=== PATIENT | female | born 1945 | race Caucasian/White ===

== ENCOUNTER → 2016-08-23 | Outpatient (CLI) | payer BC ==
[~2016-08-23] MED LIST: AMLO-110 PO; ASPI1TAB83 PO; ATOR-26 PO; CALCTAB5 PO; CARV25TA PO; CHOL1CAP57 PO; CYAN100020 PO; FERR325T18 PO; FERR325T74 PO; GABA-112 PO; GFNSR600 PO; IPRA1AER2 INH; LISI40TA PO; LVQ500 PO; METF-384 PO; MRLP17 PO; NTRGSL/4 UT; OXGN; PHEN-601 PO; POLY150C4 PO; PPTBS PO; PRFINS INH; TRAM-10 PO
[2016-08-23 12:59] LABS: BLOOD UREA NITROGEN 28 mg/dl (7-18); CALCIUM 9.3 mg/dl (8.5-10.1); CARBON DIOXIDE 31 mmol/L (21-32); CHLORIDE 104 mmol/L (98-107); GLUCOSE 225 mg/dl (70-99); POTASSIUM 4.9 mmol/L (3.5-5.1); SODIUM 141 mmol/L (136-145)
[2016-08-23 13:15] LABS: ESTIMATED AVERAGE GLUCOSE 160 mg/dl; HA1C FLAG Normal (Normal)
== END | disposition home or self-care (01) ==
LOC: C.LABBFT 10:09
PROVIDERS: ATTEND Internal Medicine
DX: E11.59 Type 2 diabetes mellitus with other circulatory complications (principal)

== ENCOUNTER → 2017-01-03 | Outpatient (CLI) | payer BC ==
[2017-01-03 12:33] LABS: URINE APPEARANCE CLEAR (CLEAR); URINE BILIRUBIN NEG (NEG); URINE COLOR YELLOW; URINE EPITHELIAL CELL AUTO >30 /lpf (0-5); URINE NITRITE NEG (NEG); URINE SPECIFIC GRAVITY 1.017 (1.000-1.030); UROBILINOGEN NEG (NEG); ZZUR CULT IF INDIC CLEAN CATCH NO
[2017-01-03 12:36] LABS: MANUAL MICROSCOPIC REQUIRED? NO; REVIEW REQ? NO; SULFASALICYLIC ACID POS (NEG)
[2017-01-03 12:45] LABS: ALT/SGPT 18 U/L (12-78); AST/SGOT 11 U/L (15-37); BLOOD UREA NITROGEN 24 mg/dl (7-18); BUN/CREATININE RATIO 21.6 (10-20); CARBON DIOXIDE 30 mmol/L (21-32); CHLORIDE 104 mmol/L (98-107); CHOLESTEROL 118 mg/dl (0-200); GLUCOSE 161 mg/dl (70-99); POTASSIUM 5.3 mmol/L (3.5-5.1); SODIUM 142 mmol/L (136-145); TRIGLYCERIDES 173 mg/dl (0-150); VERY LOW DENSITY LIPOPROT CALC 35 mg/dl
[2017-01-03 12:46] LABS: ALB/GLOB RATIO 0.8 (0.9-2); ALKALINE PHOSPHATASE 66 U/L (45-117); CALCIUM 9.9 mg/dl (8.5-10.1); CHOLESTEROL/HDL RATIO 3.1; HDL CHOLESTEROL 38 mg/dl; LDL CHOLESTEROL CALCULATED 45 mg/dl
[2017-01-03 13:17] LABS: ESTIMATED AVERAGE GLUCOSE 166 mg/dl; HA1C FLAG Normal (Normal)
[2017-01-03 13:29] LABS: RATIO 1624.6 mcg/mg (0-30.0)
== END | disposition home or self-care (01) ==
LOC: C.LABBFT 07:51
PROVIDERS: ATTEND Physician Assistant Medical
DX: E11.59 Type 2 diabetes mellitus with other circulatory complications (principal); I25.10 Atherosclerotic heart disease of native coronary artery without angina pectoris

== ENCOUNTER → 2017-03-07 | Outpatient (CLI) | payer BC ==
[2017-03-07 12:47] LABS: BLOOD UREA NITROGEN 27 mg/dl (7-18); BUN/CREATININE RATIO 24.5 (10-20); CALCIUM 9.7 mg/dl (8.5-10.1); CARBON DIOXIDE 31 mmol/L (21-32); CHLORIDE 105 mmol/L (98-107); GLUCOSE 126 mg/dl (70-99); POTASSIUM 4.7 mmol/L (3.5-5.1); SODIUM 141 mmol/L (136-145)
== END | disposition home or self-care (01) ==
LOC: C.LAB1850 10:56
PROVIDERS: ATTEND Internal Medicine Cardiovascular Disease
DX: I10 Essential (primary) hypertension (principal); I25.10 Atherosclerotic heart disease of native coronary artery without angina pectoris; E87.5 Hyperkalemia

== ENCOUNTER 2017-03-19 14:16 | Emergency (ER) | payer BC ==
[~2017-03-19] VITALS: Ht 142.2 cm; Wt 69.4 kg
[~2017-03-19 14:16] MED LIST changes: -FERR325T18 PO; -TRAM-10 PO
[2017-03-19 14:21] VITALS: TEMP 36.8; Ht 142.2 cm; Wt 69.4 kg
[2017-03-19] MEDS ORDERED: FENTANYL CITRATE INJ 50 MCG/1 ML 2 ML VIAL IV STA (14:40)
[2017-03-19] MEDS ORDERED: CALCTAB5 PO (14:53)
[2017-03-19] MEDS ORDERED: FERR325T18 PO (14:53)
--- NOTE | 2017-03-19 15:11 | EMERGENCY ROOM VISIT NOTE ---
History Report prepared by Roderick: Francisco Ridley Under the Supervision of: Dr. Caitlin Toro D.O. First contact with patient: 14:27 Chief Complaint: FLANK PAIN Stated Complaint: PAIN ON LEFT SIDE History of Present Illness The patient is a 72 year old female who presents to the Emergency Room with complaints of sharp left sided flank pain that began 3 days ago. She rates her pain an 8/10 in severity. 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 She noticed the pain gradually begin at this time. While she was at work, she noticed that when she bent down, her pain was exacerbated moderately. She denies any fevers, chills, cough, nausea, vomiting, chest pain, shortness of breath, melena, hematochezia, or abnormal urinary symptoms. She notes that she has been eating and drinking normally. This has never happened to her before. No other recent trauma. No recent illness. Source of History: patient Onset: 3 days ago Position: back (left lower) Symptom Intensity: 8/10 Quality: sharp Timing: constant Modifying Factors (Worsening): movement Associated Symptoms: No fevers, No chills, No cough, No chest pain, No SOB, No nausea, No vomiting, No melena, No diarrhea, No urinary symptoms Review of Systems See HPI for pertinent positives & negatives. A total of 10 systems reviewed and were otherwise negative. Past Medical & Surgical Medical Problems: (1) Anemia (2) Diab Emeli Wo Compl, Type Ii Or Unspec Type, Not Uncntrld (3) Diverticulosis Colon (W/O Ment Of Hemorrhage) (4) DJD (degenerative joint disease) (5) Esophageal Reflux (6) Hyperlipidemia Nec/Nos (7) Hypertension Nos (8) Hypoxia Family History Omitted secondary to the patient's age. Social History Smoking Status: Current Every Day Smoker Smokeless Tobacco Use: No Alcohol Use: none Drug Use: none Marital Status: Housing Status: lives alone Occupation Status: employed Current/Historical Medications Scheduled Amlodipine (Norvasc), 5 MG PO DAILY Aspirin (Aspirin), 81 MG PO DAILY Atorvastatin (Lipitor), 80 MG PO DAILY Calcium Carbonate (Caltrate 600), 600 MG PO BID Carvedilol (Coreg), 1 TAB PO BID Cholecalciferol (Vitamin D3), 1,000 UNIT PO BID Cyanocobalamin (Vitamin B12), 1 TAB PO DAILY Ferrous Gluconate (Ferrous Gluconate), 324 MG PO BID Home O2 Therapy (Oxygen), 2 LITERS NA CONTINOUS Lisinopril (Zestril), 40 MG PO QAM Metformin Hcl (Glucophage), 1,000 MG PO BID Polysaccharide Iron Complex (Ferrex 150), 150 MG PO HS Scheduled PRN Nitroglycerin (Nitrostat), 0.4 MG UT UD PRN for Chest Pain Tramadol (Ultram), 1 TABS PO Q8 PRN for Pain Allergies Coded Allergies: No Known Drug Allergy (Verified Allergy, Unknown, `, 05/07/16) Physical Exam Vital Signs Date Time Temp Pulse Resp B/P (MAP) Pulse Ox O2 Delivery O2 Flow Rate FiO2 03/19/17 17:54 70 20 183/77 93 03/19/17 16:16 74 20 154/82 93 03/19/17 15:43 192/79 03/19/17 14:21 36.8 93 17 200/75 98 Room Air Physical Exam GENERAL: alert, well appearing, well nourished, no distress, non-toxic EYE EXAM: normal conjunctiva, PERRL and EOM's grossly intact OROPHARYNX: no exudate, no erythema, lips, buccal mucosa, and tongue normal and mucous membranes are moist NECK: supple, no nuchal rigidity, no adenopathy, non-tender LUNGS: Clear to auscultation. Normal chest wall mechanics, no w/r/r HEART: no murmurs, S1 normal and S2 normal ABDOMEN: abdomen soft, non-tender, normo-active bowel sounds, no masses, no rebound or guarding. BACK: Back is symmetrical on inspection and there is no deformity, no midline tenderness, no CVA tenderness. Left lateral lower back pain, no midline stepoff , no evidence of trauma. SKIN: no rashes and no bruising UPPER EXTREMITIES: upper extremities are grossly normal. LOWER EXTREMITIES: No pitting edema. NEURO EXAM: Normal sensorium, cranial nerves II-XII grossly intact, normal speech, no gross weakness of arms, no gross weakness of legs. Medical Decision & Procedures ER Provider Diagnostic Interpretation: Radiology results have been interpreted by the radiologist and reviewed by me. CT OF THE ABDOMEN AND PELVIS WITHOUT CONTRAST CLINICAL HISTORY: Left lower back pain. COMPARISON STUDY: Renal ultrasound November 17, 2015. TECHNIQUE: Axial images of the abdomen and pelvis were obtained without IV contrast. Images were reviewed in the axial, sagittal, and coronal planes. A dose lowering technique was utilized adhering to the principles of ALARA. FINDINGS: The heart is mildly enlarged. Extensive coronary artery calcification is noted. Multiple bilateral renal calculi are noted. These measure up to 5 mm. There is marked left renal atrophy with multifocal scarring of the left kidney. Slight prominence of the right renal collecting system is likely within normal limits. There is no left hydronephrosis. There are no ureteral calculi. Evaluation of the remainder of the abdomen and pelvis is suboptimal on this unenhanced exam. The liver, spleen, adrenal glands and pancreas are unremarkable. There is a moderate amount of stool within the colon. There is left colon diverticulosis without evidence for acute diverticulitis. The appendix is unremarkable. There is no lymphadenopathy. There are no suspicious skeletal lesions. There is extensive atherosclerotic plaque of the abdominal aorta and branch vessels. There is no aneurysmal dilatation. There is no free fluid. No pneumatosis, free air or portal venous gas is present. Mild multilevel degenerative disc disease is noted as well as moderate multilevel facet arthrosis within the lumbar spine. There is no acute lumbar spine fracture. IMPRESSION: 1. Bilateral nephrolithiasis. No ureteral calculi or hydronephrosis. Slight prominence of the right renal collecting system, likely within normal limits. 2. Marked left renal atrophy with multifocal scarring of the left kidney. 3. Colonic diverticulosis without evidence of acute diverticulitis. 4. Mild cardiomegaly and extensive coronary artery calcification. Electronically signed by: Owen Doherty M.D. 03/19/2017 3:37 PM Dictated Date/Time: 03/19/2017 3:26 PM Laboratory Results 03/19/17 15:05 Red Blood Count 4.09, Mean Corpuscular Volume 88.0, Mean Corpuscular Hemoglobin 27.4, Mean Corpuscular Hemoglobin Concent 31.1, Mean Platelet Volume 10.6, Neutrophils (%) (Auto) 63.4, Lymphocytes (%) (Auto) 24.6, Monocytes (%) (Auto) 4.9, Eosinophils (%) (Auto) 6.4, Basophils (%) (Auto) 0.5, Neutrophils # (Auto) 8.01, Lymphocytes # (Auto) 3.10, Monocytes # (Auto) 0.62, Eosinophils # (Auto) 0.81, Basophils # (Auto) 0.06 03/19/17 15:05 Test 03/19/17 15:05 03/19/17 15:41 White Blood Count 12.62 K/uL (4.8-10.8) Red Blood Count 4.09 M/uL (4.2-5.4) Hemoglobin 11.2 g/dL (12.0-16.0) Hematocrit 36.0 % (37-47) Mean Corpuscular Volume 88.0 fL (80-100) Mean Corpuscular Hemoglobin 27.4 pg (25-34) Mean Corpuscular Hemoglobin Concent 31.1 g/dl (32-36) Platelet Count 274 K/uL (130-400) Mean Platelet Volume 10.6 fL (7.4-10.4) Neutrophils (%) (Auto) 63.4 % Lymphocytes (%) (Auto) 24.6 % Monocytes (%) (Auto) 4.9 % Eosinophils (%) (Auto) 6.4 % Basophils (%) (Auto) 0.5 % Neutrophils # (Auto) 8.01 K/uL (1.4-6.5) Lymphocytes # (Auto) 3.10 K/uL (1.2-3.4) Monocytes # (Auto) 0.62 K/uL (0.11-0.59) Eosinophils # (Auto) 0.81 K/uL (0-0.5) Basophils # (Auto) 0.06 K/uL (0-0.2) RDW Standard Deviation 43.0 fL (36.4-46.3) RDW Coefficient of Variation 13.5 % (11.5-14.5) Immature Granulocyte % (Auto) 0.2 % Immature Granulocyte # (Auto) 0.02 K/uL (0.00-0.02) Anion Gap 6.0 mmol/L (3-11) Est Creatinine Clear Calc Drug Dose 33.6 ml/min Estimated GFR () 52.7 Estimated GFR (Non- 45.4 BUN/Creatinine Ratio 24.3 (10-20) Calcium Level 9.1 mg/dl (8.5-10.1) Urine Color YELLOW Urine Appearance CLEAR (CLEAR) Urine pH 6.0 (4.5-7.5) Urine Specific [place]rey 1.011 (1.000-1.030) Urine Protein 2+ (NEG) Urine Glucose (UA) NEG (NEG) Urine Ketones NEG (NEG) Urine Occult Blood NEG (NEG) Urine Nitrite NEG (NEG) Urine Bilirubin NEG (NEG) Urine Urobilinogen NEG (NEG) Urine Leukocyte Esterase SMALL (NEG) Urine WBC (Auto) 1-5 /hpf (0-5) Urine RBC (Auto) 0-4 /hpf (0-4) Urine Hyaline Casts (Auto) 1-5 /lpf (0-5) Urine Epithelial Cells (Auto) 10-20 /lpf (0-5) Urine Bacteria (Auto) NEG (NEG) Laboratory results per my review. Medications Administered Medications (Trade) Dose Ordered Sig/David Route Start Time Stop Time Status Last Admin Dose Admin Fentanyl Citrate (Fentanyl Inj) 50 mcg NOW STAT IV 03/19/17 14:40 03/19/17 14:42 DC 03/19/17 15:09 50 MCG Sodium Chloride 1,000 ml @ 999 mls/hr Q1H1M STAT IV 03/19/17 15:45 03/19/17 16:45 DC 03/19/17 16:16 999 MLS/HR Ketorolac Tromethamine (Toradol Inj) 15 mg NOW STAT IV 03/19/17 16:13 03/19/17 16:15 DC 03/19/17 16:22 15 MG Lidocaine (Lidoderm Patch 5%) 1 patch NOW STAT TD 03/19/17 16:13 03/19/17 16:15 DC 03/19/17 16:23 1 PATCH Tramadol HCl (Ultram Tab) 50 mg NOW STAT PO 03/19/17 17:16 03/19/17 17:18 DC 03/19/17 17:28 50 MG ED Course 1427: The patient was evaluated in room C2B. A complete history and physical exam was performed. 1440: Ordered Fentanyl Inj 50 mcg IV 1545: Ordered Sodium Chloride 1000 ml @ 999 mls/hr IV 1610: After reassessment, the patient is feeling a little better. I updated her on her results. 1613: Ordered Lidocaine 1 patch TD, Toradol inj 15 mg IV 1716: Ordered Ultram Tab 50 mg PO 1720: Upon reevaluation, the patient is feeling better. I discussed the findings and the treatment plan with the patient. She verbalizes agreement and understanding. She was discharged home. Medical Decision Differential diagnosis: Etiologies such as renal colic, appendicitis, diverticulitis, mesenteric ischemia, aortic pathology, infections, inflammatory bowel disease, PUD, biliary pathology, UTI, musculoskeletal as well as others were entertained. No evidence of renal stone, no evidence of GI pathology, no evidence of acute trauma. Likely musculoskeletal given pain worsening with movement and pt's work. Discussed all results with pt. Discussed sx to watch/return for, f/u with PCP, she verbalized understanding and was agreeable with plan. No sx or evidence on exam to suggest more concerning spinal etiology. Medication Reconcilliation Current Medication List: was personally reviewed by me Blood Pressure Screening Patient's blood pressure: Elevated blood pressure Blood pressure disposition: Elevated BP felt to be situational Impression Primary Impression: Low back pain Scribe Attestation The scribe's documentation has been prepared under my direction and personally reviewed by me in its entirety. I confirm that the note above accurately reflects all work, treatment, procedures, and medical decision making performed by me. Departure Information Dispostion Home / Self-Care Prescriptions Tramadol (Ultram) 50 Mg Tab 1 TABS PO Q8 Y for Pain, #10 TAB Prov: Caitlin Toro, DO 03/19/17 Referrals No Doctor, Assigned (PCP) Forms HOME CARE DOCUMENTATION FORM, IMPORTANT VISIT INFORMATION Patient Instructions My [facility] Additional Instructions Please follow up with your family doctor. Your may continue using Tylenol and ibuprofen as needed for pain during the day, you may apply the Lidoderm patch daily also, however remove it at night before bedtime. If you need to use a stronger pain medication, you may not drive, please monitor for any dizziness or grogginess. Please make sure you're drinking plenty of water, and continue to monitor for any other new or changing symptoms. If you develop any fevers, worsening pain, difficulty urinating, notice a change in your bowel movements, felt numbness or tingling, or you have any other new concerns, please return the emergency room. Problem Qualifiers Primary Impression: Low back pain Chronicity: acute Back pain laterality: left Sciatica presence: without sciatica Qualified Codes: M54.5 - Low back pain
[2017-03-19 15:29] LABS: BASO % 0.5 %; BASO ABS # 0.06 K/uL (0-0.2); COMPLETE YES; EOS % 6.4 %; IG% 0.2 %; LYMPH % 24.6 %; MEAN CORPUSCULAR HEMOGLOBIN 27.4 pg (25-34); MEAN CORPUSCULAR HGB CONC 31.1 g/dl (32-36); MEAN PLATELET VOLUME 10.6 fL (7.4-10.4); MONO % 4.9 %; NEUT % 63.4 %; PLATELET COUNT 274 K/uL (130-400); RED BLOOD COUNT 4.09 M/uL (4.2-5.4); WHITE BLOOD COUNT 12.62 K/uL (4.8-10.8)
--- NOTE | 2017-03-19 15:39 | DIAGNOSTIC IMAGING REPORT ---
CT OF THE ABDOMEN AND PELVIS WITHOUT CONTRAST CLINICAL HISTORY: Left lower back pain. COMPARISON STUDY: Renal ultrasound November 17, 2015. TECHNIQUE: Axial images of the abdomen and pelvis were obtained without IV contrast. Images were reviewed in the axial, sagittal, and coronal planes. A dose lowering technique was utilized adhering to the principles of ALARA. FINDINGS: The heart is mildly enlarged. Extensive coronary artery calcification is noted. Multiple bilateral renal calculi are noted. These measure up to 5 mm. There is marked left renal atrophy with multifocal scarring of the left kidney. Slight prominence of the right renal collecting system is likely within normal limits. There is no left hydronephrosis. There are no ureteral calculi. Evaluation of the remainder of the abdomen and pelvis is suboptimal on this unenhanced exam. The liver, spleen, adrenal glands and pancreas are unremarkable. There is a moderate amount of stool within the colon. There is left colon diverticulosis without evidence for acute diverticulitis. The appendix is unremarkable. There is no lymphadenopathy. There are no suspicious skeletal lesions. There is extensive atherosclerotic plaque of the abdominal aorta and branch vessels. There is no aneurysmal dilatation. There is no free fluid. No pneumatosis, free air or portal venous gas is present. Mild multilevel degenerative disc disease is noted as well as moderate multilevel facet arthrosis within the lumbar spine. There is no acute lumbar spine fracture. IMPRESSION: 1. Bilateral nephrolithiasis. No ureteral calculi or hydronephrosis. Slight prominence of the right renal collecting system, likely within normal limits. 2. Marked left renal atrophy with multifocal scarring of the left kidney. 3. Colonic diverticulosis without evidence of acute diverticulitis. 4. Mild cardiomegaly and extensive coronary artery calcification. Electronically signed by: Owen Doherty M.D. 03/19/2017 3:37 PM Dictated Date/Time: 03/19/2017 3:26 PM
[2017-03-19 15:43] LABS: BUN/CREATININE RATIO 24.3 (10-20); CALCIUM 9.1 mg/dl (8.5-10.1); CREATININE 1.2 mg/dl (0.60-1.20); POTASSIUM 4.3 mmol/L (3.5-5.1)
[2017-03-19] MEDS ORDERED: SODIUM CHLORIDE 0.9% 1000ML 1,000 ML IV STA (15:45)
[2017-03-19 16:02] LABS: URINE APPEARANCE CLEAR (CLEAR); URINE BILIRUBIN NEG (NEG); URINE COLOR YELLOW; URINE NITRITE NEG (NEG); URINE SPECIFIC GRAVITY 1.011 (1.000-1.030); UROBILINOGEN NEG (NEG); ZZUR CULT IF INDIC CLEAN CATCH NO
[2017-03-19 16:06] LABS: MANUAL MICROSCOPIC REQUIRED? NO; REVIEW REQ? NO
[2017-03-19] MEDS ORDERED: LIDODERM (LIDOCAINE) PATCH 5% TD STA (16:13)
[2017-03-19] MEDS ORDERED: KETOROLAC TROMETHAMINE 30 MG/ML VIAL IV STA (16:13)
[2017-03-19] MEDS ORDERED: TRAMADOL HCL 50 MG TAB PO STA (17:16)
[2017-03-19] MEDS ORDERED: TRAM-10 PO (17:21)
[2017-03-19 17:54] VITALS: BP 183/77; PULSE 70; O2SAT 93
== END 2017-03-19 17:56 | disposition home or self-care (01) ==
LOC: C.EDB 14:18 → C.EDC 17:56
DX: M54.5 Low back pain (principal); D64.9 Anemia, unspecified; E11.9 Type 2 diabetes mellitus without complications; K21.9 Gastro-esophageal reflux disease without esophagitis; E78.5 Hyperlipidemia, unspecified; I10 Essential (primary) hypertension; R09.02 Hypoxemia; K57.90 Diverticulosis of intestine, part unspecified, without perforation or abscess without bleeding; F17.200 Nicotine dependence, unspecified, uncomplicated; Z79.82 Long term (current) use of aspirin

== ENCOUNTER → 2017-06-27 | Outpatient (CLI) | payer BC ==
[~2017-06-27] MED LIST changes: +FERR325T18 PO; -FERR325T74 PO; -GABA-112 PO; -GFNSR600 PO; -IPRA1AER2 INH; -LVQ500 PO; -MRLP17 PO; -PHEN-601 PO; -PPTBS PO; -PRFINS INH; +TRAM-10 PO
[2017-06-27 16:54] LABS: HEMATOCRIT 38.5 % (37-47); MEAN CELL VOLUME 88.5 fL (80-100); MEAN CORPUSCULAR HEMOGLOBIN 27.4 pg (25-34); MEAN CORPUSCULAR HGB CONC 30.9 g/dl (32-36); MEAN PLATELET VOLUME 12.4 fL (7.4-10.4); PLATELET COUNT 223 K/uL (130-400); RED BLOOD COUNT 4.35 M/uL (4.2-5.4); WHITE BLOOD COUNT 11.51 K/uL (4.8-10.8)
[2017-06-28 07:58] LABS: ESTIMATED AVERAGE GLUCOSE 160 mg/dl; HA1C FLAG Normal (Normal)
== END | disposition home or self-care (01) ==
LOC: C.LABBFT 14:15
PROVIDERS: ATTEND Physician Assistant Medical
DX: E11.59 Type 2 diabetes mellitus with other circulatory complications (principal); D64.9 Anemia, unspecified

== ENCOUNTER → 2017-10-17 | Outpatient (CLI) | payer BC ==
[~2017-10-17] MED LIST changes: -TRAM-10 PO
--- NOTE | 2017-10-18 15:35 | MAMMOGRAPHY REPORT ---
BILATERAL DIGITAL SCREENING MAMMOGRAM TOMOSYNTHESIS WITH CAD: 10/17/2017 CLINICAL HISTORY: Routine screening. Patient has no complaints. TECHNIQUE: Breast tomosynthesis in addition to standard 2D mammography was performed. Current study was also evaluated with a Computer Aided Detection (CAD) system. COMPARISON: Comparison is made to exams dated: 06/16/2015 mammogram, 04/28/2014 mammogram, 04/23/2013 mammogram, 01/07/2011 mammogram - [facility], 09/25/2008, and 09/24/2007. BREAST COMPOSITION: There are scattered areas of fibroglandular density in both breasts. FINDINGS: There are benign punctate and coarse calcifications in the breasts. No suspicious mass, ar chitectural distortion or cluster of suspicious microcalcifications is seen. IMPRESSION: ACR BI-RADS CATEGORY 1: NEGATIVE There is no mammographic evidence of malignancy. A 1 year screening mammogram is recommended. The pa tient will receive written notification of the results. Approximately 10% of breast cancers are not detected with mammography. A negative mammographic report should not delay biopsy if a clinically suggestive mass is present. Ashley Betancourt M.D. ay/:10/17/2017 16:04:56 [employer] Teacher: Fatemeh OQUENDO(Abner)(Hesham)([place]), [facility] letter sent: Normal 1/2 BI-RADS Code: ACR BI-RADS Category 1: Negative
== END | disposition home or self-care (01) ==
LOC: C.MAMM 12:47
PROVIDERS: ATTEND Internal Medicine
DX: Z12.31 Encounter for screening mammogram for malignant neoplasm of breast (principal)

== ENCOUNTER → 2017-12-12 | Outpatient (CLI) | payer BC ==
[2017-12-12 12:30] LABS: HEMOGLOBIN 11.9 g/dL (12.0-16.0); MEAN CELL VOLUME 88.6 fL (80-100); MEAN CORPUSCULAR HEMOGLOBIN 27.7 pg (25-34); MEAN CORPUSCULAR HGB CONC 31.3 g/dl (32-36); MEAN PLATELET VOLUME 11.7 fL (7.4-10.4); PLATELET COUNT 220 K/uL (130-400); RED CELL DISTRIBUTION WIDTH CV 13.5 % (11.5-14.5); RED CELL DISTRIBUTION WIDTH SD 43.4 fL (36.4-46.3)
[2017-12-12 12:54] LABS: HEMOGLOBIN A1C 7.3 % (4.5-5.6)
[2017-12-12 13:02] LABS: ALBUMIN 3.3 gm/dl (3.4-5.0); ALT/SGPT 19 U/L (12-78); AST/SGOT 13 U/L (15-37); BLOOD UREA NITROGEN 28 mg/dl (7-18); CALCIUM 9.4 mg/dl (8.5-10.1); CARBON DIOXIDE 30 mmol/L (21-32); CHOLESTEROL 101 mg/dl (0-200); CREATININE 1.13 mg/dl (0.60-1.20); GLUCOSE 112 mg/dl (70-99); SODIUM 140 mmol/L (136-145)
[2017-12-12 13:04] LABS: ALKALINE PHOSPHATASE 62 U/L (45-117); LDL CHOLESTEROL CALCULATED 31 mg/dl; TOTAL PROTEIN 7.2 gm/dl (6.4-8.2)
== END | disposition home or self-care (01) ==
LOC: C.LABBFT 10:31
PROVIDERS: ATTEND Physician Assistant Medical
DX: D64.9 Anemia, unspecified (principal); E11.59 Type 2 diabetes mellitus with other circulatory complications; I42.9 Cardiomyopathy, unspecified

== ENCOUNTER 2019-03-18 07:43 | Inpatient (IN) ==
--- NOTE | 2019-02-12 15:39 | PAT Medication Instructions ---
Medication Instructions Date of Service February 12, 2019 Home Medications amlodipine [Norvasc] 10 mg PO QAM aspirin [Aspir-Low] 81 mg PO QAM atorvastatin [Lipitor] 80 mg PO HS carvedilol [Coreg] 25 mg PO BID cholecalciferol (vitamin D3) [Vitamin D3] 1,000 unit PO BID cyanocobalamin (vitamin B-12) [Vitamin B-12] 1,000 mcg PO QAM ferrous gluconate 324 mg PO BID nitroglycerin [Nitrostat] 1 tab SUBLINGUAL UD PRN Prilosec OTC 20 mg PO Q3D glimepiride 2 mg PO BID lisinopril 10 mg PO QAM gabapentin 200 mg PO BID polysaccharide iron complex [Ferric x-150] 150 mg PO HS Continue as directed nitroglycerin [Nitrostat] 1 tab SUBLINGUAL UD PRN (if needed) Prilosec OTC 20 mg PO Q3D DO NOT take the morning of surgery cholecalciferol (vitamin D3) [Vitamin D3] 1,000 unit PO BID cyanocobalamin (vitamin B-12) [Vitamin B-12] 1,000 mcg PO QAM ferrous gluconate 324 mg PO BID glimepiride 2 mg PO BID lisinopril 10 mg PO QAM Take morning of surgery With a small sip of water, OTHERWISE NOTHING TO EAT OR DRINK AFTER MIDNIGHT: amlodipine [Norvasc] 10 mg PO QAM aspirin [Aspir-Low] 81 mg PO QAM carvedilol [Coreg] 25 mg PO BID gabapentin 200 mg PO BID Take evening before surgery atorvastatin [Lipitor] 80 mg PO HS carvedilol [Coreg] 25 mg PO BID cholecalciferol (vitamin D3) [Vitamin D3] 1,000 unit PO BID ferrous gluconate 324 mg PO BID glimepiride 2 mg PO BID gabapentin 200 mg PO BID polysaccharide iron complex [Ferric x-150] 150 mg PO HS Other Notes If you have any questions please call us at [phone] or [phone] or [phone] or [phone]
--- NOTE | 2019-02-13 09:25 | Anesthesiology Consultation ---
Date of Service February 13, 2019 Assessment & Plan (1) Encounter for pre-operative examination: Cardiology 10/03/18 = "No anginal or anginal equivalent type symptoms...from a cardiac standpoint, continue current medications and doses." Note sent to nephrology re: hyperkalemia. Dr. Espinosa recommends patient "hold Lisinopril from the day prior to surgery, OK to resume 1 day after surgery. Priti exalate 30gm P.O x 1 dose, 1 day prior to surgery... if K < 5.5, OK for surgery." *Spoke to patient 02/25; she was prescribed the Kayexalate in January but could not afford it and has thus never picked it up. Dr. Espinosa made aware. Case discussed with Dr. Desouza. OK to proceed without Kayexalate. CHECK K+ AM DOS Chart Review Chart Review: Acceptable Risk for Surgery and Patient seen in Pre Admission Testing Teaching & Discussion Instructed NPO after midnight before surgery, except medications with 15 cc of water. Medication instructions provided according to the PAT guidelines. History Surgery Operation Date: 03/18/19 07:30 Proposed Procedures p L4-L5 Laminectomy and Fusion - Av Torre DO Height/Weight Height: 4 ft 11 in Weight: 78.3 kg Allergies Allergy/AdvReac Type Severity Reaction Status Date / Time No Known Allergies Allergy Verified 02/11/19 08:30 Medications Home Medications Medication Instructions Recorded Confirmed Last Taken amlodipine [Norvasc] 10 mg PO QAM 05/19/18 02/11/19 12/27/18 06:30 aspirin [Aspir-Low] 81 mg PO QAM 05/19/18 02/11/19 12/26/18 atorvastatin [Lipitor] 80 mg PO HS 05/19/18 02/11/19 12/26/18 carvedilol [Coreg] 25 mg PO BID 05/19/18 02/11/19 12/27/18 06:30 cholecalciferol (vitamin D3) 1,000 unit PO BID 05/19/18 02/11/19 12/26/18 [Vitamin D3] cyanocobalamin (vitamin B-12) 1,000 mcg PO QAM 05/19/18 02/11/19 12/26/18 [Vitamin B-12] ferrous gluconate 324 mg PO BID 05/19/18 02/11/19 12/26/18 nitroglycerin [Nitrostat] 1 tab SUBLINGUAL UD PRN 05/19/18 02/11/19 Unknown Prilosec OTC 20 mg PO Q3D 12/25/18 02/11/19 12/26/18 glimepiride 2 mg PO BID 12/25/18 02/11/19 12/26/18 lisinopril 10 mg PO QAM 12/25/18 02/11/19 12/26/18 gabapentin 200 mg PO BID 02/11/19 02/11/19 Unknown polysaccharide iron complex 150 mg PO HS 02/11/19 02/11/19 Unknown [Ferric x-150] Past Medical History Medical History Lumbar spinal stenosis Hyperkalemia (Acute) Persistent since 12/2018 Diabetic peripheral neuropathy Anemia (Chronic ~12/03/13) DJD (degenerative joint disease) (Chronic) CAD (coronary artery disease) NSTEMI 2010, ARABELLA x 1, POBA x 1 [place] [facility] 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 Acute infarct. Treated, complete resolution of symptoms. No residual deficits. Hyperlipidemia Hypertension Myocardial Infarction NSTEMI 2010. ARABELLA to mid LCx and POBA to LAD/Dx. Exercise / Class Metabolic Activity II 4-5 Yardwork/Stairs/Walk up hill (Denies CP or SOB with 1 FOS, limited by back pain) Past Family History Family History Brother Family history of diabetes mellitus Sister Family history of diabetes mellitus Sister Family history of diabetes mellitus Mother Family history of diabetes mellitus Myocardial infarction Stroke Father Myocardial infarction Past Surgical History Surgical History History of cardiac cath 1 STENT 2010[place] [place]NO CHEST PAIN SINCE History of carpal tunnel release RT History of cataract surgery RT/LEFT History of colonoscopy History of tooth extraction History of tubal ligation Past Anesthesia History No Hx of Anesthesia Complications and No Family Hx of Anesthesia Complications History of PONV No Hx of PONV and No Hx of Motion Sickness Social History Smoking Status: Current every day smoker tobacco type: cigarettes Smoking cigarettes per day: < 7 CIG DAILY Do You Dip or Chew Tobacco: No Hx Alcohol Use: No Hx Substance Use: No substance use type: does not use Review of Systems Pt denies any recent chest pain, shortness of breath, palpitations, cough, fever or URI. Physical Exam Vital Signs BP: 134/72 P: 66bpm SPO2: 92% RA T: 98.2 F R: 18 ENMT Mouth: + edentulous Thyromental Distance: > or= 3.5 Finger Breadths (3.5) Mallampati Class: II Neck + short neck; neck extension not limited Respiratory normal respiratory effort Auscultation: lungs clear to auscultation bilaterally Cardiovascular Rate/Rhythm: regular rate and regular rhythm Heart Sounds: no murmur Vessels: + carotid bruit (Very soft bruit L side) Extremities: no edema Testing Laboratory Results 02/13/19 09:50 02/13/19 09:50 PT 10.2 Seconds (9.0-12.0) 02/13/19 09:50 INR 1.0 (0.9-1.1) 02/13/19 09:50 APTT 24.6 Seconds (21.0-31.0) 02/13/19 09:50 Blood Type A Positive 02/13/19 09:50 Antibody Screen NEGATIVE 02/13/19 09:50 GFR of 38 consistent with CKD stage III. Patient has had persistent hyperkalemia -- following with nephrology, was started on Kayexalete 30g once weekly x 6 weeks on 01/15/19. Electrocardiogram Date: 02/13/19 Findings: + NSR @ (66bpm) Left axis deviation. Nonspecific T wave abnormality. Compared to EKG of 05/09/16, no significant change was found. Chest X-Ray Date: 02/13/19 FINDINGS: Lung volumes are normal. Lungs are clear. There is no pneumothorax or pleural effusion. Cardiac size is normal. Mediastinal contours are normal. There is no evidence for pulmonary edema. Mild elevation of the right hemidiaphragm is unchanged. IMPRESSION: No acute cardiopulmonary findings. Other Testing Carotid US = 11/01/12 IMPRESSION: Left greater than right scattered atherosclerotic change. Less than 50% proximal left ICA stenosis. No hemodynamically significant stenos is suspected bilaterally.
[2019-02-13 10:04] LABS: Basophils # (auto) 0.06 K/uL (0-0.2); Basophils % (auto) 0.5 %; Eosinophils # (auto) 0.37 K/uL (0-0.5); Eosinophils % (auto) 3.1 %; Hematocrit (blood only) 40.1 % (37-47); Hemoglobin 12.6 g/dL (12.0-16.0); Immature Granulocytes # (auto) 0.03 K/uL (0.00-0.02); Immature Granulocytes % (auto) 0.2 %; Lymphocytes # (auto) 1.74 K/uL (1.2-3.4); Lymphocytes % (auto) 14.4 %; Mean Corpuscular Hgb Conc 31.4 g/dL (32-36); Mean Corpuscular Volume 88.1 fL (80-100); Mean Platelet Volume 11.6 fL (7.4-10.4); Monocytes # (auto) 0.71 K/uL (0.11-0.59); Monocytes % (auto) 5.9 %; Neutrophils # (auto) 9.21 K/uL (1.4-6.5); Neutrophils % (auto) 75.9 %; Platelet Count 237 K/uL (130-400); RDW Standard Deviation 45.3 fL (36.4-46.3); Red Blood Count 4.55 M/uL (4.2-5.4); White Blood Count 12.12 K/uL (4.8-10.8)
--- NOTE | 2019-02-13 10:17 | XRay Report ---
XR chest Pre-admission PA/Lat CLINICAL HISTORY: Preoperative evaluation. COMPARISON STUDY: Chest radiograph May 07, 2016. FINDINGS: Lung volumes are normal. Lungs are clear. There is no pneumothorax or pleural effusion. Car diac size is normal. Mediastinal contours are normal. There is no evidence for pulmonary edema. Mild elevation of the right hemidiaphragm is unchanged. IMPRESSION: No acute cardiopulmonary findings. Electronically signed by: Owen Doherty M.D. 02/13/2019 10:16 AM
[2019-02-13 10:31] LABS: Partial Thromboplastin Ratio 0.9; Partial Thromboplastin Time 24.6 Seconds (21.0-31.0); Prothrombin Time 10.2 Seconds (9.0-12.0)
[2019-02-13 12:19] LABS: BUN Creatinine Ratio 23.9 (10-20); Creatinine Clr Calc Pharmacy 33.3 ml/min; Est GFR (African American) 44.2; Est GFR (Non-African American) 38.1; Potassium 5.3 mmol/L (3.5-5.1)
--- NOTE | 2019-03-15 17:58 | History and Physical Report ---
DATE OF ADMISSION: 03/18/2019 CHIEF COMPLAINT: Back and lower extremity difficulty, paresthesias, numbness and tingling, neurogenic claudication. She has classic spinal stenosis and she is for a laminectomy and fusion L4-L5 lumbar spine. PAST MEDICAL HISTORY: Diabetes, hypertension, high cholesterol. PAST SURGICAL HISTORY: Negative. ALLERGIES: Negative. FAMILY HISTORY: Heart disease, diabetes. SOCIAL HISTORY: She is single. No alcohol, tobacco. Moderately active lifestyle. REVIEW OF SYSTEMS: Denies any fevers, sweats, chills, weight loss, gain. Ear, nose and throat negative. Denies chest pain, palpitations. Denies asthma, wheezing, shortness of breath. No nausea, vomiting. No urgency, frequency. Denies any psychiatric or skin issues. She has musculoskeletal back pain, joint pain primarily. MEDICATIONS: Listed in the patient intake form and scanned in the computer. PHYSICAL EXAMINATION: GENERAL: She is 4' 11", 171, in distress. VITAL SIGNS: Blood pressure 130/80, pulse 80, respiration 16. HEENT: Pupils react to light and accommodation. Ear, nose and throat clear. CARDIAC: Normal S1, S2. LUNGS: Clear to auscultation. No rales, rhonchi, wheezing. ABDOMEN: Soft, nontender. NEUROLOGIC: She has some weakness with dorsiflexion and plantarflexion. She has gait abnormality. She has no upper or lower motor neuron issues. She has some slight loss of sensation. Reflex examination is normal. ASSESSMENT: Spondylolisthesis. IMPRESSION: Spondylolisthesis and stenosis. PLAN: Laminectomy and fusion L4-L5 lumbar spine.
[~2019-03-18 07:43] MED LIST changes: +ACETAMINOPHEN 1000 MG/100 ML IV IV SCH; -AMLO-110 PO; -ASPI1TAB83 PO; -ATOR-26 PO; -CALCTAB5 PO; -CARV25TA PO; +CEFAZOLIN 2000MG 2,000 MG/15 ML SYR IV SCH; -CHOL1CAP57 PO; -CYAN100020 PO; -FERR325T18 PO; -LISI40TA PO; +LR 15ML/HR IV SCH; -METF-384 PO; -NTRGSL/4 UT; -OXGN; -POLY150C4 PO; +SODIUM CHLORIDE 0.9% 1,000 ML IV SCH
[2019-03-18] MEDS ORDERED: PROPOFOL IV EMULSION 10 MG/ML 20 ML VIAL IV ONE (08:10)
[2019-03-18] MEDS ORDERED: ONDANSETRON INJ 2 MG/ML 2 ML VIAL ONE ×2 (08:10→15:07)
[2019-03-18] MEDS ORDERED: LIDOCAINE HCL 2% 2 ML VIAL/AMP(20MG/ML) INFIL ONE (08:10)
[2019-03-18] MEDS ORDERED: fentaNYL citrate 100 MCG/2 ML VIAL ONE ×2 (08:11→12:38)
[2019-03-18] MEDS ORDERED: MIDAZOLAM HCL 1 MG/ML 2ML VIAL ONE (08:11)
[2019-03-18] MEDS ORDERED: fentaNYL citrate 100 MCG/2 ML VIAL IV PRN (09:35)
[2019-03-18] MEDS ORDERED: ONDANSETRON INJ 2 MG/ML 2 ML VIAL IV PRN (09:35)
[2019-03-18] MEDS ORDERED: ePHEDrine sulfate 50 MG/ML AMP IV PRN (09:35)
[2019-03-18] MEDS ORDERED: ATROPINE SULFATE 0.1 MG/ML 10ML SYR IV PRN (09:35)
[2019-03-18] MEDS ORDERED: HYDROmorphone INJ 2 MG/ML SYR/VIAL IV PRN (09:35)
[2019-03-18] MEDS ORDERED: GELATIN SPONGE SZ 100 ONE (10:17)
[2019-03-18] MEDS ORDERED: VANCOMYCIN HCL 1000MG/20ML VIAL ONE (10:17)
[2019-03-18] MEDS ORDERED: BUPIVACAINE/EPINEPHRINE 0.5% MPF 1:200,000 30 ML VIAL ONE (10:17)
[2019-03-18] MEDS ORDERED: THROMBIN FOR SOLN 20000 UNIT KIT ONE (10:17)
--- NOTE | 2019-03-18 10:44 | History & Physical Bridge Note ---
Date of Service March 18, 2019 History & Physical Bridge Note I have examined the patient, reviewed the History & Physical and in the interval since the performance of the History & Physical I have noted the following changes of clinical significance: no changes noted
[2019-03-18] MEDS ORDERED: KETAMINE HCL INJ 50 MG/ML 10 ML VIAL ONE (11:25)
[2019-03-18] MEDS ORDERED: GLYCOPYRROLATE 0.2 MG/ML VIAL ONE (11:27)
[2019-03-18] MEDS ORDERED: NEOSTIGMINE METHYLSULFATE 5 MG/5 ML SYR ONE (11:27)
--- NOTE | 2019-03-18 13:11 | Fluoroscopy Report ---
INTRAOPERATIVE RADIOGRAPH CLINICAL HISTORY: L3-L5 spinal fusion. Fluoroscopy time: 4 seconds. FINDINGS: A single spot fluoroscopic view of the lumbar spine is presented. There has been laminectom y and posterior fusion from L3-L5. Interpedicular screws are present at all levels. The orthopedic zavala rdware appears intact. IMPRESSION: Intraoperative image from L3-L5 spinal fusion as above. Electronically signed by: Kalpesh Menendez M.D. 03/18/2019 1:10 PM
--- NOTE | 2019-03-18 13:16 | Post Operative Brief Note ---
PG Immediate Post Op with CF Date of Surgery March 18, 2019 Pre & Post Diagnosis Operation Date: 03/18/19 09:50 Pre-Op Diagnosis: Lumbar Spinal Stenosis Post-Op Diagnosis: Lumbar Spinal Stenosis Procedure Operation Date: 03/18/19 09:50 Actual Procedures p L4-L5 Laminectomy and Fusion(Not Applicable) - Av Torre DO Procedure: Laminectomy and fusion L3-L5 Surgeon Av Torre DO Diazo Technician fatoumata Estimated Blood Loss 250 Findings Consistent with Post-Op Diagnosis Specimens Specimen Description: none Drains Rosales Catheter and Hemovac Drain Anesthesia Type General Overlapping Procedure I was immediately available: during the entire case.
--- NOTE | 2019-03-18 13:25 | Post Operative Brief Note ---
PG Immediate Post Op with CF Date of Surgery March 18, 2019 Pre & Post Diagnosis Operation Date: 03/18/19 09:50 Pre-Op Diagnosis: Lumbar Spinal Stenosis Post-Op Diagnosis: Lumbar Spinal Stenosis Procedure Operation Date: 03/18/19 09:50 Actual Procedures p L4-L5 Laminectomy and Fusion(Not Applicable) - Av Torre DO Procedure: L3-5 laminectomy and fusion Surgeon Av Torre DO Flyer Maker fatoumata Estimated Blood Loss 250 Findings Consistent with Post-Op Diagnosis Specimens Specimen Description: none Drains Rosales Catheter and Hemovac Drain Anesthesia Type General
--- NOTE | 2019-03-18 15:06 | Anesthesiology Progress Note ---
Date of Service March 18, 2019 Anesthesia Post Procedure Vital Signs Vital Signs: Temp Pulse Pulse Pulse Resp BP BP 03/18/19 15:00 57 L 13 03/18/19 14:55 58 L 12 126/50 L 03/18/19 14:50 55 L 12 126/65 03/18/19 14:46 56 L 12 135/61 03/18/19 14:45 54 L 14 03/18/19 14:44 36.3 C L 03/18/19 14:40 54 L 13 132/46 L 03/18/19 14:35 55 L 14 132/47 L 03/18/19 14:31 53 L 14 130/43 L 03/18/19 14:30 54 L 14 03/18/19 14:29 36.9 C 03/18/19 14:27 55 L 12 03/18/19 14:26 54 L 14 128/46 L 03/18/19 14:25 54 L 14 03/18/19 14:20 52 L 14 134/45 L 03/18/19 14:16 55 L 14 137/47 L 03/18/19 14:15 53 L 14 03/18/19 14:11 54 L 14 135/47 L 03/18/19 14:10 56 L 12 03/18/19 14:05 56 L 14 137/49 L 03/18/19 14:01 57 L 13 139/51 L 03/18/19 14:00 60 13 03/18/19 13:55 71 14 161/71 H 03/18/19 13:50 66 18 150/57 H 03/18/19 13:45 63 14 149/60 H 03/18/19 13:40 67 12 151/58 H 03/18/19 13:35 36.6 C 66 66 14 140/52 L 140/52 L 03/18/19 08:19 36.6 C 66 18 180/81 H Pulse Ox 03/18/19 15:00 93 03/18/19 14:55 92 03/18/19 14:50 95 03/18/19 14:46 94 03/18/19 14:45 94 03/18/19 14:44 95 03/18/19 14:40 94 03/18/19 14:35 94 03/18/19 14:31 93 03/18/19 14:30 94 03/18/19 14:29 94 03/18/19 14:27 95 03/18/19 14:26 94 03/18/19 14:25 94 03/18/19 14:20 93 03/18/19 14:16 92 03/18/19 14:15 93 03/18/19 14:11 92 03/18/19 14:10 92 03/18/19 14:05 95 03/18/19 14:01 95 03/18/19 14:00 95 03/18/19 13:55 96 03/18/19 13:50 92 03/18/19 13:45 93 03/18/19 13:40 93 03/18/19 13:35 94 03/18/19 08:19 93 Pain Intensity Back: Pain Intensity: 3 Transfer of Care Handoff Completed per policy Notes Mental Status: alert / awake / arousable and participated in evaluation Patient Amnestic to Procedure: Yes Nausea / Vomiting: adequately controlled Pain: adequately controlled Airway Patency, RR, SpO2: stable & adequate BP & HR: stable & adequate Hydration State: stable & adequate Anesthetic Complications: no major complications apparent and Pt Satisfied with anesthetic care
[2019-03-18] MEDS ORDERED: ONDANSETRON 4 MG TAB PO PRN (16:02)
[2019-03-18] MEDS ORDERED: SOD PHOSPHATE/SOD BIPHOSPHATE ENEMA 132 ML BTL PR PRN (16:02)
[2019-03-18] MEDS ORDERED: MAGNESIUM HYDROXIDE SUSP 30 ML UDC PO PRN (16:02)
[2019-03-18] MEDS ORDERED: NALOXONE HCL 0.4 MG/1 ML VIAL/CARP IV PRN (16:02)
[2019-03-18] MEDS ORDERED: ACETAMINOPHEN 1,000 MG/100 ML VIAL IV PRN (16:02)
[2019-03-18] MEDS ORDERED: PROMETHAZINE HCL 12.5 MG in SODIUM CHLORIDE 0.9% 50 ML IV PRN (16:02)
[2019-03-18] MEDS ORDERED: ALUMINUM/MAGNESIUM SUSP 30 ML UDC PO PRN (16:02)
[2019-03-18] MEDS ORDERED: HYDROmorphone INJ 0.5 MG/0.5 ML SYR IV PRN (16:02)
[2019-03-18] MEDS ORDERED: LORazepam 0.5 MG TAB PO PRN (16:02)
[2019-03-18] MEDS ORDERED: SODIUM CHLORIDE 0.9% 1000ML 1,000 ML IV SCH (16:02)
[2019-03-18] MEDS ORDERED: BISACODYL 10 MG SUPP PR PRN (16:02)
[2019-03-18] MEDS ORDERED: DO NOT ADMINISTER FLU VACCINE PRN (16:02)
[2019-03-18] MEDS ORDERED: DO NOT ADMINISTER PNEUMOCOCCAL VACCINE PRN (16:02)
[2019-03-18] MEDS ORDERED: NITROGLYCERIN SL 0.4 MG/TAB TAB SL PRN (16:02)
[2019-03-18] MEDS ORDERED: PHARMACY GLYCEMIC MGMT CONSULT PRN (16:12)
[2019-03-18] MEDS ORDERED: GLUCAGON FOR INJ 1 MG VIAL IM PRN (16:15)
[2019-03-18] MEDS ORDERED: GLUCOSE 10 TABS/TUBE PO PRN (16:15)
[2019-03-18] MEDS ORDERED: DEXTROSE 50% 50 ML SYRINGE IV PRN (16:15)
[2019-03-18] MEDS ORDERED: GLUCOSE 40% GEL 15 GM TUBE PO PRN (16:15)
[2019-03-18] MEDS ORDERED: CARBOHYDRATES FOR HYPOGLYCEMIA PO PRN (16:15)
--- NOTE | 2019-03-18 16:33 | History & Physical Report ---
Date of Service March 18, 2019 Assessment & Plan (1) Lumbar spinal stenosis: -S/p lumbar decompression fusion, by Dr. Torre on 03/18/2019 -PT/OT per primary team -No anticoagulation with spinal surgery -Pain management on board -Bowel regimen ordered (2) Cardiomyopathy: (3) Atherosclerotic heart disease of [place] coronary artery with other forms of angina pectoris: (4) HTN (hypertension): (5) Essential familial hypercholesterolemia: -Continue amlodipine 10 mg QAM, aspirin 81 mg QAM, atorvastatin 80 mg HS, carvedilol 25 mg BID, furosemide 20 mg QAM, lisinopril 10 mg QAM (6) CKD (chronic kidney disease) stage 3, GFR 30-59 ml/min: - Follow am CMP to assess BUN/ Cr. - Encourage PO intake with fluids (7) Smokes less than 1/2 pack per day: - Cessation encouraged (8) DM (diabetes mellitus), type 2, uncontrolled w/neurologic complication: - Hold glimepiride -possibly be able to resume tomorrow or more likely u [place]eron discharge - ISS with accuchecks ACHS - GLycemic pharmacy consulted (9) Sciatica: - Monitor s/p surgical procedure (10) Anemia: - Cont iron supplementation (11) Anxiety: -Stable (12) GERD (gastroesophageal reflux disease): -Uses Prilosec 20 mg every 3 days (13) DVT prophylaxis: - teds, ambulate per primary team. Dispo: From home History of Present Illness Primary Care Provider: Nadia Suarez PA-C This is a 74 yo F with PMHx of CAD, cardiomyopathy HTN, HLD, DM type II, CKD stage III, current tobacco user, using half pack cigarettes per day, anemia, DJD, peripheral neuropathy, sciatica, history of TIA, and GERD who underwent elective lumbar spinal surgery by Dr. Torre on 03/18/2019. Allergies Allergy/AdvReac Type Severity Reaction Status Date / Time No Known Allergies Allergy Verified 03/18/19 08:13 Home Medications Home Medications Medication Instructions Recorded Confirmed Type amlodipine [Norvasc] 10 mg PO QAM 05/19/18 03/18/19 History aspirin [Aspir-Low] 81 mg PO QAM 05/19/18 03/18/19 History atorvastatin [Lipitor] 80 mg PO HS 05/19/18 03/18/19 History cholecalciferol (vitamin D3) 1,000 unit PO BID 05/19/18 03/18/19 History [Vitamin D3] cyanocobalamin (vitamin B-12) 1,000 mcg PO QAM 05/19/18 03/18/19 History [Vitamin B-12] ferrous gluconate 324 mg PO BID 05/19/18 03/18/19 History nitroglycerin [Nitrostat] 1 tab SUBLINGUAL UD PRN 05/19/18 03/18/19 History Prilosec OTC 20 mg PO Q3D 12/25/18 03/18/19 History glimepiride 2 mg PO BID 12/25/18 03/18/19 History lisinopril 10 mg PO QAM 12/25/18 03/18/19 History polysaccharide iron complex 150 mg PO HS 02/11/19 03/18/19 History [Ferric x-150] gabapentin 100 mg capsule 200 mg PO BID #360 cap 02/28/19 03/18/19 Rx carvedilol 25 mg tablet 25 mg PO BID #180 tab 03/05/19 03/18/19 Rx albuterol sulfate 2 puffs INH Q6H #6.7 gm 03/12/19 03/18/19 Rx furosemide [Lasix] 20 mg PO QAM #10 tab 03/12/19 03/18/19 Rx Past Med/Surg History Medical History Lumbar spinal stenosis Hyperkalemia (Acute) Persistent since 12/2018 Diabetic peripheral neuropathy Anemia (Chronic ~12/03/13) DJD (degenerative joint disease) (Chronic) CAD (coronary artery disease) NSTEMI 2010, [place] 1, [place] [facility] 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 Acute infarct. Treated, complete resolution of symptoms. No residual deficits. Hyperlipidemia Hypertension Myocardial Infarction NSTEMI 2010. ARABELLA to mid LCx and POBA to LAD/Dx. Surgical History History of cardiac cath 1 [place] [place] History of carpal tunnel release RT History of cataract surgery RT/LEFT History of colonoscopy History of tooth extraction History of tubal ligation Family History Brother Family history of diabetes mellitus Sister Family history of diabetes mellitus Sister Family history of diabetes mellitus Mother Family history of diabetes mellitus Myocardial infarction Stroke Father Myocardial infarction Social History Preferred Language: Mauritian Communication Ability: Effective Public Opinion Survey Taker Required: No Beliefs That Will Affect Care: None Current Living Situation: Alone Other Information That Helps Us Care for You: No Feels Safe at Home: Yes Safety Concerns: Feels Safe At This Time Smoking Status: Former smoker Tobacco Type: cigarettes ; Age Started Using Tobacco: 24 ; Cigarettes Per Day: 7 A DAY ; Do You Dip or Chew Tobacco: No ; Second Hand Exposure: Yes (NIECE) ; Tobacco Cessation Education Requested by Patient: No Hx Alcohol Use: No Hx Substance Use: No Results & Data Vital Signs (Past 12 Hours) Vital Signs Temp Pulse Pulse Pulse Resp BP BP 03/18/19 15:55 36.3 C L 61 16 142/56 H 03/18/19 15:25 36.5 C 57 L 16 124/61 03/18/19 15:11 62 14 145/51 H 03/18/19 15:10 65 14 03/18/19 15:06 61 20 144/68 H 03/18/19 15:05 49 L 12 03/18/19 15:00 57 L 13 03/18/19 14:55 58 L 12 126/50 L 03/18/19 14:50 55 L 12 126/65 03/18/19 14:46 56 L 12 135/61 03/18/19 14:45 54 L 14 03/18/19 14:44 36.3 C L 03/18/19 14:40 54 L 13 132/46 L 03/18/19 14:35 55 L 14 132/47 L 03/18/19 14:31 53 L 14 130/43 L 03/18/19 14:30 54 L 14 03/18/19 14:29 36.9 C 03/18/19 14:27 55 L 12 03/18/19 14:26 54 L 14 128/46 L 03/18/19 14:25 54 L 14 03/18/19 14:20 52 L 14 134/45 L 03/18/19 14:16 55 L 14 137/47 L 03/18/19 14:15 53 L 14 03/18/19 14:11 54 L 14 135/47 L 03/18/19 14:10 56 L 12 03/18/19 14:05 56 L 14 137/49 L 03/18/19 14:01 57 L 13 139/51 L 03/18/19 14:00 60 13 03/18/19 13:55 71 14 161/71 H 03/18/19 13:50 66 18 150/57 H 03/18/19 13:45 63 14 149/60 H 03/18/19 13:40 67 12 151/58 H 03/18/19 13:35 36.6 C 66 66 14 140/52 L 140/52 L 03/18/19 08:19 36.6 C 66 18 180/81 H Pulse Ox 03/18/19 15:55 93 03/18/19 15:25 93 03/18/19 15:11 95 03/18/19 15:10 94 03/18/19 15:06 91 03/18/19 15:05 93 03/18/19 15:00 93 03/18/19 14:55 92 03/18/19 14:50 95 03/18/19 14:46 94 03/18/19 14:45 94 03/18/19 14:44 95 03/18/19 14:40 94 03/18/19 14:35 94 03/18/19 14:31 93 03/18/19 14:30 94 03/18/19 14:29 94 03/18/19 14:27 95 03/18/19 14:26 94 03/18/19 14:25 94 03/18/19 14:20 93 03/18/19 14:16 92 03/18/19 14:15 93 03/18/19 14:11 92 03/18/19 14:10 92 03/18/19 14:05 95 03/18/19 14:01 95 03/18/19 14:00 95 03/18/19 13:55 96 03/18/19 13:50 92 03/18/19 13:45 93 03/18/19 13:40 93 03/18/19 13:35 94 03/18/19 08:19 93 Code Status & VTE Plan VTE Prophylaxis Plan VTE Prophylaxis will be ordered: Yes PG Care Time/CCT Total # of Minutes Spent Total Time Spent with Patient: Total time spent is greater than 50% in coordination of care (as documented) at patient's floor/unit and/or counseling patient:
--- NOTE | 2019-03-18 17:08 | Hospitalist Consultation ---
Date of Consultation March 18, 2019 Assessment & Plan (1) Lumbar spinal stenosis: -S/p lumbar decompression fusion, by Dr. Torre on 03/18/2019 -PT/OT per primary team -No anticoagulation with spinal surgery -Pain management on board -Bowel regimen ordered -Stop IVF now -- as pt has issues with fluid retention and follows with cardiology. Pt was seen in the ER for SOB and fluid retention last week. I do not see any history of CHF as per her record, but there is not a 2D echo since 2012 (which at that time was normal). She is on daily furosemide 20 mg which was scheduled for tomorrow. Her BP is slightly elevated currently, which may be secondary to pain and nausea. - Continue antiemetics with zofran and reglan, can add compazine if uncontrolled. Pt notes she does not handle narcotics well as they do cause nausea. (2) Cardiomyopathy: (3) Atherosclerotic heart disease of [place] coronary artery with other forms of angina pectoris: (4) HTN (hypertension): (5) Essential familial hypercholesterolemia: -Continue amlodipine 10 mg QAM, aspirin 81 mg QAM, atorvastatin 80 mg HS, carvedilol 25 mg BID, furosemide 20 mg QAM, lisinopril 10 mg QAM - Monitor strict I/Os - encourage daily weights upon discharge - HH diet once nausea improved. (6) CKD (chronic kidney disease) stage 3, GFR 30-59 ml/min: - Follow am CMP to assess BUN/ Cr. - Encourage PO intake with fluids - stop IVF (7) Smokes less than 1/2 pack per day: - Cessation encouraged (8) DM (diabetes mellitus), type 2, uncontrolled w/neurologic complication: - Hold glimepiride -possibly be able to resume tomorrow or more likely upon discharge - ISS with accuchecks ACHS - GLycemic pharmacy consulted (9) Sciatica: - Monitor s/p surgical procedure (10) Anemia: - Cont iron supplementation (11) Anxiety: -Stable (12) GERD (gastroesophageal reflux disease): -Uses Prilosec 20 mg every 3 days (13) DVT prophylaxis: - teds, ambulate per primary team. Dispo: From home, lives alone. Thank you for involving us in the care of Ms. Mcdaniels. Please do not hesitate to call with questions or concerns. Medicine will follow along. History of Present Illness Reason for Consultation: Medical management Requesting Physician: Dr. Torre Attending Physician: Av Torre DO History of Present Illness This is a 74 yo F with PMHx of CAD, cardiomyopathy HTN, HLD, DM type II, CKD stage III, current tobacco user, using half pack cigarettes per day, anemia, DJD, peripheral neuropathy, sciatica, history of TIA, and GERD who underwent elective lumbar spinal surgery by Dr. Torre on 03/18/2019. She reports doing well other than feeling slightly nauseous. She has been drinking water but did vomit one time. She denies any other complaints. She has good sensation to light touch in her feet bilaterally. She reports living at home alone, but will have family staying with her to help. Pt denies any other acute complaints. Allergies Allergy/AdvReac Type Severity Reaction Status Date / Time No Known Allergies Allergy Verified 03/18/19 08:13 Home Medications Home Medications Medication Instructions Recorded Confirmed Type amlodipine [Norvasc] 10 mg PO QAM 05/19/18 03/18/19 History aspirin [Aspir-Low] 81 mg PO QAM 05/19/18 03/18/19 History atorvastatin [Lipitor] 80 mg PO HS 05/19/18 03/18/19 History cholecalciferol (vitamin D3) 1,000 unit PO BID 05/19/18 03/18/19 History [Vitamin D3] cyanocobalamin (vitamin B-12) 1,000 mcg PO QAM 05/19/18 03/18/19 History [Vitamin B-12] ferrous gluconate 324 mg PO BID 05/19/18 03/18/19 History nitroglycerin [Nitrostat] 1 tab SUBLINGUAL UD PRN 05/19/18 03/18/19 History Prilosec OTC 20 mg PO Q3D 12/25/18 03/18/19 History glimepiride 2 mg PO BID 12/25/18 03/18/19 History lisinopril 10 mg PO QAM 12/25/18 03/18/19 History polysaccharide iron complex 150 mg PO HS 02/11/19 03/18/19 History [Ferric x-150] gabapentin 100 mg capsule 200 mg PO BID #360 cap 02/28/19 03/18/19 Rx carvedilol 25 mg tablet 25 mg PO BID #180 tab 03/05/19 03/18/19 Rx albuterol sulfate 2 puffs INH Q6H #6.7 gm 03/12/19 03/18/19 Rx furosemide [Lasix] 20 mg PO QAM #10 tab 03/12/19 03/18/19 Rx Patient History Medical History Lumbar spinal stenosis Hyperkalemia (Acute) Persistent since 12/2018 Diabetic peripheral neuropathy Anemia (Chronic ~12/03/13) DJD (degenerative joint disease) (Chronic) CAD (coronary artery disease) NSTEMI 2010, ARABELLA x 1, POBA x 1 @ [facility] 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 Acute infarct. Treated, complete resolution of symptoms. No residual deficits. Hyperlipidemia Hypertension Myocardial Infarction NSTEMI 2010. ARABELLA to mid LCx and POBA to LAD/Dx. Surgical History History of cardiac cath 1 STENT 2010-[facility] [place]NO CHEST PAIN SINCE History of carpal tunnel release RT History of cataract surgery RT/LEFT History of colonoscopy History of tooth extraction History of tubal ligation Family History Brother Family history of diabetes mellitus Sister Family history of diabetes mellitus Sister Family history of diabetes mellitus Mother Family history of diabetes mellitus Myocardial infarction Stroke Father Myocardial infarction Social History Preferred Language: [place] Islander Communication Ability: Effective Pre K Lead Teacher Required: No Beliefs That Will Affect Care: None Current Living Situation: Alone Other Information That Helps Us Care for You: No Feels Safe at Home: Yes Safety Concerns: Feels Safe At This Time Smoking Status: Former smoker Tobacco Type: cigarettes ; Age Started Using Tobacco: 24 ; Cigarettes Per Day: 7 A DAY ; Do You Dip or Chew Tobacco: No ; Second Hand Exposure: Yes (NIECE) ; Tobacco Cessation Education Requested by Patient: No Hx Alcohol Use: No Hx Substance Use: No Review of Systems Review of Systems: Constitutional: No fever, sweats or chills Eyes: No diplopia, no worsening or blurred vision ENT: normal hearing, no trouble swallowing Respiratory: No cough, sputum, dyspnea at rest or on exertion Cardiovascular: No chest pain, tightness or palpitations Abdomen: No pain, + nausea, + vomiting x 1, diarrhea or constipation Musculoskeletal: No joint pain, calf pain, swelling Back: Drain working well, mild pain Neurologic: No weakness, numbness/tingling, or balance problems Psychiatric: No anxiety or depression Skin: No rash or itch Physical Exam Physical Exam: General: awake, alert, no apparent distress, + obese Head: Normocephalic, atraumatic ENT: PERRL, EOMI, no pharyngeal exudate, mucous membranes moist Chest: Clear to auscultation, on 2 L via NC, no adventitious breath sounds Cardiac: Regular rate and rhythm, no murmur, no JVD, normal peripheral pulses, good capillary refill Abdominal: NABS x 4 quadrants, soft, nontender to palpation, no rebound, guarding or tenderness Back: hemovac drain in place, bandage c/d/i Extremities: Normal inspection, no peripheral edema or erythema, calfs nontender to palpation Psych: Normal mood and affect Neuro: AAO x 3, no gross motor deficits, speech is clear, no peripheral sensory deficits Results & Data Vital Signs (Past 12 Hours) Vital Signs Temp Pulse Pulse Pulse Resp BP BP 03/18/19 16:25 36.4 C L 60 16 148/54 H 03/18/19 15:55 36.3 C L 61 16 142/56 H 03/18/19 15:25 36.5 C 57 L 16 124/61 03/18/19 15:11 62 14 145/51 H 03/18/19 15:10 65 14 03/18/19 15:06 61 20 144/68 H 03/18/19 15:05 49 L 12 03/18/19 15:00 57 L 13 03/18/19 14:55 58 L 12 126/50 L 03/18/19 14:50 55 L 12 126/65 03/18/19 14:46 56 L 12 135/61 03/18/19 14:45 54 L 14 03/18/19 14:44 36.3 C L 03/18/19 14:40 54 L 13 132/46 L 03/18/19 14:35 55 L 14 132/47 L 03/18/19 14:31 53 L 14 130/43 L 08/12/19 14:30 54 L 14 03/18/19 14:29 36.9 C 03/18/19 14:27 55 L 12 03/18/19 14:26 54 L 14 128/46 L 03/18/19 14:25 54 L 14 03/18/19 14:20 52 L 14 134/45 L 03/18/19 14:16 55 L 14 137/47 L 03/18/19 14:15 53 L 14 03/18/19 14:11 54 L 14 135/47 L 03/18/19 14:10 56 L 12 03/18/19 14:05 56 L 14 137/49 L 03/18/19 14:01 57 L 13 139/51 L 03/18/19 14:00 60 13 03/18/19 13:55 71 14 161/71 H 03/18/19 13:50 66 18 150/57 H 03/18/19 13:45 63 14 149/60 H 03/18/19 13:40 67 12 151/58 H 03/18/19 13:35 36.6 C 66 66 14 140/52 L 140/52 L 03/18/19 08:19 36.6 C 66 18 180/81 H Pulse Ox 03/18/19 16:25 96 03/18/19 15:55 93 03/18/19 15:25 93 03/18/19 15:11 95 03/18/19 15:10 94 03/18/19 15:06 91 03/18/19 15:05 93 03/18/19 15:00 93 03/18/19 14:55 92 03/18/19 14:50 95 03/18/19 14:46 94 03/18/19 14:45 94 03/18/19 14:44 95 03/18/19 14:40 94 03/18/19 14:35 94 03/18/19 14:31 93 03/18/19 14:30 94 03/18/19 14:29 94 03/18/19 14:27 95 03/18/19 14:26 94 03/18/19 14:25 94 03/18/19 14:20 93 03/18/19 14:16 92 03/18/19 14:15 93 03/18/19 14:11 92 03/18/19 14:10 92 08/12/19 14:05 95 03/18/19 14:01 95 03/18/19 14:00 95 03/18/19 13:55 96 03/18/19 13:50 92 03/18/19 13:45 93 03/18/19 13:40 93 03/18/19 13:35 94 03/18/19 08:19 93 PG Care Time/CCT Total # of Minutes Spent Total Time Spent with Patient: Total time spent is greater than 50% in coordination of care (as documented) at patient's floor/unit and/or counseling patient:
[2019-03-18] MEDS: ALBUTEROL HFA 8 GM INHALER INH SCH (18:40)
[2019-03-18] MEDS: FERROUS GLUCONATE 324 MG TAB PO SCH (18:41)
[2019-03-18] MEDS: CEFAZOLIN 2000MG 2,000 MG/15 ML SYR IV SCH (18:41)
[2019-03-18] MEDS: INSULIN ASPART 100 UNITS/ML 3 ML PEN SC SCH ×2 (18:51→21:49)
[2019-03-18] MEDS ORDERED: ACETAMINOPHEN 1,000 MG/100 ML VIAL IV SCH ×2 (19:00→22:00)
[2019-03-18] MEDS ORDERED: NON-FORMULARY MEDICATION (Ferrous Gluconate 324 MG) PO SCH (21:00)
[2019-03-18] MEDS ORDERED: LANTUS PER UNIT CHARGE SQ ONE (21:00)
[2019-03-18] MEDS ORDERED: GLIMEPIRIDE 2 MG TAB PO SCH (21:00)
[2019-03-18] MEDS: CARVEDILOL 25 MG TAB PO SCH (21:49)
[2019-03-18] MEDS: DOCUSATE SODIUM/SENNA 50/8.6MG TAB PO SCH (21:55)
[2019-03-18] MEDS: CHOLECALCIFEROL 1,000 UNITS TAB PO SCH (21:55)
[2019-03-18] MEDS: IRON POLYSACCHARIDE COMPLEX 150 MG CAPSULE PO SCH (21:55)
[2019-03-18] MEDS: ATORVASTATIN 40 MG TAB PO SCH (21:55)
[2019-03-18] MEDS: GABAPENTIN 100 MG CAP PO SCH (21:55)
[2019-03-19] MEDS: INSULIN ASPART 100 UNITS/ML 3 ML PEN SC SCH ×6 (00:23→21:51)
[2019-03-19] MEDS: ALBUTEROL HFA 8 GM INHALER INH SCH ×5 (00:25→23:53)
[2019-03-19] MEDS: ACETAMINOPHEN 1,000 MG/100 ML VIAL IV SCH ×2 (02:57→09:28)
[2019-03-19] MEDS: CEFAZOLIN 2000MG 2,000 MG/15 ML SYR IV SCH (03:14)
[2019-03-19] MEDS: POLYETHYLENE (MIRALAX) 17 GM PACK PO SCH ×4 (05:52→23:53)
[2019-03-19 08:18] LABS: Hematocrit (blood only) 32.7 % (37-47); Hemoglobin 10.4 g/dL (12.0-16.0); Mean Corpuscular Hgb Conc 31.8 g/dL (32-36); Mean Corpuscular Volume 86.3 fL (80-100); Mean Platelet Volume 10.4 fL (7.4-10.4); Platelet Count 221 K/uL (130-400); RDW Coefficient of Variation 13.9 % (11.5-14.5); RDW Standard Deviation 43.9 fL (36.4-46.3); Red Blood Count 3.79 M/uL (4.2-5.4)
[2019-03-19] MEDS: PANTOprazole 40 MG TAB PO SCH (08:42)
[2019-03-19] MEDS: AMLODIPINE BESYLATE 5 MG TAB PO SCH (08:43)
[2019-03-19] MEDS: GABAPENTIN 100 MG CAP PO SCH ×2 (08:44→21:57)
[2019-03-19] MEDS: CYANOCOBALAMIN 500 MCG TABLET (VITAMIN B-12) PO SCH (08:44)
[2019-03-19] MEDS: FERROUS GLUCONATE 324 MG TAB PO SCH ×2 (08:45→18:17)
[2019-03-19] MEDS: ASPIRIN 81 MG ECTAB PO SCH (08:45)
[2019-03-19] MEDS: CHOLECALCIFEROL 1,000 UNITS TAB PO SCH ×2 (08:45→21:58)
[2019-03-19] MEDS: CARVEDILOL 25 MG TAB PO SCH ×2 (08:48→21:56)
[2019-03-19 08:52] LABS: BUN Creatinine Ratio 22.7 (10-20); Calcium 8.3 mg/dl (8.5-10.1); Creatinine Clr Calc Pharmacy 28.3 ml/min; Est GFR (African American) 36.9; Est GFR (Non-African American) 31.9; Magnesium 2.3 mg/dl (1.8-2.4); Potassium 4.6 mmol/L (3.5-5.1)
[2019-03-19] MEDS ORDERED: FUROSEMIDE 20 MG TAB PO SCH (09:00)
[2019-03-19] MEDS ORDERED: LISINOPRIL 10 MG TAB PO SCH (09:00)
--- NOTE | 2019-03-19 09:59 | Pharmacy Report ---
Glycemic Control Consultation - Date of Service March 19, 2019 - Scope Scope: Glycemic Pharmacist consulted by Carol Russell PA-c on 03/18/19 for glycemic control and to write orders per [facility] inpatient glycemic control protocol - Objective Weight: 77.43 kg Accuchecks BSG (last 24hrs): 03/18/19 03/18/19 03/18/19 14:09 17:11 21:42 Glucose POC Glucose 190 H 240 H 223 H 03/19/19 03/19/19 03/19/19 00:15 03:55 08:06 Glucose 89 POC Glucose 161 H 100 H 03/19/19 08:28 Glucose POC Glucose 104 H Laboratory Data (last 24hrs): 03/19/19 08:06 Potassium 4.6 Carbon Dioxide 29 Anion Gap 6.0 Creatinine 1.59 H Est Cr Clr Drug Dosing 28.3 HbA1c: 7.7% on 10/25/18 {outdated} - Recent Pertinent Medications Outpatient Anti-diabetic Regimen: * Amaryl The patient is currently receiving: * Basal insulin: Lantus 10 units SQ x 1 dose post op * Correctional Insulin: Novolog Correction per scale ACHS Goal Range: Low 110 mg/dL - High 140 mg/dL Correction Factor: 30 mg/dL/unit * Prandial insulin: Per carb ratio of 1 unit per 10 grams CHO consumed * Oral Agents: On hold for admission Risk Factors for Insulin Resistance: * Recent Surgery * Diet - Assessment & Plan Assessment & Plan: ASSESSMENT: * 74yo T2DM female with presumed adequate outpatient control per recent A1c. However, this value is outdate (>90 days old). Will re-order per protocol. * Pt POD#1 s/p L4-L5 Laminectomy and Fusion. Goal is to maintain BSGs <200 mg/dl (ideally <150 mg/dl) to prevent post-op infectious complications * Pt is maintained on oral antidiabetic agents as an outpatient * Oral agents are not recommended for inpatient use d/t drug interactions, changing PO intake, and difficulty titrating for acute hyper/hypoglycemia. ADA recommends re-initiating outpatient oral agents 1-2 days prior to discharge if/when appropriate if they were held on admission. * Will hold oral agents for admission and utilize SQ basal bolus insulin regimen which is the recommended regimen for inpatient glycemic control. * Will initiate weight based insulin dosing for insulin terrance patient and titrate based on BSG trends. PLAN FOR INPATIENT GLYCEMIC CONTROL: * Holding outpatient oral diabetes medications * May resume at discharge * Basal insulin * Lantus 10 units SQ HS * Bolus insulin * NovoLog per scale ACHS or Q6hrs while NPO * Goal Range: Low 110 mg/dL - High 140 mg/dL * Correction Factor: 30 mg/dL/unit * Nutritional / Prandial insulin per carb ratio of 1 unit per 10 grams CHO consumed * A1c with AM labs 03/19/19 * Please note that the plan above was derived based on current level of insulin resistance and hospital stress. These recommendations are appropriate for inpatient admission only. Plan of care upon discharge will need to be reassessed to avoid potential outpatient hypo/hyperglycemia. Thank you.
[2019-03-19 10:27] LABS: Estimated Average Glucose 177 mg/dl; Hemoglobin A1C 7.8 % (4.5-5.6)
[2019-03-19] MEDS: ACETAMINOPHEN 500 MG TAB PO PRN (12:53)
--- NOTE | 2019-03-19 12:58 | Hospitalist Progress Note ---
Date of Service March 19, 2019 Assessment & Plan (1) Lumbar spinal stenosis: - S/p lumbar decompression fusion, by Dr. Torre on 03/18/2019; POD#1. - DVT ppx & pain management per primary team. - PT/OT evaluation for discharge planning. - Bowel regimen ordered. (2) Cardiomyopathy: - H/o, likely ischemic in setting of NSTEMI (see below). - Continue home meds. (3) Atherosclerotic heart disease of [place] coronary artery with other forms of angina pectoris: - H/o NSTEMI in 2010 with placement of drug eluting stent in mid left circumflex coronary artery and plain balloon angioplasty to LAD diagonal (c ompleted at [facility] [place] - Cleared by cardiology pre-operatively. - Continue beta aidee, statin, aspirin, amlodipine as prescribed. (4) HTN (hypertension): - Continue Coreg 25 mg BID, Lisinopril 10 mg daily, Amlodipine 10 mg daily, Lasix 20 mg daily as prescribed. - Has been mildly hypertensive during this admission. (5) Essential familial hypercholesterolemia: - Continue statin and aspirin as prescribed. (6) CKD (chronic kidney disease) stage 3, GFR 30-59 ml/min: - Renally dose all meds. - Creat currently at baseline. (7) Smokes less than 1/2 pack per day: - Tobacco cessation encouraged. (8) DM (diabetes mellitus), type 2, uncontrolled w/neurologic complication: - Hemoglobin A1C was 7.8. - Holding home Glimepiride, can resume at discharge. - Pharmacy consulted for glycemic management. (9) Sciatica: - H/o, monitor post op. (10) Anemia: - Hgb trending down post op as expected, will monitor qAM. - Continue iron supplementation. (11) Anxiety: - Stable, continue Ativan prn. (12) GERD (gastroesophageal reflux disease): - PPI q3days. (13) DVT prophylaxis: - TEDs, Aspirin, SCDs. Dispo: Med/surg; will sign off, please call with any questions. Supervising Physician Co-Signing Physician Notes Attending Attestation - Chart reviewed in detail, care plan d/w HIREN Roy. I agree w/ the stacy components of her consult documentation. POD #1 from lumbar decompression/fusion procedure. Chronic medical issues are stable as outlined in Ms Roy's note. Adrian Hernandez MD Subjective Pt. has back pain post op but is otherwise doing well. Has ramey in place. Is not passing gas, has not had a BM. Denies nausea/vomiting, is tolerating PO intake and pills. Review of Systems Review of Systems: All systems reviewed & are unremarkable except as noted in HPI & below Constitutional: no fever, no chills, no fatigue and no weakness Respiratory: no cough, no dyspnea, no dyspnea on exertion and no wheezing Cardiovascular: no chest pain, no palpitations and no edema Gastrointestinal: + constipation; no abdominal pain and no nausea Genitourinary: no difficulty urinating Musculoskeletal: + back pain; no joint pain Integumentary: no non-healing lesions Physical Exam Physical Exam: General: Resting comfortably HEENT: NC/AT; PERRLA with EOMI; [place] conjunctiva, MMM. No erythema of posterior pharynx Neck: Supple and nontender Cardiac: RRR Lungs: CTA bilaterally Abdomen: Bowel normoactive X 4; Nontender to palpation Extremities: Warm. No edema present Neuro: No focal weakness Skin: No rash Results & Data Vital Signs (Past 12 Hours) Vital Signs Temp Pulse Resp BP Pulse Ox 03/19/19 08:49 37.0 C 63 18 141/73 H 92 03/19/19 03:04 36.5 C 66 16 156/77 H 94 Laboratory Results 03/19/19 03/19/19 03/19/19 Range/Units 12:22 08:28 08:06 WBC (4.8-10.8) K/uL RBC (4.2-5.4) M/uL Hgb (12.0-16.0) g/dL Hct (37-47) % MCV (80-100) fL MCH (25-34) pg MCHC (32-36) g/dL RDW Std Deviation (36.4-46.3) fL RDW Coeff of Sushant (11.5-14.5) % Plt Count (130-400) K/uL MPV (7.4-10.4) fL Sodium (136-145) mmol/L Potassium (3.5-5.1) mmol/L Chloride (98-107) mmol/L Carbon Dioxide (21-32) mmol/L Anion Gap (3-11) BUN (7-18) mg/dl Creatinine (0.6-1.2) mg/dl Est Cr Clr Drug Dosing ml/min Est GFR ( Amer) Est GFR (Non-Af Amer) BUN/Creatinine Ratio (10-20) Glucose (70-99) mg/dl POC Glucose 168 H 104 H (70-99) Estimat Average Glucose 177 mg/dl Hemoglobin A1c 7.8 H (4.5-5.6) % Calcium (8.5-10.1) mg/dl Magnesium (1.8-2.4) mg/dl Hepatitis C Ab Screen (Neg) 03/19/19 03/19/19 03/19/19 Range/Units 08:06 08:06 03:55 WBC 13.30 H (4.8-10.8) K/uL RBC 3.79 L (4.2-5.4) M/uL Hgb 10.4 L (12.0-16.0) g/dL Hct 32.7 L (37-47) % MCV 86.3 (80-100) fL MCH 27.4 (25-34) pg MCHC 31.8 L (32-36) g/dL RDW Std Deviation 43.9 (36.4-46.3) fL RDW Coeff of Sushant 13.9 (11.5-14.5) % Plt Count 221 (130-400) K/uL MPV 10.4 (7.4-10.4) fL Sodium 141 (136-145) mmol/L Potassium 4.6 (3.5-5.1) mmol/L Chloride 106 (98-107) mmol/L Carbon Dioxide 29 (21-32) mmol/L Anion Gap 6.0 (3-11) BUN 36 H (7-18) mg/dl Creatinine 1.59 H (0.6-1.2) mg/dl Est Cr Clr Drug Dosing 28.3 ml/min Est GFR ( Amer) 36.9 Est GFR (Non-Af Amer) 31.9 BUN/Creatinine Ratio 22.7 H (10-20) Glucose 89 (70-99) mg/dl POC Glucose 100 H (70-99) Estimat Average Glucose mg/dl Hemoglobin A1c (4.5-5.6) % Calcium 8.3 L (8.5-10.1) mg/dl Magnesium 2.3 (1.8-2.4) mg/dl Hepatitis C Ab Screen (Neg) 03/19/19 03/18/19 03/18/19 Range/Units 00:15 21:42 17:11 WBC (4.8-10.8) K/uL RBC (4.2-5.4) M/uL Hgb (12.0-16.0) g/dL Hct (37-47) % MCV (80-100) fL MCH (25-34) pg MCHC (32-36) g/dL RDW Std Deviation (36.4-46.3) fL RDW Coeff of Sushant (11.5-14.5) % Plt Count (130-400) K/uL MPV (7.4-10.4) fL Sodium (136-145) mmol/L Potassium (3.5-5.1) mmol/L Chloride (98-107) mmol/L Carbon Dioxide (21-32) mmol/L Anion Gap (3-11) BUN (7-18) mg/dl Creatinine (0.6-1.2) mg/dl Est Cr Clr Drug Dosing ml/min Est GFR ( Amer) Est GFR (Non-Af Amer) BUN/Creatinine Ratio (10-20) Glucose (70-99) mg/dl POC Glucose 161 H 223 H 240 H (70-99) Estimat Average Glucose mg/dl Hemoglobin A1c (4.5-5.6) % Calcium (8.5-10.1) mg/dl Magnesium (1.8-2.4) mg/dl Hepatitis C Ab Screen (Neg) 03/18/19 03/18/19 Range/Units 14:09 08:51 WBC (4.8-10.8) K/uL RBC (4.2-5.4) M/uL Hgb (12.0-16.0) g/dL Hct (37-47) % MCV (80-100) fL MCH (25-34) pg MCHC (32-36) g/dL RDW Std Deviation (36.4-46.3) fL RDW Coeff of Sushant (11.5-14.5) % Plt Count (130-400) K/uL MPV (7.4-10.4) fL Sodium (136-145) mmol/L Potassium (3.5-5.1) mmol/L Chloride (98-107) mmol/L Carbon Dioxide (21-32) mmol/L Anion Gap (3-11) BUN (7-18) mg/dl Creatinine (0.6-1.2) mg/dl Est Cr Clr Drug Dosing ml/min Est GFR ( Amer) Est GFR (Non-Af Amer) BUN/Creatinine Ratio (10-20) Glucose (70-99) mg/dl POC Glucose 190 H (70-99) Estimat Average Glucose mg/dl Hemoglobin A1c (4.5-5.6) % Calcium (8.5-10.1) mg/dl Magnesium (1.8-2.4) mg/dl Hepatitis C Ab Screen Neg (Neg) PG Care Time/CCT Total # of Minutes Spent Total Time Spent with Patient: Total time spent is greater than 50% in coordination of care (as documented) at patient's floor/unit and/or counseling patient:
[2019-03-19] MEDS: ATORVASTATIN 40 MG TAB PO SCH (21:57)
[2019-03-19] MEDS: DOCUSATE SODIUM/SENNA 50/8.6MG TAB PO SCH (21:58)
[2019-03-19] MEDS: IRON POLYSACCHARIDE COMPLEX 150 MG CAPSULE PO SCH (21:58)
[2019-03-19] MEDS: LANTUS PER UNIT CHARGE SQ SCH (22:11)
[2019-03-20] MEDS: ALBUTEROL HFA 8 GM INHALER INH SCH ×4 (06:17→23:32)
[2019-03-20] MEDS: POLYETHYLENE (MIRALAX) 17 GM PACK PO SCH ×4 (06:18→23:32)
[2019-03-20 06:20] LABS: Hemoglobin 9.8 g/dL (12.0-16.0); Mean Corpuscular Hgb Conc 31.6 g/dL (32-36); Mean Corpuscular Volume 86.8 fL (80-100); Platelet Count 200 K/uL (130-400); RDW Coefficient of Variation 13.9 % (11.5-14.5); RDW Standard Deviation 44.3 fL (36.4-46.3); Red Blood Count 3.57 M/uL (4.2-5.4); White Blood Count 13.36 K/uL (4.8-10.8)
[2019-03-20 06:47] LABS: BUN Creatinine Ratio 21.3 (10-20); Calcium 7.8 mg/dl (8.5-10.1); Est GFR (African American) 25.8; Est GFR (Non-African American) 22.3; Potassium 5.2 mmol/L (3.5-5.1)
[2019-03-20] MEDS: OXYCODONE HCL IR 5 MG TAB (IMMEDIATE RELEASE) PO PRN ×2 (08:04→22:25)
[2019-03-20] MEDS: FERROUS GLUCONATE 324 MG TAB PO SCH ×2 (08:05→17:47)
--- NOTE | 2019-03-20 08:09 | Discharge Summary ---
SUBJECTIVE: She is now day 2 from a rigorous lumbar spinal fusion, decompression, instrumentation and fusion L3-L5. She is doing well, moderate complaints of pain, no shortness of breath. OBJECTIVE: Vital signs stable. Neurologically intact. Blood pressure is stable. Wound clean. ASSESSMENT: Status post reconstructive spine surgery. PLAN: We will try to get her to postop rehab situation, I think she lives in the [facility]. I think she would like to be close to home. I think she needs inpatient rehab for approximately 1 week, just have her up and ambulatory 2 or 3 times a day and pain control. I would recommend her being discharged home today to rehabilitation. Ice to her back. Continue with all her current medications. Walker as needed for support and we will see her back in the office in approximately 10 days.
--- NOTE | 2019-03-20 08:47 | XRay Report ---
XR chest 2V routine CLINICAL HISTORY: Hypoxia, rule out pulm edema vs. PNA COMPARISON STUDY: 03/12/2019 FINDINGS: There are low lung volumes. There is mild hilar prominence likely vascular. There are subse gmental atelectatic changes within the left midlung zone. There is no failure. There are no significa nt pleural effusions.[ IMPRESSION: 1. Low lung volumes 2. Subsegmental atelectatic changes within the left midlung zone Electronically signed by: Damon Valiente M.D. 03/20/2019 8:46 AM
[2019-03-20] MEDS: CYANOCOBALAMIN 500 MCG TABLET (VITAMIN B-12) PO SCH (08:52)
[2019-03-20] MEDS: CHOLECALCIFEROL 1,000 UNITS TAB PO SCH ×2 (08:52→20:09)
[2019-03-20] MEDS: AMLODIPINE BESYLATE 5 MG TAB PO SCH (08:54)
[2019-03-20] MEDS: ASPIRIN 81 MG ECTAB PO SCH (08:54)
[2019-03-20] MEDS: GABAPENTIN 100 MG CAP PO SCH ×2 (08:55→20:07)
[2019-03-20] MEDS: CARVEDILOL 25 MG TAB PO SCH (08:55)
[2019-03-20] MEDS: INSULIN ASPART 100 UNITS/ML 3 ML PEN SC SCH ×4 (08:58→21:29)
[2019-03-20] MEDS: ONDANSETRON INJ 2 MG/ML 2 ML VIAL IV PRN (09:54)
[2019-03-20] MEDS: SODIUM CHLORIDE 0.9% 1000ML 1,000 ML IV SCH ×2 (09:54→19:00)
--- NOTE | 2019-03-20 11:43 | Hospitalist Progress Note ---
Date of Service March 20, 2019 Assessment & Plan (1) Lumbar spinal stenosis: - S/p lumbar decompression fusion, by Dr. Torre on 03/18/2019; POD#2. - DVT ppx & pain management per primary team. - PT/OT evaluation - pt. is considering rehab placement at discharge. - Bowel regimen ordered - has not had a BM post op. (2) Hypotension: - SBP 90's this morning -- may be related to dehydration vs. medication induced vs. underlying infection. - Holding home anti-hypertensives. - Start NS at 100 cc/hr. - Monitor vital signs q4hr; consider upgrade to telemetry if necessary. - Monitor intake/output and daily weights -- weight has decreased since adm ission. (3) Acute respiratory failure with hypoxia: - Has been requiring 3L via NC -- worsening hypoxia overnight. - Unclear etiology; CXR low lung volumes and atelectasis -- encourage IS use q1- 2hr. - Monitor for volume overload in setting of continuous IV fluids. - Will attempt to wean off oxygen as tolerated; consider overnight oximetry study -- if pt. is discharged to rehab, will not need study but do recommend outpatient sleep study to evaluate for obstructive sleep apnea. (4) Acute renal failure: - Creatinine increased to 2.1, baseline ~1.3-1.6. - Likely pre-renal related to dehydration in setting of poor PO intake and Lasix administration; is also hypotensive, suspect hypovolemia. - Will start NS at 100 cc/hr; bolus prn. - Monitor renal function this evening at 17:00. - Also consider ?ATN in setting of intra op blood loss, worsening anemia and hypotensive episodes. (5) CKD (chronic kidney disease) stage 3, GFR 30-59 ml/min: - Renally dose all meds. - See above. (6) Hyperkalemia: - K level 5.2 -- likely related to ARF. - Repeat BMP at 17:00. (7) Anemia: - Hgb trending down post op, will repeat CBC at 17:00. - No transfusion necessary at this point. (8) Cardiomyopathy: - H/o, likely ischemic in setting of NSTEMI (see below). - Holding home anti-hypertensives due to hypotension; continue statin, aspirin as prescribed. (9) Atherosclerotic heart disease of [place] coronary artery with other forms of angina pectoris: - H/o NSTEMI in 2011 with placement of drug eluting stent in mid left circumflex coronary artery and plain balloon angioplasty to LAD diagonal (completed at [facility] [place]) - Cleared by cardiology pre-operatively. - Continue statin, aspirin as prescribed; holding CCB and beta aidee in setting of hypotension. (10) HTN (hypertension): - Has been hypotensive -- see above; holding home anti-hypertensives. (11) Essential familial hypercholesterolemia: - Continue statin and aspirin as prescribed. (12) Smokes less than 1/2 pack per day: - Tobacco cessation encouraged. (13) DM (diabetes mellitus), type 2, uncontrolled w/neurologic complication: - Hemoglobin A1C was 7.8. - Holding home Glimepiride, can resume at discharge. - Pharmacy consulted for glycemic management. (14) Sciatica: - H/o, monitor post op. (15) Anxiety: - Stable, continue Ativan prn. (16) GERD (gastroesophageal reflux disease): - PPI q3days. (17) DVT prophylaxis: - TEDs, Aspirin, SCDs. Dispo: Med/surg; pt. is not medically stable for discharge at this time, will continue to follow. DNR/DNI -- discussed with patient at bedside this morning. Worsening renal function and hyperkalemia on PM labs. Will do STAT EKG in setting of hyperkalemia and give Kayexalate 15 gm and D50/Insulin 10 units. Give NS bolus 250 cc followed by increasing IV fluids to 150 cc/hr. U/a, urine sodium/creatinine/osmo and serum osmo are pending collection. Repeat labs in the morning to monitor for improvement. Will also consult nephrology for evaluation (follows with Dr. Espinosa). Supervising Physician Co-Signing Physician Notes Attending Attestation - Chart reviewed in detail, care plan d/w HIREN Roy. I agree w/ the stacy components of her consult documentation. POD #2 from lumbar decompression/fusion procedure. Now with acute blood loss anemia, LUCERO, and hypotension. Patient with O2 requirement as well. Agree w/ Ms Manuela's plans/recommendations as outlined. Adrian Hernandez MD Subjective Pt. was hypoxic overnight -- required 2-3L via NC. She feels fatigued/tired in general. Has SOB with exertion, denies SOB at rest. Has nausea, denies vomiting. Is passing gas, no BM yet. Plan to monitor another 24 hours in setting of hypoxia and acute renal failure. Pt. is also considering rehab at discharge. Review of Systems Review of Systems: All systems reviewed & are unremarkable except as noted in HPI & below Constitutional: + fatigue and + weakness; no fever, no chills and no anorexia Respiratory: + dyspnea and + dyspnea on exertion; no cough and no wheezing Cardiovascular: no chest pain, no palpitations, no lightheadedness and no edema Gastrointestinal: + nausea and + constipation; no abdominal pain and no vomiting Genitourinary: no difficulty urinating Musculoskeletal: + back pain; no joint pain Integumentary: no non-healing lesions Physical Exam Physical Exam: General: Tired appearing female, in no acute distress. HEENT: NC/AT; PERRLA with EOMI; [place] conjunctiva, MMM. No erythema of posterior pharynx Neck: Supple and nontender Cardiac: RRR Lungs: on 2L via NC; CTA bilaterally Abdomen: Bowel normoactive X 4; Nontender to palpation Extremities: Warm. No edema present Neuro: No focal weakness Skin: No rash Results & Data Vital Signs (Past 12 Hours) Vital Signs Temp Pulse Pulse Resp BP BP Pulse Ox 03/20/19 09:33 91/46 L 96 03/20/19 08:00 37.4 C 67 16 90/45 L 92 03/20/19 06:10 91 03/20/19 06:02 85 L 03/20/19 05:50 56 L 03/19/19 23:51 92 03/19/19 23:30 37.5 C 74 16 132/71 69 L Laboratory Results 03/20/19 03/20/19 03/20/19 Range/Units 08:16 05:58 05:58 WBC 13.36 H (4.8-10.8) K/uL RBC 3.57 L (4.2-5.4) M/uL Hgb 9.8 L (12.0-16.0) g/dL Hct 31.0 L (37-47) % MCV 86.8 (80-100) fL MCH 27.5 (25-34) pg MCHC 31.6 L (32-36) g/dL RDW Std Deviation 44.3 (36.4-46.3) fL RDW Coeff of Sushant 13.9 (11.5-14.5) % Plt Count 200 (130-400) K/uL MPV 11.0 H (7.4-10.4) fL Sodium 137 (136-145) mmol/L Potassium 5.2 H (3.5-5.1) mmol/L Chloride 103 (98-107) mmol/L Carbon Dioxide 28 (21-32) mmol/L Anion Gap 6.0 (3-11) BUN 46 H (7-18) mg/dl Creatinine 2.14 H D (0.6-1.2) mg/dl Est Cr Clr Drug Dosing 21.0 ml/min Est GFR ( Amer) 25.8 Est GFR (Non-Af Amer) 22.3 BUN/Creatinine Ratio 21.3 H (10-20) Glucose 124 H (70-99) mg/dl POC Glucose 183 H (70-99) Calcium 7.8 L (8.5-10.1) mg/dl 03/19/19 03/19/19 03/19/19 Range/Units 20:48 17:02 12:22 WBC (4.8-10.8) K/uL RBC (4.2-5.4) M/uL Hgb (12.0-16.0) g/dL Hct (37-47) % MCV (80-100) fL MCH (25-34) pg MCHC (32-36) g/dL RDW Std Deviation (36.4-46.3) fL RDW Coeff of Sushant (11.5-14.5) % Plt Count (130-400) K/uL MPV (7.4-10.4) fL Sodium (136-145) mmol/L Potassium (3.5-5.1) mmol/L Chloride (98-107) mmol/L Carbon Dioxide (21-32) mmol/L Anion Gap (3-11) BUN (7-18) mg/dl Creatinine (0.6-1.2) mg/dl Est Cr Clr Drug Dosing ml/min Est GFR ( Amer) Est GFR (Non-Af Amer) BUN/Creatinine Ratio (10-20) Glucose (70-99) mg/dl POC Glucose 153 H 152 H 168 H (70-99) Calcium (8.5-10.1) mg/dl PG Care Time/CCT Total # of Minutes Spent Total Time Spent with Patient: Total time spent is greater than 50% in coordination of care (as documented) at patient's floor/unit and/or counseling patient:
--- NOTE | 2019-03-20 12:38 | Pharmacy Report ---
Pharmacy Glycemic Short Note 2 - Date of Service March 20, 2019 - Glycemic Short BSG Results (Last 24 hours): 03/19/19 03/19/19 03/20/19 17:02 20:48 05:58 Glucose 124 H POC Glucose 152 H 153 H 03/20/19 03/20/19 08:16 12:00 Glucose POC Glucose 183 H 191 H ASSESSMENT: * 74yo T2DM female with presumed adequate outpatient control per recent A1c. However, this value is outdate (>90 days old). Will re-order per protocol. * Pt POD#1 s/p L4-L5 Laminectomy and Fusion. Goal is to maintain BSGs <200 mg/dl (ideally <150 mg/dl) to prevent post-op infectious complications * Pt is maintained on oral antidiabetic agents as an outpatient * Oral agents are not recommended for inpatient use d/t drug interactions, changing PO intake, and difficulty titrating for acute hyper/hypoglycemia. ADA recommends re-initiating outpatient oral agents 1-2 days prior to discharge if/when appropriate if they were held on admission. * Will hold oral agents for admission and utilize SQ basal bolus insulin regimen which is the recommended regimen for inpatient glycemic control. * Will initiate weight based insulin dosing for insulin terrance patient and titrate based on BSG trends. 03/20: * Patient required total of 22 units of insulin yesterday, of which 5 were basal insulin * Fasting BSG w/in range at 124 mg/dL - trending up at lunch as patient now eating more, will tighten CF/CR * Will adjust Lantus scale based upon BSG for tonight PLAN FOR INPATIENT GLYCEMIC CONTROL: * Holding outpatient oral diabetes medications * May resume at discharge * Basal insulin * Lantus HS per scale: * give 7 units <180 mg/dL, 10 units if 180 or greater * Bolus insulin - tighten * NovoLog per scale ACHS or Q6hrs while NPO * Goal Range: Low 110 mg/dL - High 140 mg/dL * Correction Factor: 25 mg/dL/unit * Nutritional / Prandial insulin per carb ratio of 1 unit per 9 grams CHO consumed * Please note that the plan above was derived based on current level of insulin resistance and hospital stress. These recommendations are appropriate for inpatient admission only. Plan of care upon discharge will need to be reassessed to avoid potential outpatient hypo/hyperglycemia. Thank you. *
[2019-03-20 17:52] LABS: Hematocrit (blood only) 31.3 % (37-47); Mean Corpuscular Hgb Conc 31.9 g/dL (32-36); Mean Corpuscular Volume 86.7 fL (80-100); Mean Platelet Volume 11.2 fL (7.4-10.4); Platelet Count 233 K/uL (130-400); RDW Coefficient of Variation 13.9 % (11.5-14.5); RDW Standard Deviation 44.6 fL (36.4-46.3); Red Blood Count 3.61 M/uL (4.2-5.4); White Blood Count 15.11 K/uL (4.8-10.8)
[2019-03-20] MEDS: ACETAMINOPHEN 500 MG TAB PO PRN ×2 (17:54→23:36)
[2019-03-20 18:11] LABS: Calcium 7.9 mg/dl (8.5-10.1); Creatinine Clr Calc Pharmacy 18.4 ml/min; Est GFR (African American) 21.2; Est GFR (Non-African American) 18.3; Potassium 5.7 mmol/L (3.5-5.1)
[2019-03-20] MEDS ORDERED: SODIUM POLYSTYRENE SULFONATE 15G/60ML SUSP PO STA (18:29)
[2019-03-20] MEDS ORDERED: DEXTROSE 50% 50 ML SYRINGE IV STA (18:29)
[2019-03-20] MEDS ORDERED: NovoLIN-R INSULIN PER UNIT CHARGE IV STA (18:29)
[2019-03-20] MEDS ORDERED: SODIUM CHLORIDE 0.9% 1000ML 250 ML IV ONE (18:30)
[2019-03-20] MEDS ORDERED: INSULIN HUMAN REGULAR PER UNIT 10 UNITS in SYRINGE 9.9 ML IV SCH (18:45)
[2019-03-20] MEDS: IRON POLYSACCHARIDE COMPLEX 150 MG CAPSULE PO SCH (20:08)
[2019-03-20] MEDS: ATORVASTATIN 40 MG TAB PO SCH (20:08)
[2019-03-20] MEDS: DOCUSATE SODIUM/SENNA 50/8.6MG TAB PO SCH (20:09)
[2019-03-20] MEDS: LANTUS PER UNIT CHARGE SQ SCH (22:06)
[2019-03-20 22:39] LABS: Appearance Urine Clear (Clear); Bacteria Urine Automated Negative (Negative); Bilirubin Urine Negative (Negative); Blood Urine Trace (Negative); Color Urine Yellow; Epithelial Cell Urine Auto >30 /lpf (0-5); Glucose Urine UA Negative (Negative); Ketones Urine Negative (Negative); Leukocyte Esterase Urine Trace (Negative); Nitrite Urine Negative (Negative); Protein Urine 1+ (Negative); RBC Urine Automated 0-4 /hpf (0-4); Specific Gravity Urine 1.018 (1.000-1.030); Urobilinogen Urine Negative (Negative)
[2019-03-20 23:49] LABS: BUN Creatinine Ratio 20.5 (10-20); Calcium 7.5 mg/dl (8.5-10.1); Creatinine Clr Calc Pharmacy 19.1 ml/min; Est GFR (African American) 22.1; Est GFR (Non-African American) 19.1; Potassium 4.8 mmol/L (3.5-5.1)
[2019-03-21] MEDS: SODIUM CHLORIDE 0.9% 1000ML 1,000 ML IV SCH (03:09)
[2019-03-21] MEDS: POLYETHYLENE (MIRALAX) 17 GM PACK PO SCH ×4 (05:51→23:26)
[2019-03-21] MEDS: ALBUTEROL HFA 8 GM INHALER INH SCH ×4 (05:51→23:26)
[2019-03-21] MEDS: ACETAMINOPHEN 500 MG TAB PO PRN ×2 (05:55→20:15)
[2019-03-21] MEDS: OXYCODONE HCL IR 5 MG TAB (IMMEDIATE RELEASE) PO PRN ×2 (05:57→10:18)
[2019-03-21] MEDS: FERROUS GLUCONATE 324 MG TAB PO SCH ×2 (07:45→17:53)
[2019-03-21] MEDS: GABAPENTIN 100 MG CAP PO SCH ×2 (07:46→20:33)
[2019-03-21] MEDS: ASPIRIN 81 MG ECTAB PO SCH (07:46)
[2019-03-21] MEDS: CHOLECALCIFEROL 1,000 UNITS TAB PO SCH ×2 (07:46→20:32)
[2019-03-21] MEDS: CYANOCOBALAMIN 500 MCG TABLET (VITAMIN B-12) PO SCH (07:46)
[2019-03-21 07:58] LABS: Hematocrit (blood only) 28.6 % (37-47); Hemoglobin 9.1 g/dL (12.0-16.0); Mean Corpuscular Hgb Conc 31.8 g/dL (32-36); Mean Corpuscular Volume 87.2 fL (80-100); Mean Platelet Volume 10.9 fL (7.4-10.4); Platelet Count 201 K/uL (130-400); RDW Standard Deviation 44.9 fL (36.4-46.3); Red Blood Count 3.28 M/uL (4.2-5.4); White Blood Count 12.32 K/uL (4.8-10.8)
[2019-03-21] MEDS: INSULIN ASPART 100 UNITS/ML 3 ML PEN SC SCH ×4 (08:20→21:27)
[2019-03-21 08:37] LABS: Alanine Aminotransferase < 6 U/L (12-78); Albumin Level 2.4 gm/dl (3.4-5.0); Aspartate Aminotransferase 10 U/L (15-37); BUN Creatinine Ratio 22.3 (10-20); Blood Urea Nitrogen 49 mg/dl (7-18); Calcium 7.1 mg/dl (8.5-10.1); Carbon Dioxide 25 mmol/L (21-32); Chloride 102 mmol/L (98-107); Creatinine Clr Calc Pharmacy 21.7 ml/min; Est GFR (African American) 25.2; Est GFR (Non-African American) 21.8; Glucose 160 mg/dl (70-99); Magnesium 2.2 mg/dl (1.8-2.4); Potassium 5.3 mmol/L (3.5-5.1); Sodium 134 mmol/L (136-145)
[2019-03-21 08:40] LABS: Albumin Globulin Ratio 0.8 (0.9-2); Alkaline Phosphatase 63 U/L (45-117); Bilirubin,Total 0.4 mg/dl (0.2-1); Globulin 3.2 gm/dl (2.5-4.0); Total Protein 5.6 gm/dl (6.4-8.2)
[2019-03-21] MEDS ORDERED: CALCIUM GLUCONATE 10% 1,000 MG in SODIUM CHLORIDE 0.9% 50 ML IV STA (09:29)
[2019-03-21] MEDS ORDERED: SODIUM POLYSTYRENE SULFONATE 30 GM/120 ML UDP PO ONE ×2 (10:10→18:55)
[2019-03-21] MEDS ORDERED: SODIUM POLYSTYRENE SULFONATE 15G/60ML SUSP PO ONE ×2 (10:15→20:00)
[2019-03-21] MEDS: ONDANSETRON INJ 2 MG/ML 2 ML VIAL IV PRN (10:36)
--- NOTE | 2019-03-21 11:15 | Operative Report ---
DATE OF OPERATION: 03/21/2019 PREOPERATIVE DIAGNOSIS: Severe spinal stenosis and instability, L3-L4, L4-L5, lumbar spine. POSTOPERATIVE DIAGNOSIS: Severe spinal stenosis lumbar spine and instability lumbar spine, L3-L4, L4-L5, lumbar spine. SURGEON: Av Torre DO [employer]: Chago Russell PA-C. COMPLICATIONS: Zero. BLOOD LOSS: 200 mL. DESCRIPTION OF PROCEDURE: The patient was seen and evaluated in the preoperative holding area and marked with a marker. A formal bridge note was also provided. The patient was brought back to the surgical arena, general intubated anesthetic provided to the patient. Rosales catheter provided as well. Placed prone, scrubbed, prepped, draped sterile. Formal timeout was taken. We made a skin incision, fascial incision. We cut down on the musculature, the layer down to the lamina, facet joints out to the transverse processes. It was very meticulous dissection, we got all bleeders with no problems. We then did a formal laminectomy of the patient. I was able to ascertain preop and postop of the instability pattern, particularly at L4-L5 with a spondylolisthesis and also at the L3-L4 level. I decompressed the neural elements. I did a laminectomy, foraminotomy, partial facetectomy, decompressed all the neural elements which will be from L3-L4 and L4-L5 of lumbar spine, foraminotomies were also provided. The facet joints were completely incompetent. I then instrumented the spine safely getting pedicle screws at 3, 4, and 5 on the right hand side and 3, 4, and 5 on the left hand side. I did not feel an interbody device was required. I locked down the construct. The longitudinal aquilino was approximately 60 mm in length. We then irrigated thoroughly with approximately 500 mL of fluid. I bone grafted out over the transverse processes 3, 4, and 5 bilaterally. We then began our closure in step-like fashion. I placed Gelfoam over the dural structures, vancomycin powder as well. We closed with #1 Vicryl suture on the fascial layer, #2 on subcuticular layer, 3-0 nylon on the skin surface. Sterile dressings applied. The patient returned supine. The patient was then extubated, returned to PACU in improved, stable condition. I was there for the entirety of the surgical procedure. IMPLANTS USED: By the [employer]. Bone graft used was a combination of morselized autograft and demineralized bone matrix. Sponge and needle count were correct at the close of procedure and there were no intraoperative spinal or anesthetic complications. I attest to the content of the Intraoperative Record and any orders documented therein. Any exception s are noted below.
--- NOTE | 2019-03-21 12:33 | Nephrology Consultation ---
Date of Consultation March 21, 2019 Assessment & Plan (1) Acute renal failure: Nonoliguric acute kidney injury superimposed on chronic kidney disease. There has been slight improvement in creatinine in the past 24 hours. Patient's metabolic profile is otherwise acceptable with noted mild hyperkalemia. There is no significant acid-base abnormality at this time. The patient is making a good amount of urine. She did respond appropriately to Kayexalate given yesterday evening. She has been placed on a low-potassium diet. I would suggest we hold her ELLA-inhibitor continue it at this time. I would avoid any additional IV fluid. IV saline has been discontinued. I suggest we maintain an even to slightly negative fluid balance. Diuretics are currently being held with monitoring. Input and output should be accurately documented. I would monitor metabolic profile q.12 hours for now. I suspect Lucero I can be attributed to ATN which would be presumably hemodynamically mediated. Medications are currently acceptable for kidney function. (2) CKD (chronic kidney disease) stage 3, GFR 30-59 ml/min: Followed by Dr. Espinosa as an outpatient. CKD class 3, A3. (3) Atherosclerotic heart disease of [place] coronary artery with other forms of angina pectoris: (4) Lumbar spinal stenosis: - S/p lumbar decompression fusion, by Dr. Torre on 03/18/2019 (5) Hypotension: Antihypertensive medications have been held. (6) Hyperkalemia: Twice daily metabolic profile be monitored. Low-potassium diet. Hold days. Kaleuresis with a loop diuretic may be considered if persistent. (7) Anemia: (8) Cardiomyopathy: Low threshold to restart diuretics. Document I/O's. Maintain even to slightly negative fluid balance. (9) HTN (hypertension): (10) DM (diabetes mellitus), type 2, uncontrolled w/neurologic complication: History of Present Illness Reason for Consultation: LUCERO/CKD Requesting Physician: Av Torre DO Attending Physician: Av Torre DO History of Present Illness Shirley Mcdaniels is a 76-year-old female with chronic kidney disease class 3. Patient's baseline creatinine is 1.3-1.5. She follows in the outpatient nephrology clinic with Dr. Espinosa. She does have a notable history of a KI in the past. Imaging has revealed a chronically atrophic left kidney. Complications for chronic kidney disease have included recurrent hyperkalemia. Lisinopril was held in the past. The medication was restarted in January at a low dose of 10 mg daily. Patient also been prescribed Kayexalate to take weekly for management of her chronic hyperkalemia. CKD is attributed diabetic nephropathy. She does have a 3 proteinuria with protein creatinine ratio 2.2 at baseline. Medical history is also notable for coronary artery disease and chronic congestive heart failure with preserved ejection fraction. Cardiac catheterization in 2012 revealed global hypokinesis of left ventricle with an LVEF of 45%. Patient suffered a non ST elevation myocardial infarction in 2010, drug-eluting stent to the mid circ was placed at that time as well as angioplasty of the LAD. Volume status controlled as an outpatient with furosemide 20 mg daily. Shirley was admitted amount [facility] for lumbar decompression and fusion. Surgery was performed on March 18 without complications. Unfortunately kidney function has declined since the time of her operation. She remains nonoliguric. She did develop hyperkalemia which was treated with a dose of Kayexalate yesterday evening. IV saline was started to assist with management of her renal insufficiency. Lisinopril has been held. It is noted that the patient has had relative hypotension since her surgery. For this reason all of her antihypertensive medications have been held. General was sitting comfortably in a chair at the time of my assessment. She reports that she is feeling discouraged. She is having more operative postoperative pain and discomfort than she anticipated. Her appetite has been poor. Allergies Allergy/AdvReac Type Severity Reaction Status Date / Time No Known Allergies Allergy Verified 03/18/19 08:13 Home Medications Home Medications Medication Instructions Recorded Confirmed Type aspirin [Aspir-Low] 81 mg PO QAM 05/19/18 03/18/19 History atorvastatin [Lipitor] 80 mg PO HS 05/19/18 03/18/19 History cholecalciferol (vitamin D3) 1,000 unit PO BID 05/19/18 03/18/19 History [Vitamin D3] cyanocobalamin (vitamin B-12) 1,000 mcg PO QAM 05/19/18 03/18/19 History [Vitamin B-12] ferrous gluconate 324 mg PO BID 05/19/18 03/18/19 History nitroglycerin [Nitrostat] 1 tab SUBLINGUAL UD PRN 05/19/18 03/18/19 History Prilosec OTC 20 mg PO Q3D 12/25/18 03/18/19 History glimepiride 2 mg PO BID 12/25/18 03/18/19 History lisinopril 10 mg PO QAM 12/25/18 03/18/19 History polysaccharide iron complex 150 mg PO HS 02/11/19 03/18/19 History [Ferric x-150] gabapentin 100 mg capsule 200 mg PO BID #360 cap 02/28/19 03/18/19 Rx carvedilol 25 mg tablet 25 mg PO BID #180 tab 03/05/19 03/18/19 Rx albuterol sulfate 2 puffs INH Q6H #6.7 gm 03/12/19 03/18/19 Rx furosemide [Lasix] 20 mg PO QAM #10 tab 03/12/19 03/18/19 Rx hydrocodone-acetaminophen [[place]] 1 tab PO Q6H PRN #40 tab 03/19/19 Rx amlodipine 10 mg tablet 10 mg PO DAILY #90 tab 03/20/19 Rx Patient History Medical History Lumbar spinal stenosis Hyperkalemia (Acute) Persistent since 12/2018 Diabetic peripheral neuropathy Anemia (Chronic ~12/03/13) DJD (degenerative joint disease) (Chronic) CAD (coronary artery disease) NSTEMI 2010, ARABELLA x 1, POBA x 1 @ [facility] [place] 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 Acute infarct. Treated, complete resolution of symptoms. No residual deficits. Hyperlipidemia Hypertension Myocardial Infarction NSTEMI 2010. ARABELLA to mid LCx and POBA to LAD/Dx. 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 Beliefs That Will Affect Care: None Current Living Situation: Alone Other Information That Helps Us Care for You: No Feels Safe at Home: Yes Safety Concerns: Feels Safe At This Time Smoking Status: Former smoker Tobacco Type: cigarettes ; Age Started Using Tobacco: 24 ; Cigarettes Per Day: 7 A DAY ; Do You Dip or Chew Tobacco: No ; Second Hand Exposure: Yes (NIECE) ; Tobacco Cessation Education Requested by Patient: No Hx Alcohol Use: No Hx Substance Use: No Review of Systems Review of Systems: All systems reviewed & are unremarkable except as noted in HPI & below Physical Exam Constitutional: well developed and + obese; no acute distress Eyes: no conjunctival abnormality and no scleral abnormality ENMT: Mouth: no oral mucosal abnormality and oral mucous membranes not dry Neck: normal visual inspection and trachea midline Respiratory: normal respiratory effort; no respiratory distress Auscultation: + rales Cardiovascular: Heart Sounds: normal S1 and normal S2 Vessels: no JVD Extremities: + edema Gastrointestinal (Abdomen): Percussion/Palpation: abdomen soft; abdomen nontender Musculoskeletal: Extremities: no cyanosis and no clubbing Skin: normal turgor; no rashes Neurologic: Motor/Sensory: no tremor and no asterixis Psychiatric: Orientation: oriented x 3 Affect: + depressed affect Results & Data Vital Signs (Past 12 Hours) Vital Signs Temp Pulse Resp BP Pulse Ox 03/21/19 06:40 36.9 C 68 18 99/62 L 96 03/21/19 03:10 37.0 C 68 18 111/63 95 03/21/19 01:57 94 Laboratory Results Laboratory Results - last 24 hr 03/20/19 03/20/19 03/20/19 17:07 17:27 17:27 WBC 15.11 H RBC 3.61 L Hgb 10.0 L Hct 31.3 L MCV 86.7 MCH 27.7 MCHC 31.9 L RDW Std Deviation 44.6 RDW Coeff of Sushant 13.9 Plt Count 233 MPV 11.2 H Sodium 130 L D Potassium 5.7 H Chloride 98 Carbon Dioxide 26 Anion Gap 6.0 BUN 48 H Creatinine 2.52 H D Est Cr Clr Drug Dosing 18.4 Est GFR ( Amer) 21.2 Est GFR (Non-Af Amer) 18.3 BUN/Creatinine Ratio 19.0 Glucose 135 H POC Glucose 154 H Osmolality Calcium 7.9 L Magnesium Total Bilirubin AST ALT Alkaline Phosphatase Total Protein Albumin Globulin Albumin/Globulin Ratio Urine Color Urine Appearance Urine pH Ur Specific [place] Urine Protein Urine Glucose (UA) Urine Ketones Urine Blood Urine Nitrite Urine Bilirubin Urine Urobilinogen Ur Leukocyte Esterase Urine WBC (Auto) Urine RBC (Auto) U Hyaline Cast (Auto) U Epithel Cells (Auto) Urine Bacteria (Auto) Urine Osmolality Ur Random Creatinine Ur Random Sodium 03/20/19 03/20/19 03/20/19 18:26 21:02 22:20 WBC RBC Hgb Hct MCV MCH MCHC RDW Std Deviation RDW Coeff of Sushant Plt Count MPV Sodium Potassium Chloride Carbon Dioxide Anion Gap BUN Creatinine Est Cr Clr Drug Dosing Est GFR ( Amer) Est GFR (Non-Af Amer) BUN/Creatinine Ratio Glucose POC Glucose 124 H Osmolality 289 Calcium Magnesium Total Bilirubin AST ALT Alkaline Phosphatase Total Protein Albumin Globulin Albumin/Globulin Ratio Urine Color Urine Appearance Urine pH Ur Specific [place] Urine Protein Urine Glucose (UA) Urine Ketones Urine Blood Urine Nitrite Urine Bilirubin Urine Urobilinogen Ur Leukocyte Esterase Urine WBC (Auto) Urine RBC (Auto) U Hyaline Cast (Auto) U Epithel Cells (Auto) Urine Bacteria (Auto) Urine Osmolality Ur Random Creatinine 89.0 Ur Random Sodium 13 03/20/19 03/20/19 03/20/19 22:20 22:20 22:20 WBC RBC Hgb Hct MCV MCH MCHC RDW Std Deviation RDW Coeff of Sushant Plt Count MPV Sodium Potassium Chloride Carbon Dioxide Anion Gap BUN Creatinine Est Cr Clr Drug Dosing Est GFR ( Amer) Est GFR (Non-Af Amer) BUN/Creatinine Ratio Glucose POC Glucose Osmolality Calcium Magnesium Total Bilirubin AST ALT Alkaline Phosphatase Total Protein Albumin Globulin Albumin/Globulin Ratio Urine Color Yellow Urine Appearance Clear Urine pH 5.0 Ur Specific [place] 1.018 Urine Protein 1+ H Urine Glucose (UA) Negative Urine Ketones Negative Urine Blood Trace H Urine Nitrite Negative Urine Bilirubin Negative Urine Urobilinogen Negative Ur Leukocyte Esterase Trace H Urine WBC (Auto) 5-10 H Urine RBC (Auto) 0-4 U Hyaline Cast (Auto) 5-10 H U Epithel Cells (Auto) >30 H Urine Bacteria (Auto) Negative Urine Osmolality 269 L Ur Random Creatinine Ur Random Sodium Cancelled 03/20/19 03/21/19 03/21/19 23:07 06:37 07:30 WBC 12.32 H RBC 3.28 L Hgb 9.1 L Hct 28.6 L MCV 87.2 MCH 27.7 MCHC 31.8 L RDW Std Deviation 44.9 RDW Coeff of Sushant 14.0 Plt Count 201 MPV 10.9 H Sodium 133 L Potassium 4.8 D Chloride 101 Carbon Dioxide 27 Anion Gap 6.0 BUN 50 H Creatinine 2.43 H Est Cr Clr Drug Dosing 19.1 Est GFR ( Amer) 22.1 Est GFR (Non-Af Amer) 19.1 BUN/Creatinine Ratio 20.5 H Glucose 93 POC Glucose 166 H Osmolality Calcium 7.5 L Magnesium Total Bilirubin AST ALT Alkaline Phosphatase Total Protein Albumin Globulin Albumin/Globulin Ratio Urine Color Urine Appearance Urine pH Ur Specific [place] Urine Protein Urine Glucose (UA) Urine Ketones Urine Blood Urine Nitrite Urine Bilirubin Urine Urobilinogen Ur Leukocyte Esterase Urine WBC (Auto) Urine RBC (Auto) U Hyaline Cast (Auto) U Epithel Cells (Auto) Urine Bacteria (Auto) Urine Osmolality Ur Random Creatinine Ur Random Sodium 03/21/19 03/21/19 07:30 12:04 WBC RBC Hgb Hct MCV MCH MCHC RDW Std Deviation RDW Coeff of Sushant Plt Count MPV Sodium 134 L Potassium 5.3 H Chloride 102 Carbon Dioxide 25 Anion Gap 7.0 BUN 49 H Creatinine 2.18 H Est Cr Clr Drug Dosing 21.7 Est GFR ( Amer) 25.2 Est GFR (Non-Af Amer) 21.8 BUN/Creatinine Ratio 22.3 H Glucose 160 H POC Glucose 160 H Osmolality Calcium 7.1 L Magnesium 2.2 Total Bilirubin 0.4 AST 10 L ALT < 6 L Alkaline Phosphatase 63 Total Protein 5.6 L Albumin 2.4 L Globulin 3.2 Albumin/Globulin Ratio 0.8 L Urine Color Urine Appearance Urine pH Ur Specific [place] Urine Protein Urine Glucose (UA) Urine Ketones Urine Blood Urine Nitrite Urine Bilirubin Urine Urobilinogen Ur Leukocyte Esterase Urine WBC (Auto) Urine RBC (Auto) U Hyaline Cast (Auto) U Epithel Cells (Auto) Urine Bacteria (Auto) Urine Osmolality Ur Random Creatinine Ur Random Sodium PG Care Time/CCT Total # of Minutes Spent Total Time Spent with Patient: Total time spent is greater than 50% in coordination of care (as documented) at patient's floor/unit and/or counseling patient:
--- NOTE | 2019-03-21 13:43 | Hospitalist Progress Note ---
Date of Service March 21, 2019 Assessment & Plan (1) Lumbar spinal stenosis: - S/p lumbar decompression fusion, by Dr. Torre on 03/18/2019; POD#3. - DVT ppx & pain management per primary team. - PT/OT evaluation - plan for placement at [facility] once medically stable. - Bowel regimen ordered; KUB was negative for ileus vs. obstruction. (2) Hypotension: - SBP 90's on 03/20/19 -- related to dehydration vs. medication induced vs. underlying infection. - Holding home anti-hypertensives. - Improved with IV fluid hydration -- will d/c fluids to avoid fluid overload. - Monitor intake/output and daily weights. (3) Acute respiratory failure with hypoxia: - Has been requiring 3L via NC -- has increased noctural hypoxia, ?obstructive sleep apnea. - Unclear etiology; CXR low lung volumes and atelectasis -- encourage IS use q1- 2hr. - Monitor for volume overload in setting of IV fluids/holding diuretics. - Doppler of bilat LE ordered to rule out DVT; CT contraindicated due to ARF. - Will need outpatient sleep study to evaluate for ESTELA; pt. will likely need nocturnal oxygen at [facility] as well. (4) Acute renal failure: - Creatinine peaked at 2.52 on 03/21, baseline ~1.3-1.6. - Likely pre-renal related to dehydration in setting of poor PO intake and Lasix administration. - Urine sodium was 13; U/a positive for cast cells -- also consider ATN in setting of hypotensive episodes and acute blood loss. - Received IV fluids with improvement; will d/c today and evaluate for stable renal function over next 24 hours. - Monitor BMP q12hr. - Nephro consulted, appreciate input. (5) CKD (chronic kidney disease) stage 3, GFR 30-59 ml/min: - Renally dose all meds. - See above. (6) Hyperkalemia: - K level 5.3 -- likely related to ARF. - Ordered Kayexalate this morning but developed N/V following administration. - Monitor BMP q12hr. (7) Anemia: - Hgb trending down post op, will monitor qAM. - No transfusion necessary at this point. (8) Cardiomyopathy: - H/o, likely ischemic in setting of NSTEMI (see below). - Holding home anti-hypertensives due to hypotension; continue statin, aspirin as prescribed. (9) Atherosclerotic heart disease of [place] coronary artery with other forms of angina pectoris: - H/o NSTEMI in 2011 with placement of drug eluting stent in mid left circumflex coronary artery and plain balloon angioplasty to LAD diagonal (completed at [facility] – [place], [place]) - Cleared by cardiology pre-operatively. - Continue statin, aspirin as prescribed; holding CCB and beta aidee in setting of hypotension. (10) HTN (hypertension): - Has been hypotensive -- see above; holding home anti-hypertensives. (11) Essential familial hypercholesterolemia: - Continue statin and aspirin as prescribed. (12) Smokes less than 1/2 pack per day: - Tobacco cessation encouraged. (13) DM (diabetes mellitus), type 2, uncontrolled w/neurologic complication: - Hemoglobin A1C was 7.8. - Holding home Glimepiride, can resume at discharge. - Pharmacy consulted for glycemic management. (14) Sciatica: - H/o, monitor post op. (15) Anxiety: - Stable, continue Ativan prn. (16) GERD (gastroesophageal reflux disease): - PPI q3days. (17) DVT prophylaxis: - TEDs, Aspirin, SCDs. Dispo: Med/surg; pt. is not medically stable for discharge at this time, will continue to follow. Will need acute rehab at discharge. DNR/DNI -- discussed with patient at bedside. (18) Hyponatremia: 2nd to acute renal failure - follow. (19) Acute blood loss anemia: could have contributed to hypotension, LUCERO, etc. iron supplementation advised. Supervising Physician Co-Signing Physician Notes Attending Attestation - Chart reviewed in detail, care plan d/w HIREN Roy. I agree w/ the stacy components of her consult documentation. POD #3 from lumbar decompression/fusion procedure. Hypotension improved. LUCERO improving. Appreciate nephrology consultation/recs. H/H stable. Agree w/ w/u for hypoxia. Adrian Hernandez MD Subjective Pt. had good urine output overnight following initiation of IV fluids. Nephro consulted, renal function improving. She was hypoxic last evening, required O2 via NC. Pt. is nauseous, had episode of vomiting this morning. Has not had a BM yet but is passing gas. Denies SOB, chest pain. Review of Systems Review of Systems: All systems reviewed & are unremarkable except as noted in HPI & below Constitutional: + fatigue and + weakness; no fever, no chills and no anorexia Respiratory: no cough, no dyspnea, no dyspnea on exertion and no wheezing Cardiovascular: no chest pain, no palpitations and no edema Gastrointestinal: + nausea, + vomiting and + constipation; no abdominal pain and no diarrhea/loose stools Genitourinary: no difficulty urinating Musculoskeletal: no back pain and no joint pain Integumentary: no non-healing lesions Physical Exam Physical Exam: General: No acute distress HEENT: NC/AT; PERRLA with EOMI; [place] conjunctiva, MMM. No erythema of posterior pharynx Neck: Supple and nontender Cardiac: RRR Lungs: on 3L via NC; CTA bilaterally Abdomen: Bowel normoactive X 4; Nontender to palpation Extremities: Warm. No edema present Neuro: No focal weakness Skin: No rash Results & Data Vital Signs (Past 12 Hours) Vital Signs Temp Pulse Resp BP Pulse Ox 03/21/19 06:40 36.9 C 68 18 99/62 L 96 03/21/19 03:10 37.0 C 68 18 111/63 95 03/21/19 01:57 94 Laboratory Results 03/21/19 03/21/19 03/21/19 Range/Units 12:04 07:30 07:30 WBC 12.32 H (4.8-10.8) K/uL RBC 3.28 L (4.2-5.4) M/uL Hgb 9.1 L (12.0-16.0) g/dL Hct 28.6 L (37-47) % MCV 87.2 (80-100) fL MCH 27.7 (25-34) pg MCHC 31.8 L (32-36) g/dL RDW Std Deviation 44.9 (36.4-46.3) fL RDW Coeff of Sushant 14.0 (11.5-14.5) % Plt Count 201 (130-400) K/uL MPV 10.9 H (7.4-10.4) fL Sodium 134 L (136-145) mmol/L Potassium 5.3 H (3.5-5.1) mmol/L Chloride 102 (98-107) mmol/L Carbon Dioxide 25 (21-32) mmol/L Anion Gap 7.0 (3-11) BUN 49 H (7-18) mg/dl Creatinine 2.18 H (0.6-1.2) mg/dl Est Cr Clr Drug Dosing 21.7 ml/min Est GFR ( Amer) 25.2 Est GFR (Non-Af Amer) 21.8 BUN/Creatinine Ratio 22.3 H (10-20) Glucose 160 H (70-99) mg/dl POC Glucose 160 H (70-99) Osmolality (280-300) mOsm/kg Calcium 7.1 L (8.5-10.1) mg/dl Magnesium 2.2 (1.8-2.4) mg/dl Total Bilirubin 0.4 (0.2-1) mg/dl AST 10 L (15-37) U/L ALT < 6 L (12-78) U/L Alkaline Phosphatase 63 (45-117) U/L Total Protein 5.6 L (6.4-8.2) gm/dl Albumin 2.4 L (3.4-5.0) gm/dl Globulin 3.2 (2.5-4.0) gm/dl Albumin/Globulin Ratio 0.8 L (0.9-2) Urine Color Urine Appearance (Clear) Urine pH (4.5-7.5) Ur Specific Grass Range (1.000-1.030) Urine Protein (Negative) Urine Glucose (UA) (Negative) Urine Ketones (Negative) Urine Blood (Negative) Urine Nitrite (Negative) Urine Bilirubin (Negative) Urine Urobilinogen (Negative) Ur Leukocyte Esterase (Negative) Urine WBC (Auto) (0-5) /hpf Urine RBC (Auto) (0-4) /hpf U Hyaline Cast (Auto) (0-5) /lpf U Epithel Cells (Auto) (0-5) /lpf Urine Bacteria (Auto) (Negative) Urine Osmolality (500-800) mOsm/kg Ur Random Creatinine mg/dl Ur Random Sodium mmol/L 03/21/19 03/20/19 03/20/19 Range/Units 06:37 23:07 22:20 WBC (4.8-10.8) K/uL RBC (4.2-5.4) M/uL Hgb (12.0-16.0) g/dL Hct (37-47) % MCV (80-100) fL MCH (25-34) pg MCHC (32-36) g/dL RDW Std Deviation (36.4-46.3) fL RDW Coeff of Sushant (11.5-14.5) % Plt Count (130-400) K/uL MPV (7.4-10.4) fL Sodium 133 L (136-145) mmol/L Potassium 4.8 D (3.5-5.1) mmol/L Chloride 101 (98-107) mmol/L Carbon Dioxide 27 (21-32) mmol/L Anion Gap 6.0 (3-11) BUN 50 H (7-18) mg/dl Creatinine 2.43 H (0.6-1.2) mg/dl Est Cr Clr Drug Dosing 19.1 ml/min Est GFR ( Amer) 22.1 Est GFR (Non-Af Amer) 19.1 BUN/Creatinine Ratio 20.5 H (10-20) Glucose 93 (70-99) mg/dl POC Glucose 166 H (70-99) Osmolality (280-300) mOsm/kg Calcium 7.5 L (8.5-10.1) mg/dl Magnesium (1.8-2.4) mg/dl Total Bilirubin (0.2-1) mg/dl AST (15-37) U/L ALT (12-78) U/L Alkaline Phosphatase (45-117) U/L Total Protein (6.4-8.2) gm/dl Albumin (3.4-5.0) gm/dl Globulin (2.5-4.0) gm/dl Albumin/Globulin Ratio (0.9-2) Urine Color Yellow Urine Appearance Clear (Clear) Urine pH 5.0 (4.5-7.5) Ur Specific Grass Range 1.018 (1.000-1.030) Urine Protein 1+ H (Negative) Urine Glucose (UA) Negative (Negative) Urine Ketones Negative (Negative) Urine Blood Trace H (Negative) Urine Nitrite Negative (Negative) Urine Bilirubin Negative (Negative) Urine Urobilinogen Negative (Negative) Ur Leukocyte Esterase Trace H (Negative) Urine WBC (Auto) 5-10 H (0-5) /hpf Urine RBC (Auto) 0-4 (0-4) /hpf U Hyaline Cast (Auto) 5-10 H (0-5) /lpf U Epithel Cells (Auto) >30 H (0-5) /lpf Urine Bacteria (Auto) Negative (Negative) Urine Osmolality (500-800) mOsm/kg Ur Random Creatinine mg/dl Ur Random Sodium mmol/L 03/20/19 03/20/19 03/20/19 Range/Units 22:20 22:20 22:20 WBC (4.8-10.8) K/uL RBC (4.2-5.4) M/uL Hgb (12.0-16.0) g/dL Hct (37-47) % MCV (80-100) fL MCH (25-34) pg MCHC (32-36) g/dL RDW Std Deviation (36.4-46.3) fL RDW Coeff of Sushant (11.5-14.5) % Plt Count (130-400) K/uL MPV (7.4-10.4) fL Sodium (136-145) mmol/L Potassium (3.5-5.1) mmol/L Chloride (98-107) mmol/L Carbon Dioxide (21-32) mmol/L Anion Gap (3-11) BUN (7-18) mg/dl Creatinine (0.6-1.2) mg/dl Est Cr Clr Drug Dosing ml/min Est GFR ( Amer) Est GFR (Non-Af Amer) BUN/Creatinine Ratio (10-20) Glucose (70-99) mg/dl POC Glucose (70-99) Osmolality (280-300) mOsm/kg Calcium (8.5-10.1) mg/dl Magnesium (1.8-2.4) mg/dl Total Bilirubin (0.2-1) mg/dl AST (15-37) U/L ALT (12-78) U/L Alkaline Phosphatase (45-117) U/L Total Protein (6.4-8.2) gm/dl Albumin (3.4-5.0) gm/dl Globulin (2.5-4.0) gm/dl Albumin/Globulin Ratio (0.9-2) Urine Color Urine Appearance (Clear) Urine pH (4.5-7.5) Ur Specific [place] Range (1.000-1.030) Urine Protein (Negative) Urine Glucose (UA) (Negative) Urine Ketones (Negative) Urine Blood (Negative) Urine Nitrite (Negative) Urine Bilirubin (Negative) Urine Urobilinogen (Negative) Ur Leukocyte Esterase (Negative) Urine WBC (Auto) (0-5) /hpf Urine RBC (Auto) (0-4) /hpf U Hyaline Cast (Auto) (0-5) /lpf U Epithel Cells (Auto) (0-5) /lpf Urine Bacteria (Auto) (Negative) Urine Osmolality 269 L (500-800) mOsm/kg Ur Random Creatinine 89.0 mg/dl Ur Random Sodium Cancelled 13 mmol/L 03/20/19 03/20/19 03/20/19 Range/Units 21:02 18:26 17:27 WBC (4.8-10.8) K/uL RBC (4.2-5.4) M/uL Hgb (12.0-16.0) g/dL Hct (37-47) % MCV (80-100) fL MCH (25-34) pg MCHC (32-36) g/dL RDW Std Deviation (36.4-46.3) fL RDW Coeff of Sushant (11.5-14.5) % Plt Count (130-400) K/uL MPV (7.4-10.4) fL Sodium 130 L D (136-145) mmol/L Potassium 5.7 H (3.5-5.1) mmol/L Chloride 98 (98-107) mmol/L Carbon Dioxide 26 (21-32) mmol/L Anion Gap 6.0 (3-11) BUN 48 H (7-18) mg/dl Creatinine 2.52 H D (0.6-1.2) mg/dl Est Cr Clr Drug Dosing 18.4 ml/min Est GFR ( Amer) 21.2 Est GFR (Non-Af Amer) 18.3 BUN/Creatinine Ratio 19.0 (10-20) Glucose 135 H (70-99) mg/dl POC Glucose 124 H (70-99) Osmolality 289 (280-300) mOsm/kg Calcium 7.9 L (8.5-10.1) mg/dl Magnesium (1.8-2.4) mg/dl Total Bilirubin (0.2-1) mg/dl AST (15-37) U/L ALT (12-78) U/L Alkaline Phosphatase (45-117) U/L Total Protein (6.4-8.2) gm/dl Albumin (3.4-5.0) gm/dl Globulin (2.5-4.0) gm/dl Albumin/Globulin Ratio (0.9-2) Urine Color Urine Appearance (Clear) Urine pH (4.5-7.5) Ur Specific [place] Range (1.000-1.030) Urine Protein (Negative) Urine Glucose (UA) (Negative) Urine Ketones (Negative) Urine Blood (Negative) Urine Nitrite (Negative) Urine Bilirubin (Negative) Urine Urobilinogen (Negative) Ur Leukocyte Esterase (Negative) Urine WBC (Auto) (0-5) /hpf Urine RBC (Auto) (0-4) /hpf U Hyaline Cast (Auto) (0-5) /lpf U Epithel Cells (Auto) (0-5) /lpf Urine Bacteria (Auto) (Negative) Urine Osmolality (500-800) mOsm/kg Ur Random Creatinine mg/dl Ur Random Sodium mmol/L 03/20/19 03/20/19 Range/Units 17:27 17:07 WBC 15.11 H (4.8-10.8) K/uL RBC 3.61 L (4.2-5.4) M/uL Hgb 10.0 L (12.0-16.0) g/dL Hct 31.3 L (37-47) % MCV 86.7 (80-100) fL MCH 27.7 (25-34) pg MCHC 31.9 L (32-36) g/dL RDW Std Deviation 44.6 (36.4-46.3) fL RDW Coeff of Susahnt 13.9 (11.5-14.5) % Plt Count 233 (130-400) K/uL MPV 11.2 H (7.4-10.4) fL Sodium (136-145) mmol/L Potassium (3.5-5.1) mmol/L Chloride (98-107) mmol/L Carbon Dioxide (21-32) mmol/L Anion Gap (3-11) BUN (7-18) mg/dl Creatinine (0.6-1.2) mg/dl Est Cr Clr Drug Dosing ml/min Est GFR ( Amer) Est GFR (Non-Af Amer) BUN/Creatinine Ratio (10-20) Glucose (70-99) mg/dl POC Glucose 154 H (70-99) Osmolality (280-300) mOsm/kg Calcium (8.5-10.1) mg/dl Magnesium (1.8-2.4) mg/dl Total Bilirubin (0.2-1) mg/dl AST (15-37) U/L ALT (12-78) U/L Alkaline Phosphatase (45-117) U/L Total Protein (6.4-8.2) gm/dl Albumin (3.4-5.0) gm/dl Globulin (2.5-4.0) gm/dl Albumin/Globulin Ratio (0.9-2) Urine Color Urine Appearance (Clear) Urine pH (4.5-7.5) Ur Specific [place] Range (1.000-1.030) Urine Protein (Negative) Urine Glucose (UA) (Negative) Urine Ketones (Negative) Urine Blood (Negative) Urine Nitrite (Negative) Urine Bilirubin (Negative) Urine Urobilinogen (Negative) Ur Leukocyte Esterase (Negative) Urine WBC (Auto) (0-5) /hpf Urine RBC (Auto) (0-4) /hpf U Hyaline Cast (Auto) (0-5) /lpf U Epithel Cells (Auto) (0-5) /lpf Urine Bacteria (Auto) (Negative) Urine Osmolality (500-800) mOsm/kg Ur Random Creatinine mg/dl Ur Random Sodium mmol/L PG Care Time/CCT Total # of Minutes Spent Total Time Spent with Patient: Total time spent is greater than 50% in coordination of care (as documented) at patient's floor/unit and/or counseling patient:
--- NOTE | 2019-03-21 14:05 | XRay Report ---
KUB HISTORY: Postop. Rule out ileus vs. obstruction COMPARISON: None. FINDINGS: The bowel gas pattern is unremarkable. There are no dilated loops of small bowel to suggest an obstruction. No renal calculi. No ureteral calculi. No pneumoperitoneum or pneumatosis. Moderate well-formed stool within the proximal colon. Posterior decompression fusion from L4 through S1 with pedicle screws and rods. The hardware appears intact. There are lumbar skin jyotsna identified. IMPRESSION: 1. Moderate well-formed stool within the proximal colon. 2. No dilated loops of bowel to suggest obstruction or postoperative ileus. Electronically signed by: Rashid Becerra M.D. 03/21/2019 2:04 PM
[2019-03-21 17:05] LABS: BUN Creatinine Ratio 22.9 (10-20); Calcium 7.8 mg/dl (8.5-10.1); Creatinine Clr Calc Pharmacy 21.1 ml/min; Est GFR (African American) 24.4; Est GFR (Non-African American) 21.1; Potassium 5.9 mmol/L (3.5-5.1)
--- NOTE | 2019-03-21 17:20 | Ultrasound Report ---
US venous doppler LE BI CLINICAL HISTORY: Bilateral lower extremity swelling COMPARISON STUDY: No previous studies for comparison. FINDINGS: Real-time and color flow Doppler imaging were performed. Flow was seen within the femoral, popliteal and calf veins with no intraluminal thrombus demonstrated. The saphenous vein is patent. Th ere is bilateral lower extremity edema. IMPRESSION: No evidence of lower extremity DVT. Electronically signed by: Damon Valiente M.D. 03/21/2019 5:19 PM
[2019-03-21] MEDS ORDERED: DEXTROSE 50% 50 ML SYRINGE IV STA (18:51)
[2019-03-21] MEDS ORDERED: NovoLIN-R INSULIN PER UNIT CHARGE IV STA ×2 (18:51→19:51)
[2019-03-21] MEDS: IRON POLYSACCHARIDE COMPLEX 150 MG CAPSULE PO SCH (20:32)
[2019-03-21] MEDS: ATORVASTATIN 40 MG TAB PO SCH (20:33)
[2019-03-21] MEDS: DOCUSATE SODIUM/SENNA 50/8.6MG TAB PO SCH (20:33)
[2019-03-21] MEDS: LANTUS PER UNIT CHARGE SQ SCH (21:28)
[2019-03-21 23:24] LABS: BUN Creatinine Ratio 22.4 (10-20); Calcium 7.8 mg/dl (8.5-10.1); Creatinine Clr Calc Pharmacy 21.6 ml/min; Est GFR (African American) 25.1; Est GFR (Non-African American) 21.6; Potassium 4.5 mmol/L (3.5-5.1)
[2019-03-22] MEDS: ALBUTEROL HFA 8 GM INHALER INH SCH ×2 (05:53→12:46)
[2019-03-22] MEDS: POLYETHYLENE (MIRALAX) 17 GM PACK PO SCH ×2 (05:53→12:45)
[2019-03-22 07:58] LABS: Hematocrit (blood only) 30.1 % (37-47); Hemoglobin 9.3 g/dL (12.0-16.0); Mean Corpuscular Hgb Conc 30.9 g/dL (32-36); Mean Corpuscular Volume 87.2 fL (80-100); Mean Platelet Volume 10.4 fL (7.4-10.4); Platelet Count 238 K/uL (130-400); RDW Coefficient of Variation 13.9 % (11.5-14.5); RDW Standard Deviation 44.7 fL (36.4-46.3); Red Blood Count 3.45 M/uL (4.2-5.4); White Blood Count 11.47 K/uL (4.8-10.8)
[2019-03-22 08:28] LABS: Alanine Aminotransferase < 6 U/L (12-78); Albumin Level 2.3 gm/dl (3.4-5.0); Aspartate Aminotransferase 10 U/L (15-37); BUN Creatinine Ratio 23.6 (10-20); Blood Urea Nitrogen 44 mg/dl (7-18); Calcium 7.7 mg/dl (8.5-10.1); Carbon Dioxide 30 mmol/L (21-32); Chloride 101 mmol/L (98-107); Creatinine Clr Calc Pharmacy 25.4 ml/min; Est GFR (African American) 30.2; Glucose 146 mg/dl (70-99); Potassium 4.5 mmol/L (3.5-5.1); Sodium 134 mmol/L (136-145)
[2019-03-22 08:31] LABS: Albumin Globulin Ratio 0.6 (0.9-2); Alkaline Phosphatase 63 U/L (45-117); Bilirubin,Total 0.3 mg/dl (0.2-1); Globulin 3.6 gm/dl (2.5-4.0); Total Protein 5.9 gm/dl (6.4-8.2)
[2019-03-22] MEDS: INSULIN ASPART 100 UNITS/ML 3 ML PEN SC SCH ×2 (09:32→12:44)
[2019-03-22] MEDS: ASPIRIN 81 MG ECTAB PO SCH (09:35)
[2019-03-22] MEDS: FERROUS GLUCONATE 324 MG TAB PO SCH (09:35)
[2019-03-22] MEDS: CYANOCOBALAMIN 500 MCG TABLET (VITAMIN B-12) PO SCH (09:35)
[2019-03-22] MEDS: CHOLECALCIFEROL 1,000 UNITS TAB PO SCH (09:35)
[2019-03-22] MEDS: PANTOprazole 40 MG TAB PO SCH (09:35)
--- NOTE | 2019-03-22 09:39 | Pharmacy Report ---
Pharmacy Glycemic Short Note 2 - Date of Service March 22, 2019 - Glycemic Short BSG Results (Last 24 hours): 03/21/19 03/21/19 03/21/19 12:04 16:00 17:37 Glucose 170 H POC Glucose 160 H 159 H 03/21/19 03/21/19 03/21/19 20:13 21:23 22:50 Glucose 129 H POC Glucose 198 H 219 H 03/22/19 03/22/19 07:37 07:44 Glucose 146 H POC Glucose 154 H Laboratory Tests 02/13/19 03/19/19 03/20/19 09:50 08:06 05:58 Creatinine 1.38 H 1.59 H 2.14 H D 03/20/19 03/20/19 03/21/19 17:27 23:07 07:30 Creatinine 2.52 H D 2.43 H 2.18 H 03/21/19 03/21/19 03/22/19 16:00 22:50 07:37 Creatinine 2.24 H 2.19 H 1.88 H D ASSESSMENT: * 74yo T2DM female with presumed adequate outpatient control per recent A1c. However, this value is outdate (>90 days old). Will re-order per protocol. * Pt POD#1 s/p L4-L5 Laminectomy and Fusion. Goal is to maintain BSGs <200 mg/dl (ideally <150 mg/dl) to prevent post-op infectious complications * Pt is maintained on oral antidiabetic agents as an outpatient * Oral agents are not recommended for inpatient use d/t drug interactions, changing PO intake, and difficulty titrating for acute hyper/hypoglycemia. ADA recommends re-initiating outpatient oral agents 1-2 days prior to discharge if/when appropriate if they were held on admission. * Will hold oral agents for admission and utilize SQ basal bolus insulin regimen which is the recommended regimen for inpatient glycemic control. * Will initiate weight based insulin dosing for insulin terrance patient and titrate based on BSG trends. 03/20: * Patient required total of 22 units of insulin yesterday, of which 5 were basal insulin * Fasting BSG w/in range at 124 mg/dL - trending up at lunch as patient now eating more, will tighten CF/CR * Will adjust Lantus scale based upon BSG for tonight 03/22: * Patient received 28 units of insulin yesterday, blood sugars rising some with meals, will tighten CR slightly. * POD 4 lumbar decompression fusion - plan for placement at [facility] once medically stable. * Bowel regimen ordered; KUB was negative for ileus vs. obstruction. * SCr improving down to 1.88mg/dl today. PLAN FOR INPATIENT GLYCEMIC CONTROL: * Holding outpatient oral diabetes medications * May resume at discharge * Basal insulin * Lantus HS per scale: * give 7 units <180 mg/dL, 10 units if 180 or greater * Bolus insulin * NovoLog per scale ACHS or Q6hrs while NPO * Goal Range: Low 110 mg/dL - High 140 mg/dL * Correction Factor: 25 mg/dL/unit * TIGHTEN: Nutritional / Prandial insulin per carb ratio of 1 unit per 8 grams CHO consumed Dishcarge recommendations: * A1c 7.8%, at goal for patient's age and comorbidites, so could continue outpatient regimen of PO glimepride 2mg PO BID. * Due to fluctuating renal function, I would recommend changing glimepiride to once daily Lantus, 20 units daily, titrating to goal fasting blood sugar if patient is open and willing to do once daily injections at home. * Please note that the plan above was derived based on current level of insulin resistance and hospital stress. These recommendations are appropriate for inpatient admission only. Plan of care upon discharge will need to be reassessed to avoid potential outpatient hypo/hyperglycemia. Thank you. *
--- NOTE | 2019-03-22 09:51 | Nephrology Progress Note ---
Date of Service March 22, 2019 Assessment & Plan (1) Acute renal failure: Nonoliguric acute kidney injury superimposed on chronic kidney disease. There has been continued improvement in creatinine. Patient's metabolic profile is otherwise acceptable with normal electrolytes and improved hyperkalemia. There is no significant acid-base abnormality at this time. The patient is making a good amount of urine. She has been placed on a low-potassium diet. I would suggest we continue to hold her ELLA-inhibitor at this time. I would avoid any additional IV fluid. The goal should be to maintain an even to slightly negative fluid balance. Diuretics are currently being held with monitoring. Input and output should be accurately documented. Repeat metabolic profile tomorrow AM. LUCERO can be attributed to ATN which would be presumably hemodynamically mediated. Medications are currently acceptable for kidney function. (2) CKD (chronic kidney disease) stage 3, GFR 30-59 ml/min: Followed by Dr. Espinosa as an outpatient. CKD class III A3. (3) Atherosclerotic heart disease of [place] coronary artery with other forms of angina pectoris: (4) Lumbar spinal stenosis: s/p lumbar decompression fusion, by Dr. Torre on 03/18/2019 (5) Hypotension: Antihypertensive medications have been held (6) Hyperkalemia: Low-potassium diet. Hold ACEi. (7) Anemia: (8) Cardiomyopathy: Low threshold to restart diuretics. Document I/O's. Maintain even to slightly negative fluid balance. (9) HTN (hypertension): (10) DM (diabetes mellitus), type 2, uncontrolled w/neurologic complication: Subjective No acute events overnight. Shirley is breathing comfortably. She denies fevers or chills. She remains despondent. She is discouraged due to continued back pain. She is frustrated by her current activity tolerance. She denies any urinary complaints. Appetite is fair. She denies any GI symptoms otherwise. Review of Systems Review of Systems: All systems reviewed & are unremarkable except as noted in HPI & below Physical Exam Constitutional: well developed and + obese; no acute distress Eyes: no conjunctival abnormality and no scleral abnormality ENMT: Mouth: no oral mucosal abnormality and oral mucous membranes not dry Neck: normal visual inspection and trachea midline Respiratory: normal respiratory effort; no respiratory distress Auscultation: + rales Cardiovascular: Heart Sounds: normal S1 and normal S2 Vessels: no JVD Extremities: + edema Gastrointestinal (Abdomen): Percussion/Palpation: abdomen soft; abdomen nontender Musculoskeletal: Extremities: no cyanosis and no clubbing Skin: normal turgor; no rashes Neurologic: Motor/Sensory: no tremor and no asterixis Psychiatric: Orientation: oriented x 3 Affect: + depressed affect Results & Data Vital Signs (Past 12 Hours) Vital Signs Temp Pulse Pulse Resp BP BP Pulse Ox 03/22/19 07:19 37.3 C 77 81 16 134/58 L 92 03/22/19 04:00 37.5 C 74 18 138/63 94 03/22/19 00:27 75 03/21/19 23:00 37.5 C 71 18 126/63 95 03/21/19 21:50 37.7 C H Laboratory Results Laboratory Results - last 24 hr 03/21/19 03/21/19 03/21/19 12:04 16:00 17:37 WBC RBC Hgb Hct MCV MCH MCHC RDW Std Deviation RDW Coeff of Sushant Plt Count MPV Sodium 132 L Potassium 5.9 H Chloride 99 Carbon Dioxide 27 Anion Gap 6.0 BUN 51 H Creatinine 2.24 H Est Cr Clr Drug Dosing 21.1 Est GFR ( Amer) 24.4 Est GFR (Non-Af Amer) 21.1 BUN/Creatinine Ratio 22.9 H Glucose 170 H POC Glucose 160 H 159 H Calcium 7.8 L Total Bilirubin AST ALT Alkaline Phosphatase Total Protein Albumin Globulin Albumin/Globulin Ratio 03/21/19 03/21/19 03/21/19 20:13 21:23 22:50 WBC RBC Hgb Hct MCV MCH MCHC RDW Std Deviation RDW Coeff of Sushant Plt Count MPV Sodium 133 L Potassium 4.5 D Chloride 101 Carbon Dioxide 29 Anion Gap 4.0 BUN 49 H Creatinine 2.19 H Est Cr Clr Drug Dosing 21.6 Est GFR ( Amer) 25.1 Est GFR (Non-Af Amer) 21.6 BUN/Creatinine Ratio 22.4 H Glucose 129 H POC Glucose 198 H 219 H Calcium 7.8 L Total Bilirubin AST ALT Alkaline Phosphatase Total Protein Albumin Globulin Albumin/Globulin Ratio 03/22/19 03/22/19 03/22/19 07:37 07:37 07:44 WBC 11.47 H RBC 3.45 L Hgb 9.3 L Hct 30.1 L MCV 87.2 MCH 27.0 MCHC 30.9 L RDW Std Deviation 44.7 RDW Coeff of Sushant 13.9 Plt Count 238 MPV 10.4 Sodium 134 L Potassium 4.5 Chloride 101 Carbon Dioxide 30 Anion Gap 3.0 BUN 44 H Creatinine 1.88 H D Est Cr Clr Drug Dosing 25.4 Est GFR ( Amer) 30.2 Est GFR (Non-Af Amer) 26.0 BUN/Creatinine Ratio 23.6 H Glucose 146 H POC Glucose 154 H Calcium 7.7 L Total Bilirubin 0.3 AST 10 L ALT < 6 L Alkaline Phosphatase 63 Total Protein 5.9 L Albumin 2.3 L Globulin 3.6 Albumin/Globulin Ratio 0.6 L PG Care Time/CCT Total # of Minutes Spent Total Time Spent with Patient: Total time spent is greater than 50% in coordination of care (as documented) at patient's floor/unit and/or counseling patient:
[2019-03-22] MEDS: GABAPENTIN 100 MG CAP PO SCH (10:04)
[2019-03-22] MEDS ORDERED: AMLODIPINE BESYLATE 5 MG TAB PO SCH (13:30)
--- NOTE | 2019-03-22 14:22 | Hospitalist Progress Note ---
Date of Service March 22, 2019 Assessment & Plan (1) Lumbar spinal stenosis: - S/p lumbar decompression fusion, by Dr. Torre on 03/18/2019; POD#4. - DVT ppx & pain management per primary team. - PT/OT evaluation - plan for placement at [facility] pending insurance auth. - Bowel regimen; KUB was negative for ileus vs. obstruction. (2) Hypotension: - SBP 90's on 03/20/19 -- related to dehydration vs. medication induced vs. underlying infection. - BP now improved -- will resume home Amlodipine 10 mg daily today and Coreg 25 mg BID on 03/23. - IV fluids now d/c'ed. - Monitor intake/output and daily weights - weight has been trending up, monitor for volume overload. (3) Acute respiratory failure with hypoxia: - Has been requiring 2-3L via NC -- has increased noctural hypoxia, ?obstructive sleep apnea. - Unclear etiology; CXR low lung volumes and atelectasis. - Monitor for volume overload - diuretics have been held. - Doppler of bilat LE was negative for DVT. - Will need outpatient sleep study to evaluate for ESTELA; pt. will need nocturnal oxygen at [facility]. (4) Acute renal failure: - Creatinine peaked at 2.52 on 03/21, baseline ~1.3-1.6. - Likely pre-renal related to dehydration in setting of poor PO intake and Lasix administration. Cr now improving back to baseline. - Urine sodium was 13; U/a positive for cast cells -- consider ATN in setting of hypotensive episodes and acute blood loss. - D/c'ed IV fluids. - Nephro consulted, appreciate input. Monitor BMP daily. (5) CKD (chronic kidney disease) stage 3, GFR 30-59 ml/min: - Renally dose all meds. - See above. (6) Hyperkalemia: - K level was elevated in setting of ARF, now improved. - Follows with nephro, does require Kayexalate as outpt due to chronic hyperkalemia. - Will continue to follow levels daily. (7) Anemia: - Hgb is below baseline post op. - No transfusion necessary at this point. (8) Cardiomyopathy: - H/o, likely ischemic in setting of NSTEMI (see below). - Continue statin, aspirin as prescribed. Will resume Amlodipine today, Coreg on 03/23. (9) Atherosclerotic heart disease of [place] coronary artery with other forms of angina pectoris: - H/o NSTEMI in 2010 with placement of drug eluting stent in mid left circumflex coronary artery and plain balloon [place] [facility] [place] - Cleared by cardiology pre-operatively. - Continue statin, aspirin as prescribed; resuming anti-hypertensives as noted above. (10) HTN (hypertension): - Previously hypotensive -- see above; resuming Coreg on 03/23 and Amlodipine this afternoon. - Continue to hold Lisinopril in setting of LUCERO and Lasix. (11) Essential familial hypercholesterolemia: - Continue statin and aspirin as prescribed. (12) Smokes less than 1/2 pack per day: - Tobacco cessation encouraged. (13) DM (diabetes mellitus), type 2, uncontrolled w/neurologic complication: - Hemoglobin A1C was 7.8. - Holding home Glimepiride, can resume at discharge. - Pharmacy consulted for glycemic management. (14) Sciatica: - H/o, monitor post op. (15) Anxiety: - Stable, continue Ativan prn. (16) GERD (gastroesophageal reflux disease): - PPI q3days. (17) DVT prophylaxis: - TEDs, Aspirin, SCDs. Dispo: Med/surg; discharge to [facility] pending insurance auth. DNR/DNI -- discussed with patient at bedside. Supervising Physician Co-Signing Physician Notes Attending Attestation - Chart reviewed in detail, care plan d/w HIREN Roy. I agree w/ the stacy components of her consult documentation. POD #4 from lumbar decompression/fusion procedure. LUCERO continues to improve with adequate UOP and compensated volume status. H/H stable. Remains with O2 requirement; dopplers legs negative; no acute findings on recent cxr except atelectasis. Will need O2 at discharge. Agree w/ outpatient sleep study. Component of COPD contributing to o2 requirement? atelectasis as well? PFTs as outpatient also advised. Adrian Hernandez MD Subjective Pt. is doing well overall. Has good urine output, renal function improving. Remains on 2L O2 but has not desatted overnight over last 24 hours. Plan for rehab placement pending insurance auth/placement. Review of Systems Review of Systems: All systems reviewed & are unremarkable except as noted in HPI & below Constitutional: no fever, no chills, no fatigue, no weakness and no anorexia Respiratory: no cough, no dyspnea, no dyspnea on exertion and no wheezing Cardiovascular: no chest pain, no palpitations and no edema Gastrointestinal: + constipation; no abdominal pain and no nausea Genitourinary: no difficulty urinating Musculoskeletal: no back pain and no joint pain Integumentary: no non-healing lesions Physical Exam Physical Exam: General: No acute distress HEENT: NC/AT; PERRLA with EOMI; [place] conjunctiva, MMM. No erythema of posterior pharynx Neck: Supple and nontender Cardiac: RRR Lungs: on 2L via NC; CTA bilaterally Abdomen: Bowel normoactive X 4; Nontender to palpation Extremities: Warm. No edema present Neuro: No focal weakness Skin: No rash Results & Data Vital Signs (Past 12 Hours) Vital Signs Temp Pulse Pulse Pulse Resp BP BP 03/22/19 12:22 37.3 C 85 20 154/55 H 03/22/19 07:19 37.3 C 77 81 16 134/58 L 03/22/19 04:00 37.5 C 74 18 138/63 Pulse Ox 03/22/19 12:22 95 03/22/19 07:19 92 03/22/19 04:00 94 Laboratory Results 03/22/19 03/22/19 03/22/19 Range/Units 11:46 07:44 07:37 WBC (4.8-10.8) K/uL RBC (4.2-5.4) M/uL Hgb (12.0-16.0) g/dL Hct (37-47) % MCV (80-100) fL MCH (25-34) pg MCHC (32-36) g/dL RDW Std Deviation (36.4-46.3) fL RDW Coeff of Sushant (11.5-14.5) % Plt Count (130-400) K/uL MPV (7.4-10.4) fL Sodium 134 L (136-145) mmol/L Potassium 4.5 (3.5-5.1) mmol/L Chloride 101 (98-107) mmol/L Carbon Dioxide 30 (21-32) mmol/L Anion Gap 3.0 (3-11) BUN 44 H (7-18) mg/dl Creatinine 1.88 H D (0.6-1.2) mg/dl Est Cr Clr Drug Dosing 25.4 ml/min Est GFR ( Amer) 30.2 Est GFR (Non-Af Amer) 26.0 BUN/Creatinine Ratio 23.6 H (10-20) Glucose 146 H (70-99) mg/dl POC Glucose 236 H 154 H (70-99) Calcium 7.7 L (8.5-10.1) mg/dl Total Bilirubin 0.3 (0.2-1) mg/dl AST 10 L (15-37) U/L ALT < 6 L (12-78) U/L Alkaline Phosphatase 63 (45-117) U/L Total Protein 5.9 L (6.4-8.2) gm/dl Albumin 2.3 L (3.4-5.0) gm/dl Globulin 3.6 (2.5-4.0) gm/dl Albumin/Globulin Ratio 0.6 L (0.9-2) 03/22/19 03/21/19 03/21/19 Range/Units 07:37 22:50 21:23 WBC 11.47 H (4.8-10.8) K/uL RBC 3.45 L (4.2-5.4) M/uL Hgb 9.3 L (12.0-16.0) g/dL Hct 30.1 L (37-47) % MCV 87.2 (80-100) fL MCH 27.0 (25-34) pg MCHC 30.9 L (32-36) g/dL RDW Std Deviation 44.7 (36.4-46.3) fL RDW Coeff of Sushant 13.9 (11.5-14.5) % Plt Count 238 (130-400) K/uL MPV 10.4 (7.4-10.4) fL Sodium 133 L (136-145) mmol/L Potassium 4.5 D (3.5-5.1) mmol/L Chloride 101 (98-107) mmol/L Carbon Dioxide 29 (21-32) mmol/L Anion Gap 4.0 (3-11) BUN 49 H (7-18) mg/dl Creatinine 2.19 H (0.6-1.2) mg/dl Est Cr Clr Drug Dosing 21.6 ml/min Est GFR ( Amer) 25.1 Est GFR (Non-Af Amer) 21.6 BUN/Creatinine Ratio 22.4 H (10-20) Glucose 129 H (70-99) mg/dl POC Glucose 219 H (70-99) Calcium 7.8 L (8.5-10.1) mg/dl Total Bilirubin (0.2-1) mg/dl AST (15-37) U/L ALT (12-78) U/L Alkaline Phosphatase (45-117) U/L Total Protein (6.4-8.2) gm/dl Albumin (3.4-5.0) gm/dl Globulin (2.5-4.0) gm/dl Albumin/Globulin Ratio (0.9-2) 03/21/19 03/21/19 03/21/19 Range/Units 20:13 17:37 16:00 WBC (4.8-10.8) K/uL RBC (4.2-5.4) M/uL Hgb (12.0-16.0) g/dL Hct (37-47) % MCV (80-100) fL MCH (25-34) pg MCHC (32-36) g/dL RDW Std Deviation (36.4-46.3) fL RDW Coeff of Sushant (11.5-14.5) % Plt Count (130-400) K/uL MPV (7.4-10.4) fL Sodium 132 L (136-145) mmol/L Potassium 5.9 H (3.5-5.1) mmol/L Chloride 99 (98-107) mmol/L Carbon Dioxide 27 (21-32) mmol/L Anion Gap 6.0 (3-11) BUN 51 H (7-18) mg/dl Creatinine 2.24 H (0.6-1.2) mg/dl Est Cr Clr Drug Dosing 21.1 ml/min Est GFR ( Amer) 24.4 Est GFR (Non-Af Amer) 21.1 BUN/Creatinine Ratio 22.9 H (10-20) Glucose 170 H (70-99) mg/dl POC Glucose 198 H 159 H (70-99) Calcium 7.8 L (8.5-10.1) mg/dl Total Bilirubin (0.2-1) mg/dl AST (15-37) U/L ALT (12-78) U/L Alkaline Phosphatase (45-117) U/L Total Protein (6.4-8.2) gm/dl Albumin (3.4-5.0) gm/dl Globulin (2.5-4.0) gm/dl Albumin/Globulin Ratio (0.9-2) PG Care Time/CCT Total # of Minutes Spent Total Time Spent with Patient: Total time spent is greater than 50% in coordination of care (as documented) at patient's floor/unit and/or counseling patient:
[2019-03-22] MEDS: OXYCODONE HCL IR 5 MG TAB (IMMEDIATE RELEASE) PO PRN (15:47)
[2019-03-23] MEDS ORDERED: CARVEDILOL 25 MG TAB PO SCH (09:00)
== END 2019-03-22 16:35 | DRG 459 ==
LOC: ASU 07:43 → 3E 13:38 → 2N 03-21 19:53

== ENCOUNTER 2020-06-25 12:04 | Inpatient (IN) ==
[2020-06-25] MEDS ORDERED: SODIUM CHLORIDE 0.9% 500 ML IV ONE (12:29)
--- NOTE | 2020-06-25 12:51 | XRay Report ---
SINGLE VIEW CHEST CLINICAL HISTORY: Change in mental status. FINDINGS: An AP, portable, upright chest radiograph is compared to study dated 03/20/2019. The examina tion is mildly degraded by portable technique and patient rotation. The heart is top normal for pro jection noting atherosclerotic calcification of the thoracic aorta. There is elevation of right hemid iaphragm and bibasilar atelectasis. No airspace consolidation or pleural effusion is identified. No p neumothorax is seen. The skeletal structures are osteopenic. The bony thorax is grossly intact. Calci fic tendinopathy is seen in the left shoulder. IMPRESSION: No active disease in the chest. ACT 112: Negative or not required by law. Electronically signed by: Kalpesh Menendez M.D. 06/25/2020 12:49 PM
[2020-06-25 12:54] LABS: Basophils # (auto) 0.05 K/uL (0-0.2); Basophils % (auto) 0.4 %; Eosinophils # (auto) 0.26 K/uL (0-0.5); Hematocrit (blood only) 38.9 % (37-47); Hemoglobin 11.9 g/dL (12.0-16.0); Immature Granulocytes # (auto) 0.03 K/uL (0.00-0.02); Immature Granulocytes % (auto) 0.2 %; Lymphocytes # (auto) 1.91 K/uL (1.2-3.4); Lymphocytes % (auto) 14.6 %; Mean Corpuscular Hemoglobin 26.6 pg (25-34); Mean Corpuscular Hgb Conc 30.6 g/dL (32-36); Mean Platelet Volume 11.1 fL (7.4-10.4); Monocytes # (auto) 0.59 K/uL (0.11-0.59); Monocytes % (auto) 4.5 %; Neutrophils # (auto) 10.21 K/uL (1.4-6.5); Neutrophils % (auto) 78.3 %; Platelet Count 269 K/uL (130-400); RDW Coefficient of Variation 14.3 % (11.5-14.5); Red Blood Count 4.47 M/uL (4.2-5.4); White Blood Count 13.05 K/uL (4.8-10.8)
[2020-06-25 12:55] LABS: iSTAT Creatinine 1.3 mg/dl (0.6-1.3); iSTAT Hemoglobin 13.3 g/dl (12.0-16.0); iSTAT Ionized Calcium 1.2 mmol/l (1.12-1.32); iSTAT Potassium 4.7 mmol/L (3.3-5.0)
[2020-06-25 12:59] LABS: Partial Thromboplastin Ratio 0.9; Partial Thromboplastin Time 25.6 Seconds (21.0-31.0); Prothrombin Time 10.7 Seconds (9.0-12.0)
[2020-06-25 13:05] LABS: Alanine Aminotransferase 12 U/L (12-78); Albumin Level 3.1 gm/dl (3.4-5.0); Aspartate Aminotransferase 11 U/L (15-37); BUN Creatinine Ratio 18.8 (10-20); Blood Urea Nitrogen 28 mg/dl (7-18); Calcium 8.9 mg/dl (8.5-10.1); Carbon Dioxide 28 mmol/L (21-32); Chloride 106 mmol/L (98-107); Creatinine Clr Calc Pharmacy 33.4 ml/min; Est GFR (African American) 39.7; Est GFR (Non-African American) 34.2; Glucose 230 mg/dl (70-99); Magnesium 2.3 mg/dl (1.8-2.4); Potassium 4.7 mmol/L (3.5-5.1); Sodium 138 mmol/L (136-145)
[2020-06-25] MEDS ORDERED: SODIUM CHLORIDE 0.9% 1000ML 500 ML IV ONE (13:07)
[2020-06-25 13:10] LABS: Albumin Globulin Ratio 0.7 (0.9-2); Alkaline Phosphatase 99 U/L (45-117); Bilirubin,Total 0.2 mg/dl (0.2-1); Creatine Kinase MB < 1.0 ng/ml (0.5-3.6); Globulin 4.4 gm/dl (2.5-4.0); Total Protein 7.5 gm/dl (6.4-8.2); Troponin I 0.034 ng/ml (0-0.045)
[2020-06-25] MEDS ORDERED: OPTIRAY 320 125ml IV ONE (13:18)
--- NOTE | 2020-06-25 13:41 | CT Scan Report ---
UNENHANCED CT OF THE BRAIN; CT ANGIOGRAM OF THE BRAIN; CT ANGIOGRAM OF THE NECK CLINICAL HISTORY: Strokelike symptoms. COMPARISON STUDY: CT of the brain dated 11/01/2012. Carotid artery ultrasound dated 02/10/2020. TECHNIQUE: Unenhanced axial CT scan of the brain is performed. Subsequently, following the IV adminis tration of 120 of Opt[address] 320, CT angiogram of the head and neck was performed from the aortic arch t o the vertex. Images are reviewed in the axial, sagittal, and coronal planes. 3-D MIPS images are cre ated and assessed. IV contrast was administered without complication. All measurements were calculate d based on NASCET criteria. A dose lowering technique was utilized adhering to the principles of ALA RA. CT DOSE: 1197.59 mGy.cm FINDINGS: Brain parenchyma: There is age-related involutional change noting mild subcortical and periventricula r microangiopathic disease. A chronic lacunar infarct is seen in the right basal ganglia. Right tempo roparietal encephalomalacia is unchanged and consistent with a remote infarct. There is focal loss of burks-white matter differentiation is seen in the left frontal lobe which likely represents subacute ischemia. There is no hemorrhage or mass effect. There is no evidence of enhancing mass lesion on the angiogram phase images. The ventricles, sulci, and cisterns are prominent secondary to involutional change. No extra-axial fluid collection is seen. Thoracic aorta: There is atherosclerotic calcification of the thoracic aorta. Visualized portions of the thoracic aorta are normal in caliber. The aortic arch demonstrates standard 3-vessel anatomy. Right carotid arterial system: The right common carotid artery is widely patent, as are the right int ernal and external carotid arteries. Atherosclerotic plaque is seen in the carotid bulb. Left carotid arterial system: The left common carotid artery is patent, as are the left internal and external carotid arteries. Atherosclerotic plaque is seen in the carotid bulb and causes approximatel y 50% luminal narrowing at the origin of the left internal carotid artery. Vertebral arteries: The vertebral arteries are widely patent bilaterally and codominant. Subclavian arteries: Widely patent bilaterally. Intracranial vasculature: There is atherosclerotic calcification of the cavernous carotid and vertebr al arteries. There is a large right posterior communicating artery. The internal carotid arteries are patent at the skull base, as are the anterior and middle cerebral arteries bilaterally. The vertebro basilar system and posterior cerebral arteries are widely patent. The vertebral arteries are codomina nt. There is no aneurysm, high-grade stenosis, or focal vessel cut off seen throughout the intracrani al circulation. Jugular veins: Patent bilaterally. Dural sinuses: Patent. Lung apices: Partially visualized upper lobe lung parenchyma appears clear. Soft tissues: The visualized pharyngeal soft tissues are normal in appearance noting angiographic pha se technique. The oropharyngeal airway appears widely patent. The salivary and thyroid glands are nor mal in appearance. No cervical lymphadenopathy is seen. Skeletal structures: The skeletal structures are osteopenic. No lytic or blastic lesion is seen. The calvarium appears intact. The cervical spine is maintained noting mild multilevel spondylosis. Orbits: The bony orbits are intact. Orbital contents are normal in appearance noting bilateral ocular lens implants. Sinuses and mastoids: The paranasal sinuses are clear. The mastoid air cells are well pneumatized. IMPRESSION: 1. There is focal loss of burks-white matter differentiation within the left frontal lobe, likely rese nting a subacute infarct. 2. There is no hemorrhage or mass effect. 3. Unremarkable CT angiogram of the brain. 4. There is atherosclerotic plaque in the carotid bulbs which causes approximately 50% stenosis at th e origin of the left internal carotid artery. 5. There is no significant stenosis seen in the right carotid arterial system. ACT 112: Negative or not required by law. Electronically signed by: Kalpesh Menendez M.D. 06/25/2020 1:40 PM
[2020-06-25 15:04] LABS: Appearance Urine Clear (Clear); Bacteria Urine Automated 4+ (Negative); Bilirubin Urine Negative (Negative); Blood Urine Negative (Negative); Color Urine Yellow; Glucose Urine UA Negative (Negative); Ketones Urine Negative (Negative); Leukocyte Esterase Urine 1+ (Negative); Nitrite Urine Negative (Negative); Protein Urine 2+ (Negative); RBC Urine Automated 0-4 /hpf (0-4); Specific Gravity Urine 1.027 (1.000-1.030); Urobilinogen Urine Negative (Negative); WBC Urine Automated >30 /hpf (0-5); pH Urine 5.5 (4.5-7.5)
[2020-06-25] MEDS ORDERED: GLUCOSE 10 TABS/TUBE PO PRN (17:04)
[2020-06-25] MEDS ORDERED: ONDANSETRON INJ 2 MG/ML 2 ML VIAL IV PRN (17:04)
[2020-06-25] MEDS ORDERED: PHARMACIST DISCHARGE MED REC CONSULT PRN (17:04)
[2020-06-25] MEDS ORDERED: GLUCOSE 40% GEL 15 GM TUBE PO PRN (17:04)
[2020-06-25] MEDS ORDERED: NITROGLYCERIN SL 0.4 MG/TAB TAB SL PRN (17:04)
[2020-06-25] MEDS ORDERED: DEXTROSE 50% 50 ML SYRINGE IV PRN (17:04)
[2020-06-25] MEDS ORDERED: GLUCAGON FOR INJ 1 MG VIAL SQ PRN (17:04)
[2020-06-25] MEDS ORDERED: ACETAMINOPHEN 325 MG TAB PO PRN (17:04)
[2020-06-25] MEDS ORDERED: CARBOHYDRATES FOR HYPOGLYCEMIA PO PRN (17:04)
--- NOTE | 2020-06-25 17:58 | Magnetic Resonance Report ---
Brain MRI WITHOUT CONTRAST HISTORY: Memory loss. Stroke symptoms. TECHNIQUE: Multiplanar multisequence MRI of the brain was performed without the use of contrast. COMPARISON STUDY: Head CT 06/25/2020. FINDINGS: Focal area of restricted diffusion within the left frontotemporal region measuring 3 cm in size consistent with an acute MCA territory infarct. The midline structures are intact. Old small rig ht MCA territory infarct. Small lacunar infarcts in the left cerebellar hemisphere paranasal sinuses and mastoid air cells are clear. The major vascular flow voids at the skull base are well-maintained. The ventricles and sulci demonstrate mild age-related involutional changes. There is no mass, hemato ma, midline shift. Periarticular white matter T2 hyperintensity is nonspecific but favors mild microv ascular ischemic change. IMPRESSION: 1. A 3 cm acute left MCA territory infarct. 2. Old right MCA territory infarct. 3. Mild atrophy and microvascular ischemic changes. ACT 112: Negative or not required by law. Electronically signed by: Rashid Becerra M.D. 06/25/2020 5:57 PM
[2020-06-25] MEDS: SODIUM CHLORIDE 0.9% 1000ML 1,000 ML IV SCH (18:14)
[2020-06-25] MEDS: INSULIN ASPART 100 UNITS/ML 3 ML PEN SC SCH ×2 (18:18→19:27)
[2020-06-25] MEDS: ATORVASTATIN 40 MG TAB PO SCH (19:22)
[2020-06-25] MEDS: GABAPENTIN 100 MG CAP PO SCH (19:23)
[2020-06-25] MEDS: carvediloL 25 MG TAB PO SCH (19:23)
[2020-06-25] MEDS: CHOLECALCIFEROL 1,000 UNITS 25 MCG TAB PO SCH (19:23)
[2020-06-25] MEDS: IRON POLYSACCHARIDE COMPLEX 150 MG CAPSULE PO SCH (19:23)
[2020-06-25] MEDS: FERROUS GLUCONATE 324 MG TAB PO SCH (19:24)
--- NOTE | 2020-06-25 20:10 | History & Physical Report ---
Date of Service June 25, 2020 Assessment & Plan (1) Left acute arterial ischemic stroke, MCA (middle cerebral artery): CT brain without contrast, suggested a left frontal lobe subacute infarct CT of neck showed an approximate 50% stenosis at the origin of the left ICA, with normal right ICA. MRI of brain without contrast showed a 3 cm acute left MCA territory infarct and old right MCA infarct. Admit to monitored bed with the patient will be admitted to telemetry for serial cardiac enzymes, cardiac rhythm monitoring and a 2-D echocardiogram with Dopplers. Follow CVA without TPA protocol. Consult social media manager, PT, OT, speech therapy, neurology. Check hemoglobin A1c and fasting lipid profile. Continue aspirin 81 mg by mouth daily, high-dose statin. . Present on Admission?: Yes (2) Carotid stenosis: See above Present on Admission?: Yes (3) Dyslipidemia: Continue high-dose statin atorvastatin 80 mg daily. Present on Admission?: Yes (4) Chronic kidney disease: Creatinine is 1.49, which is toward the lower end of her range, 1.41-2.52 Present on Admission?: Yes (5) HTN (hypertension): Continue amlodipine, carvedilol and lisinopril with hold parameters. Present on Admission?: Yes (6) Tobacco use disorder, continuous: Patient tells me she smokes 5 packs of cigarettes daily, although has been noted 1/2 pack per daily in the past Tobacco cessation is absolutely essential to prevention of further strokes. Present on Admission?: Yes Admission and Anticipated Discharge Date Admission Date: June 25, 2020 History of Present Illness Chief Complaint: The patient presents to the emergency department due to family concerns regarding the difficulty with speech, confusion, memory loss and left facial droop that began earlier in the day today Primary Care Provider: Lew Cedeno MD The patient is a 75-year-old female medical history including CAD, carotid stenosis, low back pain, leg weakness, dyslipidemia, chronic kidney disease, GERD, hypertension, anxiety, diabetes mellitus, chronic tobacco use, lumbar spinal stenosis, diabetic peripheral neuropathy, cardiomyopathy, anemia, DJD and sciatica. Work-up in the emergency department included CT of head without contrast which showed a loss of burks-white matter differentiation within the left frontal lobe likely representing a subacute infarct. CT angiography of the brain was negative. CT angiography of the of the neck showed approximately 50% stenosis at the origin of the left ICA. Allergies Allergy/AdvReac Type Severity Reaction Status Date / Time No Known Allergies Allergy Verified 06/25/20 14:00 Home Medications Medication Instructions Recorded Confirmed Type cholecalciferol (vitamin D3) 1,000 unit PO BID 05/19/18 06/25/20 History [Vitamin D3] cyanocobalamin (vitamin B-12) 1,000 mcg PO QAM 05/19/18 06/25/20 History [Vitamin B-12] omeprazole magnesium [Prilosec OTC] 20 mg PO Q3D 12/25/18 06/25/20 History polysaccharide iron complex 150 mg 150 mg PO HS 04/02/19 06/25/20 History iron capsule blood sugar diagnostic #100 ea 07/16/19 06/19/20 Rx acetaminophen 325 mg capsule 325 mg PO QID PRN 09/10/19 06/25/20 History gabapentin 100 mg capsule 200 mg PO BID #360 cap 01/27/20 06/25/20 Rx nitroglycerin 0.4 mg sublingual 0.4 mg SUBLINGUAL UD PRN #30 tab 04/07/20 06/25/20 Rx tablet glimepiride 2 mg tablet 2 mg PO BID #180 tab 04/15/20 06/25/20 Rx lisinopril 10 mg tablet 10 mg PO QAM #90 tab 06/09/20 06/25/20 Rx ferrous gluconate 324 mg (37.5 mg 324 mg PO BID #60 tab 06/12/20 06/25/20 Rx iron) tablet carvedilol 25 mg tablet 25 mg PO BID #180 tab 06/18/20 06/25/20 Rx amlodipine [Norvasc] 10 mg PO QAM 06/25/20 06/25/20 History aspirin 81 mg PO QAM 06/25/20 06/25/20 History atorvastatin 80 mg PO HS 06/25/20 06/25/20 History Past Med/Surg History Medical History Acute respiratory failure with hypoxia Anemia (~12/03/13) CAD (coronary artery disease) CAD (coronary atherosclerotic disease) 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 diabetes mellitus Diabetes mellitus, type 2 Diabetic peripheral neuropathy DJD (degenerative joint disease) GERD (gastroesophageal reflux disease) H/O: CVA (cerebrovascular accident) Hyperkalemia Hyperlipidemia Hypertension Hypoxia Lumbar spinal stenosis Myocardial Infarction Surgical History (Updated 06/19/20 @ 12:08 by Josephine Jha) History of cardiac cath 1 STENT 2010-[facility] [place]-NO CHEST PAIN SINCE History of carpal tunnel release RT History of cataract surgery RT/LEFT History of colonoscopy History of tooth extraction History of tubal ligation Family History Brother Family history of diabetes mellitus Sister Family history of diabetes mellitus Sister Family history of diabetes mellitus Mother Family history of diabetes mellitus Myocardial infarction Stroke Father Myocardial infarction Denies family history of Ovarian cancer Prostate cancer Breast cancer Colorectal cancer Social History (Updated 06/19/20 @ 12:16 by Josephine Jha) Smoking Status: Current every day smoker Tobacco Type: Cigarettes Cigarettes Per Day: 5; Second Hand Exposure: Yes (NIECE); Hx Alcohol Use: No Hx Substance Use: No Preferred Language: Tamazight Communication Ability: Effective Sheep Boner Required: No Beliefs That Will Affect Care: None marital status: / Current Living Situation: Alone Current Living Situation Comment: 2 story home - ok with stairs current occupational status: retired Other Information That Helps Us Care for You: No Feels Safe at Home: Yes Safety Concerns: Feels Safe At This Time Seatbelt Use: sometimes Sunscreen Use: No Assistive Devices: Denture - Upper, Denture - Lower, Glasses and Oxygen - Continuous Review of Systems Review of Systems: The patient denies chest pain, palpitations, shortness of breath, dyspnea on exertion, cough, lower extremity swelling, sore throat, fevers, chills, sweats, weight change, fatigue, nausea, vomiting, diarrhea , constipation, abdominal pain, pelvic pain, blood in urine or stool, dysuria, urinary frequency or urgency, lightheadedness, dizziness, headache, loss of consciousness, rash, abnormal bruising or ble eding, imbalance, focal or generalized weakness, numbness or tingling in arms or legs, generalized arthralgias or myalgias, back or neck pain, or night sweats. Physical Exam Physical Exam: The patient is awake, alert and oriented 3, well developed and well nourished, normocephalic and atraumatic, lying in bed and in no acute distress. HEENT--PERRL, EOMI, mucous membranes and oropharynx normal. Neck--supple. No JVD. No bruits. Thyroid normal, trachea midline, no adenopathy. Heart--normal S1 and S2. No murmurs, rubs or gallops. Lungs--clear bilaterally, no respiratory distress, no accessory muscle use. Abdomen--normal bowel sounds and soft. Nontender. Nondistended. Extremities--no cyanosis or clubbing. No edema. There are good distal pulses b/l. Dermatologic--normal skin turgor, normal color, no abnormal lymph nodes, no rash. Neurologic--cranial nerves II through XII grossly intact. Rheumatologic--normal range of motion. Psychiatric--normal affect. Results & Data Results & Data ([facility]) Vital Signs (Past 12 Hours) Vital Signs Temp Pulse Pulse Resp BP BP Pulse Ox 06/25/20 17:04 75 06/25/20 16:44 98.2 F 66 18 164/66 H 90 06/25/20 16:32 59 L 24 136/57 L 95 06/25/20 16:00 59 L 24 136/57 L 95 06/25/20 15:31 60 19 163/68 H 06/25/20 15:00 66 26 H 160/80 H 93 06/25/20 14:30 63 22 150/89 H 93 06/25/20 13:50 67 65 25 H 154/40 H 154/40 H 94 06/25/20 12:11 98.2 F 66 20 177/77 H 94 Laboratory Results Laboratory Results WBC 13.05 K/uL (4.8-10.8) H 06/25/20 12:38 RBC 4.47 M/uL (4.2-5.4) 06/25/20 12:38 Hgb 11.9 g/dL (12.0-16.0) L 06/25/20 12:38 POC Hgb 13.3 g/dl (12.0-16.0) 06/25/20 12:42 Hct 38.9 % (37-47) 06/25/20 12:38 POC Hct 39 % (37-47) 06/25/20 12:42 MCV 87.0 fL (80-100) 06/25/20 12:38 MCH 26.6 pg (25-34) 06/25/20 12:38 MCHC 30.6 g/dL (32-36) L 06/25/20 12:38 RDW Std Deviation 46.0 fL (36.4-46.3) 06/25/20 12:38 RDW Coeff of Sushant 14.3 % (11.5-14.5) 06/25/20 12:38 Plt Count 269 K/uL (130-400) 06/25/20 12:38 MPV 11.1 fL (7.4-10.4) H 06/25/20 12:38 Immature Gran % (Auto) 0.2 % 06/25/20 12:38 Neut % (Auto) 78.3 % 06/25/20 12:38 Lymph % (Auto) 14.6 % 06/25/20 12:38 [place] % (Auto) 4.5 % 06/25/20 12:38 Eos % (Auto) 2.0 % 06/25/20 12:38 Baso % (Auto) 0.4 % 06/25/20 12:38 Neut # (Auto) 10.21 K/uL (1.4-6.5) H 06/25/20 12:38 Lymph # (Auto) 1.91 K/uL (1.2-3.4) 06/25/20 12:38 [place] # (Auto) 0.59 K/uL (0.11-0.59) 06/25/20 12:38 Eos # (Auto) 0.26 K/uL (0-0.5) 06/25/20 12:38 Baso # (Auto) 0.05 K/uL (0-0.2) 06/25/20 12:38 Immature Gran # (Auto) 0.03 K/uL (0.00-0.02) H 06/25/20 12:38 PT 10.7 Seconds (9.0-12.0) 06/25/20 12:38 INR 1.0 (0.9-1.1) 06/25/20 12:38 APTT 25.6 Seconds (21.0-31.0) 06/25/20 12:38 PTT Ratio 0.9 06/25/20 12:38 POC Sodium 140 mmol/L (135-144) 06/25/20 12:42 Sodium 138 mmol/L (136-145) 06/25/20 12:38 POC Potassium 4.7 mmol/L (3.3-5.0) 06/25/20 12:42 Potassium 4.7 mmol/L (3.5-5.1) 06/25/20 12:38 POC Chloride 103 mmol/L (101-112) 06/25/20 12:42 Chloride 106 mmol/L (98-107) 06/25/20 12:38 Carbon Dioxide 28 mmol/L (21-32) 06/25/20 12:38 POC Total CO2 27 mmol/L (24-31) 06/25/20 12:42 Anion Gap 4.0 (3-11) 06/25/20 12:38 POC Anion Gap 15.0 mmol/L (16-25) L 06/25/20 12:42 POC BUN 28 mg/dl (7-18) H 06/25/20 12:42 BUN 28 mg/dl (7-18) H 06/25/20 12:38 Creatinine 1.49 mg/dl (0.6-1.2) H 06/25/20 12:38 POC Creatinine 1.3 mg/dl (0.6-1.3) 06/25/20 12:42 Est Cr Clr Drug Dosing 33.4 ml/min 06/25/20 12:38 Est GFR ( Amer) 39.7 06/25/20 12:38 Est GFR (Non-Af Amer) 34.2 06/25/20 12:38 BUN/Creatinine Ratio 18.8 (10-20) 06/25/20 12:38 Glucose 230 mg/dl (70-99) H 06/25/20 12:38 POC Glucose 152 mg/dl (70-99) H 06/25/20 19:27 POC Glucose (other) 235 mg/dl (70-99) H 06/25/20 12:42 Calcium 8.9 mg/dl (8.5-10.1) 06/25/20 12:38 POC Ioniz Calcium Saiv 1.20 mmol/l (1.12-1.32) 06/25/20 12:42 Magnesium 2.3 mg/dl (1.8-2.4) 06/25/20 12:38 Total Bilirubin 0.2 mg/dl (0.2-1) 06/25/20 12:38 AST 11 U/L (15-37) L 06/25/20 12:38 ALT 12 U/L (12-78) 06/25/20 12:38 Alkaline Phosphatase 99 U/L (45-117) 06/25/20 12:38 CK-MB (CK-2) < 1.0 ng/ml (0.5-3.6) 06/25/20 12:38 Troponin I 0.034 ng/ml (0-0.045) 06/25/20 12:38 Total Protein 7.5 gm/dl (6.4-8.2) 06/25/20 12:38 Albumin 3.1 gm/dl (3.4-5.0) L 06/25/20 12:38 Globulin 4.4 gm/dl (2.5-4.0) H 06/25/20 12:38 Albumin/Globulin Ratio 0.7 (0.9-2) L 06/25/20 12:38 Urine Color Yellow 06/25/20 14:11 Urine Appearance Clear (Clear) 06/25/20 14:11 Urine pH 5.5 (4.5-7.5) 06/25/20 14:11 Ur Specific Stanley 1.027 (1.000-1.030) 06/25/20 14:11 Urine Protein 2+ (Negative) H 06/25/20 14:11 Urine Glucose (UA) Negative (Negative) 06/25/20 14:11 Urine Ketones Negative (Negative) 06/25/20 14:11 Urine Blood Negative (Negative) 06/25/20 14:11 Urine Nitrite Negative (Negative) 06/25/20 14:11 Urine Bilirubin Negative (Negative) 06/25/20 14:11 Urine Urobilinogen Negative (Negative) 06/25/20 14:11 Ur Leukocyte Esterase 1+ (Negative) H 06/25/20 14:11 Urine WBC (Auto) >30 /hpf (0-5) H 06/25/20 14:11 Urine RBC (Auto) 0-4 /hpf (0-4) 06/25/20 14:11 U Hyaline Cast (Auto) 1-5 /lpf (0-5) 06/25/20 14:11 U Epithel Cells (Auto) 10-20 /lpf (0-5) H 06/25/20 14:11 Urine Bacteria (Auto) 4+ (Negative) H 06/25/20 14:11 SARS-CoV-2 Ag (Rapid) Negative (Negative) 06/25/20 13:49 Diagnostic Findings [facility], [id number] XRay Report Patient: LEON SAENZ Date: 06/25/20MR#: [id number]: [address] RDAcct ID:[id number]: Date: [address] [place] [address] Zip: [place], [place] [address]Ejh: 75Location: EDSex: FRoom/Bed:Att Phy:Diagnosis: MEMORY LOSS - ALTERED MENTAL STATUSPri Phy: Lew Cedeno III, MDService Date: 06/25/20Fam Phy:Interpreting Phy: Kalpesh Menendez MDAdmit Phy: Ordering Phy: Roger Higgins MD cc: ~ SINGLE VIEW CHEST CLINICAL HISTORY: Change in mental status. FINDINGS: An AP, portable, upright chest radiograph is compared to study dated 03/20/2019. The examination is mildly degraded by portable technique and patient rotation. The heart is top normal for projection noting atherosclerotic calcification of the thoracic aorta. There is elevation of right hemidiaphragm and bibasilar atelectasis. No airspace consolidation or pleural effusion is identified. No pneumothorax is seen. The skeletal structures are osteopenic. The bony thorax is grossly intact. Calcific tendinopathy is seen in the left shoulder. IMPRESSION: No active disease in the chest. ACT 112: Negative or not required by law. Electronically signed by: Kalpesh Menendez M.D. 06/25/2020 12:49 PM Dictated: 06/25/20 1248Transcribed: 06/25/20 1248 [facility], [id number] CT Scan Report Patient: LEON SAENZ Date: 06/25/20MR#: [id number]: [id number] RDAcct ID:[id number]: Date: [address] [place] [address] Zip: [place] [id number]: 75Location: EDSex: FRoom/Bed:Att Phy:Diagnosis: MEMORY LOSS - ALTERED MENTAL STATUSPri Phy: Lew CedenoKatlin, III, MDService Date: 06/25/20Fam Phy:Interpreting Phy: Kalpesh Menendez MDAit Phy: Ordering Phy: Roger Higgins MD cc: ~ UNENHANCED CT OF THE BRAIN; CT ANGIOGRAM OF THE BRAIN; CT ANGIOGRAM OF THE NECK CLINICAL HISTORY: Strokelike symptoms. COMPARISON STUDY: CT of the brain dated 11/01/2012. Carotid artery ultrasound dated 02/10/2020. TECHNIQUE: Unenhanced axial CT scan of the brain is performed. Subsequently, following the IV administration of 120 of Opt[address] 320, CT angiogram of the head and neck was performed from the aortic arch to the vertex. Images are reviewed in the axial, sagittal, and coronal planes. 3-D MIPS images are created and assessed. IV contrast was administered without complication. All measurements were calculated based on NASCET criteria. A dose lowering technique was utilized adhering to the principles of ALARA. CT DOSE: 1197.59 mGy.cm FINDINGS: Brain parenchyma: There is age-related involutional change noting mild subcortical and periventricular microangiopathic disease. A chronic lacunar infarct is seen in the right basal ganglia. Right temporoparietal encephalomalacia is unchanged and consistent with a remote infarct. There is focal loss of burks-white matter differentiation is seen in the left frontal lobe which likely represents subacute ischemia. There is no hemorrhage or mass effect. There is no evidence of enhancing mass lesion on the angiogram phase images. The ventricles, sulci, and cisterns are prominent secondary to involutional change. No extra-axial fluid collection is seen. Thoracic aorta: There is atherosclerotic calcification of the thoracic aorta. Visualized portions of the thoracic aorta are normal in caliber. The aortic arch demonstrates standard 3-vessel anatomy. Right carotid arterial system: The right common carotid artery is widely patent, as are the right internal and external carotid arteries. Atherosclerotic plaque is seen in the carotid bulb. Left carotid arterial system: The left common carotid artery is patent, as are the left internal and external carotid arteries. Atherosclerotic plaque is seen in the carotid bulb and causes approximately 50% luminal narrowing at the origin of the left internal carotid artery. Vertebral arteries: The vertebral arteries are widely patent bilaterally and codominant. Subclavian arteries: Widely patent bilaterally. Intracranial vasculature: There is atherosclerotic calcification of the cavernous carotid and vertebral arteries. There is a large right posterior communicating artery. The internal carotid arteries are patent at the skull base, as are the anterior and middle cerebral arteries bilaterally. The vertebrobasilar system and posterior cerebral arteries are widely patent. The vertebral arteries are codominant. There is no aneurysm, high-grade stenosis, or focal vessel cut off seen throughout the intracranial circulation. Jugular veins: Patent bilaterally. Dural sinuses: Patent. Lung apices: Partially visualized upper lobe lung parenchyma appears clear. Soft tissues: The visualized pharyngeal soft tissues are normal in appearance noting angiographic phase technique. The oropharyngeal airway appears widely patent. The salivary and thyroid glands are normal in appearance. No cervical lymphadenopathy is seen. Skeletal structures: The skeletal structures are osteopenic. No lytic or blastic lesion is seen. The calvarium appears intact. The cervical spine is maintained noting mild multilevel spondylosis. Orbits: The bony orbits are intact. Orbital contents are normal in appearance noting bilateral ocular lens implants. Sinuses and mastoids: The paranasal sinuses are clear. The mastoid air cells are well pneumatized. IMPRESSION: 1. There is focal loss of burks-white matter differentiation within the left frontal lobe, likely resenting a subacute infarct. 2. There is no hemorrhage or mass effect. 3. Unremarkable CT angiogram of the brain. 4. There is atherosclerotic plaque in the carotid bulbs which causes approximately 50% stenosis at the origin of the left internal carotid artery. 5. There is no significant stenosis seen in the right carotid arterial system. ACT 112: Negative or not required by law. Electronically signed by: Kalpesh Menendez M.D. 06/25/2020 1:40 PM Dictated: 06/25/20 1327 [facility], [id number] Magnetic Resonance Report Patient: LEON SAENZ Date: 06/25/20#: [id number]: [id number] RDAcct ID:[id number]: Date: 1945[facility] Zip: [place] [address]Jkn: 75Location: 2SSex: FRoom/Bed: [id number] Phy: Ethan Perry M.D.Diagnosis: CVAPri Phy: Lew Cedeno A., III, MDService Date: 06/25/20Fam Phy:Interpreting Phy: Rashid Becerra MDAdmit Phy: Ethan Perry M.D. Ordering Phy: Ethan Perry M.D. cc: ~ Brain MRI WITHOUT CONTRAST HISTORY: Memory loss. Stroke symptoms. TECHNIQUE: Multiplanar multisequence MRI of the brain was performed without the use of contrast. COMPARISON STUDY: Head CT 06/25/2020. FINDINGS: Focal area of restricted diffusion within the left frontotemporal region measuring 3 cm in size consistent with an acute MCA territory infarct. The midline structures are intact. Old small right MCA territory infarct. Small lacunar infarcts in the left cerebellar hemisphere paranasal sinuses and mastoid air cells are clear. The major vascular flow voids at the skull base are well- maintained. The ventricles and sulci demonstrate mild age-related involutional changes. There is no mass, hematoma, midline shift. Periarticular white matter T2 hyperintensity is nonspecific but favors mild microvascular ischemic change. IMPRESSION: 1. A 3 cm acute left MCA territory infarct. 2. Old right MCA territory infarct. 3. Mild atrophy and microvascular ischemic changes. ACT 112: Negative or not required by law. Electronically signed by: Rashid Becerra M.D. 06/25/2020 5:57 PM Dictated: 06/25/201752Transcribed: 06/25/201752 Code Status & VTE Plan Code Status Full code VTE Prophylaxis Plan VTE Prophylaxis will be ordered: Yes PG Care Time/CCT Total # of Minutes Spent Total Time Spent with Patient: Total time spent is greater than 50% in coordination of care (as documented) at patient's floor/unit and/or counseling patient: Coding Level of Care Code 46427 Initial Inpt Care Lvl 3 Diagnoses Left acute arterial ischemic stroke, MCA (middle cerebral artery) I63.512 Carotid stenosis I65.29 Dyslipidemia E78.5 Chronic kidney disease N18.9 HTN (hypertension) I10 Tobacco use disorder, continuous F17.209
--- NOTE | 2020-06-26 05:51 | Electrocardiogram Report ---
Test Reason : Blood Pressure : / mmHG Vent. Rate : 066 BPM Atrial Rate : 066 BPM P-R Int : 178 ms QRS Dur : 096 ms QT Int : 424 ms P-R-T Axes : 026 -44 096 degrees QTc Int : 444 ms Normal sinus rhythm Left axis deviation Nonspecific T wave abnormality Abnormal ECG When compared with ECG of 20-MAR-2019 18:35, No significant change was found Confirmed by Chas Duarte ([id number]) on 06/26/2020 5:50:53 AM Referred By: REFERRED SELF Confirmed By:Chas Duarte
[2020-06-26 07:33] LABS: Basophils # (auto) 0.06 K/uL (0-0.2); Basophils % (auto) 0.5 %; Eosinophils # (auto) 0.31 K/uL (0-0.5); Eosinophils % (auto) 2.7 %; Hematocrit (blood only) 37.7 % (37-47); Hemoglobin 11.3 g/dL (12.0-16.0); Immature Granulocytes # (auto) 0.02 K/uL (0.00-0.02); Immature Granulocytes % (auto) 0.2 %; Lymphocytes # (auto) 2.64 K/uL (1.2-3.4); Lymphocytes % (auto) 23.2 %; Mean Corpuscular Hemoglobin 26.6 pg (25-34); Mean Corpuscular Volume 88.7 fL (80-100); Mean Platelet Volume 11.3 fL (7.4-10.4); Monocytes # (auto) 0.67 K/uL (0.11-0.59); Monocytes % (auto) 5.9 %; Neutrophils # (auto) 7.67 K/uL (1.4-6.5); Neutrophils % (auto) 67.5 %; Platelet Count 263 K/uL (130-400); RDW Coefficient of Variation 14.5 % (11.5-14.5); RDW Standard Deviation 46.9 fL (36.4-46.3); Red Blood Count 4.25 M/uL (4.2-5.4); White Blood Count 11.37 K/uL (4.8-10.8)
[2020-06-26 08:07] LABS: BUN Creatinine Ratio 16.5 (10-20); Calcium 8.4 mg/dl (8.5-10.1); Creatinine Clr Calc Pharmacy 31.7 ml/min; Est GFR (African American) 42.8; Est GFR (Non-African American) 36.9; Potassium 4.7 mmol/L (3.5-5.1)
[2020-06-26 08:18] LABS: Estimated Average Glucose 166 mg/dl; Hemoglobin A1C 7.4 % (4.5-5.6)
[2020-06-26] MEDS: CHOLECALCIFEROL 1,000 UNITS 25 MCG TAB PO SCH ×2 (08:34→21:48)
[2020-06-26] MEDS: FERROUS GLUCONATE 324 MG TAB PO SCH ×2 (08:34→21:49)
[2020-06-26] MEDS: GABAPENTIN 100 MG CAP PO SCH ×2 (08:34→21:49)
[2020-06-26] MEDS: ASPIRIN 81 MG ECTAB PO SCH (08:34)
[2020-06-26] MEDS: carvediloL 25 MG TAB PO SCH ×2 (08:34→21:48)
[2020-06-26] MEDS: amLODIPine BESYLATE 5 MG TAB PO SCH (08:34)
[2020-06-26] MEDS: CYANOCOBALAMIN 500 MCG TABLET (VITAMIN B-12) PO SCH (08:34)
[2020-06-26] MEDS: ENOXAPARIN INJ 30 MG/0.3 ML SYR SQ SCH (08:35)
[2020-06-26] MEDS: INSULIN ASPART 100 UNITS/ML 3 ML PEN SC SCH ×4 (08:37→21:50)
[2020-06-26] MEDS: SODIUM CHLORIDE 0.9% 1000ML 1,000 ML IV SCH (09:38)
--- NOTE | 2020-06-26 13:03 | Neurology Consultation ---
Date of Consultation June 26, 2020 Assessment & Plan (1) Left acute arterial ischemic stroke, MCA (middle cerebral artery): Shirley Mcdaniels is a 75 yo woman w/ PMH of CAD, HTN, HLD, CKD III, DM c/b neuropathy, GERD, h/o OK, tobacco abuse, h/o stroke and anemia who p/t [facility] with acute onset of confusion, memory loss, left facial droop and word finding difficulty. Symptom localization: left inferior M2 division Stroke mechanism: cardioembolic vs vessel to vessel embolus Stroke WorkUp: - CT head: hypodensities in the right parietal lobe and left frontal lobe. CTA head and neck . MRI brain - CTA head/neck: shows mild stenosis of the left ICA, diffuse intracranial atherosclerosis and no other LVO, high-grade stenosis or aneurysm noted - MRI brain: shows subacute infarct in the left inferior division of the MCA, chronic infarct in the right parietal lobe, mild generalized atrophy and mild SVID - TTE: EF 55-60%, mild LVH, no valvular pathology - Telemetry: pending - A1c: 7.4 - FLP: 72 - Troponin: negative Stroke Management: - Acute treatment: ASA, tPA - Continuous cardiac monitoring, 30 day event monitor as outpatient if telemetry here unrevealing - Vitals, Neurochecks, NIHSS per unit routine - BP parameters: SBP CAP 180, restart home anti-hypertensives for goal normotension over next few days - Complete ischemic stroke workup with TTE without bubble - Consult speech, PT, OT for supportive management - Will 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 concerning stroke education, smoking cessation, healthy diet, physical activity, weight loss - Follow up with PCP for assistance with outpatient goals (BP <130/80, LDL <70, A1c <7) - Follow up in neurology clinic in 6-8 weeks (with HIREN Kapadia) - Recommend vascular consult to r/o any need for CEA or stent for mild to moderate L ICA stenosis (Dr Morales; given multiple strokes in different distributions, would be more c/f cardioembolic cause) Secondary Stroke Prevention: - Antiplatelet: change to plavix 75mg po daily - Anticoagulation: Not indicated at this time - Statin: Atorvastatin 80mg daily HTN: - BP parameters, as above - Restart home medications with goal of lowering BP to normotension over next 3- 4 days - EKG and troponin pending FEN/GI: - Diet: NPO until cleared by Speech evaluation - Monitor lytes and replete PRN Glucose Control: - Sliding scale insulin and accuchecks per primary team to avoid hyperglycemia Thank you for this interesting consult. Plan of care was discussed with primary team. Please call with any questions. (2) Carotid stenosis: (3) DM (diabetes mellitus), type 2, uncontrolled w/neurologic complication: (4) HTN (hypertension): History of Present Illness Attending Physician: Abdulkadir Koenig History of Present Illness Shirley Mcdaniels is a 75 yo woman w/ PMH of CAD, HTN, HLD, CKD III, DM c/b neuropathy, GERD, h/o OK, tobacco abuse, h/o stroke and anemia who p/t [facility] with acute onset of confusion, memory loss, left facial droop and word finding difficulty. 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 In the ED, BP 177/77, HR 66. Labs notable for WBC 13.05, Hb 11.9, Plts 269, INR 1.0, creatinine 1.49, BMP unremarkable, glucose 230, calcium/magnesium within normal, LFTs within normal, troponin negative, albumin low at 3.1, UA positive for infection, Covid negative. Imaging independently reviewed. CT head shows hypodensities in the right parietal lobe and left frontal lobe. CTA head and neck shows mild stenosis of the left ICA, diffuse intracranial atherosclerosis and no other LVO, high-grade stenosis or aneurysm noted. MRI brain shows subacute infarct in the left inferior division of the MCA, chronic infarct in the right parietal lobe, mild generalized atrophy and mild SVID. On examination, she reports that she started to have problems with her memory in the last few days. Endorses taking a baby aspirin at home without any recent missed doses. Continues to smoke about 7 cigs daily. Patient Features: Admission NIHSS: 0 Admission Modified Emily Scale: 0-1 Time patient last seen well: unknown Wake up stroke: No Intubation status: Not intubated Stroke Risk Factors: Hypertension: Y Hyperlipidemia: Y Atrial Fib: N Tobacco: Y Diabetes: Y Taking NOAC or warfarin: N Allergies Allergy/AdvReac Type Severity Reaction Status Date / Time No Known Allergies Allergy Verified 06/25/20 14:00 Home Medications Medication Instructions Recorded Confirmed Type cholecalciferol (vitamin D3) 1,000 unit PO BID 05/19/18 06/25/20 History [Vitamin D3] cyanocobalamin (vitamin B-12) 1,000 mcg PO QAM 05/19/18 06/25/20 History [Vitamin B-12] omeprazole magnesium [Prilosec OTC] 20 mg PO Q3D 12/25/18 06/25/20 History polysaccharide iron complex 150 mg 150 mg PO HS 04/02/19 06/25/20 History iron capsule blood sugar diagnostic #100 ea 07/16/19 06/19/20 Rx acetaminophen 325 mg capsule 325 mg PO QID PRN 09/10/19 06/25/20 History gabapentin 100 mg capsule 200 mg PO BID #360 cap 01/27/20 06/25/20 Rx nitroglycerin 0.4 mg sublingual 0.4 mg SUBLINGUAL UD PRN #30 tab 04/07/20 06/25/20 Rx tablet glimepiride 2 mg tablet 2 mg PO BID #180 tab 04/15/20 06/25/20 Rx lisinopril 10 mg tablet 10 mg PO QAM #90 tab 06/09/20 06/25/20 Rx ferrous gluconate 324 mg (37.5 mg 324 mg PO BID #60 tab 06/12/20 06/25/20 Rx iron) tablet carvedilol 25 mg tablet 25 mg PO BID #180 tab 06/18/20 06/25/20 Rx amlodipine [Norvasc] 10 mg PO QAM 06/25/20 06/25/20 History aspirin 81 mg PO QAM 06/25/20 06/25/20 History atorvastatin 80 mg PO HS 06/25/20 06/25/20 History Patient History Medical History Acute respiratory failure with hypoxia Anemia (~12/03/13) CAD (coronary artery disease) NSTEMI 2010, ARABELLA x 1, POBA x 1 @ [facility] CAD (coronary atherosclerotic disease) 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 diabetes mellitus Diabetes mellitus, type 2 Diabetic peripheral neuropathy DJD (degenerative joint disease) GERD (gastroesophageal reflux disease) H/O: CVA (cerebrovascular accident) Developed facial droop after cardiac cath 2010. Acute infarct. Treated, complete resolution of symptoms. No residual deficits. Hyperkalemia Persistent since 12/2018 Hyperlipidemia Hypertension Hypoxia Lumbar spinal stenosis Myocardial Infarction NSTEMI 2010. ARABELLA to mid LCx and POBA to LAD/Dx. Tobacco use disorder, continuous Surgical History History of cardiac cath 1 STENT 2010-[facility]-NO CHEST PAIN SINCE History of carpal tunnel release RT History of cataract surgery RT/LEFT History of colonoscopy History of tooth extraction History of tubal ligation Family History Brother Family history of diabetes mellitus Sister Family history of diabetes mellitus Sister Family history of diabetes mellitus Mother Family history of diabetes mellitus Myocardial infarction Stroke Father Myocardial infarction Denies family history of Ovarian cancer Prostate cancer Breast cancer Colorectal cancer Social History Smoking Status: Current every day smoker Tobacco Type: Cigarettes Cigarettes Per Day: 5; Second Hand Exposure: Yes (NIECE); Hx Alcohol Use: No Hx Substance Use: No Preferred Language: Malian Communication Ability: Effective 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 Exam (Neuro) Physical Exam: General Exam: GEN: NAD, sitting/lying down in chair. HEENT: No conjunctival injection, no rhinorrhea. CV: RRR on monitor, no significant edema. PULM: Nonlabored respirations on 2L NC. Neuro Exam: MS: Awake and Alert. Oriented to person, place, not date. Speech fluent and appropriate without dysarthria or paraphasic errors. Language intact including comprehension, repetition; difficulty with naming medium frequency words. Cognition and memory grossly intact. Attention intact. No neglect. CN: Visual kelley full, + blink to threat bilaterally. No extinction to double simultaneous stimuli. Normal fundoscopic exam. PERRLA OU. EOMI without nystagmus. Facial sensation intact to LT. Facial muscles full and symmetric. Hearing intact to finger rub bilaterally. Uvula midline with symmetric palatal elevation. Shoulder shrug normal. Tongue midline. MOTOR: Normal bulk and tone. No pronator drift. BUE strength 5/5 at deltoids, biceps, triceps, wrist flexors and extensors, and finger flexors bilaterally. BLE strength 5/5 at iliopsoas, hamstrings, quadriceps, tibialis anterior, and gastrocnemius bilaterally. REFLEXES: 1+ at biceps, triceps, brachioradialis, trace patella, and absent Achilles bilaterally. Flexor plantar responses bilaterally. SENSORY: Intact to LT throughout, no extinction to double simultaneous stimuli. Vibration diminished in BLEs up to the knees. COORDINATION: No dysmetria or ataxia on [id number] bilaterally. Normal Kimo bilaterally. GAIT: Normal gait and arm swing. NIH STROKE SCALE 1A. Level of Consciousness (0-3) = 0 1B. LOC Questions (0-2) = 0 1C. LOC Commands (0-2) = 0 2. Best Horizontal Gaze (0-2) = 0 3. Visual Kelley (0-3) = 0 4. Facial Palsy (0-3) = 0 5. Motor Arm Right (0-4) = 0 Left (0-4) = 0 6. Motor Leg Right (0-4) = 0 Left (0-4) = 0 7. Limb Ataxia (0-2) = 0 8. Sensory (0-2) = 0 9. Best Language (0-3) = 0 10. Dysarthria (0-2) = 0 11. Extinction and Inattention (0-2) = 0 NIHSS TOTAL = 0 Results & Data ([facility]) Vital Signs (Past 12 Hours) Vital Signs Temp Pulse Resp BP Pulse Ox 06/26/20 12:06 36.8 C 80 18 140/55 L 96 06/26/20 08:28 36.9 C 89 20 146/71 H 98 06/26/20 03:28 36.7 C 61 18 143/70 H 95 PG Care Time/CCT Total # of Minutes Spent Total Time Spent with Patient: Total time spent is greater than 50% in coordination of care (as documented) at patient's floor/unit and/or counseling patient: Coding Level of Care Code 91730 Initial Inpt Care Lvl 3 Diagnoses Left acute arterial ischemic stroke, MCA (middle cerebral artery) I63.512 Carotid stenosis I65.29 DM (diabetes mellitus), type 2, uncontrolled w/neurologic complication E11.49; E11.65 HTN (hypertension) I10
--- NOTE | 2020-06-26 13:47 | XCELERA ---
[id number]
[2020-06-26] MEDS: IRON POLYSACCHARIDE COMPLEX 150 MG CAPSULE PO SCH (21:49)
[2020-06-26] MEDS: ATORVASTATIN 40 MG TAB PO SCH (21:49)
[2020-06-27 07:28] LABS: Basophils # (auto) 0.04 K/uL (0-0.2); Basophils % (auto) 0.4 %; Eosinophils # (auto) 0.29 K/uL (0-0.5); Eosinophils % (auto) 2.8 %; Hematocrit (blood only) 37.6 % (37-47); Hemoglobin 11.5 g/dL (12.0-16.0); Immature Granulocytes # (auto) 0.02 K/uL (0.00-0.02); Immature Granulocytes % (auto) 0.2 %; Lymphocytes # (auto) 2.47 K/uL (1.2-3.4); Mean Corpuscular Hemoglobin 26.7 pg (25-34); Mean Corpuscular Hgb Conc 30.6 g/dL (32-36); Mean Corpuscular Volume 87.4 fL (80-100); Mean Platelet Volume 11.2 fL (7.4-10.4); Monocytes # (auto) 0.64 K/uL (0.11-0.59); Monocytes % (auto) 6.2 %; Neutrophils # (auto) 6.85 K/uL (1.4-6.5); Neutrophils % (auto) 66.4 %; Platelet Count 240 K/uL (130-400); RDW Coefficient of Variation 14.4 % (11.5-14.5); RDW Standard Deviation 46.2 fL (36.4-46.3); White Blood Count 10.31 K/uL (4.8-10.8)
[2020-06-27] MEDS: INSULIN ASPART 100 UNITS/ML 3 ML PEN SC SCH (07:33)
[2020-06-27 07:47] LABS: BUN Creatinine Ratio 19.5 (10-20); Calcium 8.6 mg/dl (8.5-10.1); Creatinine Clr Calc Pharmacy 29.8 ml/min; Est GFR (Non-African American) 34.5
[2020-06-27] MEDS: ASPIRIN 81 MG ECTAB PO SCH (08:11)
[2020-06-27] MEDS: CHOLECALCIFEROL 1,000 UNITS 25 MCG TAB PO SCH (08:12)
[2020-06-27] MEDS: carvediloL 25 MG TAB PO SCH (08:12)
[2020-06-27] MEDS: GABAPENTIN 100 MG CAP PO SCH (08:12)
[2020-06-27] MEDS: FERROUS GLUCONATE 324 MG TAB PO SCH (08:13)
[2020-06-27] MEDS: CYANOCOBALAMIN 500 MCG TABLET (VITAMIN B-12) PO SCH (08:13)
[2020-06-27] MEDS: amLODIPine BESYLATE 5 MG TAB PO SCH (08:13)
--- NOTE | 2020-06-27 09:46 | Hospitalist Progress Note ---
Date of Service June 26, 2020 Assessment & Plan (1) Left acute arterial ischemic stroke, MCA (middle cerebral artery): CT brain without contrast, suggested a left frontal lobe subacute infarct CT of neck showed an approximate 50% stenosis at the origin of the left ICA, with normal right ICA. MRI of brain without contrast showed a 3 cm acute left MCA territory infarct and old right MCA infarct. Admit to monitored bed with the patient will be admitted to telemetry for serial cardiac enzymes, cardiac rhythm monitoring and a 2-D echocardiogram with Dopplers. Follow CVA without TPA protocol. Consult social service worker, PT, OT, speech therapy, neurology. Check hemoglobin A1c and fasting lipid profile. Continue aspirin 81 mg by mouth daily, high-dose statin. Patient appears to have shown some improvement. Will continue to monitor on tele monitor. Patient has multiple risk factors for stroke: this will need to be re-addressed as an outpatient. . (2) Carotid stenosis: See above (3) Dyslipidemia: Continue high-dose statin atorvastatin 80 mg daily. (4) Chronic kidney disease: Creatinine is 1.49, which is toward the lower end of her range, 1.41-2.52 (5) HTN (hypertension): Continue amlodipine, carvedilol and lisinopril with hold parameters. (6) Tobacco use disorder, continuous: Patient tells me she smokes 5 packs of cigarettes daily, although has been noted 1/2 pack per daily in the past Tobacco cessation is absolutely essential to prevention of further strokes. Admission and Anticipated Discharge Date Admission Date: June 25, 2020 Subjective 75 yo female reports feeling better. She is able to communicate more. She has no new complaints at this time. Review of Systems Review of Systems: All systems reviewed & are unremarkable except as noted in HPI & below Physical Exam Physical Exam: The patient is awake, alert and oriented 3, well developed and well nourished, normocephalic and atraumatic, lying in bed and in no acute distress. HEENT--PERRL, EOMI, mucous membranes and oropharynx normal. Neck--supple. No JVD. No bruits. Thyroid normal, trachea midline, no adenopathy. Heart--normal S1 and S2. No murmurs, rubs or gallops. Lungs--clear bilaterally, no respiratory distress, no accessory muscle use. Abdomen--normal bowel sounds and soft. Nontender. Nondistended. Extremities--no cyanosis or clubbing. No edema. There are good distal pulses b/l. Dermatologic--normal skin turgor, normal color, no abnormal lymph nodes, no rash. Neurologic--cranial nerves II through XII grossly intact. Rheumatologic--normal range of motion. Psychiatric--normal affect. Results & Data Results & Data ([facility]) Vital Signs (Past 12 Hours) Vital Signs Temp Pulse Pulse Resp BP BP Pulse Ox 06/27/20 08:12 37.0 C 58 L 18 166/75 H 90 06/27/20 03:20 36.9 C 58 L 19 148/76 H 94 06/26/20 23:33 37.0 C 62 18 146/72 H 92 PG Care Time/CCT Total # of Minutes Spent Total Time Spent with Patient: Total time spent is greater than 50% in coor dination of care (as documented) at patient's floor/unit and/or counseling patient: Coding Level of Care Code 14164 Subseq Hosp Care Lvl 3 Diagnoses Left acute arterial ischemic stroke, MCA (middle cerebral artery) I63.512 Carotid stenosis I65.29 Dyslipidemia E78.5 Chronic kidney disease N18.9 HTN (hypertension) I10 Tobacco use disorder, continuous F17.209 Time Spent (min) 35
[2020-06-27] MEDS: ENOXAPARIN INJ 30 MG/0.3 ML SYR SQ SCH (10:38)
--- NOTE | 2020-06-27 10:43 | Pharmacy Report ---
Pharmacist Stroke Counseling - Date of Service June 27, 2020 - Scope: Pharmacy has been consulted to provide medication discharge counseling for this patient admitted with [ischemic stroke] [hemorrhagic stroke] [transient ischemic attack] as per the Pharmacist Discharge Counseling for Stroke Patients Pro tocol. - Medications on Discharge: Home Medications Medication Instructions Recorded Confirmed cholecalciferol (vitamin D3) 1,000 unit PO BID 05/19/18 06/25/20 [Vitamin D3] cyanocobalamin (vitamin B-12) 1,000 mcg PO QAM 05/19/18 06/25/20 [Vitamin B-12] omeprazole magnesium [Prilosec OTC] 20 mg PO Q3D 12/25/18 06/25/20 polysaccharide iron complex 150 mg 150 mg PO HS 04/02/19 06/25/20 iron capsule acetaminophen 325 mg capsule 325 mg PO QID PRN 09/10/19 06/25/20 amlodipine [Norvasc] 10 mg PO QAM 06/25/20 06/25/20 aspirin 81 mg PO QAM 06/25/20 06/25/20 atorvastatin 80 mg PO HS 06/25/20 06/25/20 New Rx's Medication Instructions Recorded blood sugar diagnostic #100 ea 07/16/19 gabapentin 100 mg capsule 200 mg PO BID #360 cap 01/27/20 nitroglycerin 0.4 mg sublingual 0.4 mg SUBLINGUAL UD PRN #30 tab 04/07/20 tablet glimepiride 2 mg tablet 2 mg PO BID #180 tab 04/15/20 lisinopril 10 mg tablet 10 mg PO QAM #90 tab 06/09/20 ferrous gluconate 324 mg (37.5 mg 324 mg PO BID #60 tab 06/12/20 iron) tablet carvedilol 25 mg tablet 25 mg PO BID #180 tab 06/18/20 - Action: The above medications, specifically ones for stroke treatment/prophylaxis, have been reviewed in detail with the patient prior to discharge. This includes salomón cation, common adverse reactions, drug interactions, and medication administration. Medication counseling has been employed using the teach-back method to ensure understanding. - Outcome: The patient has demonstrated understanding of the medications. Additional comments: -patient reported that she was not taking Lipitor as an outpatient but agreed to restart it. (notified provider) -counseled on baby aspirin and Lipitor Thank you for allowing pharmacy to be involved in the care of this patient. Please call [phone] with any additional questions
[2020-06-27] MEDS ORDERED: STROKE PATIENT DISCHARGE ONE (11:21)
[2020-06-28] MEDS ORDERED: PANTOprazole 40 MG TAB PO SCH (09:00)
--- NOTE | 2020-07-01 07:38 | Emergency Department Note ---
History of Present Illness General Chief complaint: Altered Mental Status Stated complaint: MEMORY LOSS - ALTERED MENTAL STATUS Time Seen by Provider: 06/25/20 12:20 Source: patient, family (niece), RN notes reviewed and old records reviewed Mode of arrival: ambulatory Limitations: altered mental status History of Present Illness Provider complaint: Altered mental status Onset (ago): day(s) 1 Location: head Associated symptoms: + confusion; no chest pain, no cough, no fever/chills, no headaches, no loss of appetite, no nausea/vomiting, no seizure, no shortness of breath and no weakness Treatments prior to arrival: none This 75-year-old female who lives at home by herself was brought in by her niece over concerns that the niece found the patient last night confused. Patient lives by herself and has been unable to answer correct questions about the month or the day. She does have a history coronary artery disease. The patient has not taken anything for her altered mental status. She denies any other symptoms. Home Medications Medication Instructions Recorded Confirmed Type cholecalciferol (vitamin D3) 1,000 unit PO BID 05/19/18 06/30/20 History [Vitamin D3] cyanocobalamin (vitamin B-12) 1,000 mcg PO QAM 05/19/18 06/30/20 History [Vitamin B-12] polysaccharide iron complex 150 mg 150 mg PO HS 04/02/19 06/30/20 History iron capsule blood sugar diagnostic #100 ea 07/16/19 06/30/20 Rx acetaminophen 325 mg capsule 325 mg PO QID PRN 09/10/19 06/30/20 History gabapentin 100 mg capsule 200 mg PO BID #360 cap 01/27/20 06/30/20 Rx nitroglycerin 0.4 mg sublingual 0.4 mg SUBLINGUAL UD PRN #30 tab 04/07/20 06/30/20 Rx tablet glimepiride 2 mg tablet 2 mg PO BID #180 tab 04/15/20 06/30/20 Rx lisinopril 10 mg tablet 10 mg PO QAM #90 tab 06/09/20 06/30/20 Rx ferrous gluconate 324 mg (37.5 mg 324 mg PO BID #60 tab 06/12/20 06/30/20 Rx iron) tablet carvedilol 25 mg tablet 25 mg PO BID #180 tab 06/18/20 06/30/20 Rx amlodipine [Norvasc] 10 mg PO QAM 06/25/20 06/30/20 History atorvastatin 80 mg PO HS #30 tab 06/27/20 06/30/20 Rx clopidogrel 75 mg tablet 75 mg PO DAILY #90 tab 06/30/20 06/30/20 Rx pantoprazole 40 mg tablet,delayed 40 mg PO DAILY #90 tab 06/30/20 06/30/20 Rx release Allergies Allergy/AdvReac Type Severity Reaction Status Date / Time No Known Allergies Allergy Verified 06/30/20 10:38 Past Med/Surg History Medical History Acute respiratory failure with hypoxia Anemia (~12/03/13) CAD (coronary artery disease) NSTEMI 2010, ARABELLA x 1, [place] 1 [place] [facility] [place] CAD (coronary atherosclerotic disease) 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 diabetes mellitus Diabetes mellitus, type 2 Diabetic peripheral neuropathy DJD (degenerative joint disease) GERD (gastroesophageal reflux disease) H/O: CVA (cerebrovascular accident) Developed facial droop after cardiac cath 2010. Acute infarct. Treated, complete resolution of symptoms. No residual deficits. Hyperkalemia Persistent since 12/2018 Hyperlipidemia Hypertension Hypoxia Lumbar spinal stenosis Myocardial Infarction NSTEMI 2010. ARABELLA to mid LCx and POBA to LAD/Dx. Tobacco use disorder, continuous Surgical History History of cardiac cath 1 [place] [place] SIN[place] History of carpal tunnel release RT History of cataract surgery RT/LEFT History of colonoscopy History of tooth extraction History of tubal ligation Family History Brother Family history of diabetes mellitus Sister Family history of diabetes mellitus Sister Family history of diabetes mellitus Mother Family history of diabetes mellitus Myocardial infarction Stroke Father Myocardial infarction Denies family history of Ovarian cancer Prostate cancer Breast cancer Colorectal cancer Social History Smoking Status: Former smoker Tobacco Type: Cigarettes Cigarettes Per Day: 5; Second Hand Exposure: Yes (NIECE); Hx Alcohol Use: No Hx Substance Use: No Preferred Language: Bermudian Communication Ability: Effective Visual Impairment: No Limitations 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 GENERAL - 75-year-old female appearing stated age who is in no acute distress. SKIN - Without rashes. HEAD - NC/AT. EYES - PERRL with EOMI bilaterally. Sclera anicteric. Palpebral conjunctiva pink and moist with no injection noted. EARS - No deformities of external structures noted on gross examination bilaterally. No pain elicited with palpation of the tragus bilaterally. External auditory canals without discharge or otorrhea. Tympanic membranes pearly burks without retraction or bulging. No fluid or purulent material visualized behind the TM. Handle of malleus, umbo, cone of light, pars tensa/flaccid all easily visualized. NOSE - Midline and without cyanosis. No epistaxis or purulent drainage noted. Septum midline without deviation or septal hematoma noted. MOUTH/OROPHARYNX - Without perioral cyanosis. Buccal mucosa pink and moist and without leukoplakia. Tongue midline with equal elevation of palate bilaterally. No tonsillar hypertrophy, erythema, or exudates noted. dentition noted. NECK - Neck with FROM. Supple to palpation. lymphadenopathy noted. No nuchal rigidity. LUNGS - Chest wall symmetric without accessory muscle use, intercostals retractions, or central cyanosis. Normal vesicular breath sounds CTA B/L. No wheezes, rales, or rhonchi appreciated. CARDIAC - RRR with S1/S2. No murmur, rubs, or gallops appreciated. ABDOMEN - Abdominal contour without pulsations or visible masses. BS normoactive all four quadrants. No tenderness, palpable masses, hepatosplenomegaly, or ascites noted. EXTREMITIES - No clubbing or peripheral cyanosis. No pretibial edema present. +3/5 radial, posterior tibial, and dorsalis pedis pulses palpated throughout. +5/5 strength noted in UE/LE bilaterally. NEUROLOGIC - Cranial nerves II through XII grossly intact. Sensory intact to light touch throughout. Patellar reflexes +2/4. PSYCH - A&Ox1and cooperates fully with examiner. Pt is very pleasant and interacts well with examiner. Course Administered Medications Discontinued Medications Amlodipine Besylate (Amlodipine Besylate 5 Mg Tab) 10 mg PO QAM [facility] Stop: 07/26/20 08:59 Last Admin: 06/27/20 08:13 Dose: 10 mg Documented by: [id number] Admin: 06/26/20 08:34 Dose: 10 mg Documented by: [id number] Aspirin (A[facility]in 81 Mg Ectab) [facility] Stop: 07/26/20 08:59 Last Admin: 06/27/20 08:11 Dose: 81 mg Documented by: [id number] Admin: 06/26/20 08:34 Dose: 81 mg Documented by: [id number] Atorvastatin Calcium (Atorvastatin 40 Mg Tab) 80 mg PO HS [facility] Stop: 07/25/20 20:59 Last Admin: 06/26/20 21:49 Dose: 80 mg Documented by: [id number] Admin: 06/25/20 19:22 Dose: 80 mg Documented by: [id number] Carvedilol (Carvedilol 25 Mg Tab) 25 mg PO BID [facility] Stop: 07/25/20 20:59 Last Admin: 06/27/20 08:12 Dose: 25 mg Documented by: [id number] Admin: 06/26/20 21:48 Dose: 25 mg Documented by: [id number] Admin: 06/26/20 08:34 Dose: 25 mg Documented by: [id number] Admin: 06/25/20 19:23 Dose: 25 mg Documented by: [id number] Cyanocobalamin (Cyanocobalamin 500 Mcg Tablet (Vitamin B-12)) [facility] Stop: 07/26/20 08:59 Last Admin: 06/27/20 08:13 Dose: 1,000 mcg Documented by: [id number] Admin: 06/26/20 08:34 Dose: 1,000 mcg Documented by: [id number] Enoxaparin Sodium (Enoxaparin Inj 30 Mg/0.3 Ml Syr) 30 [facility] SQ [facility] Stop: 07/26/20 08:59 Last Admin: 06/27/20 10:38 Dose: 30 mg Documented by: [id number] Admin: 06/26/20 08:35 Dose: 30 mg Documented by: [id number] Ferrous Gluconate (Ferrous Gluconate 324 Mg Tab) 324 mg PO BID [facility] Stop: 07/25/20 20:59 Last Admin: 06/27/20 08:13 Dose: 324 mg Documented by: [id number] Admin: 06/26/20 21:49 Dose: 324 mg Documented by: [id number] Admin: 06/26/20 08:34 Dose: 324 mg Documented by: [id number] Admin: 06/25/20 19:24 Dose: 324 mg Documented by: [id number] Gabapentin (Gabapentin 100 Mg Cap) 200 mg PO BID [facility] Stop: 07/25/20 20:59 Last Admin: 06/27/20 08:12 Dose: 200 mg Documented by: [id number] Admin: 06/26/20 21:49 Dose: 200 mg Documented by: [id number] Admin: 06/26/20 08:34 Dose: 200 mg Documented by: [id number] Admin: 06/25/20 19:23 Dose: 200 mg Documented by: [id number] Sodium Chloride (Nss) 500 mls @ 999 mls/hr IV .Q31M ONE Stop: 06/25/20 12:59 Last Infusion: 06/25/20 15:18 Dose: 0 mls/hr Documented by: [id number] Admin: 06/25/20 13:42 Dose: 999 mls/hr Documented by: [id number] Sodium Chloride (Nss 1000ml) 500 mls @ 999 mls/hr IV .Q31M ONE Stop: 06/25/20 13:37 Last Infusion: 06/25/20 15:18 Dose: 0 mls/hr Documented by: [id number] Admin: 06/25/20 13:42 Dose: 999 mls/hr Documented by: [id number] Sodium Chloride (Nss 1000ml) 1,000 mls @ 60 mls/hr IV .[id number] [facility]HAEL[facility] Stop: 07/25/20 17:03 Last Infusion: 06/26/20 15:48 Dose: 0 mls/hr Documented by: [id number] Admin: 06/26/20 09:38 Dose: 60 mls/hr Documented by: [id number] Infusion: 06/26/20 09:38 Dose: 60 mls/hr Documented by: [id number] Admin: 06/25/20 18:14 Dose: 60 mls/hr Documented by: [id number] Insulin Aspart (Insulin Aspart 100 Units/Ml 3 Ml Pen) 0 units SC ACHS [facility] Stop: 07/25/20 17:29 Last Admin: 06/27/20 07:33 Dose: 5 units Documented by: [id number] Cosigned by: [id number] Admin: 06/26/20 21:50 Dose: 1 units Documented by: [id number] Cosigned by: [id number] Admin: 06/26/20 18:04 Dose: Not Given Documented by: [id number] Admin: 06/26/20 11:54 Dose: 5 units Documented by: [id number] Cosigned by: [id number] Admin: 06/26/20 08:37 Dose: 3 units Documented by: [id number] Cosigned by: [id number] Admin: 06/25/20 19:27 Dose: 1 units Documented by: [id number] Cosigned by: [id number] Admin: 06/25/20 18:18 Dose: Not Given Documented by: [id number] Cosigned by: [id number] Ioversol (Optiray 320 125ml) 120 ml IV ONCE ONE Stop: 06/25/20 13:19 Last Admin: 06/25/20 13:19 Dose: 120 ml Documented by: [id number] Polysaccharide Iron Complex (Iron Polysaccharide Complex 150 Mg Capsule) 150 mg PO HS [facility] Stop: 07/25/20 20:59 Last Admin: 06/26/20 21:49 Dose: 150 mg Documented by: [id number] Admin: 06/25/20 19:23 Dose: 150 mg Documented by: [id number] Vitamin D (Cholecalciferol 1,000 Units 25 Mcg Tab) 1,000 units PO BID [facility] Stop: 07/25/20 20:59 Last Admin: 06/27/20 08:12 Dose: 1,000 units Documented by: [id number] Admin: 06/26/20 21:48 Dose: 1,000 units Documented by: [id number] Admin: 06/26/20 08:34 Dose: 1,000 units Documented by: [id number] Admin: 06/25/20 19:23 Dose: 1,000 units Documented by: [id number] Medical Decision Making Differential Diagnosis Infection, dehydration, metabolic abnormality, hypo/hyperglycemia, electrolyte disturbance, anemia, hypoxia, cardiac sources, intracerebral event, toxicologic, neurologic, as well as other pathologies. Medical Records Attestation: I reviewed the patient's medical records. Home Medications Current Medication List: was personally reviewed by me Laboratory Data Attestation: I reviewed the patient's lab results. Result diagrams: 06/27/20 06:59 06/27/20 06:59 Lab Results 06/25/20 06/25/20 06/25/20 Range/Units 12:38 12:38 12:38 WBC 13.05 H (4.8-10.8) K/uL RBC 4.47 (4.2-5.4) M/uL Hgb 11.9 L (12.0-16.0) g/dL POC Hgb (12.0-16.0) g/dl Hct 38.9 (37-47) % POC Hct (37-47) % MCV 87.0 (80-100) fL MCH 26.6 (25-34) pg MCHC 30.6 L (32-36) g/dL RDW Std Deviation 46.0 (36.4-46.3) fL RDW Coeff of Sushant 14.3 (11.5-14.5) % Plt Count 269 (130-400) K/uL MPV 11.1 H (7.4-10.4) fL Immature Gran % (Auto) 0.2 % Neut % (Auto) 78.3 % Lymph % (Auto) 14.6 % Sac % (Auto) 4.5 % Eos % (Auto) 2.0 % Baso % (Auto) 0.4 % Neut # (Auto) 10.21 H (1.4-6.5) K/uL Lymph # (Auto) 1.91 (1.2-3.4) K/uL Sac # (Auto) 0.59 (0.11-0.59) K/uL Eos # (Auto) 0.26 (0-0.5) K/uL Baso # (Auto) 0.05 (0-0.2) K/uL Immature Gran # (Auto) 0.03 H (0.00-0.02) K/uL PT 10.7 (9.0-12.0) Seconds INR 1.0 (0.9-1.1) APTT 25.6 (21.0-31.0) Seconds PTT Ratio 0.9 POC Sodium (135-144) mmol/L Sodium 138 (136-145) mmol/L POC Potassium (3.3-5.0) mmol/L Potassium 4.7 (3.5-5.1) mmol/L POC Chloride (101-112) mmol/L Chloride 106 (98-107) mmol/L Carbon Dioxide 28 (21-32) mmol/L POC Total CO2 (24-31) mmol/L Anion Gap 4.0 (3-11) POC Anion Gap (16-25) mmol/L POC BUN (7-18) mg/dl BUN 28 H (7-18) mg/dl Creatinine 1.49 H (0.6-1.2) mg/dl POC Creatinine (0.6-1.3) mg/dl Est Cr Clr Drug Dosing 33.4 ml/min Est GFR ( Amer) 39.7 Est GFR (Non-Af Amer) 34.2 BUN/Creatinine Ratio 18.8 (10-20) Glucose 230 H (70-99) mg/dl POC Glucose (other) (70-99) mg/dl Calcium 8.9 (8.5-10.1) mg/dl POC Ioniz Calcium Savi (1.12-1.32) mmol/l Magnesium 2.3 (1.8-2.4) mg/dl Total Bilirubin 0.2 (0.2-1) mg/dl AST 11 L (15-37) U/L ALT 12 (12-78) U/L Alkaline Phosphatase 99 (45-117) U/L CK-MB (CK-2) < 1.0 (0.5-3.6) ng/ml Troponin I 0.034 (0-0.045) ng/ml Total Protein 7.5 (6.4-8.2) gm/dl Albumin 3.1 L (3.4-5.0) gm/dl Globulin 4.4 H (2.5-4.0) gm/dl Albumin/Globulin Ratio 0.7 L (0.9-2) Urine Color Urine Appearance (Clear) Urine pH (4.5-7.5) Ur Specific Mckinney (1.000-1.030) Urine Protein (Negative) Urine Glucose (UA) (Negative) Urine Ketones (Negative) Urine Blood (Negative) Urine Nitrite (Negative) Urine Bilirubin (Negative) Urine Urobilinogen (Negative) Ur Leukocyte Esterase (Negative) Urine WBC (Auto) (0-5) /hpf Urine RBC (Auto) (0-4) /hpf U Hyaline Cast (Auto) (0-5) /lpf U Epithel Cells (Auto) (0-5) /lpf Urine Bacteria (Auto) (Negative) SARS-CoV-2 Ag (Rapid) (Negative) 06/25/20 06/25/20 06/25/20 Range/Units 12:42 13:49 14:11 WBC (4.8-10.8) K/uL RBC (4.2-5.4) M/uL Hgb (12.0-16.0) g/dL POC Hgb 13.3 (12.0-16.0) g/dl Hct (37-47) % POC Hct 39 (37-47) % MCV (80-100) fL MCH (25-34) pg MCHC (32-36) g/dL RDW Std Deviation (36.4-46.3) fL RDW Coeff of Sushant (11.5-14.5) % Plt Count (130-400) K/uL MPV (7.4-10.4) fL Immature Gran % (Auto) % Neut % (Auto) % Lymph % (Auto) % Sac % (Auto) % Eos % (Auto) % Baso % (Auto) % Neut # (Auto) (1.4-6.5) K/uL Lymph # (Auto) (1.2-3.4) K/uL Sac # (Auto) (0.11-0.59) K/uL Eos # (Auto) (0-0.5) K/uL Baso # (Auto) (0-0.2) K/uL Immature Gran # (Auto) (0.00-0.02) K/uL PT (9.0-12.0) Seconds INR (0.9-1.1) APTT (21.0-31.0) Seconds PTT Ratio POC Sodium 140 (135-144) mmol/L Sodium (136-145) mmol/L POC Potassium 4.7 (3.3-5.0) mmol/L Potassium (3.5-5.1) mmol/L POC Chloride 103 (101-112) mmol/L Chloride (98-107) mmol/L Carbon Dioxide (21-32) mmol/L POC Total CO2 27 (24-31) mmol/L Anion Gap (3-11) POC Anion Gap 15.0 L (16-25) mmol/L POC BUN 28 H (7-18) mg/dl BUN (7-18) mg/dl Creatinine (0.6-1.2) mg/dl POC Creatinine 1.3 (0.6-1.3) mg/dl Est Cr Clr Drug Dosing ml/min Est GFR ( Amer) Est GFR (Non-Af Amer) BUN/Creatinine Ratio (10-20) Glucose (70-99) mg/dl POC Glucose (other) 235 H (70-99) mg/dl Calcium (8.5-10.1) mg/dl POC Ioniz Calcium Savi 1.20 (1.12-1.32) mmol/l Magnesium (1.8-2.4) mg/dl Total Bilirubin (0.2-1) mg/dl AST (15-37) U/L ALT (12-78) U/L Alkaline Phosphatase (45-117) U/L CK-MB (CK-2) (0.5-3.6) ng/ml Troponin I (0-0.045) ng/ml Total Protein (6.4-8.2) gm/dl Albumin (3.4-5.0) gm/dl Globulin (2.5-4.0) gm/dl Albumin/Globulin Ratio (0.9-2) Urine Color Yellow Urine Appearance Clear (Clear) Urine pH 5.5 (4.5-7.5) Ur Specific Mckinney 1.027 (1.000-1.030) Urine Protein 2+ H (Negative) Urine Glucose (UA) Negative (Negative) Urine Ketones Negative (Negative) Urine Blood Negative (Negative) Urine Nitrite Negative (Negative) Urine Bilirubin Negative (Negative) Urine Urobilinogen Negative (Negative) Ur Leukocyte Esterase 1+ H (Negative) Urine WBC (Auto) >30 H (0-5) /hpf Urine RBC (Auto) 0-4 (0-4) /hpf U Hyaline Cast (Auto) 1-5 (0-5) /lpf U Epithel Cells (Auto) 10-20 H (0-5) /lpf Urine Bacteria (Auto) 4+ H (Negative) SARS-CoV-2 Ag (Rapid) Negative (Negative) Imaging Data Radiologist's Impression: [facility], [phone] XRay Report Patient: LEON SAENZ Date: 06/25/20MR#: [id number]: [id number] RDAcct ID:[id number]: Date: 1945[facility] Zip: [place] [id number]: [id number]: EDSex: FRoom/Bed:Att Phy:Diagnosis: MEMORY LOSS - ALTERED MENTAL STATUSPri Phy: Lew Cedeno, III, MDService Date: 06/25/20Fam Phy:Interpreting Phy: Kalpesh Menendez [facility] Phy: Ordering Phy: Roger Higgins MD cc: ~ SINGLE VIEW CHEST CLINICAL HISTORY: Change in mental status. FINDINGS: An AP, portable, upright chest radiograph is compared to study dated 03/20/2019. The examination is mildly degraded by portable technique and patient rotation. The heart is top normal for projection noting atherosclerotic calcification of the thoracic aorta. There is elevation of right hemidiaphragm and bibasilar atelectasis. No airspace consolidation or pleural effusion is identified. No pneumothorax is seen. The skeletal structures are osteopenic. The bony thorax is grossly intact. Calcific tendinopathy is seen in the left shoulder. IMPRESSION: No active disease in the chest. ACT 112: Negative or not required by law. Electronically signed by: Kalpesh Menendez M.D. 06/25/2020 12:49 PM Dictated: 06/25/20 1248Transcribed: 06/25/20 1248 [facility], [phone] CT Scan Report Patient: LEON SAENZ Date: 06/25/20#: [id number]: [id number] RDAcct ID:[id number]: Date: 1945[facility] Zip: [place] [id number]: [id number]: EDSex: FRoom/Bed:Att Phy:Diagnosis: MEMORY LOSS - ALTERED MENTAL STATUSPri Phy: Lew Cedeno, III, MDService Date: 06/25/20Fam Phy:Interpreting Phy: Kalpesh Menendez MDAit Phy: Ordering Phy: Roger Higgins MD cc: ~ UNENHANCED CT OF THE BRAIN; CT ANGIOGRAM OF THE BRAIN; CT ANGIOGRAM OF THE NECK CLINICAL HISTORY: Strokelike symptoms. COMPARISON STUDY: CT of the brain dated 11/01/2012. Carotid artery ultrasound dated 02/10/2020. TECHNIQUE: Unenhanced axial CT scan of the brain is performed. Subsequently, following the IV administration of 120 of Opt[address] 320, CT angiogram of the head and neck was performed from the aortic arch to the vertex. Images are reviewed in the axial, sagittal, and coronal planes. 3-D MIPS images are created and assessed. IV contrast was administered without complication. All measurements were calculated based on NASCET criteria. A dose lowering technique was util ized adhering to the principles of ALARA. CT DOSE: 1197.59 mGy.cm FINDINGS: Brain parenchyma: There is age-related involutional change noting mild subcortical and periventricular microangiopathic disease. A chronic lacunar infarct is seen in the right basal ganglia. Right temporoparietal encephal omalacia is unchanged and consistent with a remote infarct. There is focal loss of burks-white matter differentiation is seen in the left frontal lobe which likely represents subacute ischemia. There is no hemorrhage or mass effect. There is no evidence of enhancing mass lesion on the angiogram phase images. The ventricles, sulci, and cisterns are prominent secondary to involutional change. No extra-axial fluid collection is seen. Thoracic aorta: There is atherosclerotic calcification of the thoracic aorta. Visualized portions of the thoracic aorta are normal in caliber. The aortic arch demonstrates standard 3-vessel anatomy. Right carotid arterial system: The right common carotid artery is widely patent, as are the right internal and external carotid arteries. Atherosclerotic plaque is seen in the carotid bulb. Left carotid arterial system: The left common carotid artery is patent, as are the left internal and external carotid arteries. Atherosclerotic plaque is seen in the carotid bulb and causes approximately 50% luminal narrowing at the origin of the left internal carotid artery. Vertebral arteries: The vertebral arteries are widely patent bilaterally and codominant. Subclavian arteries: Widely patent bilaterally. Intracranial vasculature: There is atherosclerotic calcification of the cavernous carotid and vertebral arteries. There is a large right posterior communicating artery. The internal carotid arteries are patent at the skull base, as are the anterior and middle cerebral arteries bilaterally. The vertebrobasilar system and posterior cerebral arteries are widely patent. The vertebral arteries are codominant. There is no aneurysm, high-grade stenosis, or focal vessel cut off seen throughout the intracranial circulation. Jugular veins: Patent bilaterally. Dural sinuses: Patent. Lung apices: Partially visualized upper lobe lung parenchyma appears clear. Soft tissues: The visualized pharyngeal soft tissues are normal in appearance noting angiographic phase technique. The oropharyngeal airway appears widely patent. The salivary and thyroid glands are normal in appearance. No cervical lymphadenopathy is seen. Skeletal structures: The skeletal structures are osteopenic. No lytic or blastic lesion is seen. The calvarium appears intact. The cervical spine is maintained noting mild multilevel spondylosis. Orbits: The bony orbits are intact. Orbital contents are normal in appearance noting bilateral ocular lens implants. Sinuses and mastoids: The paranasal sinuses are clear. The mastoid air cells are well pneumatized. IMPRESSION: 1. There is focal loss of burks-white matter differentiation within the left frontal lobe, likely resenting a subacute infarct. 2. There is no hemorrhage or mass effect. 3. Unremarkable CT angiogram of the brain. 4. There is atherosclerotic plaque in the carotid bulbs which causes approximately 50% stenosis at the origin of the left internal carotid artery. 5. There is no significant stenosis seen in the right carotid arterial system. ACT 112: Negative or not required by law. Electronically signed by: Kalpesh Menendez M.D. 06/25/2020 1:40 PM Dictated: 06/25/20 1327Transcribed: 06/25/20 1327 [facility], [phone] CT Scan Report Patient: LEON SAENZ Date: 06/25/20#: [id number]: [id number] RDAcct ID:[id number]: Date: 1945[facility] [place] [id number]: [id number]: EDSex: FRoom/Bed:Att Phy:Diagnosis: MEMORY LOSS - ALTERED MENTAL STATUSPri Phy: Lew Cedeno III, MDService Date: 06/25/20Fa Phy:Interpreting Phy: Kalpesh Menendez MDAdmit Phy: Ordering Phy: Roger Higgins MD cc: ~ UNENHANCED CT OF THE BRAIN; CT ANGIOGRAM OF THE BRAIN; CT ANGIOGRAM OF THE NECK CLINICAL HISTORY: Strokelike symptoms. COMPARISON STUDY: CT of the brain dated 11/01/2012. Carotid artery ultrasound dated 02/10/2020. TECHNIQUE: Unenhanced axial CT scan of the brain is performed. Subsequently, following the IV administration of 120 of Opt[address] 320, CT angiogram of the head and neck was performed from the aortic arch to the vertex. Images are reviewed in the axial, sagittal, and coronal planes. 3-D MIPS images are created and assessed. IV contrast was administered without complication. All measurements we re calculated based on NASCET criteria. A dose lowering technique was utilized adhering to the principles of ALARA. CT DOSE: 1197.59 mGy.cm FINDINGS: Brain parenchyma: There is age-related involutional change noting mild subcortical and periventricular microangiopathic disease. A chronic lacunar infarct is seen in the right basal ganglia. Right temporoparietal encephalomalacia is unchanged and consistent with a remote infarct. There is focal loss of burks-white matter differentiation is seen in the left frontal lobe which likely represents subacute ischemia. There is no hemorrhage or mass e ffect. There is no evidence of enhancing mass lesion on the angiogram phase images. The ventricles, sulci, and cisterns are prominent secondary to involutional change. No extra-axial fluid collection is seen. Thoracic aorta: There is atherosclerotic calcification of the thoracic aorta. Visualized portions of the thoracic aorta are normal in caliber. The aortic arch demonstrates standard 3-vessel anatomy. Right carotid arterial system: The right common carotid artery is widely patent, as are the right internal and external carotid arteries. Atherosclerotic plaque is seen in the carotid bulb. Left carotid arterial system: The left common carotid artery is patent, as are the left internal and external carotid arteries. Atherosclerotic plaque is seen in the carotid bulb and causes approximately 50% luminal narrowing at the origin of the left internal carotid artery. Vertebral arteries: The vertebral arteries are widely patent bilaterally and codominant. Subclavian arteries: Widely patent bilaterally. Intracranial vasculature: There is atherosclerotic calcification of the cavernous carotid and vertebral arteries. There is a large right posterior communicating artery. The internal carotid arteries are patent at the skull base, as are the anterior and middle cerebral arteries bilaterally. The vertebrobasilar system and posterior cerebral arteries are widely patent. The vertebral arteries are codominant. There is no aneurysm, high-grade stenosis, or focal vessel cut off seen throughout the intracranial circulation. Jugular veins: Patent bilaterally. Dural sinuses: Patent. Lung apices: Partially visualized upper lobe lung parenchyma appears clear. Soft tissues: The visualized pharyngeal soft tissues are normal in appearance noting angiographic phase technique. The oropharyngeal airway appears widely patent. The salivary and thyroid glands are normal in appearance. No cervical lymphadenopathy is seen. Skeletal structures: The skeletal structures are osteopenic. No lytic or blastic lesion is seen. The calvarium appears intact. The cervical spine is maintained noting mild multilevel spondylosis. Orbits: The bony orbits are intact. Orbital contents are normal in appearance noting bilateral ocular lens implants. Sinuses and mastoids: The paranasal sinuses are clear. The mastoid air cells are well pneumatized. IMPRESSION: 1. There is focal loss of burks-white matter differentiation within the left frontal lobe, likely resenting a subacute infarct. 2. There is no hemorrhage or mass effect. 3. Unremarkable CT angiogram of the brain. 4. There is atherosclerotic plaque in the carotid bulbs which causes approximately 50% stenosis at the origin of the left internal carotid artery. 5. There is no significant stenosis seen in the right carotid arterial system. ACT 112: Negative or not required by law. Electronically signed by: Kalpesh Menendez M.D. 06/25/2020 1:40 PM Dictated: 06/25/20 1327Transcribed: 06/25/20 1327 [facility], [id number] CT Scan Report Patient: LEON SAENZ Date: 06/25/20#: [id number]: [id number] [place] RDAcct ID:[id number]: [facility] Zip: [place], [place] [address]Cnk: [id number]: EDSex: FRoom/Bed:Att Phy:Diagnosis: MEMORY LOSS - ALTERED MENTAL STATUSPri Phy: Lew Cedeno III, MDService Date: 06/25/20Fam Phy:Interpreting Phy: Kalpesh Menendez MDAdmit Phy: Ordering Phy: Roger Higgins MD cc: ~ UNENHANCED CT OF THE BRAIN; CT ANGIOGRAM OF THE BRAIN; CT ANGIOGRAM OF THE NECK CLINICAL HISTORY: Strokelike symptoms. COMPARISON STUDY: CT of the brain dated 11/01/2012. Carotid artery ultrasound dated 02/10/2020. TECHNIQUE: Unenhanced axial CT scan of the brain is performed. Subsequently, following the IV administration of 120 of Opt[address] 320, CT angiogram of the head and neck was performed from the aortic arch to the vertex. Images are reviewed in the axial, sagittal, and coronal planes. 3-D MIPS images are created and assessed. IV contrast was administered without complication. All measurements were calculated based on NASCET criteria. A dose lowering technique was utilized adhering to the principles of ALARA. CT DOSE: 1197.59 mGy.cm FINDINGS: Brain parenchyma: There is age-related involutional change noting mild subcortical and periventricular microangiopathic disease. A chronic lacunar infarct is seen in the right basal ganglia. Right temporoparietal encephalomalacia is unchanged and consistent with a remote infarct. There is focal loss of burks-white matter differentiation is seen in the left frontal lobe which likely represents subacute ischemia. There is no hemorrhage or mass effect. There is no evidence of enhancing mass lesion on the angiogram phase images. The ventricles, sulci, and cisterns are prominent secondary to involutional change. No extra-axial fluid collection is seen. Thoracic aorta: There is atherosclerotic calcification of the thoracic aorta. Visualized portions of the thoracic aorta are normal in caliber. The aortic arch demonstrates standard 3-vessel anatomy. Right carotid arterial system: The right common carotid artery is widely patent, as are the right internal and external carotid arteries. Atherosclerotic plaque is seen in the carotid bulb. Left carotid arterial system: The left common carotid artery is patent, as are the left internal and external carotid arteries. Atherosclerotic plaque is seen in the carotid bulb and causes approximately 50% luminal narrowing at the origin of the left internal carotid artery. Vertebral arteries: The vertebral arteries are widely patent bilaterally and codominant. Subclavian arteries: Widely patent bilaterally. Intracranial vasculature: There is atherosclerotic calcification of the cavernous carotid and vertebral arteries. There is a large right posterior communicating artery. The internal carotid arteries are patent at the skull base, as are the anterior and middle cerebral arteries bilaterally. The vertebrobasilar system and posterior cerebral arteries are widely patent. The vertebral arteries are codominant. There is no aneurysm, high-grade stenosis, or focal vessel cut off seen throughout the intracranial circulation. Jugular veins: Patent bilaterally. Dural sinuses: Patent. Lung apices: Partially visualized upper lobe lung parenchyma appears clear. Soft tissues: The visualized pharyngeal soft tissues are normal in appearance noting angiographic phase technique. The oropharyngeal airway appears widely patent. The salivary and thyroid glands are normal in appearance. No cervical lymphadenopathy is seen. Skeletal structures: The skeletal structures are osteopenic. No lytic or blastic lesion is seen. The calvarium appears intact. The cervical spine is maintained noting mild multilevel spondylosis. Orbits: The bony orbits are intact. Orbital contents are normal in appearance noting bilateral ocular lens implants. Sinuses and mastoids: The paranasal sinuses are clear. The mastoid air cells are well pneumatized. IMPRESSION: 1. There is focal loss of burks-white matter differentiation within the left frontal lobe, likely resenting a subacute infarct. 2. There is no hemorrhage or mass effect. 3. Unremarkable CT angiogram of the brain. 4. There is atherosclerotic plaque in the carotid bulbs which causes approximately 50% stenosis at the origin of the left internal carotid artery. 5. There is no significant stenosis seen in the right carotid arterial system. ACT 112: Negative or not required by law. Electronically signed by: Kalpesh Menendez M.D. 06/25/2020 1:40 PM Dictated: 06/25/20 1327Transcribed: 06/25/20 1327 ECG Data Attestation: I personally reviewed and interpreted this ECG as follows: Indication: + altered mental status Rate (beats per minute): 66 Rhythm: + normal sinus ECG Intervals/blocks: + Normal QT-c (444) ECG [place]: + Left axis deviation ECG ST segments: no ST depression and no ST elevation Comparison ECG Date: from (03/20/2019) [facility] Narrative This 75-year-old female who presents to the emergency department with her niece over concerns that she had an acute altered mental status event that started last evening. Because of this a stroke alert was not initiated. The patient was sent for CT of the head which is concerning for an acute infarct. She is slightly dehydrated on her laboratory work. I did discuss the case with the hospitalist service who did agree to admit the patient patient family are in agreement with the treatment plan. Patient was seen and evaluated as above in room B4. Review was performed of nursing notes and vital signs. I did review pertinent previous visits and patient history. After obtaining a thorough history and physical examination the above work up was performed. While in the department, I personally reevaluated the patient several times and each time the patient was found to be resting comfortably. The patient was educated upon management, educated upon todays findings/results, educated upon importance of follow up from today's visit, educated upon symptoms in which to return, had questions answered prior to discharge, verbalized understanding, and was discharged home in good condition. An order was placed for continuous cardiac monitoring. The monitor shows a rate of 58 with Normal SInus rhythm. The patient was evaluated during the global COVID-19 pandemic, and that diagn osis was suspected/considered upon their initial presentation. Their evaluation, treatment and testing was consistent with current guidelines for patients who present with complaints or symptoms that may be related to COVID- 19. Impression & Plan Left acute arterial ischemic stroke, MCA (middle cerebral artery), Acute dehydration Discharge Plan Visit Data Chief Complaint: Altered Mental Status Stated Complaint: MEMORY LOSS - ALTERED MENTAL STATUS ED Provider: Roger Higgins Discharge Problem: Left acute arterial ischemic stroke, MCA (middle cerebral artery), Acute dehydration Patient Disposition: Admitted As Inpatient Discharge Instructions Interventions: ED Discharge Assessment Last Done: 06/25/20 16:32
--- NOTE | 2020-07-05 22:51 | Discharge Summary ---
Date of Service June 27, 2020 Admission HPI Per Admitting Provider The patient is a 75-year-old female medical history including CAD, carotid stenosis, low back pain, leg weakness, dyslipidemia, chronic kidney disease, GERD, hypertension, anxiety, diabetes mellitus, chronic tobacco use, lumbar spinal stenosis, diabetic peripheral neuropathy, cardiomyopathy, anemia, DJD and sciatica. Work-up in the emergency department included CT of head without contrast which showed a loss of burks-white matter differentiation within the left frontal lobe likely representing a subacute infarct. CT angiography of the brain was negative. CT angiography of the of the neck showed approximately 50% stenosis at the origin of the left ICA. Principal Diagnosis stroke Discharge Exam The patient is awake, alert and oriented 3, well developed and well nourished, normocephalic and atraumatic, lying in bed and in no acute distress. HEENT--PERRL, EOMI, mucous membranes and oropharynx normal. Neck--supple. No JVD. No bruits. Thyroid normal, trachea midline, no adenopathy. Heart--normal S1 and S2. No murmurs, rubs or gallops. Lungs--clear bilaterally, no respiratory distress, no accessory muscle use. Abdomen--normal bowel sounds and soft. Nontender. Nondistended. Extremities--no cyanosis or clubbing. No edema. There are good distal pulses b/l. Dermatologic--normal skin turgor, normal color, no abnormal lymph nodes, no rash. Neurologic--cranial nerves II through XII grossly intact. Rheumatologic--normal range of motion. Psychiatric--normal affect. Discharge Data Allergies Allergy/AdvReac Type Severity Reaction Status Date / Time No Known Allergies Allergy Verified 07/01/20 14:59 Consultations 06/25/20 14:13 ED Decision to Admit Stat 06/25/20 17:04 Consult Case Management - Discharge Planning Routine Consult Case Management - Discharge Planning Routine Consult Neurology Routine Ordered Studies 06/25/20 12:20 CT angio head w con Stat CT angio neck with con Stat CT head/brain wo con Stat 06/25/20 17:04 MR brain wo con Routine Hospital Course (1) Left acute arterial ischemic stroke, MCA (middle cerebral artery): CT brain without contrast, suggested a left frontal lobe subacute infarct CT of neck showed an approximate 50% stenosis at the origin of the left ICA, with normal right ICA. MRI of brain without contrast showed a 3 cm acute left MCA territory infarct and old right MCA infarct. Admit to monitored bed with the patient will be admitted to telemetry for serial cardiac enzymes, cardiac rhythm monitoring and a 2-D echocardiogram with Dopplers. Follow CVA without TPA protocol. Consulted social sciences chair, PT, OT, speech therapy, neurology.. Continue aspirin 81 mg by mouth daily, high-dose statin. Patient appears to have shown some improvement. ok for discharge home. Patient has multiple risk factors for stroke: this will need to be re-addressed as an outpatient. . (2) Carotid stenosis: See above (3) Dyslipidemia: Continue high-dose statin atorvastatin 80 mg daily. (4) Chronic kidney disease: Creatinine is 1.49, which is toward the lower end of her range, 1.41-2.52 (5) HTN (hypertension): Continue amlodipine, carvedilol and lisinopril with hold parameters. (6) Tobacco use disorder, continuous: Patient tells me she smokes 5 packs of cigarettes daily, although has been noted 1/2 pack per daily in the past Tobacco cessation is absolutely essential to prevention of further strokes. Total Time Total Time Spent Total Time Spent (In Minutes): 32 Total Time Includes: Examination of the Patient, Discharge Planning and Medication Reconciliation Discharge Plan Discharge Items Patient Disposition: Home - Self-Care Reason For Visit: CVA Discharge Diagnosis: Stroke Activity: Resume your previous activity Non-emergency contact: Primary Care Provider Call non-emergency contact if: you have any medication questions Follow-up/Referrals: Lew Cedeno III, MD [Primary Care Provider] - Darlin Lovell PA-C [Physician Journeyman Sheet Metal Worker] - Diet: Heart Healthy and Low Sodium (2gm) Addtl Attending Provider Instructions: Risk Factors for Stroke: You can reduce your chances of stroke by working with your medical provider to adopt a healthy lifestyle. Some specific ways to lower your chance of stroke are: * If you are a smoker, now is the time to stop smoking cigarettes * If you are diabetic, improve the control of your blood sugars * Avoid excessive amounts of alcohol * Control high blood pressure * Lose weight if you are overweight * Be sure to lead an active lifestyle * Eat a healthy diet low in salt, cholesterol and fat You should know about other risk factors for stroke that patients are unable to control. These include: * Age 55 years or older * Male gender * Certain racial groups: , or / * Family History of Stroke, Mini stroke or Heart Attack * Sickle Cell Disease Follow Up: It is important for you to keep your follow up appointments with your medical provider. Who to Call and When: Medical Emergencies: Call 911 immediately if you experience any of the following warning signs and symptoms of Stroke: * Sudden numbness or weakness of the face, arm or leg, especially on one side of the body * Sudden confusion, trouble speaking or understanding * Sudden trouble seeing in one or both eyes * Sudden trouble walking, dizziness, loss of balance or coordination * Sudden severe headache with no cause Do not delay calling 911 if you experience any warning signs or symptoms of a stroke. Delay in seeking medical attention may affect what treatments can be given to you. . Please keep Neurology appointment and followup with PCP in 1-2 weeks. Pending Studies at Discharge: No Stand-Alone Forms: Medications to Prevent Stroke, [employer], Smoking Cessation Medications and DC Order Prescriptions: Continued (DME) OneTouch Ultra Blue Test Strip strip See Rx Instructions .ROUTE .MEDSUPPLY Qty: 100 RF: 3 gabapentin 100 mg capsule 200 mg PO BID Qty: 360 RF: 3 nitroglycerin [Nitrostat] 0.4 mg tablet, sublingual 0.4 mg Sublingual UD PRN (Reason: Chest Pain) Qty: 30 RF: 5 glimepiride 2 mg tablet 2 mg PO BID Qty: 180 RF: 1 ferrous gluconate 324 mg (37.5 mg iron) tablet 324 mg PO BID Qty: 60 RF: 5 carvedilol [Coreg] 25 mg tablet 25 mg PO BID Qty: 180 RF: 3 acetaminophen [Tylenol] 325 mg capsule 325 mg PO QID PRN (Reason: Pain) RF: 0 cyanocobalamin (vitamin B-12) [Vitamin B-12] 1,000 mcg Tablet 1,000 mcg PO QAM RF: 0 cholecalciferol (vitamin D3) [Vitamin D3] 1,000 unit Tablet 1,000 unit PO BID RF: 0 polysaccharide iron complex [Ferric x-150] 150 mg iron capsule 150 mg PO HS RF: 0 amlodipine [Norvasc] 10 mg tablet 10 mg PO QAM RF: 0 Changed atorvastatin 80 mg tablet 80 mg PO HS Qty: 30 RF: 0 Discontinued aspirin 81 mg Tablet,Delayed Release (Dr/Ec) 81 mg PO QAM RF: 0 omeprazole magnesium [Prilosec OTC] 20 mg Tablet,Delayed Release (Dr/Ec) 20 mg PO Q3D RF: 0 No Action pantoprazole 40 mg tablet,delayed release (DR/EC) 40 mg PO DAILY Qty: 90 RF: 3 clopidogrel [Plavix] 75 mg tablet 75 mg PO DAILY Qty: 90 RF: 3 lisinopril 20 mg tablet 20 mg PO DAILY Qty: 30 RF: 5 Discharge Orders: Discharge Order (Routine); Ordered 06/27/20 Ordered By: Abdulkadir Hernandez/Other Patient Handouts: Managing Type 2 Diabetes, Diabetes: Meal Planning, Eating Heart-Healthy Foods Admission Data Admit Date/Time: 06/25/20 16:03 Attending Provider: Abdulkadir Koenig Admit Provider: Ethan Perry Primary Care Provider: Lew Cedeno III Other Providers: Ethan Perry ; Chago Berger Other Interventions: Discharge Summary Assessment (RN) Last Done: 06/27/20 10:30 Coding Level of Care Code D/C Day Management >30 mins Diagnoses Left acute arterial ischemic stroke, MCA (middle cerebral artery) I63.512 Carotid stenosis I65.29 Dyslipidemia E78.5 Chronic kidney disease N18.9 HTN (hypertension) I10 Tobacco use disorder, continuous F17.209 Time Spent (min) 32
== END 2020-06-27 12:10 | disposition home or self-care (01) | DRG 66 ==
LOC: ED 12:04 → SUATTDRO 16:03 → 2S 16:03

== ENCOUNTER 2020-12-20 19:49 | Inpatient (IN) ==
[2020-12-20 20:33] LABS: Basophils # (auto) 0.05 K/uL (0-0.2); Basophils % (auto) 0.5 %; Eosinophils # (auto) 0.42 K/uL (0-0.5); Eosinophils % (auto) 4.6 %; Hematocrit (blood only) 35.4 % (37-47); Hemoglobin 10.7 g/dL (12.0-16.0); Immature Granulocytes # (auto) 0.02 K/uL (0.00-0.02); Immature Granulocytes % (auto) 0.2 %; Lymphocytes # (auto) 2.59 K/uL (1.2-3.4); Lymphocytes % (auto) 28.1 %; Mean Corpuscular Hemoglobin 27.4 pg (25-34); Mean Corpuscular Hgb Conc 30.2 g/dL (32-36); Mean Corpuscular Volume 90.5 fL (80-100); Mean Platelet Volume 10.7 fL (7.4-10.4); Monocytes # (auto) 0.64 K/uL (0.11-0.59); Monocytes % (auto) 6.9 %; Neutrophils % (auto) 59.7 %; Platelet Count 252 K/uL (130-400); RDW Coefficient of Variation 13.9 % (11.5-14.5); RDW Standard Deviation 46.3 fL (36.4-46.3); Red Blood Count 3.91 M/uL (4.2-5.4); White Blood Count 9.22 K/uL (4.8-10.8)
[2020-12-20 20:58] LABS: Alanine Aminotransferase 13 U/L (12-78); Aspartate Aminotransferase 12 U/L (15-37); BUN Creatinine Ratio 21.2 (10-20); Blood Urea Nitrogen 35 mg/dl (7-18); Calcium 8.9 mg/dl (8.5-10.1); Carbon Dioxide 27 mmol/L (21-32); Chloride 108 mmol/L (98-107); Creatinine Clr Calc Pharmacy 27.8 ml/min; Est GFR (African American) 35.3 ml/min; Est GFR (Non-African American) 30.5 ml/min; Glucose 159 mg/dl (70-99); Magnesium 2.2 mg/dl (1.8-2.4); Potassium 4.7 mmol/L (3.5-5.1); Sodium 140 mmol/L (136-145)
[2020-12-20 21:03] LABS: Albumin Globulin Ratio 0.7 (0.9-2); Alkaline Phosphatase 86 U/L (45-117); Bilirubin,Total 0.2 mg/dl (0.2-1); Globulin 4.4 gm/dl (2.5-4.0); NT Pro B Type Natriuretic Pept 2004 pg/ml (0-900); Total Protein 7.4 gm/dl (6.4-8.2); Troponin I < 0.015 ng/ml (0-0.045)
[2020-12-20] MEDS ORDERED: BENZONATATE 100 MG CAPSULE PO ONE (21:26)
[2020-12-20] MEDS ORDERED: ALBUT/IPRATROP 3MG/0.5MG NEB 3 ML VIAL NEB STA ×3 (21:26→23:47)
[2020-12-20] MEDS ORDERED: SODIUM CHLORIDE 0.9% 1000ML 1,000 ML IV SCH (21:30)
--- NOTE | 2020-12-20 21:53 | Emergency Department Note ---
History of Present Illness General Chief complaint: Cough Stated complaint: WEAKNESS, COUGH Time Seen by Provider: 12/20/20 19:57 Source: patient Mode of arrival: ambulatory Limitations: no limitations History of Present Illness Provider complaint: Cough, weakness, poor appetite Onset (ago): day(s) 5 Relieved By: + rest Exacerbated By: + movement Associated symptoms: + cough, + loss of appetite, + malaise, + shortness of breath and + weakness; no chest pain, no headaches and no nausea/vomiting This is a 75-year-old female presents emergency department due to complaints of cough, weakness, poor appetite. Family is with her bedside, and states she began feeling ill back on Monday. She thought perhaps she had acquired an illness from her grandson whom she is frequently with and who recently had a cough. She states she saw her PCP on Monday and was started on azithromycin for presumed bronchitis. Patient is a former smoker, only quit smoking for 5 months ago. She does wear oxygen at night. She does have albuterol inhaler at home which she states she uses infrequently. No known covid exposure, hasn't had a covid vaccine. Pt seen during a time of high acuity and national emergency pandemic while wearing PPE. Home Medications Medication Instructions Recorded Confirmed Type cholecalciferol (vitamin D3) 1,000 unit PO BID 05/19/18 12/20/20 History [Vitamin D3] cyanocobalamin (vitamin B-12) 1,000 mcg PO QAM 05/19/18 12/20/20 History [Vitamin B-12] polysaccharide iron complex 150 mg 150 mg PO HS 04/02/19 12/20/20 History iron capsule acetaminophen 325 mg capsule 325 mg PO QID PRN 09/10/19 12/20/20 History nitroglycerin 0.4 mg sublingual 0.4 mg SUBLINGUAL UD PRN #30 tab 04/07/20 12/20/20 Rx tablet carvedilol 25 mg tablet 25 mg PO BID #180 tab 06/18/20 12/20/20 Rx amlodipine [Norvasc] 10 mg PO QAM 06/25/20 12/20/20 History atorvastatin 80 mg PO HS #30 tab 06/27/20 12/20/20 Rx clopidogrel 75 mg tablet 75 mg PO DAILY #90 tab 06/30/20 12/20/20 Rx pantoprazole 40 mg tablet,delayed 40 mg PO DAILY #90 tab 06/30/20 12/20/20 Rx release calcitriol 0.25 mcg capsule 0.25 mcg PO UD #45 cap 08/24/20 12/20/20 Rx glimepiride 2 mg tablet 2 mg PO BID #180 tab 10/13/20 12/20/20 Rx albuterol sulfate 90 mcg/actuation 2 puff INHALATION Q6H PRN #8.5 g 10/22/20 12/20/20 Rx aerosol inhaler ferrous gluconate 324 mg (37.5 mg 324 mg PO BID #60 tab 12/07/20 12/20/20 Rx iron) tablet gabapentin 100 mg capsule 200 mg PO BID #360 cap 12/09/20 12/20/20 Rx lisinopril 20 mg tablet 20 mg PO DAILY #30 tab 12/09/20 12/20/20 Rx amoxicillin-pot clavulanate 1 tab PO BID 3 Days #6 tab 12/22/20 Rx benzonatate [Tessalon Perles] 100 mg PO TID PRN #20 cap 12/22/20 Rx guaifenesin [Mucinex] 600 mg PO Q12 #10 tab 12/22/20 Rx prednisone 40 mg PO DAILY 3 Days #6 tab 12/22/20 Rx Allergies Allergy/AdvReac Type Severity Reaction Status Date / Time No Known Allergies Allergy Verified 12/20/20 21:14 Past Med/Surg History Medical History Acute respiratory failure with hypoxia Anemia (~12/03/13) CAD (coronary artery disease) CAD (coronary atherosclerotic disease) 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 diabetes mellitus Diabetes mellitus, type 2 Diabetic peripheral neuropathy DJD (degenerative joint disease) GERD (gastroesophageal reflux disease) H/O: CVA (cerebrovascular accident) Hyperkalemia Hyperlipidemia Hypertension Hypoxia Lumbar spinal stenosis Myocardial Infarction Secondary hyperparathyroidism of renal origin Stage 3b chronic kidney disease Stage 3B nodular histiocytic lymphoma Tobacco use disorder, continuous Vitamin D deficiency Surgical History History of cardiac cath History of carpal tunnel release History of cataract surgery History of colonoscopy History of tooth extraction History of tubal ligation Family History Brother Family history of diabetes mellitus Sister Family history of diabetes mellitus Sister Family history of diabetes mellitus Mother Family history of diabetes mellitus Myocardial infarction Stroke Father Myocardial infarction Denies family history of Ovarian cancer Prostate cancer Breast cancer Colorectal cancer Social History Smoking Status: Former smoker Tobacco Type: Cigarettes Cigarettes Per Day: 5; Second Hand Exposure: Yes (NIECE); Hx Alcohol Use: No Hx Substance Use: No Preferred Language: Citizen Of [place] Communication Ability: Effective Visual Impairment: No Limitations Slide Fasteners Inspector Required: No Beliefs That Will Affect Care: None marital status: Current Living Situation: Alone Current Living Situation Comment: lives home alone in a house current occupational status: retired Feels Safe at Home: Yes Seatbelt Use: sometimes Sunscreen Use: No Assistive Devices: Glasses Review of Systems See HPI for pertinent positives & negatives. and A total of 10 systems reviewed and were otherwise negative Physical Exam Vital Signs Vital Signs - 24 hr 12/20/20 19:53 12/20/20 20:15 12/20/20 20:23 Temperature 36.8 C Temperature Source Temporal Artery Scan Pulse Rate 67 63 64 Pulse Rate [Right Finger] Pulse Rate from SpO2 Sensor 64 64 Respiratory Rate 22 29 H 20 Respiratory Effort / Characteristics Non-Labored Spontaneous Respiratory Depth Normal Blood Pressure 168/69 H 171/69 H Blood Pressure [Left Arm] Blood Pressure Mean 102 103 Blood Pressure Mean [Left Arm] Pulse Oximetry 90 92 93 Oxygen Delivery Method Room Air Sepsis Recent Fever Within 48 Hours No Sepsis New/Unexplained Change in Mental Status N/A Sepsis Action Taken by Nursing No Action Required 12/20/20 20:30 12/20/20 20:40 12/20/20 20:50 Temperature Temperature Source Pulse Rate 65 61 60 Pulse Rate [Right Finger] Pulse Rate from SpO2 Sensor 60 60 Respiratory Rate 24 24 20 Respiratory Effort / Characteristics Respiratory Depth Blood Pressure 146/72 H Blood Pressure [Left Arm] Blood Pressure Mean 96 Blood Pressure Mean [Left Arm] Pulse Oximetry 93 94 Oxygen Delivery Method Sepsis Recent Fever Within 48 Hours Sepsis New/Unexplained Change in Mental Status Sepsis Action Taken by Nursing 12/20/20 21:00 12/20/20 21:10 12/20/20 21:20 Temperature Temperature Source Pulse Rate 62 63 60 Pulse Rate [Right Finger] Pulse Rate from SpO2 Sensor 62 63 61 Respiratory Rate 22 20 19 Respiratory Effort / Characteristics Respiratory Depth Blood Pressure Blood Pressure [Left Arm] Blood Pressure Mean Blood Pressure Mean [Left Arm] Pulse Oximetry 91 93 94 Oxygen Delivery Method Sepsis Recent Fever Within 48 Hours Sepsis New/Unexplained Change in Mental Status Sepsis Action Taken by Nursing 12/20/20 21:30 12/20/20 21:40 12/20/20 21:48 Temperature Temperature Source Pulse Rate 63 57 L Pulse Rate [Right Finger] 72 Pulse Rate from SpO2 Sensor 62 58 L Respiratory Rate 18 14 20 Respiratory Effort / Characteristics Spontaneous Respiratory Depth Blood Pressure Blood Pressure [Left Arm] Blood Pressure Mean Blood Pressure Mean [Left Arm] Pulse Oximetry 91 94 92 Oxygen Delivery Method Room Air Sepsis Recent Fever Within 48 Hours Sepsis New/Unexplained Change in Mental Status Sepsis Action Taken by Nursing 12/20/20 21:50 12/20/20 22:00 12/20/20 22:29 Temperature Temperature Source Pulse Rate 67 77 62 Pulse Rate [Right Finger] Pulse Rate from SpO2 Sensor 66 75 Respiratory Rate 17 21 10 L Respiratory Effort / Characteristics Respiratory Depth Blood Pressure Blood Pressure [Left Arm] Blood Pressure Mean Blood Pressure Mean [Left Arm] Pulse Oximetry 100 96 Oxygen Delivery Method Sepsis Recent Fever Within 48 Hours Sepsis New/Unexplained Change in Mental Status Sepsis Action Taken by Nursing 12/20/20 22:30 12/20/20 22:31 12/20/20 22:37 Temperature Temperature Source Pulse Rate 60 61 Pulse Rate [Right Finger] 55 L Pulse Rate from SpO2 Sensor 61 61 Respiratory Rate 13 15 16 Respiratory Effort / Characteristics Spontaneous Respiratory Depth Blood Pressure 166/70 H Blood Pressure [Left Arm] Blood Pressure Mean 102 Blood Pressure Mean [Left Arm] Pulse Oximetry 93 93 93 Oxygen Delivery Method Room Air Sepsis Recent Fever Within 48 Hours Sepsis New/Unexplained Change in Mental Status Sepsis Action Taken by Nursing 12/20/20 22:40 12/20/20 23:07 Temperature Temperature Source Pulse Rate 58 L Pulse Rate [Right Finger] 67 Pulse Rate from SpO2 Sensor 58 L Respiratory Rate 13 16 Respiratory Effort / Characteristics Respiratory Depth Blood Pressure Blood Pressure [Left Arm] 162/64 H Blood Pressure Mean Blood Pressure Mean [Left Arm] 96 Pulse Oximetry 100 93 Oxygen Delivery Method Room Air Sepsis Recent Fever Within 48 Hours Sepsis New/Unexplained Change in Mental Status Sepsis Action Taken by Nursing GENERAL: alert, well appearing, well nourished, no distress, non-toxic EYE EXAM: normal conjunctiva, PERRL and EOM's grossly intact OROPHARYNX: no exudate, no erythema, lips, buccal mucosa, and tongue normal and mucous membranes are moist NECK: supple, no nuchal rigidity, no adenopathy, non-tender LUNGS: Mild tachypnea. Normal chest wall mechanics, b/l exp wheeze and coarse BS HEART: no murmurs, S1 normal and S2 normal ABDOMEN: abdomen soft, non-tender, normo-active bowel sounds, no masses, no rebound or guarding. BACK: Back is symmetrical on inspection and there is no deformity, no midline tenderness, no CVA tenderness. SKIN: no rashes and no bruising UPPER EXTREMITIES: upper extremities are grossly normal. FROM, nml pulses b/l. LOWER EXTREMITIES: 1+ pitting edema b/l which pt states is chronic. FROM, nml pulses b/l. NEURO EXAM: Normal sensorium, cranial nerves II-XII grossly intact, normal speech, no gross weakness of arms, no gross weakness of legs. Gross sensation intact. Course Course 2101: Still with coarse breath sounds bilaterally, mildly increased work of breathing. Will order additional neb. 2254: Slight improvement of breath sounds bilaterally following additional nebulizer treatment. We did discuss other symptoms and patient concerned due to persistent weakness and slight sense of nausea. Patient does state she follows with Dr. Bradley of cardiology. Cannot recall the last time she had an echo. 2340: After additional nebulizer, patient is course however improved. Sats 90% while at rest seated in bed. Administered Medications Albuterol (Albut/Ipratrop 3mg/0.5mg Neb 3 Ml Vial) 3 ml NEB QIDR [facility] Stop: 01/20/21 06:59 Last Admin: 12/22/20 11:08 Dose: 3 ml Documented by: [id number] Admin: 12/22/20 07:15 Dose: 3 ml Documented by: [id number] Admin: 12/21/20 19:21 Dose: 3 ml Documented by: [id number] Admin: 12/21/20 14:43 Dose: 3 ml Documented by: [id number] Admin: 12/21/20 11:08 Dose: 3 ml Documented by: [id number] Admin: 12/21/20 07:12 Dose: 3 ml Documented by: [id number] Amlodipine Besylate (Amlodipine Besylate 5 Mg Tab) 10 mg PO QAM [facility] Stop: 01/20/21 08:59 Last Admin: 12/22/20 07:42 Dose: 10 mg Documented by: [id number] Admin: 12/21/20 08:41 Dose: 10 mg Documented by: [id number] Atorvastatin Calcium (Atorvastatin 40 Mg Tab) 80 mg PO HS [facility] Stop: 01/20/21 20:59 Last Admin: 12/21/20 19:54 Dose: 80 mg Documented by: [id number] Benzonatate (Benzonatate 100 Mg Capsule) 100 mg PO TID [facility] Stop: 01/20/21 13:59 Last Admin: 12/22/20 07:42 Dose: 100 mg Documented by: [id number] Admin: 12/21/20 19:56 Dose: 100 mg Documented by: [id number] Admin: 12/21/20 13:48 Dose: 100 mg Documented by: [id number] Budesonide (Budesonide 0.5 Mg/2 Ml Vial (Pulmicort)) 0.5 mg NEB BIDR [facility] Stop: 01/20/21 06:59 Last Admin: 12/22/20 07:15 Dose: 0.5 mg Documented by: [id number] Admin: 12/21/20 19:21 Dose: 0.5 mg Documented by: [id number] Admin: 12/21/20 07:12 Dose: 0.5 mg Documented by: [id number] Calcitriol (Calcitriol 0.25 Mcg Capsule) 0.25 mcg PO [id number] [facility] Stop: 01/20/21 08:59 Last Admin: 12/21/20 08:42 Dose: 0.25 mcg Documented by: [id number] Carvedilol (Carvedilol 25 Mg Tab) 25 mg PO BID [facility] Stop: 01/20/21 01:46 Last Admin: 12/22/20 07:42 Dose: 25 mg Documented by: [id number] Admin: 12/21/20 19:54 Dose: 25 mg Documented by: [id number] Admin: 12/21/20 08:42 Dose: 25 mg Documented by: [id number] Admin: 12/21/20 03:49 Dose: 25 mg Documented by: [id number] Clopidogrel Bisulfate (Clopidogrel Bisulfate 75 Mg Tab) 75 mg PO DAILY [facility] Stop: 01/20/21 08:59 Last Admin: 12/22/20 07:43 Dose: 75 mg Documented by: [id number] Admin: 12/21/20 08:43 Dose: 75 mg Documented by: [id number] Cyanocobalamin (Cyanocobalamin 500 Mcg Tablet (Vitamin B-12)) 1,000 mcg PO QAM [facility] Stop: 01/20/21 08:59 Last Admin: 12/22/20 07:43 Dose: 1,000 mcg Documented by: [id number] Admin: 12/21/20 08:43 Dose: 1,000 mcg Documented by: [id number] Ferrous Gluconate (Ferrous Gluconate 324 Mg Tab) 324 mg PO BID MIC[facility]ELLE Stop: 01/20/21 01:46 Last Admin: 12/22/20 07:43 Dose: 324 mg Documented by: [id number] Admin: 12/21/20 19:55 Dose: 324 mg Documented by: [id number] Admin: 12/21/20 08:43 Dose: 324 mg Documented by: [id number] Admin: 12/21/20 03:50 Dose: 324 mg Documented by: [id number] Gabapentin (Gabapentin 100 Mg Cap) 200 mg PO BID [facility] Stop: 01/20/21 01:46 Last Admin: 12/22/20 07:43 Dose: 200 mg Documented by: [id number] Admin: 12/21/20 19:55 Dose: 200 mg Documented by: [id number] Admin: 12/21/20 08:43 Dose: 200 mg Documented by: [id number] Admin: 12/21/20 03:50 Dose: 200 mg Documented by: [id number] Guaifenesin (Guaifenesin 600 Mg Tabcr) 600 mg PO Q12 MICHAELLE Stop: 01/20/21 08:59 Last Admin: 12/22/20 07:43 Dose: 600 mg Documented by: [id number] Admin: 12/21/20 19:54 Dose: 600 mg Documented by: [id number] Admin: 12/21/20 08:43 Dose: 600 mg Documented by: [id number] Heparin Sodium (Porcine) (Heparin Sod 5,000 Unit/0.5 Ml Vial) 7,500 units SQ Q8 MICHAELLE Stop: 01/20/21 05:59 Last Admin: 12/22/20 06:03 Dose: 7,500 units Documented by: [id number] Admin: 12/21/20 21:40 Dose: 7,500 units Documented by: [id number] Admin: 12/21/20 13:48 Dose: 7,500 units Documented by: [id number] Admin: 12/21/20 06:21 Dose: 7,500 units Documented by: [id number] Ceftriaxone Sodium 2,000 mg/ (Dextrose) 70 mls @ 100 mls/hr IV Q24H MICHAELLE; Protocol Stop: 12/28/20 05:59 Last Infusion: 12/22/20 07:27 Dose: 0 mls/hr Documented by: [id number] Admin: 12/22/20 06:04 Dose: 100 mls/hr Documented by: [id number] Infusion: 12/21/20 07:10 Dose: 0 mls/hr Documented by: [id number] Admin: 12/21/20 06:21 Dose: 100 mls/hr Documented by: [id number] Levofloxacin/Dextrose (Levaquin/D5w) 250 mg in 50 mls @ 100 mls/hr IV Q24H MICHAELLE; Protocol Stop: 12/27/20 19:59 Last Infusion: 12/21/20 19:59 Dose: 0 mls/hr Documented by: [id number] Admin: 12/21/20 19:53 Dose: 100 mls/hr Documented by: [id number] Sodium Chloride (Nss) 500 mls @ 80 mls/hr IV .Q6H15M MICHAELLE Stop: 12/22/20 15:14 Last Infusion: 12/22/20 11:12 Dose: 100 mls/hr Documented by: [id number] Admin: 12/22/20 09:16 Dose: 80 mls/hr Documented by: [id number] Insulin Aspart (Insulin Aspart 100 Units/Ml 3 Ml Pen) 0 units SC ACHS MICHAELLE Stop: 01/20/21 02:59 Last Admin: 12/22/20 07:53 Dose: 9 units Documented by: [id number] Cosigned by: [id number] Admin: 12/21/20 21:14 Dose: 4 units Documented by: [id number] Cosigned by: [id number] Admin: 12/21/20 17:05 Dose: 5 units Documented by: [id number] Cosigned by: [id number] Admin: 12/21/20 12:23 Dose: 4 units Documented by: [id number] Cosigned by: [id number] Admin: 12/21/20 08:49 Dose: 7 units Documented by: [id number] Cosigned by: [id number] Admin: 12/21/20 03:52 Dose: 5 units Documented by: [id number] Cosigned by: [id number] Pantoprazole Sodium (Pantoprazole 40 Mg Tab) 40 mg PO DAILY MIC[facility]ELLE Stop: 01/20/21 08:59 Last Admin: 12/22/20 07:43 Dose: 40 mg Documented by: [id number] Admin: 12/21/20 08:43 Dose: 40 mg Documented by: [id number] Polysaccharide Iron Complex (Iron Polysaccharide Complex 150 Mg Capsule) 150 mg PO HS MICHAELLE Stop: 01/20/21 20:59 Last Admin: 12/21/20 19:55 Dose: 150 mg Documented by: [id number] Vitamin D (Cholecalciferol 1,000 Units 25 Mcg Tab) 1,000 units PO BID MICHAELLE Stop: 01/20/21 01:46 Last Admin: 12/22/20 07:43 Dose: 1,000 units Documented by: [id number] Admin: 12/21/20 19:55 Dose: 1,000 units Documented by: [id number] Admin: 12/21/20 08:42 Dose: 1,000 units Documented by: [id number] Admin: 12/21/20 03:49 Dose: 1,000 units Documented by: [id number] Discontinued Medications Albuterol (Albut/Ipratrop 3mg/0.5mg Neb 3 Ml Vial) 3 ml NEB NOW STA Stop: 12/20/20 21:27 Last Admin: 12/20/20 21:47 Dose: 3 ml Documented by: [id number] Albuterol (Albut/Ipratrop 3mg/0.5mg Neb 3 Ml Vial) 3 ml NEB NOW STA Stop: 12/20/20 22:20 Last Admin: 12/20/20 22:37 Dose: 3 ml Documented by: [id number] Albuterol (Albut/Ipratrop 3mg/0.5mg Neb 3 Ml Vial) 3 ml NEB NOW STA Stop: 12/20/20 23:48 Last Admin: 12/21/20 00:10 Dose: 3 ml Documented by: [id number] Benzonatate (Benzonatate 100 Mg Capsule) 100 mg PO NOW ONE Stop: 12/20/20 21:27 Last Admin: 12/20/20 21:47 Dose: 100 mg Documented by: [id number] Sodium Chloride (Nss 1000ml) 1,000 mls @ 125 mls/hr IV .Q8H MICHAELLE Stop: 01/19/21 21:29 Last Infusion: 12/21/20 01:48 Dose: 0 mls/hr Documented by: [id number] Admin: 12/20/20 22:30 Dose: 125 mls/hr Documented by: [id number] Levofloxacin/Dextrose (Levaquin/D5w) 750 mg in 150 mls @ 100 mls/hr IV NOW STA Stop: 12/20/20 23:49 Last Infusion: 12/21/20 00:05 Dose: 0 mls/hr Documented by: [id number] Admin: 12/20/20 22:30 Dose: 100 mls/hr Documented by: [id number] Methylprednisolone 40 mg/ (Syringe) 0.64 mls @ 1.5 mls/min IV Q8H MICHAELLE Stop: 01/20/21 05:59 Last Admin: 12/22/20 06:02 Dose: 1.5 mls/min Documented by: [id number] Admin: 12/21/20 21:42 Dose: 1.5 mls/min Documented by: [id number] Admin: 12/21/20 13:49 Dose: 1.5 mls/min Documented by: [id number] Admin: 12/21/20 06:21 Dose: 1.5 mls/min Documented by: [id number] Methylprednisolone (Methylprednisolone 125 Mg/2 Ml Vial) 60 mg IV NOW STA Stop: 12/20/20 22:20 Last Admin: 12/20/20 22:31 Dose: 60 mg Documented by: [id number] Medical Decision Making Differential Diagnosis Differential diagnoses includes but is not limited to pneumonia, bronchitis, COPD/Asthma exacerbation, pneumothorax, pulmonary embolism, congestive heart failure, acute coronary syndrome Medical Records Attestation: I reviewed the patient's medical records. Home Medications Current Medication List: was personally reviewed by me Laboratory Data Attestation: I reviewed the patient's lab results. Result diagrams: 12/22/20 07:30 12/22/20 07:30 Lab Results 12/20/20 12/20/20 12/20/20 Range/Units 20:20 20:20 20:20 WBC 9.22 (4.8-10.8) K/uL RBC 3.91 L (4.2-5.4) M/uL Hgb 10.7 L (12.0-16.0) g/dL Hct 35.4 L (37-47) % MCV 90.5 (80-100) fL MCH 27.4 (25-34) pg MCHC 30.2 L (32-36) g/dL RDW Std Deviation 46.3 (36.4-46.3) fL RDW Coeff of Sushant 13.9 (11.5-14.5) % Plt Count 252 (130-400) K/uL MPV 10.7 H (7.4-10.4) fL Immature Gran % (Auto) 0.2 % Neut % (Auto) 59.7 % Lymph % (Auto) 28.1 % Leake % (Auto) 6.9 % Eos % (Auto) 4.6 % Baso % (Auto) 0.5 % Neut # (Auto) 5.50 (1.4-6.5) K/uL Lymph # (Auto) 2.59 (1.2-3.4) K/uL Leake # (Auto) 0.64 H (0.11-0.59) K/uL Eos # (Auto) 0.42 (0-0.5) K/uL Baso # (Auto) 0.05 (0-0.2) K/uL Immature Gran # (Auto) 0.02 (0.00-0.02) K/uL Sodium 140 (136-145) mmol/L Potassium 4.7 (3.5-5.1) mmol/L Chloride 108 H (98-107) mmol/L Carbon Dioxide 27 (21-32) mmol/L Anion Gap 5.0 (3-11) BUN 35 H (7-18) mg/dl Creatinine 1.64 H (0.6-1.2) mg/dl Est Cr Clr Drug Dosing 27.8 ml/min Est GFR ( Amer) 35.3 ml/min Est GFR (Non-Af Amer) 30.5 ml/min BUN/Creatinine Ratio 21.2 H (10-20) Glucose 159 H (70-99) mg/dl Estimat Average Glucose 160 mg/dl Hemoglobin A1c 7.2 H (4.5-5.6) % Calcium 8.9 (8.5-10.1) mg/dl Magnesium 2.2 (1.8-2.4) mg/dl Total Bilirubin 0.2 (0.2-1) mg/dl AST 12 L (15-37) U/L ALT 13 (12-78) U/L Alkaline Phosphatase 86 (45-117) U/L Troponin I < 0.015 (0-0.045) ng/ml NT-Pro-B Natriuret Pep 2004 H (0-900) pg/ml Total Protein 7.4 (6.4-8.2) gm/dl Albumin 3.0 L (3.4-5.0) gm/dl Globulin 4.4 H (2.5-4.0) gm/dl Albumin/Globulin Ratio 0.7 L (0.9-2) COVID-19 Eval Order SARS-CoV-2 (PCR) (Negative) 12/20/20 12/20/20 Range/Units 20:30 20:30 WBC (4.8-10.8) K/uL RBC (4.2-5.4) M/uL Hgb (12.0-16.0) g/dL Hct (37-47) % MCV (80-100) fL MCH (25-34) pg MCHC (32-36) g/dL RDW Std Deviation (36.4-46.3) fL RDW Coeff of Sushant (11.5-14.5) % Plt Count (130-400) K/uL MPV (7.4-10.4) fL Immature Gran % (Auto) % Neut % (Auto) % Lymph % (Auto) % Leake % (Auto) % Eos % (Auto) % Baso % (Auto) % Neut # (Auto) (1.4-6.5) K/uL Lymph # (Auto) (1.2-3.4) K/uL Leake # (Auto) (0.11-0.59) K/uL Eos # (Auto) (0-0.5) K/uL Baso # (Auto) (0-0.2) K/uL Immature Gran # (Auto) (0.00-0.02) K/uL Sodium (136-145) mmol/L Potassium (3.5-5.1) mmol/L Chloride (98-107) mmol/L Carbon Dioxide (21-32) mmol/L Anion Gap (3-11) BUN (7-18) mg/dl Creatinine (0.6-1.2) mg/dl Est Cr Clr Drug Dosing ml/min Est GFR ( Amer) ml/min Est GFR (Non-Af Amer) ml/min BUN/Creatinine Ratio (10-20) Glucose (70-99) mg/dl Estimat Average Glucose mg/dl Hemoglobin A1c (4.5-5.6) % Calcium (8.5-10.1) mg/dl Magnesium (1.8-2.4) mg/dl Total Bilirubin (0.2-1) mg/dl AST (15-37) U/L ALT (12-78) U/L Alkaline Phosphatase (45-117) U/L Troponin I (0-0.045) ng/ml NT-Pro-B Natriuret Pep (0-900) pg/ml Total Protein (6.4-8.2) gm/dl Albumin (3.4-5.0) gm/dl Globulin (2.5-4.0) gm/dl Albumin/Globulin Ratio (0.9-2) COVID-19 Eval Order Covid19 at [facility] SARS-CoV-2 (PCR) NEGATIVE (Negative) Imaging Data My Impression: X-ray: I interpreted the following studies. Chest: A single view study of the chest was reviewed and was negative for cardiomegaly, focal infiltrate, effusion, pulmonary edema, or wide mediastinum. ECG Data Attestation: I personally reviewed and interpreted this ECG as follows: Rate (beats per minute): 60 Rhythm: + normal sinus ECG Intervals/blocks: + Normal QRS and + Normal QT ECG Addison: + Left axis deviation ECG ST segments: + Normal ST segments MDM Narrative Patient here with increased cough and SOB despite outpatient antibiotics. Patient recently quit smoking after prolonged course, no formal dx of COPD per her report. Wears oxygen at night and has albuterol inhaler - no improvement in her symptoms after albuteral and 3 days of antibiotics. Mild increased WOB/tachypnea here. Patient received multiple neb treatments to help open her up and decrease her work of breathing. No obvious infiltrate on cxr and covid negative. Given pt c/o weakness, persistent symptoms and likely failed outpt tx, I do feel pt would benefit from additional inpatient monitoring. Pt given IV levaquin and solu medrol here. I do not suspect acs or chf despite mildly elevated BNP. Patient with cardiac hx and at risk, however sx on presentation seemed more consistent with COPD or PNA. An order was placed for continuous cardiac monitoring. The monitor shows a rate of _72_ with _normal sinus_ rhythm. Impression & Plan Dyspnea, Anemia, CKD (chronic kidney disease), Acute exacerbation of chronic obstructive pulmonary disease (COPD), Elevated brain natriuretic peptide (BNP) level Discharge Plan Visit Data Chief Complaint: Cough Stated Complaint: WEAKNESS, COUGH ED Provider: Caitlin Toro Discharge Problem: Dyspnea, Anemia, CKD (chronic kidney disease), Acute exacerbation of chronic obstructive pulmonary disease (COPD), Elevated brain natriuretic peptide (BNP) level Patient Disposition: Admitted As Inpatient Discharge Instructions Interventions: ED Discharge Assessment Last Done: 12/21/20 01:03 Discharge Problem: Dyspnea Qualifiers: Dyspnea type: dyspnea on exertion Qualified Code(s): R06.00 - Dyspnea, unspecified Anemia Qualifiers: Anemia type: unspecified type Qualified Code(s): D64.9 - Anemia, unspecified CKD (chronic kidney disease) Qualifiers: Chronic kidney disease stage: unspecified stage Qualified Code(s): N18.9 - Chronic kidney disease, unspecified
[2020-12-20] MEDS ORDERED: methylPREDNISolone 125 MG/2 ML VIAL IV STA (22:19)
[2020-12-20] MEDS ORDERED: levoFLOXacin/D5W 750 MG/150 ML BAG IV STA (22:20)
--- NOTE | 2020-12-21 00:22 | History & Physical Report ---
Date of Service December 21, 2020 Assessment & Plan (1) COPD with acute bronchitis: Nasal cannula oxygen, titrate to keep pulse ox 92 to 94% Duonebs every 4 hours while awake and every 2 hours when necessary. Methylprednisolone 40 mg IV every 8 hours Pulmicort Respules 0.5 mg inhaled twice daily Guaifenesin extended release 60 mg p.o. twice daily Ceftriaxone 1 g IV daily Levofloxacin 500 mg IV daily Present on Admission?: Yes (2) DM (diabetes mellitus), type 2, uncontrolled w/neurologic complication: Hold glimepiride. Placed on Accu-Cheks before meals and at bedtime with NovoLog coverage per scale Present on Admission?: Yes (3) HTN (hypertension): Continue amlodipine, carvedilol, clopidogrel. Hold lisinopril Present on Admission?: Yes (4) Stage 3b chronic kidney disease: Creatinine 1.64 upon admission, with range 1.40-2.24 Follow serially Present on Admission?: Yes (5) Diabetic peripheral neuropathy: Continue gabapentin 200 mg p.o. twice daily Present on Admission?: Yes (6) Smokes less than 1/2 pack per day: Tobacco cessation counseling Present on Admission?: Yes (7) GERD (gastroesophageal reflux disease): Continue pantoprazole Present on Admission?: Yes (8) Dyslipidemia: Continue atorvastatin 80 mg daily Present on Admission?: Yes History of Present Illness Chief Complaint: The patient presents to the emergency department with worsening shortness of breath and dyspnea on exertion with productive cough Primary Care Provider: Lew Cedeno MD The patient is a 75-year-old female with a past medical history including CKD stage IIIb, vitamin D deficiency, secondary hyperparathyroidism of renal origin, tobacco use disorder, left MCA ischemic stroke, CAD, carotid stenosis, dyslipidemia, GERD, hypertension, anxiety, diabetes mellitus type 2, lumbar spinal stenosis and diabetic peripheral neuropathy. The patient had been placed on azithromycin for her presenting symptoms above, and continue to get worse, and presents to the ED for assessment tonight. Allergies Allergy/AdvReac Type Severity Reaction Status Date / Time No Known Allergies Allergy Verified 12/20/20 21:14 Home Medications Medication Instructions Recorded Confirmed Type cholecalciferol (vitamin D3) 1,000 unit PO BID 05/19/18 12/20/20 History [Vitamin D3] cyanocobalamin (vitamin B-12) 1,000 mcg PO QAM 05/19/18 12/20/20 History [Vitamin B-12] polysaccharide iron complex 150 mg 150 mg PO HS 04/02/19 12/20/20 History iron capsule acetaminophen 325 mg capsule 325 mg PO QID PRN 09/10/19 12/20/20 History nitroglycerin 0.4 mg sublingual 0.4 mg SUBLINGUAL UD PRN #30 tab 04/07/20 12/20/20 Rx tablet carvedilol 25 mg tablet 25 mg PO BID #180 tab 06/18/20 12/20/20 Rx amlodipine [Norvasc] 10 mg PO QAM 06/25/20 12/20/20 History atorvastatin 80 mg PO HS #30 tab 06/27/20 12/20/20 Rx clopidogrel 75 mg tablet 75 mg PO DAILY #90 tab 06/30/20 12/20/20 Rx pantoprazole 40 mg tablet,delayed 40 mg PO DAILY #90 tab 06/30/20 12/20/20 Rx release calcitriol 0.25 mcg capsule 0.25 mcg PO UD #45 cap 08/24/20 12/20/20 Rx glimepiride 2 mg tablet 2 mg PO BID #180 tab 10/13/20 12/20/20 Rx albuterol sulfate 90 mcg/actuation 2 puff INHALATION Q6H PRN #8.5 g 10/22/20 12/20/20 Rx aerosol inhaler ferrous gluconate 324 mg (37.5 mg 324 mg PO BID #60 tab 12/07/20 12/20/20 Rx iron) tablet gabapentin 100 mg capsule 200 mg PO BID #360 cap 12/09/20 12/20/20 Rx lisinopril 20 mg tablet 20 mg PO DAILY #30 tab 12/09/20 12/20/20 Rx azithromycin 250 mg tablet See Rx Instructions PO .COMPLEX #6 12/18/20 12/20/20 Rx tab Past Med/Surg History Medical History Acute respiratory failure with hypoxia Anemia (~12/03/13) CAD (coronary artery disease) CAD (coronary atherosclerotic disease) 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 diabetes mellitus Diabetes mellitus, type 2 Diabetic peripheral neuropathy DJD (degenerative joint disease) GERD (gastroesophageal reflux disease) H/O: CVA (cerebrovascular accident) Hyperkalemia Hyperlipidemia Hypertension Hypoxia Lumbar spinal stenosis Myocardial Infarction Secondary hyperparathyroidism of renal origin Stage 3b chronic kidney disease Stage 3B nodular histiocytic lymphoma Tobacco use disorder, continuous Vitamin D deficiency Surgical History History of cardiac cath History of carpal tunnel release History of cataract surgery History of colonoscopy History of tooth extraction History of tubal ligation Family History Brother Family history of diabetes mellitus Sister Family history of diabetes mellitus Sister Family history of diabetes mellitus Mother Family history of diabetes mellitus Myocardial infarction Stroke Father Myocardial infarction Denies family history of Ovarian cancer Prostate cancer Breast cancer Colorectal cancer Social History Smoking Status: Former smoker Tobacco Type: Cigarettes Cigarettes Per Day: 5; Second Hand Exposure: Yes (NIECE); Hx Alcohol Use: No Hx Substance Use: No Preferred Language: Telugu Communication Ability: Effective Visual Impairment: No Limitations Kitchen Food Assembler Required: No Beliefs That Will Affect Care: None marital status: / Current Living Situation: Alone Current Living Situation Comment: lives home alone in a house current occupational status: retired Feels Safe at Home: Yes Safety Concerns: Feels Safe At This Time Seatbelt Use: sometimes Sunscreen Use: No Assistive Devices: Denture - Upper and Oxygen - at Night Review of Systems Review of Systems: The patient denies palpitations, lower extremity swelling, sore throat, fevers, chills, sweats, nausea, vomiting, diarrhea , constipation, abdominal pain, pelvic pain, blood in urine or stool, dysuria, urinary frequency or urgency, lightheadedness, dizziness, headache, memory loss, loss of consciousness, rash, abnormal bruising or bleeding, imbalance, focal or generalized weakness, numbness or tingling in arms or legs, generalized arthralgias or myalgias, back or neck pain, or night sweats. The review of systems is otherwise negative other than for that already noted above, and at least 10 systems have been reviewed. Physical Exam Physical Exam: The patient is awake, alert and oriented 3, well developed and well nourished, normocephalic and atraumatic, lying in bed and in no acute distress. HEENT--PERRL, EOMI, mucous membranes and oropharynx dry. Neck--supple. No JVD. No bruits. Thyroid normal, trachea midline, no adenopathy. Heart--normal S1 and S2. No murmurs, rubs or gallops. Lungs--coarse breath sounds with wheezes bilaterally. No respiratory distress, no accessory muscle use. Abdomen--normal bowel sounds and soft. Nontender. Nondistended. Extremities--no cyanosis or clubbing. No edema. Dermatologic--normal skin turgor, normal color, no abnormal lymph nodes, no rash. Neurologic--cranial nerves II through XII grossly intact. Rheumatologic--normal range of motion. Psychiatric--normal affect. Results & Data Results & Data ([facility]) Vital Signs (Past 12 Hours) Vital Signs Temp Pulse Pulse Resp BP BP Pulse Ox 12/21/20 00:10 70 18 94 12/21/20 00:00 71 17 93 12/20/20 23:07 67 16 162/64 H 93 12/20/20 23:00 69 19 162/64 H 93 12/20/20 22:40 58 L 13 100 12/20/20 22:37 55 L 16 93 12/20/20 22:31 61 15 93 12/20/20 22:30 60 13 166/70 H 93 12/20/20 22:29 62 10 L 12/20/20 22:00 77 21 96 12/20/20 21:50 67 17 100 12/20/20 21:48 72 20 92 12/20/20 21:40 57 L 14 94 12/20/20 21:30 63 18 91 12/20/20 21:20 60 19 94 12/20/20 21:10 63 20 93 12/20/20 21:00 62 22 91 12/20/20 20:50 60 20 94 12/20/20 20:40 61 24 93 12/20/20 20:30 65 24 146/72 H 12/20/20 20:23 64 20 93 12/20/20 20:15 63 29 H 171/69 H 92 12/20/20 19:53 98.2 F 67 22 168/69 H 90 Laboratory Results Laboratory Results WBC 9.22 K/uL (4.8-10.8) 12/20/20 20:20 RBC 3.91 M/uL (4.2-5.4) L 12/20/20 20:20 Hgb 10.7 g/dL (12.0-16.0) L 12/20/20 20:20 Hct 35.4 % (37-47) L 12/20/20 20:20 MCV 90.5 fL (80-100) 12/20/20 20:20 MCH 27.4 pg (25-34) 12/20/20 20:20 MCHC 30.2 g/dL (32-36) L 12/20/20 20:20 RDW Std Deviation 46.3 fL (36.4-46.3) 12/20/20 20:20 RDW Coeff of Sushant 13.9 % (11.5-14.5) 12/20/20 20:20 Plt Count 252 K/uL (130-400) 12/20/20 20:20 MPV 10.7 fL (7.4-10.4) H 12/20/20 20:20 Immature Gran % (Auto) 0.2 % 12/20/20 20:20 Neut % (Auto) 59.7 % 12/20/20 20:20 Lymph % (Auto) 28.1 % 12/20/20 20:20 [place] % (Auto) 6.9 % 12/20/20 20:20 Eos % (Auto) 4.6 % 12/20/20 20:20 Baso % (Auto) 0.5 % 12/20/20 20:20 Neut # (Auto) 5.50 K/uL (1.4-6.5) 12/20/20 20:20 Lymph # (Auto) 2.59 K/uL (1.2-3.4) 12/20/20 20:20 [place] # (Auto) 0.64 K/uL (0.11-0.59) H 12/20/20 20:20 Eos # (Auto) 0.42 K/uL (0-0.5) 12/20/20 20:20 Baso # (Auto) 0.05 K/uL (0-0.2) 12/20/20 20:20 Immature Gran # (Auto) 0.02 K/uL (0.00-0.02) 12/20/20 20:20 Sodium 140 mmol/L (136-145) 12/20/20 20:20 Potassium 4.7 mmol/L (3.5-5.1) 12/20/20 20:20 Chloride 108 mmol/L (98-107) H 12/20/20 20:20 Carbon Dioxide 27 mmol/L (21-32) 12/20/20 20:20 Anion Gap 5.0 (3-11) 12/20/20 20:20 BUN 35 mg/dl (7-18) H 12/20/20 20:20 Creatinine 1.64 mg/dl (0.6-1.2) H 12/20/20 20:20 Est Cr Clr Drug Dosing 27.8 ml/min 12/20/20 20:20 Est GFR ( Amer) 35.3 ml/min 12/20/20 20:20 Est GFR (Non-Af Amer) 30.5 ml/min 12/20/20 20:20 BUN/Creatinine Ratio 21.2 (10-20) H 12/20/20 20:20 Glucose 159 mg/dl (70-99) H 12/20/20 20:20 POC Glucose 280 mg/dl (70-99) H 12/21/20 03:49 Calcium 8.9 mg/dl (8.5-10.1) 12/20/20 20:20 Magnesium 2.2 mg/dl (1.8-2.4) 12/20/20 20:20 Total Bilirubin 0.2 mg/dl (0.2-1) 12/20/20 20:20 AST 12 U/L (15-37) L 12/20/20 20:20 ALT 13 U/L (12-78) 12/20/20 20:20 Alkaline Phosphatase 86 U/L (45-117) 12/20/20 20:20 Troponin I < 0.015 ng/ml (0-0.045) 12/20/20 20:20 NT-Pro-B Natriuret Pep 2004 pg/ml (0-900) H 12/20/20 20:20 Total Protein 7.4 gm/dl (6.4-8.2) 12/20/20 20:20 Albumin 3.0 gm/dl (3.4-5.0) L 12/20/20 20:20 Globulin 4.4 gm/dl (2.5-4.0) H 12/20/20 20:20 Albumin/Globulin Ratio 0.7 (0.9-2) L 12/20/20 20:20 COVID-19 Eval Order Covid19 at [facility] 12/20/20 20:30 SARS-CoV-2 (PCR) NEGATIVE (Negative) 12/20/20 20:30 Code Status & VTE Plan Code Status Full code VTE Prophylaxis Plan VTE Prophylaxis will be ordered: Yes PG Care Time/CCT Total # of Minutes Spent Total Time Spent with Patient: Total time spent is greater than 50% in coordination of care (as documented) at patient's floor/unit and/or counseling patient: Coding Level of Care Code 66075 Initial Inpt Care Lvl 3 Diagnoses COPD with acute bronchitis J44.0; J20.9 DM (diabetes mellitus), type 2, uncontrolled w/neurologic complication E11.49; E11.65 HTN (hypertension) I10 Stage 3b chronic kidney disease N18.32 Diabetic peripheral neuropathy E11.42 Smokes less than 1/2 pack per day F17.210 GERD (gastroesophageal reflux disease) K21.9 Dyslipidemia E78.5
[2020-12-21] MEDS ORDERED: ONDANSETRON INJ 2 MG/ML 2 ML VIAL IV PRN (01:47)
[2020-12-21] MEDS ORDERED: GLUCOSE 10 TABS/TUBE PO PRN (01:47)
[2020-12-21] MEDS ORDERED: DEXTROSE 50% 50 ML SYRINGE IV PRN (01:47)
[2020-12-21] MEDS ORDERED: CARBOHYDRATES FOR HYPOGLYCEMIA PO PRN (01:47)
[2020-12-21] MEDS ORDERED: GLUCOSE 40% GEL 15 GM TUBE PO PRN (01:47)
[2020-12-21] MEDS ORDERED: GLUCAGON FOR INJ 1 MG VIAL SQ PRN (01:47)
[2020-12-21] MEDS ORDERED: ACETAMINOPHEN 325 MG TAB PO PRN (01:47)
[2020-12-21] MEDS ORDERED: NITROGLYCERIN SL 0.4 MG/TAB TAB SL PRN (01:47)
[2020-12-21] MEDS: CHOLECALCIFEROL 1,000 UNITS 25 MCG TAB PO SCH ×3 (03:49→19:55)
[2020-12-21] MEDS: carvediloL 25 MG TAB PO SCH ×3 (03:49→19:54)
[2020-12-21] MEDS: FERROUS GLUCONATE 324 MG TAB PO SCH ×3 (03:50→19:55)
[2020-12-21] MEDS: GABAPENTIN 100 MG CAP PO SCH ×3 (03:50→19:55)
[2020-12-21] MEDS: INSULIN ASPART 100 UNITS/ML 3 ML PEN SC SCH ×5 (03:52→21:14)
[2020-12-21] MEDS: cefTRIAXone SODIUM 2,000 MG in DEXTROSE 5% 50 ML IV SCH (06:21)
[2020-12-21] MEDS: HEPARIN SOD 5,000 UNIT/0.5 ML VIAL SQ SCH ×3 (06:21→21:40)
[2020-12-21] MEDS: methylPREDNISolone 40 MG in SYRINGE 0 ML IV SCH ×3 (06:21→21:42)
[2020-12-21] MEDS: ALBUT/IPRATROP 3MG/0.5MG NEB 3 ML VIAL NEB SCH ×4 (07:12→19:21)
[2020-12-21] MEDS: BUDESONIDE 0.5 MG/2 ML VIAL (PULMICORT) NEB SCH ×2 (07:12→19:21)
--- NOTE | 2020-12-21 07:35 | XRay Report ---
XR chest 1V portable HISTORY: 75 years-old Female cough acute cough with fever COMPARISON: Chest radiograph 06/25/2020 TECHNIQUE: Portable AP view the chest FINDINGS: Eventration of the right hemidiaphragm. Mild cardiomegaly. Calcified plaque the thoracic aorta. No pn eumothorax, pleural effusion, airspace consolidation or overt pulmonary edema. Bones of the chest jaci ear grossly intact. Mild left shoulder rotator cuff calcific tendinosis. IMPRESSION: No acute process. ACT 112: Negative or not required by law. The above report was generated using voice recognition software. It may contain grammatical, syntax o r spelling errors. Electronically signed by: Rene Bowers M.D. 12/21/2020 7:33 AM
[2020-12-21] MEDS: amLODIPine BESYLATE 5 MG TAB PO SCH (08:41)
[2020-12-21] MEDS: PANTOprazole 40 MG TAB PO SCH (08:43)
[2020-12-21] MEDS: CLOPIDOGREL BISULFATE 75 MG TAB PO SCH (08:43)
[2020-12-21] MEDS: guaiFENesin 600 MG TABCR PO SCH ×2 (08:43→19:54)
[2020-12-21] MEDS: CYANOCOBALAMIN 500 MCG TABLET (VITAMIN B-12) PO SCH (08:43)
[2020-12-21] MEDS ORDERED: CALCITRIOL 0.25 MCG CAPSULE PO SCH (09:00)
[2020-12-21 09:06] LABS: Estimated Average Glucose 160 mg/dl; Hemoglobin A1C 7.2 % (4.5-5.6)
--- NOTE | 2020-12-21 12:01 | Hospitalist Progress Note ---
Date of Service December 21, 2020 Assessment & Plan (1) COPD with acute bronchitis: Prior completed Azithromycin Nasal cannula oxygen, titrate to keep pulse ox 92 to 94% CXR without acute process Duonebs every 4 hours while awake and every 2 hours when necessary -- will change to prn tomorrow Pulmicort Respules 0.5 mg inhaled twice daily -- consider Pulmicort inhaler at d/c Methylprednisolone 40 mg IV every 8 hours -- will need PO at d/c, likely 50-60mg PO daily for 5 days ? Guaifenesin extended release 60 mg p.o. twice daily Tessalon pearls TID added Incentive spirometer -- 89% on RA this morning (?ESTELA)-- currently 92% on ROOM AIR Ceftriaxone 1 g IV daily Levofloxacin 500 mg IV daily WBC wnl, afebrile Consider Augmentin/Levaquin x 5 days total at d/c BNP 2001 (possibly contributing to cough, at least initially) -- will obtain ECHO given KENNEDY/possible CHF although weight appears stable (she does note continued dry cough at home but recently phlegm/clear) Supportive care (2) DM (diabetes mellitus), type 2, uncontrolled w/neurologic complication: A1c 7.2 Hold glimepiride. Placed on Accu-Cheks before meals and at bedtime with NovoLog coverage per scale tightening sliding scale continue to monitor (3) HTN (hypertension): Continue amlodipine 10mg, carvedilol 25mg BID, clopidogrel 75mg PO daily Hold lisinopril BP stable 146/72 Continue to monitor (4) Stage 3b chronic kidney disease: Creatinine 1.64 upon admission, with range 1.40-2.24 Holding lisinopril as above Labs in AM (5) Diabetic peripheral neuropathy: Continue gabapentin 200 mg p.o. twice daily (6) Smokes less than 1/2 pack per day: Tobacco cessation counseling (7) GERD (gastroesophageal reflux disease): Continue pantoprazole (8) Dyslipidemia: Continue atorvastatin 80 mg HS Dispo: continued inpatient stay possible d/c tomorrow Admission and Anticipated Discharge Date Admission Date: December 21, 2020 Subjective BRIDGE NOTE: ADMITTED AFTER MIDNIGHT Patient evaluated later morning. Feeling much improved from admission, about 70-80% back to her usual self. Still with cough but much improved -- willing to try Tessalon pearls but is aware the cough may linger for several weeks. She has an HFA at home. No fever, chills, chest pain, abdominal pain, nausea, vomiting or dysuria at thi s time. Review of Systems Review of Systems: The patient denies palpitations, lower extremity swelling, sore throat, fevers, chills, sweats, nausea, vomiting, diarrhea , constipation, abdominal pain, pelvic pain, blood in urine or stool, dysuria, urinary frequency or urgency, lightheadedness, dizziness, headache, memory loss, loss of consciousness, rash, abnormal bruising or bleeding, imbalance, focal or generalized weakness, numbness or tingling in arms or legs, generalized arthralgias or myalgias, back or neck pain, or night sweats. The review of systems is otherwise negative other than for that already noted above, and at least 10 systems have been reviewed. Physical Exam Physical Exam: The patient is awake, alert and oriented 3, well developed and well nourished, normocephalic and atraumatic, lying in bed and in no acute distress. HEENT--PERRL, EOMI, mucous membranes and oropharynx dry (improving) Neck--supple. No JVD. No bruits. Thyroid normal, trachea midline, no adenopathy. Heart--normal S1 and S2. No murmurs, rubs or gallops. Lungs--coarse breath sounds with wheezes bilaterally (anterior L lung field, posterior lung kelley) No respiratory distress, no accessory muscle use. +Cough Abdomen--normal bowel sounds and soft. Nontender. Nondistended. Extremities--no cyanosis or clubbing. No edema. Dermatologic--normal skin turgor, normal color, no abnormal lymph nodes, no rash. Neurologic--cranial nerves II through XII grossly intact. Rheumatologic--normal range of motion. Psychiatric--normal affect. Results & Data Results & Data ([facility]) Vital Signs (Past 12 Hours) Vital Signs Temp Pulse Pulse Pulse Resp BP BP 12/21/20 11:09 71 18 12/21/20 07:38 36.8 C 69 22 146/72 H 12/21/20 07:17 36.7 C 66 18 139/62 12/21/20 06:20 64 12/21/20 03:51 37 C 66 18 124/63 12/21/20 01:50 36.7 C 69 68 18 176/67 H 12/21/20 01:00 67 18 166/74 H 12/21/20 00:31 69 20 179/72 H 12/21/20 00:30 63 14 179/72 H 12/21/20 00:10 70 18 12/21/20 00:00 71 17 Pulse Ox 12/21/20 11:09 92 12/21/20 07:38 89 L 12/21/20 07:17 93 12/21/20 06:20 12/21/20 03:51 94 12/21/20 01:50 90 12/21/20 01:00 91 12/21/20 00:31 91 12/21/20 00:30 92 12/21/20 00:10 94 12/21/20 00:00 93 Laboratory Results 12/21/20 12/21/20 12/21/20 Range/Units 11:17 07:24 03:49 WBC (4.8-10.8) K/uL RBC (4.2-5.4) M/uL Hgb (12.0-16.0) g/dL Hct (37-47) % MCV (80-100) fL MCH (25-34) pg MCHC (32-36) g/dL RDW Std Deviation (36.4-46.3) fL RDW Coeff of Sushant (11.5-14.5) % Plt Count (130-400) K/uL MPV (7.4-10.4) fL Immature Gran % (Auto) % Neut % (Auto) % Lymph % (Auto) % [place] % (Auto) % Eos % (Auto) % Baso % (Auto) % Neut # (Auto) (1.4-6.5) K/uL Lymph # (Auto) (1.2-3.4) K/uL [place] # (Auto) (0.11-0.59) K/uL Eos # (Auto) (0-0.5) K/uL Baso # (Auto) (0-0.2) K/uL Immature Gran # (Auto) (0.00-0.02) K/uL Sodium (136-145) mmol/L Potassium (3.5-5.1) mmol/L Chloride (98-107) mmol/L Carbon Dioxide (21-32) mmol/L Anion Gap (3-11) BUN (7-18) mg/dl Creatinine (0.6-1.2) mg/dl Est Cr Clr Drug Dosing ml/min Est GFR ( Amer) ml/min Est GFR (Non-Af Amer) ml/min BUN/Creatinine Ratio (10-20) Glucose (70-99) mg/dl POC Glucose 255 H 198 H 280 H (70-99) mg/dl Estimat Average Glucose mg/dl Hemoglobin A1c (4.5-5.6) % Calcium (8.5-10.1) mg/dl Magnesium (1.8-2.4) mg/dl Total Bilirubin (0.2-1) mg/dl AST (15-37) U/L ALT (12-78) U/L Alkaline Phosphatase (45-117) U/L Troponin I (0-0.045) ng/ml NT-Pro-B Natriuret Pep (0-900) pg/ml Total Protein (6.4-8.2) gm/dl Albumin (3.4-5.0) gm/dl Globulin (2.5-4.0) gm/dl Albumin/Globulin Ratio (0.9-2) COVID-19 Eval Order SARS-CoV-2 (PCR) (Negative) 12/21/20 12/20/20 12/20/20 Range/Units 01:27 20:30 20:30 WBC (4.8-10.8) K/uL RBC (4.2-5.4) M/uL Hgb (12.0-16.0) g/dL Hct (37-47) % MCV (80-100) fL MCH (25-34) pg MCHC (32-36) g/dL RDW Std Deviation (36.4-46.3) fL RDW Coeff of Sushant (11.5-14.5) % Plt Count (130-400) K/uL MPV (7.4-10.4) fL Immature Gran % (Auto) % Neut % (Auto) % Lymph % (Auto) % [place] % (Auto) % Eos % (Auto) % Baso % (Auto) % Neut # (Auto) (1.4-6.5) K/uL Lymph # (Auto) (1.2-3.4) K/uL [place] # (Auto) (0.11-0.59) K/uL Eos # (Auto) (0-0.5) K/uL Baso # (Auto) (0-0.2) K/uL Immature Gran # (Auto) (0.00-0.02) K/uL Sodium (136-145) mmol/L Potassium (3.5-5.1) mmol/L Chloride (98-107) mmol/L Carbon Dioxide (21-32) mmol/L Anion Gap (3-11) BUN (7-18) mg/dl Creatinine (0.6-1.2) mg/dl Est Cr Clr Drug Dosing ml/min Est GFR ( Amer) ml/min Est GFR (Non-Af Amer) ml/min BUN/Creatinine Ratio (10-20) Glucose (70-99) mg/dl POC Glucose 249 H (70-99) mg/dl Estimat Average Glucose mg/dl Hemoglobin A1c (4.5-5.6) % Calcium (8.5-10.1) mg/dl Magnesium (1.8-2.4) mg/dl Total Bilirubin (0.2-1) mg/dl AST (15-37) U/L ALT (12-78) U/L Alkaline Phosphatase (45-117) U/L Troponin I (0-0.045) ng/ml NT-Pro-B Natriuret Pep (0-900) pg/ml Total Protein (6.4-8.2) gm/dl Albumin (3.4-5.0) gm/dl Globulin (2.5-4.0) gm/dl Albumin/Globulin Ratio (0.9-2) COVID-19 Eval Order Covid19 at [facility] SARS-CoV-2 (PCR) NEGATIVE (Negative) 12/20/20 12/20/20 12/20/20 Range/Units 20:20 20:20 20:20 WBC 9.22 (4.8-10.8) K/uL RBC 3.91 L (4.2-5.4) M/uL Hgb 10.7 L (12.0-16.0) g/dL Hct 35.4 L (37-47) % MCV 90.5 (80-100) fL MCH 27.4 (25-34) pg MCHC 30.2 L (32-36) g/dL RDW Std Deviation 46.3 (36.4-46.3) fL RDW Coeff of Sushant 13.9 (11.5-14.5) % Plt Count 252 (130-400) K/uL MPV 10.7 H (7.4-10.4) fL Immature Gran % (Auto) 0.2 % Neut % (Auto) 59.7 % Lymph % (Auto) 28.1 % [place] % (Auto) 6.9 % Eos % (Auto) 4.6 % Baso % (Auto) 0.5 % Neut # (Auto) 5.50 (1.4-6.5) K/uL Lymph # (Auto) 2.59 (1.2-3.4) K/uL [place] # (Auto) 0.64 H (0.11-0.59) K/uL Eos # (Auto) 0.42 (0-0.5) K/uL Baso # (Auto) 0.05 (0-0.2) K/uL Immature Gran # (Auto) 0.02 (0.00-0.02) K/uL Sodium 140 (136-145) mmol/L Potassium 4.7 (3.5-5.1) mmol/L Chloride 108 H (98-107) mmol/L Carbon Dioxide 27 (21-32) mmol/L Anion Gap 5.0 (3-11) BUN 35 H (7-18) mg/dl Creatinine 1.64 H (0.6-1.2) mg/dl Est Cr Clr Drug Dosing 27.8 ml/min Est GFR ( Amer) 35.3 ml/min Est GFR (Non-Af Amer) 30.5 ml/min BUN/Creatinine Ratio 21.2 H (10-20) Glucose 159 H (70-99) mg/dl POC Glucose (70-99) mg/dl Estimat Average Glucose 160 mg/dl Hemoglobin A1c 7.2 H (4.5-5.6) % Calcium 8.9 (8.5-10.1) mg/dl Magnesium 2.2 (1.8-2.4) mg/dl Total Bilirubin 0.2 (0.2-1) mg/dl AST 12 L (15-37) U/L ALT 13 (12-78) U/L Alkaline Phosphatase 86 (45-117) U/L Troponin I < 0.015 (0-0.045) ng/ml NT-Pro-B Natriuret Pep 2004 H (0-900) pg/ml Total Protein 7.4 (6.4-8.2) gm/dl Albumin 3.0 L (3.4-5.0) gm/dl Globulin 4.4 H (2.5-4.0) gm/dl Albumin/Globulin Ratio 0.7 L (0.9-2) COVID-19 Eval Order SARS-CoV-2 (PCR) (Negative) PG Care Time/CCT Total # of Minutes Spent Total Time Spent with Patient: Total time spent is greater than 50% in coordination of care (as documented) at patient's floor/unit and/or counseling patient: Coding Level of Care Code None Diagnoses COPD with acute bronchitis J44.0; J20.9 DM (diabetes mellitus), type 2, uncontrolled w/neurologic complication E11.49; E11.65 HTN (hypertension) I10 Stage 3b chronic kidney disease N18.32 Diabetic peripheral neuropathy E11.42 Smokes less than 1/2 pack per day F17.210 GERD (gastroesophageal reflux disease) K21.9 Dyslipidemia E78.5
[2020-12-21] MEDS: BENZONATATE 100 MG CAPSULE PO SCH ×2 (13:48→19:56)
--- NOTE | 2020-12-21 15:32 | XCELERA ---
[id number]
--- NOTE | 2020-12-21 17:55 | Electrocardiogram Report ---
Test Reason : Blood Pressure : / mmHG Vent. Rate : 064 BPM Atrial Rate : 064 BPM P-R Int : 166 ms QRS Dur : 098 ms QT Int : 432 ms P-R-T Axes : 000 -30 088 degrees QTc Int : 445 ms Normal sinus rhythm Left axis deviation Abnormal ECG When compared with ECG of 25-JUN-2020 13:39, No significant change was found Confirmed by Rafael Nguyen ([id number] on 12/21/2020 5:54:53 PM Referred By: REFERRED SELF Confirmed By:Luis Nguyen
[2020-12-21] MEDS ORDERED: levoFLOXacin/D5W 250 MG/50 ML BAG IV SCH (20:00)
[2020-12-21] MEDS ORDERED: ATORVASTATIN 40 MG TAB PO SCH (21:00)
[2020-12-21] MEDS ORDERED: IRON POLYSACCHARIDE COMPLEX 150 MG CAPSULE PO SCH (21:00)
[2020-12-22] MEDS: methylPREDNISolone 40 MG in SYRINGE 0 ML IV SCH (06:02)
[2020-12-22] MEDS: HEPARIN SOD 5,000 UNIT/0.5 ML VIAL SQ SCH ×2 (06:03→13:33)
[2020-12-22] MEDS: cefTRIAXone SODIUM 2,000 MG in DEXTROSE 5% 50 ML IV SCH (06:04)
[2020-12-22] MEDS: BUDESONIDE 0.5 MG/2 ML VIAL (PULMICORT) NEB SCH (07:15)
[2020-12-22] MEDS: ALBUT/IPRATROP 3MG/0.5MG NEB 3 ML VIAL NEB SCH ×3 (07:15→15:33)
[2020-12-22] MEDS: amLODIPine BESYLATE 5 MG TAB PO SCH (07:42)
[2020-12-22] MEDS: BENZONATATE 100 MG CAPSULE PO SCH ×2 (07:42→13:33)
[2020-12-22] MEDS: carvediloL 25 MG TAB PO SCH (07:42)
[2020-12-22] MEDS: FERROUS GLUCONATE 324 MG TAB PO SCH (07:43)
[2020-12-22] MEDS: CLOPIDOGREL BISULFATE 75 MG TAB PO SCH (07:43)
[2020-12-22] MEDS: guaiFENesin 600 MG TABCR PO SCH (07:43)
[2020-12-22] MEDS: PANTOprazole 40 MG TAB PO SCH (07:43)
[2020-12-22] MEDS: CYANOCOBALAMIN 500 MCG TABLET (VITAMIN B-12) PO SCH (07:43)
[2020-12-22] MEDS: CHOLECALCIFEROL 1,000 UNITS 25 MCG TAB PO SCH (07:43)
[2020-12-22] MEDS: GABAPENTIN 100 MG CAP PO SCH (07:43)
[2020-12-22] MEDS: INSULIN ASPART 100 UNITS/ML 3 ML PEN SC SCH ×2 (07:53→12:18)
[2020-12-22 07:57] LABS: Hematocrit (blood only) 38.1 % (37-47); Hemoglobin 11.9 g/dL (12.0-16.0); Immature Granulocytes # (auto) 0.06 K/uL (0.00-0.02); Immature Granulocytes % (auto) 0.4 %; Lymphocytes # (auto) 0.98 K/uL (1.2-3.4); Lymphocytes % (auto) 6.4 %; Mean Corpuscular Hemoglobin 27.2 pg (25-34); Mean Corpuscular Hgb Conc 31.2 g/dL (32-36); Neutrophils # (auto) 14.01 K/uL (1.4-6.5); Neutrophils % (auto) 91.2 %; Platelet Count 342 K/uL (130-400); RDW Coefficient of Variation 13.9 % (11.5-14.5); RDW Standard Deviation 44.3 fL (36.4-46.3); Red Blood Count 4.38 M/uL (4.2-5.4); White Blood Count 15.35 K/uL (4.8-10.8)
[2020-12-22 08:29] LABS: Albumin Level 2.9 gm/dl (3.4-5.0); BUN Creatinine Ratio 23.9 (10-20); Calcium 9.3 mg/dl (8.5-10.1); Creatinine Clr Calc Pharmacy 24.1 ml/min; Est GFR (Non-African American) 25.9 ml/min; Potassium 5.1 mmol/L (3.5-5.1)
[2020-12-22 08:31] LABS: Albumin Globulin Ratio 0.6 (0.9-2); Bilirubin,Total 0.2 mg/dl (0.2-1); Globulin 4.7 gm/dl (2.5-4.0); Total Protein 7.6 gm/dl (6.4-8.2)
[2020-12-22] MEDS ORDERED: SODIUM CHLORIDE 0.9% 500 ML IV SCH (09:00)
--- NOTE | 2020-12-22 12:31 | Discharge Summary ---
Date of Service December 22, 2020 Admission HPI Per Admitting Provider The patient is a 75-year-old female with a past medical history including CKD stage IIIb, vitamin D deficiency, secondary hyperparathyroidism of renal origin, tobacco use disorder, left MCA ischemic stroke, CAD, carotid stenosis, dyslipidemia, GERD, hypertension, anxiety, diabetes mellitus type 2, lumbar spinal stenosis and diabetic peripheral neuropathy. The patient had been placed on azithromycin for her presenting symptoms above, and continue to get worse, and presents to the ED for assessment tonight. Admission Exam Per Admitting Provider The patient is awake, alert and oriented 3, well developed and well nourished, normocephalic and atraumatic, lying in bed and in no acute distress. HEENT--PERRL, EOMI, mucous membranes and oropharynx dry. Neck--supple. No JVD. No bruits. Thyroid normal, trachea midline, no adenopathy. Heart--normal S1 and S2. No murmurs, rubs or gallops. Lungs--coarse breath sounds with wheezes bilaterally. No respiratory distress, no accessory muscle use. Abdomen--normal bowel sounds and soft. Nontender. Nondistended. Extremities--no cyanosis or clubbing. No edema. Dermatologic--normal skin turgor, normal color, no abnormal lymph nodes, no rash. Neurologic--cranial nerves II through XII grossly intact. Rheumatologic--normal range of motion. Psychiatric--normal affect. Principal Diagnosis COPD Exacerbation, Bronchitis Discharge Exam The patient is awake, alert and oriented 3, well developed and well nourished, normocephalic and atraumatic, sitting up in chair, NAD HEENT--PERRL, EOMI, mucous membranes and oropharynx moist Neck--supple. No JVD. No bruits. Thyroid normal, trachea midline, no adenopathy. Heart--normal S1 and S2. No murmurs, rubs or gallops. Lungs--faint end expiratory wheezing posterior lung kelley, no crackles. no cough noted, not tachypneic. 93% on Room AIR No respiratory distress, no accessory muscle use. Abdomen--normal bowel sounds and soft. Nontender. Nondistended. Extremities--no cyanosis or clubbing. No edema. Dermatologic--normal skin turgor, normal color, no abnormal lymph nodes, no rash. Neurologic--cranial nerves II through XII grossly intact. Rheumatologic--normal range of motion. Psychiatric--normal affect. Discharge Data Allergies Allergy/AdvReac Type Severity Reaction Status Date / Time No Known Allergies Allergy Verified 12/20/20 21:14 Consultations 12/21/20 01:18 ED Decision to Admit Stat Ordered Studies 12/20 CXR 12/21 ECHO Hospital Course (1) COPD with acute bronchitis: Prior completed Azithromycin CXR without acute process Duonebs scheduled, Pulmicort Respules BID Mehtylprednisolone 40 mg IV every 8 hours --> sent on Prednisone 40mg x 3 more days Mucinex PO BID -- cont'd at d/c Tessalon pearls prn cough-- continued at d/c Encouraged continued use of incentive spirometer and to utilize her albuterol inhaler at d/c for next couple weeks Ceftriaxone/Levofloxacin on admission --> improved drastically in 24 hours and discharged on Augmentin to complete 5 day course as she already would have been covered for atypical by azithromycin completed prior to admission WBC wnl, afebrile Overnight pulse ox still with need -- utilizes between 2-2.5L HS 2 step performed prior to d/c without need for supplementation with ambulation (2) DM (diabetes mellitus), type 2, uncontrolled w/neurologic complication: A1c 7.2 Hold glimepiride while inpatient. BSGs elevated secondary to IV steroids as outlined above and ISS tightened for better control D/c on Prednisone 40mg daily x 3 days and instructed to resume her glimeperide -- consider increasing vs additional agent at f/u with PCP (3) HTN (hypertension): Continue amlodipine 10mg, carvedilol 25mg BID, clopidogrel 75mg PO daily Held lisinopril for some dehydration -- resumed at d/c BP stable (4) Stage 3b chronic kidney disease: Creatinine 1.64 upon admission, with range 1.40-2.24 Held lisinopril as above -- can resume in AM tomorrow Cr 1.88 -- given IVF prior to d/c (5) Diabetic peripheral neuropathy: Continued gabapentin 200 mg p.o. twice daily (6) Smokes less than 1/2 pack per day: Tobacco cessation counseling --> of note, she quit approximately 6 months ago (7) GERD (gastroesophageal reflux disease): Continued pantoprazole (8) Dyslipidemia: Continued atorvastatin 80 mg HS Discharged home. Total Time Total Time Spent Total Time Spent (In Minutes): 60 Discharge Plan Discharge Items Patient Disposition: Home - Self-Care Reason For Visit: COPD WITH ACUTE BRONCHITIS Discharge Diagnosis: COPD Exacerbation, Bronchitis Goals: You have been hospitalized for an acute medical problem. During your stay at [facility], we have made an effort to correct the problem that brought you to the hospital while keeping you as comfortable as possible. Medications were used to bring your condition under control and your discharge instructions will include directions for any medications you should take after leaving the hospital. Please make sure you see your Primary Care Provider as part of your follow up plan. Activity: Resume your previous activity Non-emergency contact: Primary Care Provider Call non-emergency contact if: you have any medication questions, your symptoms worsen and your pain is concerning for you Follow-up/Referrals: Lew Cedeno III, MD [Primary Care Provider] - 12/30/20 2:00 pm Diet: Carb Consistent or DM2 and Heart Healthy Addtl Attending Provider Instructions: You have been hospitalized for COPD exacerbation with bronchitis. Chest x-ray was obtained which did not show any signs of pneumonia. He has not had a fever. Supportive care with medications and antibiotics was provided. You are being sent home on Augmentin to take twice daily for an additional 3 days to complete a 5-day course of antibiotics. (You have gotten a dose of IV antibiotics today and can begin this tomorrow 12/23) You are also being continued on prednisone 40 mg by mouth daily for the next 3 days. You have also been sent a prescription for Tessalon Perles to be used as needed for cough. You should continue Mucinex twice daily for the next week. You should continue to use your albuterol inhaler at home several times a day to help with breathing. Please note that this cough may persist for several weeks but should resolve. You should continue to use incentive spirometer multiple times daily to prevent pneumonia. An overnight pulse oximetry study was performed which showed that you did drop down below 88% and should continue to use oxygen at night 2 liters via nasal cannula. You have had a two-step completed to see if you need oxygen with ambulation given your COPD and this study showed that you did not need supplemental oxygen with ambulation. It is highly recommended that you continue to refrain from smoking to prevent worsening of your COPD and risk for chronic wait for oxygen. Please follow-up with your primary care provider in the next week monitor your progress post discharge. Please return to the emergency department with high fever, chest pain, shortness of breath, or any other symptoms that are concerning for you. Is been a pleasure being part of the medical team providing for you while you have been in the hospital. Take care! Pending Studies at Discharge: No Stand-Alone Forms: My [facility] Medications and DC Order Prescriptions: New benzonatate [Tessalon Perles] 100 mg Capsule 100 mg PO TID PRN (Reason: cough) Qty: 20 RF: 0 guaifenesin [Mucinex] 600 mg Tablet Extended Release 12hr 600 mg PO Q12 Qty: 10 RF: 0 amoxicillin-pot clavulanate 875-125 mg tablet 1 tab PO BID 3 Days Qty: 6 RF: 0 prednisone 20 mg tablet 40 mg PO DAILY 3 Days Qty: 6 RF: 0 Continued nitroglycerin [Nitrostat] 0.4 mg tablet, sublingual 0.4 mg Sublingual UD PRN (Reason: Chest Pain) Qty: 30 RF: 5 carvedilol [Coreg] 25 mg tablet 25 mg PO BID Qty: 180 RF: 3 glimepiride 2 mg tablet 2 mg PO BID Qty: 180 RF: 1 ferrous gluconate 324 mg (37.5 mg iron) tablet 324 mg PO BID Qty: 60 RF: 5 gabapentin 100 mg capsule 200 mg PO BID Qty: 360 RF: 3 lisinopril 20 mg tablet 20 mg PO DAILY Qty: 30 RF: 11 calcitriol 0.25 mcg capsule 0.25 mcg PO UD Qty: 45 RF: 3 albuterol sulfate [ProAir HFA] 90 mcg/actuation HFA aerosol inhaler 2 puff inhalation Q6H PRN (Reason: shortness of breath or wheezing) Qty: 8.5 RF: 3 pantoprazole 40 mg tablet,delayed release (DR/EC) 40 mg PO DAILY Qty: 90 RF: 3 clopidogrel [Plavix] 75 mg tablet 75 mg PO DAILY Qty: 90 RF: 3 acetaminophen [Tylenol] 325 mg capsule 325 mg PO QID PRN (Reason: Pain) RF: 0 cyanocobalamin (vitamin B-12) [Vitamin B-12] 1,000 mcg Tablet 1,000 mcg PO QAM RF: 0 cholecalciferol (vitamin D3) [Vitamin D3] 1,000 unit Tablet 1,000 unit PO BID RF: 0 polysaccharide iron complex [Ferric x-150] 150 mg iron capsule 150 mg PO HS RF: 0 amlodipine [Norvasc] 10 mg tablet 10 mg PO QAM RF: 0 atorvastatin 80 mg tablet 80 mg PO HS Qty: 30 RF: 0 Discontinued azithromycin 250 mg tablet See Rx Instructions PO .COMPLEX Qty: 6 RF: 0 Discharge Orders: Discharge Order (Routine); Ordered 12/22/20 Ordered By: Delma Hernandez/Other Patient Handouts: Managing Type 2 Diabetes, A1C Admission Data Admit Date/Time: 12/21/20 00:21 Attending Provider: Delta Patiño Admit Provider: Ethan Perry Primary Care Provider: Lew Cedeno III Other Providers: Delta Patiño Other Interventions: Discharge Summary Assessment (RN) Last Done: 12/22/20 10:14 Supervising Physician Co-Signing Physician Notes I supervised Delma Tinajero PA-C on this discharge. I interviewed and examined the patient independently of her on the day of discharge. The plan is as written in her note except for any following changes/exceptions: None Patient doing well today. Breathing already significantly improved. Feels ready to go home and feels that she will be safe there with current respiratory status. Given rapid improvement, do not feel prolonged course of abx or steroids is required. Coding Level of Care Code D/C Day Management >30 mins Diagnoses COPD with acute bronchitis J44.0; J20.9 DM (diabetes mellitus), type 2, uncontrolled w/neurologic complication E11.49; E11.65 HTN (hypertension) I10 Stage 3b chronic kidney disease N18.32 Diabetic peripheral neuropathy E11.42 Smokes less than 1/2 pack per day F17.210 GERD (gastroesophageal reflux disease) K21.9 Dyslipidemia E78.5
[2020-12-22] MEDS ORDERED: methylPREDNISolone 20 MG in SYRINGE 0 ML IV SCH (14:00)
== END 2020-12-22 16:30 | disposition home or self-care (01) | DRG 202 ==
LOC: ED 19:49 → SUATTDRO 12-21 00:21 → 2W 12-21 00:21

== ENCOUNTER 2021-01-28 16:43 | Inpatient (IN) ==
--- NOTE | 2021-01-28 17:28 | XRay Report ---
XR chest 1V portable CLINICAL HISTORY: Dyspnea COMPARISON STUDY: 12/20/2020 FINDINGS: The heart is borderline enlarged. There is mild chronic interstitial thickening. There is n o overt failure. There are no significant pleural effusions. There is mild elevation/eventration of t he right hemidiaphragm.[ IMPRESSION: No active disease in the chest. ACT 112: Negative or not required by law. Electronically signed by: Damon Valiente M.D. 01/28/2021 5:26 PM
[2021-01-28 17:30] LABS: Basophils # (auto) 0.04 K/uL (0-0.2); Basophils % (auto) 0.4 %; Eosinophils # (auto) 0.21 K/uL (0-0.5); Hematocrit (blood only) 33.7 % (37-47); Hemoglobin 10.3 g/dL (12.0-16.0); Immature Granulocytes # (auto) 0.01 K/uL (0.00-0.02); Immature Granulocytes % (auto) 0.1 %; Lymphocytes % (auto) 20.9 %; Mean Corpuscular Hemoglobin 27.3 pg (25-34); Mean Corpuscular Hgb Conc 30.6 g/dL (32-36); Mean Corpuscular Volume 89.4 fL (80-100); Mean Platelet Volume 10.9 fL (7.4-10.4); Monocytes # (auto) 0.62 K/uL (0.11-0.59); Monocytes % (auto) 5.9 %; Neutrophils # (auto) 7.45 K/uL (1.4-6.5); Neutrophils % (auto) 70.7 %; Platelet Count 265 K/uL (130-400); RDW Coefficient of Variation 14.1 % (11.5-14.5); RDW Standard Deviation 46.6 fL (36.4-46.3); Red Blood Count 3.77 M/uL (4.2-5.4); White Blood Count 10.53 K/uL (4.8-10.8)
[2021-01-28] MEDS ORDERED: methylPREDNISolone 125 MG/2 ML VIAL IV STA (17:39)
[2021-01-28] MEDS ORDERED: ALBUT/IPRATROP 3MG/0.5MG NEB 3 ML VIAL NEB STA (17:39)
[2021-01-28 17:48] LABS: Alanine Aminotransferase 12 U/L (12-78); Albumin Level 2.9 gm/dl (3.4-5.0); Aspartate Aminotransferase 10 U/L (15-37); BUN Creatinine Ratio 19.3 (10-20); Blood Urea Nitrogen 32 mg/dl (7-18); Calcium 8.2 mg/dl (8.5-10.1); Carbon Dioxide 29 mmol/L (21-32); Chloride 106 mmol/L (98-107); Est GFR (African American) 34.8 ml/min; Glucose 139 mg/dl (70-99); Magnesium 2.2 mg/dl (1.8-2.4); Potassium 4.8 mmol/L (3.5-5.1); Sodium 139 mmol/L (136-145)
[2021-01-28 17:53] LABS: Albumin Globulin Ratio 0.7 (0.9-2); Alkaline Phosphatase 83 U/L (45-117); Bilirubin,Total 0.3 mg/dl (0.2-1); Globulin 3.9 gm/dl (2.5-4.0); NT Pro B Type Natriuretic Pept 2904 pg/ml (0-900); Total Protein 6.8 gm/dl (6.4-8.2); Troponin I < 0.015 ng/ml (0-0.045)
--- NOTE | 2021-01-28 19:09 | Emergency Department Note ---
Impression & Plan SOB (shortness of breath), Hypoxia ED Provider Note INFORMANT: Patient ED PROVIDER(S): Av Lantigua MD CHIEF COMPLAINT: Shortness of breath PLAN: Disposition: Admitted Condition: Good Outpatient prescription management: none Referral: None MEDICAL DECISION MAKING: Patient presented with complaints of shortness of breath. She did have some wheezing on examination and was hypoxic. She was treated with Solu-Medrol and a DuoNeb. She did feel better with this. Her physical examination and blood work did raise concerns for CHF. Her BNP was elevated. Troponin was negative. Her ECG did not show any acute ST elevation however there was some lateral T wave inversion. The patient is doing well on reassessment however further management in the hospital will be necessary. She notes no prior history of CHF. She was given IV Lasix. Consultation was made with Dr. Ethan Perry of the [facility] service. Patient was evaluated in the ER for further managemen t. Triage Nursing notes reviewed and agree them. Vital Signs: reviewed and remarkable for hypoxia Differential diagnosis: Reactive airway disease, pneumonia, pneumothorax, COPD, CHF, infections, cardiac ischemia, pulmonary embolism, musculoskeletal, gastrointestinal, as well as other pathologies. Diagnostics interpreted by me: ECG: Twelve-lead ECG reveals normal sinus rhythm at 70 bpm. Left axis deviation. Lateral T wave inversions. No ST elevation. Cardiac Monitoring: Cardiac monitoring ordered by me: The patient was placed on continuous cardiac monitoring and observed. It revealed a normal sinus rhythm at 66 beats per minute without ectopy or evidence of dysrhythmia. Imaging studies: Chest x-ray. Findings: A chest x-ray was performed and revealed no pneumothorax, effusion, infiltrate, pulmonary edema, free air under the diaphragm, or wide mediastinum. Impression: No acute disease. HPI: The patient is a 75 year old female who presents to the Emergency Room with complaints of shortness of breath. This started over the last few days and is worsening. The patient also notes the following associated symptoms, bilateral leg swelling, 6 pound weight gain this week. The patient has been using her oxygen at night only relieving factors. Current pain is rated as 0/10. Patient is a former smoker. Pt denies LOC, headache, fevers, chills, diaphoresis, visual changes, neck pain, chest pain, nausea, vomiting, abdominal pain, back pain, melena, hematochezia, urinary symptoms, numbness, weakness, lymphadenopathy, rash, or other complaints. ROS: See above HPI for pertinent positives & negatives. A total of 10 systems reviewed and were otherwise negative. PAST MEDICAL HISTORY:See Below , CAD, stroke PAST SURGICAL HISTORY:See Below, FAMILY HISTORY:See Below SOCIAL HISTORY:See Below, quit smoking HOME MEDICATIONS:See Below ALLERGIES:See Below VITALS:See Below PHYSICAL EXAMINATION: GENERAL: Awake, alert, mildly appearing, in no distress HENT: Normocephalic, atraumatic. Oropharynx unremarkable. EYES: Normal conjunctiva. Sclera non-icteric. NECK: Inspection normal. Non-tender. Supple. No nuchal rigidity. FROM. No masses. RESPIRATORY: Scattered wheezes and rales. Normal respiratory effort. CARDIAC: Normal rate. Normal rhythm. No murmurs. No rubs. Extremities warm and well perfused. Pulses equal. No JVD. GI: Soft, non-distended. No tenderness to palpation. No rebound or guarding. No masses. RECTAL: Deferred. MUSCULOSKELETAL: Atraumatic. Chest examination reveals no tenderness. The back is symmetrical on inspection without obvious abnormality. There is no CVA tenderness to palpation. No joint edema. LOWER EXTREMITIES: Calves are equal size bilaterally and non-tender. 2+ edema. No discoloration. NEURO: Normal sensorium. No sensory or motor deficits noted. SKIN: No rash or jaundice noted. Av Lantigua MD Past Med/Surg History Medical History Acute respiratory failure with hypoxia Anemia (~12/03/13) CAD (coronary artery disease) CAD (coronary atherosclerotic disease) 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 diabetes mellitus Diabetes mellitus, type 2 Diabetic peripheral neuropathy DJD (degenerative joint disease) GERD (gastroesophageal reflux disease) H/O: CVA (cerebrovascular accident) Hyperkalemia Hyperlipidemia Hypertension Hypoxia Lumbar spinal stenosis Myocardial Infarction Secondary hyperparathyroidism of renal origin Stage 3b chronic kidney disease Stage 3B nodular histiocytic lymphoma Tobacco use disorder, continuous Vitamin D deficiency Surgical History History of cardiac cath History of carpal tunnel release History of cataract surgery History of colonoscopy History of tooth extraction History of tubal ligation Family History Brother Family history of diabetes mellitus Sister Family history of diabetes mellitus Sister Family history of diabetes mellitus Mother Family history of diabetes mellitus Myocardial infarction Stroke Father Myocardial infarction Denies family history of Ovarian cancer Prostate cancer Breast cancer Colorectal cancer Social History Smoking Status: Never smoker Tobacco Type: Cigarettes Cigarettes Per Day: 5; Second Hand Exposure: Yes (NIECE); Hx Alcohol Use: No Hx Substance Use: No Preferred Language: Singaporean Communication Ability: Effective Visual Impairment: No Limitations Health Economist Required: No Beliefs That Will Affect Care: None marital status: Current Living Situation: Alone Current Living Situation Comment: lives home alone in a house current occupational status: retired Feels Safe at Home: Yes Seatbelt Use: sometimes Sunscreen Use: No Assistive Devices: Glasses Allergies Allergies Allergy/AdvReac Type Severity Reaction Status Date / Time No Known Allergies Allergy Verified 01/28/21 17:48 Home Meds Home Medications Medication Instructions Recorded Confirmed cholecalciferol (vitamin D3) 1,000 unit PO BID 05/19/18 01/28/21 [Vitamin D3] cyanocobalamin (vitamin B-12) 1,000 mcg PO QAM 05/19/18 01/28/21 [Vitamin B-12] polysaccharide iron complex 150 mg 150 mg PO HS 04/02/19 01/28/21 iron capsule acetaminophen 325 mg capsule 325 mg PO QID PRN 09/10/19 01/28/21 amlodipine [Norvasc] 10 mg PO QAM 06/25/20 01/28/21 Previous Rx's Medication Instructions Recorded nitroglycerin 0.4 mg sublingual 0.4 mg SUBLINGUAL UD PRN #30 tab 04/07/20 tablet carvedilol 25 mg tablet 25 mg PO BID #180 tab 06/18/20 atorvastatin 80 mg PO HS #30 tab 06/27/20 clopidogrel 75 mg tablet 75 mg PO DAILY #90 tab 06/30/20 pantoprazole 40 mg tablet,delayed 40 mg PO DAILY #90 tab 06/30/20 release calcitriol 0.25 mcg capsule 0.25 mcg PO UD #45 cap 08/24/20 ferrous gluconate 324 mg (37.5 mg 324 mg PO BID #60 tab 12/07/20 iron) tablet gabapentin 100 mg capsule 200 mg PO BID #360 cap 12/09/20 lisinopril 20 mg tablet 20 mg PO DAILY #30 tab 12/09/20 guaifenesin [Mucinex] 600 mg PO Q12 #10 tab 12/22/20 benzonatate 100 mg capsule 100 mg PO TID PRN #30 cap 12/25/20 albuterol sulfate 90 mcg/actuation 2 puff INHALATION Q6H PRN #8.5 g 01/25/21 aerosol inhaler glimepiride 2 mg tablet 2 mg PO BID #180 tab 01/25/21 Results & Data (ED) Vital Signs Vital Signs - 24 hr 01/28/21 16:46 01/28/21 16:49 01/28/21 17:12 Temperature 36.9 C Temperature Source Temporal Artery Scan Pulse Rate 77 71 Pulse Rate [Right Finger] Pulse Rate from SpO2 Sensor 71 Respiratory Rate 21 28 H Respiratory Effort / Characteristics Short of Breath Respiratory Pattern Regular Blood Pressure 153/63 H 152/58 H Blood Pressure Mean 93 89 Pulse Oximetry 84 L 99 Oxygen Delivery Method Room Air Nasal Cannula Oxygen Flow Rate 3 Sepsis Recent Fever Within 48 Hours No Sepsis New/Unexplained Change in Mental Status No Sepsis Action Taken by Nursing No Action Required 01/28/21 17:18 01/28/21 17:20 01/28/21 17:30 Temperature Temperature Source Pulse Rate 71 70 73 Pulse Rate [Right Finger] Pulse Rate from SpO2 Sensor 71 70 73 Respiratory Rate 32 H 32 H 34 H Respiratory Effort / Characteristics Respiratory Pattern Blood Pressure 153/70 H Blood Pressure Mean 97 Pulse Oximetry 99 99 98 Oxygen Delivery Method Oxygen Flow Rate Sepsis Recent Fever Within 48 Hours Sepsis New/Unexplained Change in Mental Status Sepsis Action Taken by Nursing 01/28/21 17:40 01/28/21 17:50 01/28/21 17:57 Temperature Temperature Source Pulse Rate 73 70 Pulse Rate [Right Finger] 70 Pulse Rate from SpO2 Sensor 73 70 Respiratory Rate 19 26 H 20 Respiratory Effort / Characteristics Spontaneous Respiratory Pattern Blood Pressure Blood Pressure Mean Pulse Oximetry 98 98 96 Oxygen Delivery Method Nasal Cannula Oxygen Flow Rate 3 Sepsis Recent Fever Within 48 Hours Sepsis New/Unexplained Change in Mental Status Sepsis Action Taken by Nursing 01/28/21 18:00 01/28/21 18:01 01/28/21 18:10 Temperature Temperature Source Pulse Rate 69 66 75 Pulse Rate [Right Finger] Pulse Rate from SpO2 Sensor 66 74 Respiratory Rate 16 18 28 H Respiratory Effort / Characteristics Respiratory Pattern Blood Pressure 155/65 H Blood Pressure Mean 95 Pulse Oximetry 100 94 Oxygen Delivery Method Oxygen Flow Rate Sepsis Recent Fever Within 48 Hours Sepsis New/Unexplained Change in Mental Status Sepsis Action Taken by Nursing 01/28/21 18:20 01/28/21 18:30 01/28/21 18:40 Temperature Temperature Source Pulse Rate 71 71 69 Pulse Rate [Right Finger] Pulse Rate from SpO2 Sensor 71 70 70 Respiratory Rate 26 H 22 27 H Respiratory Effort / Characteristics Respiratory Pattern Blood Pressure 135/62 Blood Pressure Mean 86 Pulse Oximetry 93 92 92 Oxygen Delivery Method Oxygen Flow Rate Sepsis Recent Fever Within 48 Hours Sepsis New/Unexplained Change in Mental Status Sepsis Action Taken by Nursing 01/28/21 18:50 01/28/21 19:00 01/28/21 19:10 Temperature Temperature Source Pulse Rate 72 71 70 Pulse Rate [Right Finger] Pulse Rate from SpO2 Sensor 72 70 70 Respiratory Rate 27 H 21 22 Respiratory Effort / Characteristics Respiratory Pattern Blood Pressure 140/56 L Blood Pressure Mean 84 Pulse Oximetry 91 93 91 Oxygen Delivery Method Oxygen Flow Rate Sepsis Recent Fever Within 48 Hours Sepsis New/Unexplained Change in Mental Status Sepsis Action Taken by Nursing 01/28/21 19:20 01/28/21 19:30 01/28/21 19:40 Temperature Temperature Source Pulse Rate 69 71 72 Pulse Rate [Right Finger] Pulse Rate from SpO2 Sensor 69 71 73 Respiratory Rate 24 23 29 H Respiratory Effort / Characteristics Respiratory Pattern Blood Pressure 154/71 H Blood Pressure Mean 98 Pulse Oximetry 91 90 92 Oxygen Delivery Method Oxygen Flow Rate Sepsis Recent Fever Within 48 Hours Sepsis New/Unexplained Change in Mental Status Sepsis Action Taken by Nursing 01/28/21 19:50 01/28/21 20:00 01/28/21 20:10 Temperature Temperature Source Pulse Rate 85 70 68 Pulse Rate [Right Finger] Pulse Rate from SpO2 Sensor 70 69 Respiratory Rate 23 17 16 Respiratory Effort / Characteristics Respiratory Pattern Blood Pressure Blood Pressure Mean Pulse Oximetry 94 95 Oxygen Delivery Method Oxygen Flow Rate Sepsis Recent Fever Within 48 Hours Sepsis New/Unexplained Change in Mental Status Sepsis Action Taken by Nursing 01/28/21 20:20 01/28/21 20:30 01/28/21 20:40 Temperature Temperature Source Pulse Rate 72 71 69 Pulse Rate [Right Finger] Pulse Rate from SpO2 Sensor 73 71 69 Respiratory Rate 22 23 25 H Respiratory Effort / Characteristics Respiratory Pattern Blood Pressure Blood Pressure Mean Pulse Oximetry 93 94 93 Oxygen Delivery Method Oxygen Flow Rate Sepsis Recent Fever Within 48 Hours Sepsis New/Unexplained Change in Mental Status Sepsis Action Taken by Nursing 01/28/21 20:50 01/28/21 21:01 01/28/21 21:10 Temperature Temperature Source Pulse Rate 71 72 Pulse Rate [Right Finger] Pulse Rate from SpO2 Sensor 71 72 Respiratory Rate 22 16 Respiratory Effort / Characteristics Respiratory Pattern Blood Pressure Blood Pressure Mean Pulse Oximetry 92 92 93 Oxygen Delivery Method Oxygen Flow Rate Sepsis Recent Fever Within 48 Hours Sepsis New/Unexplained Change in Mental Status Sepsis Action Taken by Nursing 01/28/21 21:20 01/28/21 21:30 Temperature Temperature Source Pulse Rate 70 66 Pulse Rate [Right Finger] Pulse Rate from SpO2 Sensor 70 66 Respiratory Rate 26 H 19 Respiratory Effort / Characteristics Respiratory Pattern Blood Pressure Blood Pressure Mean Pulse Oximetry 93 92 Oxygen Delivery Method Oxygen Flow Rate Sepsis Recent Fever Within 48 Hours Sepsis New/Unexplained Change in Mental Status Sepsis Action Taken by Nursing Laboratory Data Result diagrams: 01/28/21 17:20 01/28/21 17:20 Lab Results 01/28/21 01/28/21 01/28/21 Range/Units 17:20 17:20 17:25 WBC 10.53 (4.8-10.8) K/uL RBC 3.77 L (4.2-5.4) M/uL Hgb 10.3 L (12.0-16.0) g/dL Hct 33.7 L (37-47) % MCV 89.4 (80-100) fL MCH 27.3 (25-34) pg MCHC 30.6 L (32-36) g/dL RDW Std Deviation 46.6 H (36.4-46.3) fL RDW Coeff of Sushant 14.1 (11.5-14.5) % Plt Count 265 (130-400) K/uL MPV 10.9 H (7.4-10.4) fL Immature Gran % (Auto) 0.1 % Neut % (Auto) 70.7 % Lymph % (Auto) 20.9 % Faulk % (Auto) 5.9 % Eos % (Auto) 2.0 % Baso % (Auto) 0.4 % Neut # (Auto) 7.45 H (1.4-6.5) K/uL Lymph # (Auto) 2.20 (1.2-3.4) K/uL Faulk # (Auto) 0.62 H (0.11-0.59) K/uL Eos # (Auto) 0.21 (0-0.5) K/uL Baso # (Auto) 0.04 (0-0.2) K/uL Immature Gran # (Auto) 0.01 (0.00-0.02) K/uL Sodium 139 (136-145) mmol/L Potassium 4.8 (3.5-5.1) mmol/L Chloride 106 (98-107) mmol/L Carbon Dioxide 29 (21-32) mmol/L Anion Gap 3.0 (3-11) BUN 32 H (7-18) mg/dl Creatinine 1.66 H (0.6-1.2) mg/dl Est Cr Clr Drug Dosing Not Reportable Est GFR ( Amer) 34.8 ml/min Est GFR (Non-Af Amer) 30.0 ml/min BUN/Creatinine Ratio 19.3 (10-20) Glucose 139 H (70-99) mg/dl Calcium 8.2 L (8.5-10.1) mg/dl Magnesium 2.2 (1.8-2.4) mg/dl Total Bilirubin 0.3 (0.2-1) mg/dl AST 10 L (15-37) U/L ALT 12 (12-78) U/L Alkaline Phosphatase 83 (45-117) U/L Troponin I < 0.015 (0-0.045) ng/ml NT-Pro-B Natriuret Pep 2904 H (0-900) pg/ml Total Protein 6.8 (6.4-8.2) gm/dl Albumin 2.9 L (3.4-5.0) gm/dl Globulin 3.9 (2.5-4.0) gm/dl Albumin/Globulin Ratio 0.7 L (0.9-2) Urine Color Urine Appearance (Clear) Urine pH (4.5-7.5) Ur Specific Conover (1.000-1.030) Urine Protein (Negative) Urine Glucose (UA) (Negative) Urine Ketones (Negative) Urine Blood (Negative) Urine Nitrite (Negative) Urine Bilirubin (Negative) Urine Urobilinogen (Negative) Ur Leukocyte Esterase (Negative) Urine WBC (Auto) (0-5) /hpf Urine RBC (Auto) (0-4) /hpf U Hyaline Cast (Auto) (0-5) /lpf U Epithel Cells (Auto) (0-5) /lpf Urine Bacteria (Auto) (Negative) COVID-19 Eval Order Covid19 at [facility] SARS-CoV-2 (PCR) (Negative) 01/28/21 01/28/21 Range/Units 17:25 20:00 WBC (4.8-10.8) K/uL RBC (4.2-5.4) M/uL Hgb (12.0-16.0) g/dL Hct (37-47) % MCV (80-100) fL MCH (25-34) pg MCHC (32-36) g/dL RDW Std Deviation (36.4-46.3) fL RDW Coeff of Sushant (11.5-14.5) % Plt Count (130-400) K/uL MPV (7.4-10.4) fL Immature Gran % (Auto) % Neut % (Auto) % Lymph % (Auto) % Faulk % (Auto) % Eos % (Auto) % Baso % (Auto) % Neut # (Auto) (1.4-6.5) K/uL Lymph # (Auto) (1.2-3.4) K/uL Faulk # (Auto) (0.11-0.59) K/uL Eos # (Auto) (0-0.5) K/uL Baso # (Auto) (0-0.2) K/uL Immature Gran # (Auto) (0.00-0.02) K/uL Sodium (136-145) mmol/L Potassium (3.5-5.1) mmol/L Chloride (98-107) mmol/L Carbon Dioxide (21-32) mmol/L Anion Gap (3-11) BUN (7-18) mg/dl Creatinine (0.6-1.2) mg/dl Est Cr Clr Drug Dosing Est GFR ( Amer) ml/min Est GFR (Non-Af Amer) ml/min BUN/Creatinine Ratio (10-20) Glucose (70-99) mg/dl Calcium (8.5-10.1) mg/dl Magnesium (1.8-2.4) mg/dl Total Bilirubin (0.2-1) mg/dl AST (15-37) U/L ALT (12-78) U/L Alkaline Phosphatase (45-117) U/L Troponin I (0-0.045) ng/ml NT-Pro-B Natriuret Pep (0-900) pg/ml Total Protein (6.4-8.2) gm/dl Albumin (3.4-5.0) gm/dl Globulin (2.5-4.0) gm/dl Albumin/Globulin Ratio (0.9-2) Urine Color Yellow Urine Appearance Clear (Clear) Urine pH 6.0 (4.5-7.5) Ur Specific [place]over 1.009 (1.000-1.030) Urine Protein 2+ H (Negative) Urine Glucose (UA) Negative (Negative) Urine Ketones Negative (Negative) Urine Blood Negative (Negative) Urine Nitrite Negative (Negative) Urine Bilirubin Negative (Negative) Urine Urobilinogen Negative (Negative) Ur Leukocyte Esterase Negative (Negative) Urine WBC (Auto) 1-5 (0-5) /hpf Urine RBC (Auto) 0-4 (0-4) /hpf U Hyaline Cast (Auto) 1-5 (0-5) /lpf U Epithel Cells (Auto) 10-20 H (0-5) /lpf Urine Bacteria (Auto) Negative (Negative) COVID-19 Eval Order SARS-CoV-2 (PCR) NEGATIVE (Negative) Administered Medications Discontinued Medications Albuterol (Albut/Ipratrop 3mg/0.5mg Neb 3 Ml Vial) 3 ml NEB NOW STA Stop: 01/28/21 17:40 Last Admin: 01/28/21 17:55 Dose: 3 ml Documented by: [id number] Furosemide (Furosemide 40 Mg/4 Ml Vial) 20 mg IV NOW STA Stop: 01/28/21 19:36 Last Admin: 01/28/21 19:59 Dose: 20 mg Documented by: [id number] Furosemide (Furosemide 40 Mg/4 Ml Vial) Confirm Administered Dose 40 mg IV .STK- MED ONE Stop: 01/28/21 21:40 Last Admin: 01/28/21 21:41 Dose: 20 mg Documented by: [id number] Methylprednisolone (Methylprednisolone 125 Mg/2 Ml Vial) 125 mg IV NOW STA Stop: 01/28/21 17:40 Last Admin: 01/28/21 18:01 Dose: 125 mg Documented by: [id number] Imaging Data Radiologist's Impression: Chest X-Ray 01/28/21 17:09 XR chest 1V portable CLINICAL HISTORY: Dyspnea COMPARISON STUDY: 12/20/2020 FINDINGS: The heart is borderline enlarged. There is mild chronic interstitial thickening. There is no overt failure. There are no significant pleural effusions. There is mild elevation/eventration of the right hemidiaphragm.[ IMPRESSION: No active disease in the chest. ACT 112: Negative or not required by law. Electronically signed by: Damon Valiente M.D. 01/28/2021 5:26 PM Discharge Plan Visit Data Chief Complaint: Shortness of Breath/Dyspnea Stated Complaint: SWOLLEN LEGS AND SHORTNESS OF BREATH ED Provider: Av Lantigua Discharge Problem: SOB (shortness of breath), Hypoxia Patient Disposition: Admitted As Inpatient Discharge Instructions Interventions: ED Discharge Assessment Last Done: 01/28/21 21:44 Forms Stand Alone Forms: [facility] Prescriptions Prescriptions: No Action nitroglycerin [Nitrostat] 0.4 mg tablet, sublingual 0.4 mg Sublingual UD PRN (Reason: Chest Pain) Qty: 30 RF: 5 carvedilol [Coreg] 25 mg tablet 25 mg PO BID Qty: 180 RF: 3 ferrous gluconate 324 mg (37.5 mg iron) tablet 324 mg PO BID Qty: 60 RF: 5 gabapentin 100 mg capsule 200 mg PO BID Qty: 360 RF: 3 lisinopril 20 mg tablet 20 mg PO DAILY Qty: 30 RF: 11 albuterol sulfate [ProAir HFA] 90 mcg/actuation HFA aerosol inhaler 2 puff inhalation Q6H PRN (Reason: shortness of breath or wheezing) Qty: 8.5 RF: 3 glimepiride 2 mg tablet 2 mg PO BID Qty: 180 RF: 1 calcitriol 0.25 mcg capsule 0.25 mcg PO UD Qty: 45 RF: 3 benzonatate [Tessalon Perles] 100 mg capsule 100 mg PO TID PRN (Reason: cough) Qty: 30 RF: 0 pantoprazole 40 mg tablet,delayed release (DR/EC) 40 mg PO DAILY Qty: 90 RF: 3 clopidogrel [Plavix] 75 mg tablet 75 mg PO DAILY Qty: 90 RF: 3 acetaminophen [Tylenol] 325 mg capsule 325 mg PO QID PRN (Reason: Pain) RF: 0 cyanocobalamin (vitamin B-12) [Vitamin B-12] 1,000 mcg Tablet 1,000 mcg PO QAM RF: 0 cholecalciferol (vitamin D3) [Vitamin D3] 1,000 unit Tablet 1,000 unit PO BID RF: 0 polysaccharide iron complex [Ferric x-150] 150 mg iron capsule 150 mg PO HS RF: 0 amlodipine [Norvasc] 10 mg tablet 10 mg PO QAM RF: 0 atorvastatin 80 mg tablet 80 mg PO HS Qty: 30 RF: 0 guaifenesin [Mucinex] 600 mg Tablet Extended Release 12hr 600 mg PO Q12 Qty: 10 RF: 0 Referrals Referrals: Lew Cedeno III, MD [Primary Care Provider] -
[2021-01-28] MEDS ORDERED: FUROSEMIDE 40 MG/4 ML VIAL IV STA (19:35)
[2021-01-28 20:26] LABS: Appearance Urine Clear (Clear); Bacteria Urine Automated Negative (Negative); Bilirubin Urine Negative (Negative); Blood Urine Negative (Negative); Color Urine Yellow; Glucose Urine UA Negative (Negative); Ketones Urine Negative (Negative); Leukocyte Esterase Urine Negative (Negative); Nitrite Urine Negative (Negative); Protein Urine 2+ (Negative); RBC Urine Automated 0-4 /hpf (0-4); Specific Gravity Urine 1.009 (1.000-1.030); Urobilinogen Urine Negative (Negative)
[2021-01-28] MEDS ORDERED: FUROSEMIDE 20 MG in SYRINGE 0 ML IV ONE (21:05)
--- NOTE | 2021-01-28 21:05 | History & Physical Report ---
Date of Service January 28, 2021 Assessment & Plan (1) SOB (shortness of breath): Shortness of breath with hypoxia- Combination of COPD exacerbation and lower extremity edema Present on Admission?: Yes (2) Hypoxia: See above Present on Admission?: Yes (3) Edema: Edema/CAD/hypertension- The patient will be admitted to telemetry for serial cardiac enzymes, serial EKG's, cardiac rhythm monitoring and a 2-D echocardiogram with Dopplers. Reduce amlodipine from 10 mg to 5 mg daily. Reduce lisinopril from 20 mg to 10 mg daily Add Nitropaste 1 inch anterior chest wall every 6 hours Placed on furosemide 40 mg IV every morning She was initially given furosemide 20 mg IV by the ED this evening, and we will add an additional 20 mg IV now Continue carvedilol 25 mg p.o. twice daily, clopidogrel 7 5 mg p.o. daily and nitroglycerin sublingual as needed Present on Admission?: Yes (4) Acute exacerbation of chronic obstructive pulmonary disease (COPD): She was given Solu-Medrol 125 mg IV in the ED and a DuoNeb. Solu-Medrol 40 mg IV every 12 hours Duonebs every 4 hours while awake and every 2 hours when necessary. Guaifenesin extended release 600 mg p.o. twice daily Present on Admission?: Yes (5) Stage 3b chronic kidney disease: Creatinine 1.66 upon admission, with range 1.4-1.88 Follow serially Present on Admission?: Yes (6) CAD (coronary atherosclerotic disease): See above Present on Admission?: Yes (7) HTN (hypertension): See above Present on Admission?: Yes (8) GERD (gastroesophageal reflux disease): Continue pantoprazole 40 mg daily Present on Admission?: Yes (9) Diabetes mellitus with renal manifestations, uncontrolled: Hold glimepiride Placed on Accu-Cheks before meals and at bedtime with NovoLog coverage per scale Check hemoglobin A1c Present on Admission?: Yes History of Present Illness Chief Complaint: The patient presents to the emergency department with 4 days of worsening shortness of breath and lower extremity edema Primary Care Provider: Lew Cedeno MD The patient is a 75-year-old female with a past medical history including CKD stage III, COPD, secondary hyperparathyroidism of renal origin, vitamin D deficiency, tobacco use disorder, left MCA stroke, CAD, carotid stenosis, dyslipidemia, GERD, hypertension, anxiety, diabetes type 2 with neurologic complication, diabetes type 2 with renal manifestations, lumbar spinal stenosis, DJD and sciatica. Patient reports that her shortness of breath is similar to occurrences of had in the past, but the lower extremity edema something new for her. She denies any change in her diet such as salt intake increase. She reports that she is able to walk very little due to worsening shortness of breath. Allergies Allergy/AdvReac Type Severity Reaction Status Date / Time No Known Allergies Allergy Verified 01/28/21 17:48 Home Medications Medication Instructions Recorded Confirmed Type cholecalciferol (vitamin D3) 1,000 unit PO BID 05/19/18 01/28/21 History [Vitamin D3] cyanocobalamin (vitamin B-12) 1,000 mcg PO QAM 05/19/18 01/28/21 History [Vitamin B-12] polysaccharide iron complex 150 mg 150 mg PO HS 04/02/19 01/28/21 History iron capsule acetaminophen 325 mg capsule 325 mg PO QID PRN 09/10/19 01/28/21 History nitroglycerin 0.4 mg sublingual 0.4 mg SUBLINGUAL UD PRN #30 tab 04/07/20 01/28/21 Rx tablet carvedilol 25 mg tablet 25 mg PO BID #180 tab 06/18/20 01/28/21 Rx amlodipine [Norvasc] 10 mg PO QAM 06/25/20 01/28/21 History atorvastatin 80 mg PO HS #30 tab 06/27/20 01/28/21 Rx clopidogrel 75 mg tablet 75 mg PO DAILY #90 tab 06/30/20 01/28/21 Rx pantoprazole 40 mg tablet,delayed 40 mg PO DAILY #90 tab 06/30/20 01/28/21 Rx release calcitriol 0.25 mcg capsule 0.25 mcg PO UD #45 cap 08/24/20 01/28/21 Rx ferrous gluconate 324 mg (37.5 mg 324 mg PO BID #60 tab 12/07/20 01/28/21 Rx iron) tablet gabapentin 100 mg capsule 200 mg PO BID #360 cap 12/09/20 01/28/21 Rx lisinopril 20 mg tablet 20 mg PO DAILY #30 tab 12/09/20 01/28/21 Rx guaifenesin [Mucinex] 600 mg PO Q12 #10 tab 12/22/20 01/28/21 Rx benzonatate 100 mg capsule 100 mg PO TID PRN #30 cap 12/25/20 01/28/21 Rx albuterol sulfate 90 mcg/actuation 2 puff INHALATION Q6H PRN #8.5 g 01/25/21 01/28/21 Rx aerosol inhaler glimepiride 2 mg tablet 2 mg PO BID #180 tab 01/25/21 01/28/21 Rx Past Med/Surg History Medical History Acute respiratory failure with hypoxia Anemia (~12/03/13) CAD (coronary artery disease) CAD (coronary atherosclerotic disease) 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 diabetes mellitus Diabetes mellitus, type 2 Diabetic peripheral neuropathy DJD (degenerative joint disease) GERD (gastroesophageal reflux disease) H/O: CVA (cerebrovascular accident) Hyperkalemia Hyperlipidemia Hypertension Hypoxia Lumbar spinal stenosis Myocardial Infarction Secondary hyperparathyroidism of renal origin Stage 3b chronic kidney disease Stage 3B nodular histiocytic lymphoma Tobacco use disorder, continuous Vitamin D deficiency Surgical History History of cardiac cath History of carpal tunnel release History of cataract surgery History of colonoscopy History of tooth extraction History of tubal ligation Family History Brother Family history of diabetes mellitus Sister Family history of diabetes mellitus Sister Family history of diabetes mellitus Mother Family history of diabetes mellitus Myocardial infarction Stroke Father Myocardial infarction Denies family history of Ovarian cancer Prostate cancer Breast cancer Colorectal cancer Social History Smoking Status: Never smoker Tobacco Type: Cigarettes Cigarettes Per Day: 5; Second Hand Exposure: Yes (NIECE); Hx Alcohol Use: No Hx Substance Use: No Preferred Language: Pashto Communication Ability: Effective Visual Impairment: No Limitations [employer] Required: No Beliefs That Will Affect Care: None marital status: Current Living Situation: Alone Current Living Situation Comment: lives home alone in a house current occupational status: retired Feels Safe at Home: Yes Seatbelt Use: sometimes Sunscreen Use: No Assistive Devices: Glasses Review of Systems Review of Systems: The patient denies chest pain, palpitations, cough, sore throat, fevers, chills, sweats, nausea, vomiting, diarrhea , constipation, abdominal pain, pelvic pain, blood in urine or stool, dysuria, urinary frequency or urgency, lightheadedness, dizziness, headache, memory loss, loss of consciousness, rash, abnormal bruising or bleeding, imbalance, focal or generalized weakness, numbness or tingling in arms or legs, generalized arthralgias or myalgias, back or neck pain, or night sweats. The review of systems is otherwise negative other than for that already noted above, and at least 10 systems have been reviewed. Physical Exam Physical Exam: The patient is awake, alert and oriented 3, well developed and well nourished, normocephalic and atraumatic, lying in bed and in no acute distress. HEENT--PERRL, EOMI, mucous membranes and oropharynx normal. Neck--supple. No JVD. No bruits. Thyroid normal, trachea midline, no adenopathy. Heart--normal S1 and S2. No murmurs, rubs or gallops. Lungs--decreased breath sounds throughout. No respiratory distress, no accessory muscle use. Abdomen--normal bowel sounds and soft. Nontender. Nondistended. Extremities--no cyanosis or clubbing. 2+ bilateral pretibial pitting edema. Dermatologic--normal skin turgor, normal color, no abnormal lymph nodes, no rash. Neurologic--cranial nerves II through XII grossly intact. Rheumatologic--normal range of motion. Psychiatric--normal affect. Results & Data Results & Data ([facility]) Vital Signs (Past 12 Hours) Vital Signs Temp Pulse Pulse Resp BP Pulse Ox 01/28/21 20:30 71 23 94 01/28/21 20:20 72 22 93 01/28/21 20:10 68 16 95 01/28/21 20:00 70 17 94 01/28/21 19:50 85 23 01/28/21 19:40 72 29 H 92 01/28/21 19:30 71 23 154/71 H 90 01/28/21 19:20 69 24 91 01/28/21 19:10 70 22 91 01/28/21 19:00 71 21 140/56 L 93 01/28/21 18:50 72 27 H 91 01/28/21 18:40 69 27 H 92 01/28/21 18:30 71 22 135/62 92 01/28/21 18:20 71 26 H 93 01/28/21 18:10 75 28 H 94 01/28/21 18:01 66 18 155/65 H 100 01/28/21 18:00 69 16 01/28/21 17:57 70 20 96 01/28/21 17:50 70 26 H 98 01/28/21 17:40 73 19 98 01/28/21 17:30 73 34 H 153/70 H 98 01/28/21 17:20 70 32 H 99 01/28/21 17:18 71 32 H 99 01/28/21 17:12 71 28 H 152/58 H 99 01/28/21 16:46 98.4 F 77 21 153/63 H 84 L Laboratory Results Laboratory Results WBC 10.53 K/uL (4.8-10.8) 01/28/21 17:20 RBC 3.77 M/uL (4.2-5.4) L 01/28/21 17:20 Hgb 10.3 g/dL (12.0-16.0) L 01/28/21 17:20 Hct 33.7 % (37-47) L 01/28/21 17:20 MCV 89.4 fL (80-100) 01/28/21 17:20 MCH 27.3 pg (25-34) 01/28/21 17:20 MCHC 30.6 g/dL (32-36) L 01/28/21 17:20 RDW Std Deviation 46.6 fL (36.4-46.3) H 01/28/21 17:20 RDW Coeff of Sushant 14.1 % (11.5-14.5) 01/28/21 17:20 Plt Count 265 K/uL (130-400) 01/28/21 17:20 MPV 10.9 fL (7.4-10.4) H 01/28/21 17:20 Immature Gran % (Auto) 0.1 % 01/28/21 17:20 Neut % (Auto) 70.7 % 01/28/21 17:20 Lymph % (Auto) 20.9 % 01/28/21 17:20 [place] % (Auto) 5.9 % 01/28/21 17:20 Eos % (Auto) 2.0 % 01/28/21 17:20 Baso % (Auto) 0.4 % 01/28/21 17:20 Neut # (Auto) 7.45 K/uL (1.4-6.5) H 01/28/21 17:20 Lymph # (Auto) 2.20 K/uL (1.2-3.4) 01/28/21 17:20 [place] # (Auto) 0.62 K/uL (0.11-0.59) H 01/28/21 17:20 Eos # (Auto) 0.21 K/uL (0-0.5) 01/28/21 17:20 Baso # (Auto) 0.04 K/uL (0-0.2) 01/28/21 17:20 Immature Gran # (Auto) 0.01 K/uL (0.00-0.02) 01/28/21 17:20 Sodium 139 mmol/L (136-145) 01/28/21 17:20 Potassium 4.8 mmol/L (3.5-5.1) 01/28/21 17:20 Chloride 106 mmol/L (98-107) 01/28/21 17:20 Carbon Dioxide 29 mmol/L (21-32) 01/28/21 17:20 Anion Gap 3.0 (3-11) 01/28/21 17:20 BUN 32 mg/dl (7-18) H 01/28/21 17:20 Creatinine 1.66 mg/dl (0.6-1.2) H 01/28/21 17:20 Est Cr Clr Drug Dosing Not Reportable 01/28/21 17:20 Est GFR ( Amer) 34.8 ml/min 01/28/21 17:20 Est GFR (Non-Af Amer) 30.0 ml/min 01/28/21 17:20 BUN/Creatinine Ratio 19.3 (10-20) 01/28/21 17:20 Glucose 139 mg/dl (70-99) H 01/28/21 17:20 Calcium 8.2 mg/dl (8.5-10.1) L 01/28/21 17:20 Magnesium 2.2 mg/dl (1.8-2.4) 01/28/21 17:20 Total Bilirubin 0.3 mg/dl (0.2-1) 01/28/21 17:20 AST 10 U/L (15-37) L 01/28/21 17:20 ALT 12 U/L (12-78) 01/28/21 17:20 Alkaline Phosphatase 83 U/L (45-117) 01/28/21 17:20 Troponin I < 0.015 ng/ml (0-0.045) 01/28/21 17:20 NT-Pro-B Natriuret Pep 2904 pg/ml (0-900) H 01/28/21 17:20 Total Protein 6.8 gm/dl (6.4-8.2) 01/28/21 17:20 Albumin 2.9 gm/dl (3.4-5.0) L 01/28/21 17:20 Globulin 3.9 gm/dl (2.5-4.0) 01/28/21 17:20 Albumin/Globulin Ratio 0.7 (0.9-2) L 01/28/21 17:20 Urine Color Yellow 01/28/21 20:00 Urine Appearance Clear (Clear) 01/28/21 20:00 Urine pH 6.0 (4.5-7.5) 01/28/21 20:00 Ur Specific [place] 1.009 (1.000-1.030) 01/28/21 20:00 Urine Protein 2+ (Negative) H 01/28/21 20:00 Urine Glucose (UA) Negative (Negative) 01/28/21 20:00 Urine Ketones Negative (Negative) 01/28/21 20:00 Urine Blood Negative (Negative) 01/28/21 20:00 Urine Nitrite Negative (Negative) 01/28/21 20:00 Urine Bilirubin Negative (Negative) 01/28/21 20:00 Urine Urobilinogen Negative (Negative) 01/28/21 20:00 Ur Leukocyte Esterase Negative (Negative) 01/28/21 20:00 Urine WBC (Auto) 1-5 /hpf (0-5) 01/28/21 20:00 Urine RBC (Auto) 0-4 /hpf (0-4) 01/28/21 20:00 U Hyaline Cast (Auto) 1-5 /lpf (0-5) 01/28/21 20:00 U Epithel Cells (Auto) 10-20 /lpf (0-5) H 01/28/21 20:00 Urine Bacteria (Auto) Negative (Negative) 01/28/21 20:00 COVID-19 Eval [address] Covid[address] at [facility] 01/28/21 17:25 SARS-CoV-2 (PCR) NEGATIVE (Negative) 01/28/21 17:25 Impressions Chest X-Ray 01/28/21 17:09 XR chest 1V portable CLINICAL HISTORY: Dyspnea COMPARISON STUDY: 12/20/2020 FINDINGS: The heart is borderline enlarged. There is mild chronic interstitial thickening. There is no overt failure. There are no significant pleural effusions. There is mild elevation/eventration of the right hemidiaphragm.[ IMPRESSION: No active disease in the chest. ACT 112: Negative or not required by law. Electronically signed by: Damon Valiente M.D. 01/28/2021 5:26 PM Code Status & VTE Plan Code Status Full code VTE Prophylaxis Plan VTE Prophylaxis will be ordered: Yes PG Care Time/CCT Total # of Minutes Spent Total Time Spent with Patient: Total time spent is greater than 50% in coordination of care (as documented) at patient's floor/unit and/or counseling patient: Coding Level of Care Code 59605 Initial Inpt Care Lvl 3 Diagnoses SOB (shortness of breath) R06.02 Hypoxia R09.02 Edema R60.9 Acute exacerbation of chronic obstructive pulmonary disease (COPD) J44.1 Stage 3b chronic kidney disease N18.32 CAD (coronary atherosclerotic disease) I25.10 HTN (hypertension) I10 GERD (gastroesophageal reflux disease) K21.9 Diabetes mellitus with renal manifestations, uncontrolled E11.29; E11.65
[2021-01-28] MEDS ORDERED: FUROSEMIDE 40 MG/4 ML VIAL IV ONE (21:39)
[2021-01-28] MEDS ORDERED: NITROGLYCERIN SL 0.4 MG/TAB TAB SL PRN ×2 (22:21)
[2021-01-28] MEDS ORDERED: IRON POLYSACCHARIDE COMPLEX 150 MG CAPSULE PO SCH (22:21)
[2021-01-28] MEDS ORDERED: ONDANSETRON INJ 2 MG/ML 2 ML VIAL IV PRN (22:21)
[2021-01-28] MEDS ORDERED: ATORVASTATIN 40 MG TAB PO SCH (22:21)
[2021-01-28] MEDS ORDERED: GLUCAGON FOR INJ 1 MG VIAL SQ PRN (22:21)
[2021-01-28] MEDS ORDERED: GLUCOSE 40% GEL 15 GM TUBE PO PRN (22:21)
[2021-01-28] MEDS ORDERED: GLUCOSE 10 TABS/TUBE PO PRN (22:21)
[2021-01-28] MEDS ORDERED: BENZONATATE 100 MG CAPSULE PO PRN (22:21)
[2021-01-28] MEDS ORDERED: CARBOHYDRATES FOR HYPOGLYCEMIA PO PRN (22:21)
[2021-01-28] MEDS ORDERED: DEXTROSE 50% 50 ML SYRINGE IV PRN (22:21)
[2021-01-28] MEDS ORDERED: ACETAMINOPHEN 325 MG TAB PO PRN (22:21)
[2021-01-28] MEDS: CHOLECALCIFEROL 1,000 UNITS 25 MCG TAB PO SCH (23:20)
[2021-01-28] MEDS: GABAPENTIN 100 MG CAP PO SCH (23:20)
[2021-01-28] MEDS: carvediloL 25 MG TAB PO SCH (23:20)
[2021-01-28] MEDS: FERROUS GLUCONATE 324 MG TAB PO SCH (23:20)
[2021-01-28] MEDS: guaiFENesin 600 MG TABCR PO SCH (23:21)
[2021-01-28] MEDS: INSULIN ASPART 100 UNITS/ML 3 ML PEN SC SCH (23:24)
[2021-01-28] MEDS: NITROGLYCERIN 2% OINTMENT 30GM TUBE EXT SCH (23:25)
[2021-01-29] MEDS: NITROGLYCERIN 2% OINTMENT 30GM TUBE EXT SCH ×2 (05:02→12:34)
[2021-01-29] MEDS ORDERED: methylPREDNISolone 40 MG in SYRINGE 0 ML IV SCH (06:00)
[2021-01-29 07:13] LABS: Basophils # (auto) 0.01 K/uL (0-0.2); Basophils % (auto) 0.1 %; Hematocrit (blood only) 34.5 % (37-47); Hemoglobin 10.6 g/dL (12.0-16.0); Immature Granulocytes # (auto) 0.02 K/uL (0.00-0.02); Immature Granulocytes % (auto) 0.2 %; Lymphocytes # (auto) 0.77 K/uL (1.2-3.4); Lymphocytes % (auto) 7.7 %; Mean Corpuscular Hemoglobin 26.7 pg (25-34); Mean Corpuscular Hgb Conc 30.7 g/dL (32-36); Mean Corpuscular Volume 86.9 fL (80-100); Monocytes # (auto) 0.05 K/uL (0.11-0.59); Monocytes % (auto) 0.5 %; Neutrophils # (auto) 9.21 K/uL (1.4-6.5); Neutrophils % (auto) 91.5 %; Platelet Count 262 K/uL (130-400); RDW Coefficient of Variation 14.1 % (11.5-14.5); RDW Standard Deviation 44.6 fL (36.4-46.3); Red Blood Count 3.97 M/uL (4.2-5.4); White Blood Count 10.06 K/uL (4.8-10.8)
[2021-01-29] MEDS: ALBUT/IPRATROP 3MG/0.5MG NEB 3 ML VIAL NEB SCH ×3 (07:22→15:13)
[2021-01-29 07:38] LABS: Albumin Level 2.7 gm/dl (3.4-5.0); BUN Creatinine Ratio 19.3 (10-20); Calcium 8.6 mg/dl (8.5-10.1); Creatinine Clr Calc Pharmacy 23.6 ml/min; Est GFR (African American) 29.4 ml/min; Est GFR (Non-African American) 25.4 ml/min; Magnesium 2.2 mg/dl (1.8-2.4); Potassium 5.3 mmol/L (3.5-5.1)
[2021-01-29 07:41] LABS: Albumin Globulin Ratio 0.7 (0.9-2); Bilirubin,Total 0.3 mg/dl (0.2-1); Globulin 4.1 gm/dl (2.5-4.0); Total Protein 6.8 gm/dl (6.4-8.2)
[2021-01-29] MEDS: guaiFENesin 600 MG TABCR PO SCH (08:23)
[2021-01-29] MEDS: CHOLECALCIFEROL 1,000 UNITS 25 MCG TAB PO SCH (08:24)
[2021-01-29] MEDS: FERROUS GLUCONATE 324 MG TAB PO SCH (08:25)
[2021-01-29] MEDS: carvediloL 25 MG TAB PO SCH (08:29)
[2021-01-29] MEDS: GABAPENTIN 100 MG CAP PO SCH (08:29)
[2021-01-29] MEDS: INSULIN ASPART 100 UNITS/ML 3 ML PEN SC SCH ×3 (08:33→16:52)
[2021-01-29 08:48] LABS: Estimated Average Glucose 177 mg/dl; Hemoglobin A1C 7.8 % (4.5-5.6)
[2021-01-29] MEDS ORDERED: CYANOCOBALAMIN 500 MCG TABLET (VITAMIN B-12) PO SCH (09:00)
[2021-01-29] MEDS ORDERED: INSULIN GLARGINE SOLOSTAR 100 UNITS/ML 3 ML PEN SC SCH (09:00)
[2021-01-29] MEDS ORDERED: CALCITRIOL 0.25 MCG CAPSULE PO SCH (09:00)
[2021-01-29] MEDS ORDERED: FUROSEMIDE 40 MG in SYRINGE 0 ML IV SCH (09:00)
[2021-01-29] MEDS ORDERED: ENOXAPARIN INJ 40 MG/0.4 ML SYR SQ SCH (09:00)
[2021-01-29] MEDS ORDERED: lisinopril 10 MG TAB PO SCH (09:00)
[2021-01-29] MEDS ORDERED: amLODIPine BESYLATE 5 MG TAB PO SCH (09:00)
[2021-01-29] MEDS ORDERED: PANTOprazole 40 MG TAB PO SCH (09:00)
[2021-01-29] MEDS ORDERED: CLOPIDOGREL BISULFATE 75 MG TAB PO SCH (09:00)
--- NOTE | 2021-01-29 09:39 | Electrocardiogram Report ---
Test Reason : Blood Pressure : / mmHG Vent. Rate : 070 BPM Atrial Rate : 070 BPM P-R Int : 164 ms QRS Dur : 102 ms QT Int : 406 ms P-R-T Axes : 009 -31 082 degrees QTc Int : 438 ms Normal sinus rhythm Left axis deviation Poor R wave progression, consider anterior ID vs. lead placement vs. LVH Abnormal ECG When compared with ECG of 20-DEC-2020 20:32, No significant change was found Confirmed by Juan Church ([id number]) on 01/29/2021 9:38:41 AM Referred By: REFERRED SELF Confirmed By:Juan Church
--- NOTE | 2021-01-29 10:15 | XCELERA ---
[id number]
[2021-01-29] MEDS ORDERED: AZITHROMYCIN 250 MG TAB PO ONE (13:15)
--- NOTE | 2021-01-29 13:22 | Electrocardiogram Report ---
Test Reason : Blood Pressure : / mmHG Vent. Rate : 064 BPM Atrial Rate : 064 BPM P-R Int : 168 ms QRS Dur : 100 ms QT Int : 440 ms P-R-T Axes : 020 -35 092 degrees QTc Int : 453 ms Normal sinus rhythm Left axis deviation Poor R wave progression, consider anterior CO vs. lead placement vs. LVH Left ventricular hypertrophy with repolarization abnormality Abnormal ECG When compared with ECG of 28-JAN-2021 17:13, (unconfirmed) No significant change was found Confirmed by Juan Church ([id number]) on 01/29/2021 1:22:00 PM Referred By: REFERRED SELF Confirmed By:Juan Church
[2021-01-29 13:45] LABS: Calcium 8.7 mg/dl (8.5-10.1); Creatinine Clr Calc Pharmacy 24.3 ml/min; Est GFR (African American) 30.6 ml/min; Est GFR (Non-African American) 26.4 ml/min; Potassium 4.7 mmol/L (3.5-5.1)
--- NOTE | 2021-01-29 18:16 | Discharge Summary ---
Date of Service January 29, 2021 Admission HPI Per Admitting Provider The patient is a 75-year-old female with a past medical history including CKD stage III, COPD, secondary hyperparathyroidism of renal origin, vitamin D deficiency, tobacco use disorder, left MCA stroke, CAD, carotid stenosis, dyslipidemia, GERD, hypertension, anxiety, diabetes type 2 with neurologic complication, diabetes type 2 with renal manifestations, lumbar spinal stenosis, DJD and sciatica. Patient reports that her shortness of breath is similar to occurrences of had in the past, but the lower extremity edema something new for her. She denies any change in her diet such as salt intake increase. She repor ts that she is able to walk very little due to worsening shortness of breath. Principal Diagnosis COPD exacerbation edema NOT from L sided CHF, appearing mostly venous stasis, also likely some acute R sided dysfunction from air trapping/increased intrathoracic pressure from COPD exacerbation Discharge Exam gen aaox3 pleasant mildly anxious nad heent nc at mmm lungs quiet with faint scattered wheeze R more than L. no rales. no accessory muscles good effort ext no c/c, ~2+ b/l LE edema no calf tenderness Discharge Data Allergies Allergy/AdvReac Type Severity Reaction Status Date / Time No Known Allergies Allergy Verified 01/28/21 17:48 Consultations 01/28/21 20:00 ED Decision to Admit Stat 01/28/21 20:11 ED Decision to Admit Stat Hospital Course (1) SOB (shortness of breath): initially thought to be COPD plus CHF - after further review appears to have been COPD but then air trapping leading to acute R sided strain/venous stasis leading to worse edema improved, stable for home (2) Hypoxia: See above, improved. stable for home (3) Acute exacerbation of chronic obstructive pulmonary disease (COPD): presumed COPD needs outpt PFTs, but with 2 exac in about 6wks - will start LAMA w spiriva. may need escalated to triple therapy, but will start w spiriva and escalate if needed. continue prn albuterol. -steroids (prednisone taper) -atypical coverage w zithromax -stable for home (4) Edema: echo only w some LVH ?diastolic dysfunction ---> no pulmonary edema/no orthopnea/no lung findings c/w fluid --> therefore nothing c/w L sided CHF. ---> strongly doubt L sided CHF. certainly w [id number] COPD could have some degree of pulm HTN/RV dysfunction but more than anything appears c/w venous stasis/third spacing. discussed how diuresis doesn't really help with this and could risk worsening CKD ---> movement, compression, sodium restriction (5) Stage 3b chronic kidney disease: outpt f/u (6) CAD (coronary atherosclerotic disease): outpt f/u - asymptomatic during this stay (7) HTN (hypertension): home on home meds (8) GERD (gastroesophageal reflux disease): (9) Diabetes mellitus with renal manifestations, uncontrolled: A1c 7.8, suspect lifestyle change would bring this to goal. outpt f/u. Total Time Total Time Spent Total Time Spent (In Minutes): >30 Discharge Plan Discharge Items Patient Disposition: Home - Self-Care Reason For Visit: COPD EX., EDEMA, HYPOXIA Discharge Diagnosis: COPD exacerbation (see below) Activity: Resume your previous activity Non-emergency contact: Primary Care Provider Call non-emergency contact if: you have any medication questions and your symptoms worsen Follow-up/Referrals: Lew Cedeno III, MD [Primary Care Provider] - Diet: Heart Healthy Addtl Attending Provider Instructions: COPD exacerbation -while you have not yet had the testing to truly diagnose COPD (the PFT's that Nadia was talking about getting you scheduled for) your whole clinical picture is consistent with COPD that is flaring up from time to time -COPD stands for "chronic obstructive pulmonary disease" -- meaning that from longtime smoking, your lungs have developed chronic inflammation and a reduced ability to move air -because COPD doesn't go away, we have to manage it like any other chronic con dition --> with regular maintenance treatment. there are three main classes of maintenance inhalers we use for COPD: anticholinergics (or muscarinic antagonists, abbreviated to LAMA, these reduce inflammation and mucous secretion), long acting beta agonists (LABA - basically a long acting version of the albuterol rescue inhaler you already have), and inhaled steroids (ICS, that reduce inflammation in the lungs). of these, while all three can be helpful, the anticholinergic (LAMA) have the best overall data of keeping people out of the hospital etc -to that end, we'll start one now -- obviously we still need to get the PFTs (lung function tests) to prove the COPD is truly there (and quantify the severity) but since you've been in and out of the hospital so much with your lungs recently, we should go ahead and treat even while waiting on getting the testing done. we'll start with spiriva (tiotropium) because it's only once a day (the others are twice a day) -- BUT, if it's not covered by insurance, please have them call me to switch to one of the other ones - as a doc, we have no way of knowing insurance coverage until we try, but almost always at least one of those inhalers is covered) -continue with the albuterol as needed for shortness of breath/wheezing/etc (i sent an Rx for a new one in case you need it) -if you haven't by now, stop smoking. trying to manage worsening COPD while still smoking is about as effective as trying to dry off while you're still in the pool. ---> exacerbations of COPD basically are a "bad bronchitis" - and so we finish out treatment with a course of steroids - prednisone - and antibiotics that have a lung anti-inflammatory effect and cover "atypical" (think "bacterial bronchitis") type bacteria. ---prednisone will be 60mg x 2 days then 50mg x 2 days then 40mg x 2 days then 30mg x 2 days then 20mg x 2 days then 10mg x 2 days then stop. you can take it all at once, i would take it earlier in the day since it can make people feel a bit hyper and so we want the bulk of that effect to be when you want to be awake! --antibiotics will be zithromax (when there's not an actual pneumonia, zithromax or doxycycline tend to be the best for a COPD exacerbation) -- 250mg tomorrow, monday, monday, and monday swelling -the swelling in your legs actually appears to be backup secondary to air trapping in your lungs, NOT fluid backed up from your heart to your lungs to the rest of you. this is an important distinction because this kind of fluid really doesn't usually respond well over the half-way to diuretics (water pills) -- and if we try to treat too aggressively with water pills for this kind of fluid, we often cause a functional degree of dehydration that worsens your kidney function. -how this fluid gets backed up is that your venous circulation (the return circuit from tissues back to heart/lungs is a low pressure system (if you think of arteries as a high pressure system, and your arteries might run 120/80, vein pressure tops out at about 12) -- because veins don't really generate much pressure, when we get sick with a COPD exacerbation, the air trapping in our lungs creates more pressure -- and with that backpressure we can't really get fluid forward to our lungs as well -- so this fluid "traffic jams" in our venous circulation and makes legs swell -the way it's pretty clear that the fluid wasn't "CHF" (ie fluid backed up from your heart to your lungs) is that even though you were more swollen and short of breath, your lungs didn't examine as though there was fluid in there, and your chest xray did not show fluid -the best way to move the fluid will be to walk - muscle contraction helps mobilize venous stasis type fluid. elevation can help some too as it helps gravity not be a problem -try to minimize sodium intake (stay under 2000mg a day) to prevent excess fluid retention that can make the problem worse (and realize that most of the sodium people take in is not from the salt shaker - it's an additive/flavoring agent in any prepackaged foods) follow up at Dr Cedeno's office next week so they can check in on how you're doing, adjust inhalers if needed, and get the PFTs set up. Pending Studies at Discharge: No Stand-Alone Forms: My [facility], Smoking Cessation Medications and DC Order Prescriptions: New Spiriva with HandiHaler 18 mcg capsule, w/inhalation device 1 cap inhalation DAILY Qty: 30 RF: 2 prednisone 10 mg tablet 10 mg PO UD Qty: 42 RF: 0 azithromycin [Zithromax] 250 mg tablet 250 mg PO DAILY Qty: 4 RF: 0 Continued nitroglycerin [Nitrostat] 0.4 mg tablet, sublingual 0.4 mg Sublingual UD PRN (Reason: Chest Pain) Qty: 30 RF: 5 carvedilol [Coreg] 25 mg tablet 25 mg PO BID Qty: 180 RF: 3 ferrous gluconate 324 mg (37.5 mg iron) tablet 324 mg PO BID Qty: 60 RF: 5 gabapentin 100 mg capsule 200 mg PO BID Qty: 360 RF: 3 lisinopril 20 mg tablet 20 mg PO DAILY Qty: 30 RF: 11 glimepiride 2 mg tablet 2 mg PO BID Qty: 180 RF: 1 calcitriol 0.25 mcg capsule 0.25 mcg PO UD Qty: 45 RF: 3 benzonatate [Tessalon Perles] 100 mg capsule 100 mg PO TID PRN (Reason: cough) Qty: 30 RF: 0 pantoprazole 40 mg tablet,delayed release (DR/EC) 40 mg PO DAILY Qty: 90 RF: 3 clopidogrel [Plavix] 75 mg tablet 75 mg PO DAILY Qty: 90 RF: 3 acetaminophen [Tylenol] 325 mg capsule 325 mg PO QID PRN (Reason: Pain) RF: 0 cyanocobalamin (vitamin B-12) [Vitamin B-12] 1,000 mcg Tablet 1,000 mcg PO QAM RF: 0 cholecalciferol (vitamin D3) [Vitamin D3] 1,000 unit Tablet 1,000 unit PO BID RF: 0 polysaccharide iron complex [Ferric x-150] 150 mg iron capsule 150 mg PO HS RF: 0 amlodipine [Norvasc] 10 mg tablet 10 mg PO QAM RF: 0 atorvastatin 80 mg tablet 80 mg PO HS Qty: 30 RF: 0 albuterol sulfate [ProAir HFA] 90 mcg/actuation HFA aerosol inhaler 2 puff inhalation Q6H PRN (Reason: shortness of breath or wheezing) Qty: 8.5 RF: 3 guaifenesin [Mucinex] 600 mg Tablet Extended Release 12hr 600 mg PO Q12 Qty: 10 RF: 0 Discharge Orders: Discharge Order (Routine); Ordered 01/29/21 Ordered By: Vladimir Hernandez/Other Patient Handouts: High Blood Sugar (Hyperglycemia), Managing Type 2 Diabetes, A1C Admission Data Admit Date/Time: 01/28/21 21:04 Attending Provider: Vladimir Taylor Admit Provider: Ethan Perry Primary Care Provider: Lew Cedeno III Other Providers: Ethan Perry Other Interventions: Discharge Summary Assessment (RN) Last Done: 01/29/21 16:27 Coding Level of Care Code D/C Day Management >30 mins Diagnoses SOB (shortness of breath) R06.02 Hypoxia R09.02 Acute exacerbation of chronic obstructive pulmonary disease (COPD) J44.1 Edema R60.9 Stage 3b chronic kidney disease N18.32 CAD (coronary atherosclerotic disease) I25.10 HTN (hypertension) I10 GERD (gastroesophageal reflux disease) K21.9 Diabetes mellitus with renal manifestations, uncontrolled E11.29; E11.65
== END 2021-01-29 17:55 | disposition home or self-care (01) | DRG 191 ==
LOC: ED 16:43 → 2S 21:04 → SUATTDRO 21:04 → 2S 21:44

== ENCOUNTER 2021-09-08 15:38 | Inpatient (IN) ==
[2021-09-08] MEDS ORDERED: ALBUT/IPRATROP 3MG/0.5MG NEB 3 ML VIAL INH STA (15:54)
[2021-09-08] MEDS ORDERED: ONDANSETRON INJ 2 MG/ML 2 ML VIAL IV STA (15:55)
[2021-09-08] MEDS ORDERED: SODIUM CHLORIDE 0.9% 1000ML 500 ML IV ONE (15:55)
--- NOTE | 2021-09-08 16:00 | Emergency Department Note ---
Impression & Plan Hypoxia, CHF (congestive heart failure), SOB (shortness of breath), Acute electrocardiogram changes, Elevated troponin ED Provider Note NAME: LEON SAENZ AGE: 76 SEX: F : 1945 ARRIVES VIA: Walk-In INFORMANT: [Patient] ED PROVIDER(S): [Kalpesh Bustillo MD] CHIEF COMPLAINT: Short of breath HISTORY OF PRESENT ILLNESS: The patient is a 76-year-old female with a history of COPD and coronary artery disease She wears oxygen at nighttime only. She states that yesterday, she felt short of breath and fatigued. This morning, she vomited twice. She has since kept some soup down without difficulty. She continues to feel short of breath today, especially with exertion. She feels tired. She has had chills. No chest pain or cough, no urinary complaints, no diarrhea. The patient is vaccinated for the flu, she has not been vaccinated for COVID-19. No known Covid exposures. REVIEW OF SYSTEMS: See HPI for pertinent positives and negatives. A total of ten systems were reviewed and were otherwise negative. PMHx/PSHx: See Below SOCIAL HISTORY: See Below. PHYSICAL EXAM: GENERAL: Patient is in no acute distress. HEENT: No acute trauma, normocephalic atraumatic, mucous membranes moist, no nasal congestion, no scleral icterus. NECK: No stridor, no adenopathy, no meningismus, trachea is midline. LUNGS: Clear to auscultation bilaterally, no wheeze, no rhonchi, breath sounds equal. HEART: Subtle systolic murmur, regular rate and rhythm. ABDOMEN: Soft, nontender, bowel sounds positive, no hernias, no peritonitis. EXTREMITIES: No cyanosis, mild bilateral pedal edema, full range of motion of all the joints without pain or difficulty, no signs for acute trauma. NEUROLOGIC: Oriented x 3, no acute motor or sensory deficits, no focal weakness. SKIN: No rash, no jaundice, no diaphoresis. DIFFERENTIAL DIAGNOSIS: Reactive airway disease, pneumonia, COVID-19, influenza, pneumothorax, COPD, CHF, infection, cardiac ischemia, pulmonary embolism, bronchitis, musculoskeletal, gastrointestinal, as well as other pathologies. EMERGENCY DEPARTMENT COURSE/PROCEDURES: ECG: Indication was shortness of breath. The ECG shows a normal sinus rhythm with a rate of 84. There are inverted T waves noted laterally. There is no ST elevation, no PVCs. The QTc is 439. Compared to an ECG from 19 March 2021, the lateral T wave changes are more pronounced. Second EKG: Indication was back pain and shortness of breath. The ECG shows a normal sinus rhythm with a rate of 88. There are T wave inversions in the lateral leads and some in the inferior leads. There is ST depression laterally. There is some ST elevation in aVR. No PVCs. The QTc is 428. Compared to the ECG from earlier today, the T wave changes are more pronounced, the ST depression is now present, the ST elevation in aVR is more notable. Third EKG: Indication was chest pain. The ECG shows a normal sinus rhythm. The rate is 77. There are T wave inversions in the lateral leads and some in the inferior leads. There are no PVCs. The QTC is 430. Compared to the previous E CG, the ST depressions and T wave inversions have improved. The elevation in aVR has improved. Continuous Cardiac Monitoring: An order was placed for continuous cardiac monitoring. The monitor shows a rate of 89 with normal sinus rhythm. Critical Care Note: I have personally spent 61 minutes of critical care time in the direct management of this patient. This includes bedside care, interpretation of diagnostic studies, and testing, discussion with consultants, patient, and family members, and other required patient management activities. This 61 minutes is in excess of all separately billable procedures. MEDICAL DECISION MAKING: There is no leukocytosis. The patient is anemic but she carries a history of the same. Hemoglobin is a bit lower today than previous testing. There is a normal platelet count. No coagulopathy. There is some renal insufficiency but this appears baseline when looking back at previous values. Magnesium a bit low at 1.6. No concerning liver enzyme elevation. ECG showed some abnormalities but seemed similar to previous. Repeat EKG when the patient began to decompensate showed worsening change. Cardiac enzyme testing x1 does show a slight elevation consistent with cardiac injury. BNP was elevated consistent with fluid overload. Influenza and Covid testing returned negative. Initial chest x-ray showed some cardiomegaly, no obvious infiltrate. Second chest x-ray showed CHF. Patient received a small 500 cc saline bolus. She was given IV Zofran, she was ordered for IV magnesium. She received IV Decadron. She received a DuoNeb. The patient began to complain of some back pain. She was asking for Tylenol, 1 g was given orally. She then began feeling more short of breath and on repeat exam, had a few crackles. She was hypoxic. She required BiPAP. Repeat chest x-ray did show heart failure which had not been present on her initial chest x- ray. Repeat EKG showed changes consistent with cardiac strain/injury. The patient was given nitroglycerin paste, 2 inches. She was given 4 baby aspirin orally. A Rosales catheter was placed and she was given 40 mg of IV Lasix. With the nitroglycerin, the BiPAP and Lasix, the patient felt markedly better. Her O2 saturation improved. A repeat EKG showed significant improvement in her ST depression and T wave findings. I did speak with the automatic buffer on-call for heart alert. Given her ECG findings, given her sudden worsening and development of heart failure, a heart alert was called. The patient was seen by the cardiac catheterization team. She is going to undergo catheterization and potential intervention if necessary. I did speak with case management, the on-call hospitalist was consulted. In short, the patient worsened abruptly while here, she had changes/findings consistent with cardiac injury. She was aggressively managed and showed improvement. She is soon to be transferred to the cardiac catheterization laboratory. Past Med/Surg History Medical History Acute respiratory failure with hypoxia Anemia (~12/03/13) CAD (coronary artery disease) NSTEMI 2010, ARABELLA x 1, POBA x 1 @ [facility] [place] CAD (coronary atherosclerotic disease) 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 diabetes mellitus Diabetes mellitus, type 2 Diabetic peripheral neuropathy DJD (degenerative joint disease) GERD (gastroesophageal reflux disease) H/O: CVA (cerebrovascular accident) Developed facial droop after cardiac cath 2010. Acute infarct. Treated, complete resolution of symptoms. No residual deficits. Hyperkalemia Persistent since 12/2018 Hyperkalemia Hyperlipidemia Hypertension Hypoxia Hypoxia Lumbar spinal stenosis Myocardial Infarction NSTEMI 2010. ARABELLA to mid LCx and POBA to LAD/Dx. Presence of drug-eluting stent in left circumflex coronary artery Secondary hyperparathyroidism of renal origin SOB (shortness of breath) Stage 3b chronic kidney disease Stage 3B nodular histiocytic lymphoma Tobacco use disorder, continuous Vitamin D deficiency Surgical History History of cardiac cath History of carpal tunnel release History of cataract surgery History of colonoscopy History of tooth extraction History of tubal ligation Family History Brother Family history of diabetes mellitus Sister Family history of diabetes mellitus Sister Family history of diabetes mellitus Mother Family history of diabetes mellitus Myocardial infarction Stroke Father Myocardial infarction Denies family history of Ovarian cancer Prostate cancer Breast cancer Colorectal cancer Social History Smoking Status: Never smoker Tobacco Type: Cigarettes Age Started Using Tobacco: 24; Age Quit Using Tobacco: 75; packs per day: 0.5; Second Hand Exposure: Yes (previous, her niece smoked ); Hx Alcohol Use: No Hx Substance Use: No Preferred Language: Italian Communication Ability: Effective Visual Impairment: No Limitations Binding End Stitcher Required: No Beliefs That Will Affect Care: None marital status: Current Living Situation: Alone Current Living Situation Comment: lives home alone in a house current occupational status: retired 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 Feels Safe at Home: Yes Childhood Exposure to Second-Hand Smoke: Yes caffeine: Yes Dental Care, Regularly: No Physical Activity Frequency: 3-4 Times per Week Seatbelt Use: sometimes Sunscreen Use: No Assistive Devices: Glasses Allergies Allergies Allergy/AdvReac Type Severity Reaction Status Date / Time No Known Allergies Allergy Verified 09/08/21 16:14 Home Meds Home Medications Medication Instructions Recorded Confirmed cholecalciferol (vitamin D3) 25 1,000 unit PO BID 05/19/18 09/08/21 mcg (1,000 unit) tablet (Vitamin D3) cyanocobalamin (vitamin B-12) 1,000 mcg PO QAM 05/19/18 09/08/21 1,000 mcg tablet (Vitamin B-12) polysaccharide iron complex 150 mg 150 mg PO HS 04/02/19 09/08/21 iron capsule (Ferric x-150) gabapentin 100 mg capsule 200 mg PO BID 03/19/21 09/08/21 (Neurontin) atorvastatin 80 mg tablet 80 mg PO DAILY 09/06/21 09/08/21 carvedilol 25 mg tablet 25 mg PO BID 09/08/21 09/08/21 clopidogrel 75 mg tablet 75 mg PO DAILY 09/08/21 09/08/21 glimepiride 2 mg tablet (Amaryl) 4 mg PO BID 09/08/21 09/08/21 pantoprazole 40 mg tablet,delayed 40 mg PO DAILY 09/08/21 09/08/21 release Previous Rx's Medication Instructions Recorded nitroglycerin 0.4 mg sublingual 0.4 mg SUBLINGUAL UD PRN #30 tab 04/07/20 tablet (Nitrostat) ferrous gluconate 324 mg (37.5 mg 324 mg PO BID #60 tab 06/04/21 iron) tablet blood sugar diagnostic (OneTouch #100 ea 06/11/21 Ultra Test) albuterol sulfate 90 mcg/actuation 2 puff INHALATION Q6H PRN #8.5 g 07/21/21 aerosol inhaler (ProAir HFA) ipratropium 0.5 mg-albuterol 3 mg 3 ml INHALATION .COMPLEX PRN #180 07/21/21 (2.5 mg base)/3 mL nebulization ml soln tiotropium bromide 18 mcg capsule 1 cap INHALATION QAM #30 inh 07/21/21 with inhalation device (Spiriva with HandiHaler) calcitriol 0.25 mcg capsule 0.25 mcg PO 3XWK #45 cap 07/22/21 (Rocaltrol) amlodipine 10 mg tablet (Norvasc) 10 mg PO QAM #90 tab 08/23/21 benzonatate 100 mg capsule 100 mg PO BID PRN #60 cap 08/23/21 furosemide 20 mg tablet (Lasix) 20 mg PO QAM #90 tab 08/24/21 empagliflozin 10 mg tablet 10 mg PO DAILY #30 tab 08/27/21 (Jardiance) lisinopril 10 mg tablet 10 mg PO DAILY #90 tab 09/06/21 Results & Data (ED) Vital Signs Vital Signs - 24 hr 09/08/21 15:41 09/08/21 16:17 09/08/21 16:20 Temperature 36.0 C L Temperature Source Temporal Artery Scan Pulse Rate 89 86 91 H Respiratory Rate 24 18 21 Respiratory Effort / Characteristics Respiratory Depth Respiratory Pattern Blood Pressure 147/79 H Blood Pressure Mean 101 Pulse Oximetry 92 93 93 Oxygen Delivery Method Room Air Room Air Room Air Oxygen Flow Rate Fraction of Inspired Oxygen Sepsis Recent Fever Within 48 Hours No Sepsis New/Unexplained Change in Mental Status N/A Sepsis Action Taken by Nursing No Action Required 09/08/21 16:30 09/08/21 16:40 09/08/21 16:45 Temperature Temperature Source Pulse Rate 86 82 Respiratory Rate 23 18 Respiratory Effort / Characteristics Non-Labored Respiratory Depth Normal Respiratory Pattern Regular Blood Pressure Blood Pressure Mean Pulse Oximetry 93 99 92 Oxygen Delivery Method Room Air Nebulizer Room Air Oxygen Flow Rate 10 92 Fraction of Inspired Oxygen Sepsis Recent Fever Within 48 Hours Sepsis New/Unexplained Change in Mental Status Sepsis Action Taken by Nursing 09/08/21 16:50 09/08/21 16:53 09/08/21 17:00 Temperature Temperature Source Pulse Rate 82 81 76 Respiratory Rate 24 24 Respiratory Effort / Characteristics Respiratory Depth Respiratory Pattern Blood Pressure Blood Pressure Mean Pulse Oximetry 99 99 95 Oxygen Delivery Method Nebulizer Other Room Air Oxygen Flow Rate 10 Fraction of Inspired Oxygen Sepsis Recent Fever Within 48 Hours Sepsis New/Unexplained Change in Mental Status Sepsis Action Taken by Nursing 09/08/21 17:10 09/08/21 17:20 09/08/21 17:25 Temperature Temperature Source Pulse Rate 100 H 89 Respiratory Rate 18 25 H Respiratory Effort / Characteristics Respiratory Depth Respiratory Pattern Blood Pressure Blood Pressure Mean Pulse Oximetry 91 88 L 86 L Oxygen Delivery Method Nasal Cannula Nasal Cannula Nasal Cannula Oxygen Flow Rate 2 4 6 Fraction of Inspired Oxygen Sepsis Recent Fever Within 48 Hours Sepsis New/Unexplained Change in Mental Status Sepsis Action Taken by Nursing 09/08/21 17:30 09/08/21 17:32 09/08/21 17:40 Temperature Temperature Source Pulse Rate 86 83 Respiratory Rate 19 22 Respiratory Effort / Characteristics Respiratory Depth Respiratory Pattern Blood Pressure Blood Pressure Mean Pulse Oximetry 83 L 90 91 Oxygen Delivery Method Nasal Cannula Non-rebreather Non-rebreather Oxygen Flow Rate 6 10 10 Fraction of Inspired Oxygen Sepsis Recent Fever Within 48 Hours Sepsis New/Unexplained Change in Mental Status Sepsis Action Taken by Nursing 09/08/21 17:42 09/08/21 17:50 09/08/21 18:00 Temperature Temperature Source Pulse Rate 79 81 84 Respiratory Rate 97 H 21 36 H Respiratory Effort / Characteristics Non-Labored Spontaneous Respiratory Depth Normal Respiratory Pattern Regular Blood Pressure Blood Pressure Mean Pulse Oximetry 96 92 93 Oxygen Delivery Method BiPAP BiPAP Oxygen Flow Rate Fraction of Inspired Oxygen 60 60 60 Sepsis Recent Fever Within 48 Hours Sepsis New/Unexplained Change in Mental Status Sepsis Action Taken by Nursing 09/08/21 18:10 09/08/21 18:15 09/08/21 18:20 Temperature Temperature Source Pulse Rate 88 79 89 Respiratory Rate 23 27 H 18 Respiratory Effort / Characteristics Respiratory Depth Respiratory Pattern Blood Pressure 124/56 L 125/52 L Blood Pressure Mean 78 76 Pulse Oximetry 94 94 Oxygen Delivery Method BiPAP BiPAP Oxygen Flow Rate Fraction of Inspired Oxygen 60 60 Sepsis Recent Fever Within 48 Hours Sepsis New/Unexplained Change in Mental Status Sepsis Action Taken by Retirement Medications Current Medication List: was personally reviewed by me Laboratory Data Attestation: I reviewed the patient's lab results. Result diagrams: 09/08/21 16:32 09/08/21 17:48 Lab Results 09/08/21 09/08/21 09/08/21 Range/Units 16:32 16:32 16:32 WBC 9.50 (4.8-10.8) K/uL RBC 3.87 L (4.2-5.4) M/uL Hgb 10.4 L (12.0-16.0) g/dL Hct 33.9 L (37-47) % MCV 87.6 (80-100) fL MCH 26.9 (25-34) pg MCHC 30.7 L (32-36) g/dL RDW Std Deviation 43.3 (36.4-46.3) fL RDW Coeff of Sushant 13.6 (11.5-14.5) % Plt Count 219 (130-400) K/uL MPV 11.8 H (7.4-10.4) fL Immature Gran % (Auto) 0.2 % Neut % (Auto) 84.0 % Lymph % (Auto) 8.5 % [place] % (Auto) 6.6 % Eos % (Auto) 0.5 % Baso % (Auto) 0.2 % Neut # (Auto) 7.97 H (1.4-6.5) K/uL Lymph # (Auto) 0.81 L (1.2-3.4) K/uL [place] # (Auto) 0.63 H (0.11-0.59) K/uL Eos # (Auto) 0.05 (0-0.5) K/uL Baso # (Auto) 0.02 (0-0.2) K/uL Immature Gran # (Auto) 0.02 (0.00-0.02) K/uL PT 10.5 (9.0-12.0) Seconds INR 1.0 (0.9-1.1) APTT 23.6 (21.0-31.0) Seconds PTT Ratio 0.9 Sodium 136 (136-145) mmol/L Potassium (3.5-5.1) mmol/L Chloride 103 (98-107) mmol/L Carbon Dioxide 24 (21-32) mmol/L Anion Gap 9 (3-11) BUN 33 H (6-23) mg/dl Creatinine 1.76 H (0.6-1.2) mg/dl Est Cr Clr Drug Dosing Not Reportable Est GFR ( Amer) 32.2 ml/min Est GFR (Non-Af Amer) 27.8 ml/min BUN/Creatinine Ratio 18.8 (10-20) Glucose 195 H (70-99(Fasting)) mg/dl Calcium 8.4 L (8.5-10.1) mg/dl Magnesium 1.6 L (1.7-2.4) mg/dl Total Bilirubin 0.3 (0.2-1.0) mg/dl AST (13-39) U/L ALT 11 (7-52) U/L Alkaline Phosphatase 58 (34-104) U/L Troponin I 0.94 H* (0-0.04) ng/ml B-Natriuretic Peptide (0-100) pg/ml Total Protein 6.3 (6.0-8.3) gm/dl Albumin 3.5 (3.4-5.0) gm/dl Globulin 2.8 (2.5-4.0) gm/dl Albumin/Globulin Ratio 1.3 (0.9-2) Influ A Molecular Assay (Negative) Influ B Molecular Assay (Negative) SARS-CoV-2, RNA, NAAT (NEGATIVE) 09/08/21 09/08/21 09/08/21 Range/Units 16:32 17:15 17:48 WBC (4.8-10.8) K/uL RBC (4.2-5.4) M/uL Hgb (12.0-16.0) g/dL Hct (37-47) % MCV (80-100) fL MCH (25-34) pg MCHC (32-36) g/dL RDW Std Deviation (36.4-46.3) fL RDW Coeff of Sushant (11.5-14.5) % Plt Count (130-400) K/uL MPV (7.4-10.4) fL Immature Gran % (Auto) % Neut % (Auto) % Lymph % (Auto) % [place] % (Auto) % Eos % (Auto) % Baso % (Auto) % Neut # (Auto) (1.4-6.5) K/uL Lymph # (Auto) (1.2-3.4) K/uL [place] # (Auto) (0.11-0.59) K/uL Eos # (Auto) (0-0.5) K/uL Baso # (Auto) (0-0.2) K/uL Immature Gran # (Auto) (0.00-0.02) K/uL PT (9.0-12.0) Seconds INR (0.9-1.1) APTT (21.0-31.0) Seconds PTT Ratio Sodium (136-145) mmol/L Potassium 4.1 (3.5-5.1) mmol/L Chloride (98-107) mmol/L Carbon Dioxide (21-32) mmol/L Anion Gap (3-11) BUN (6-23) mg/dl Creatinine (0.6-1.2) mg/dl Est Cr Clr Drug Dosing Est GFR ( Amer) ml/min Est GFR (Non-Af Amer) ml/min BUN/Creatinine Ratio (10-20) Glucose (70-99(Fasting)) mg/dl Calcium (8.5-10.1) mg/dl Magnesium (1.7-2.4) mg/dl Total Bilirubin (0.2-1.0) mg/dl AST 19 (13-39) U/L ALT (7-52) U/L Alkaline Phosphatase (34-104) U/L Troponin I (0-0.04) ng/ml B-Natriuretic Peptide (0-100) pg/ml Total Protein (6.0-8.3) gm/dl Albumin (3.4-5.0) gm/dl Globulin (2.5-4.0) gm/dl Albumin/Globulin Ratio (0.9-2) Influ A Molecular Assay Negative (Negative) Influ B Molecular Assay Negative (Negative) SARS-CoV-2, RNA, NAAT NEGATIVE (NEGATIVE) 09/08/21 Range/Units 17:48 WBC (4.8-10.8) K/uL RBC (4.2-5.4) M/uL Hgb (12.0-16.0) g/dL Hct (37-47) % MCV (80-100) fL MCH (25-34) pg MCHC (32-36) g/dL RDW Std Deviation (36.4-46.3) fL RDW Coeff of Sushant (11.5-14.5) % Plt Count (130-400) K/uL MPV (7.4-10.4) fL Immature Gran % (Auto) % Neut % (Auto) % Lymph % (Auto) % [place] % (Auto) % Eos % (Auto) % Baso % (Auto) % Neut # (Auto) (1.4-6.5) K/uL Lymph # (Auto) (1.2-3.4) K/uL [place] # (Auto) (0.11-0.59) K/uL Eos # (Auto) (0-0.5) K/uL Baso # (Auto) (0-0.2) K/uL Immature Gran # (Auto) (0.00-0.02) K/uL PT (9.0-12.0) Seconds INR (0.9-1.1) APTT (21.0-31.0) Seconds PTT Ratio Sodium (136-145) mmol/L Potassium (3.5-5.1) mmol/L Chloride (98-107) mmol/L Carbon Dioxide (21-32) mmol/L Anion Gap (3-11) BUN (6-23) mg/dl Creatinine (0.6-1.2) mg/dl Est Cr Clr Drug Dosing Est GFR ( Amer) ml/min Est GFR (Non-Af Amer) ml/min BUN/Creatinine Ratio (10-20) Glucose (70-99(Fasting)) mg/dl Calcium (8.5-10.1) mg/dl Magnesium (1.7-2.4) mg/dl Total Bilirubin (0.2-1.0) mg/dl AST (13-39) U/L ALT (7-52) U/L Alkaline Phosphatase (34-104) U/L Troponin I (0-0.04) ng/ml B-Natriuretic Peptide 683 H (0-100) pg/ml Total Protein (6.0-8.3) gm/dl Albumin (3.4-5.0) gm/dl Globulin (2.5-4.0) gm/dl Albumin/Globulin Ratio (0.9-2) Influ A Molecular Assay (Negative) Influ B Molecular Assay (Negative) SARS-CoV-2, RNA, NAAT (NEGATIVE) Administered Medications Discontinued Medications Acetaminophen (Acetaminophen 500 Mg Tab) 1,000 mg PO NOW STA Stop: 09/08/21 17:19 Last Admin: 09/08/21 17:38 Dose: Not Given Documented by: [id number] Acetaminophen (Acetaminophen 500 Mg Tab) Confirm Administered Dose 500 mg .ROUTE .STK-MED ONE Stop: 09/08/21 17:20 Last Admin: 09/08/21 17:38 Dose: 500 mg Documented by: [id number] Albuterol (Albut/Ipratrop 3mg/0.5mg Neb 3 Ml Vial) 3 ml INH NOW STA Stop: 09/08/21 15:55 Last Admin: 09/08/21 16:37 Dose: 3 ml Documented by: [id number] Aspirin (Aspirin Chew 324 Mg) 324 mg PO NOW STA Stop: 09/08/21 17:59 Last Admin: 09/08/21 18:02 Dose: 324 mg Documented by: [id number] Aspirin (Aspirin Chew 324 Mg) Confirm Administered Dose 324 mg .ROUTE .STK-MED ONE Stop: 09/08/21 18:00 Last Admin: 09/08/21 18:18 Dose: Not Given Documented by: [id number] Dexamethasone Sodium Phosphate (DexamethasonePf 10 Mg/Ml Vial) 6 mg IV NOW ONE Stop: 09/08/21 17:32 Last Admin: 09/08/21 17:33 Dose: 6 mg Documented by: [id number] Furosemide (Furosemide 40 Mg/4 Ml Vial) 40 mg IV ONE ONE Stop: 09/08/21 17:43 Last Admin: 09/08/21 17:52 Dose: 20 mg Documented by: [id number] Sodium Chloride (Nss 1000ml) 500 mls @ 999 mls/hr IV .Q31M ONE Stop: 09/08/21 16:25 Last Infusion: 09/08/21 17:15 Dose: 0 mls/hr Documented by: [id number] Admin: 09/08/21 16:36 Dose: 999 mls/hr Documented by: [id number] Nitroglycerin (Nitroglycerin 2% Ointment 30gm Tube) 2 inch EXT NOW STA Stop: 09/08/21 17:43 Last Admin: 09/08/21 17:49 Dose: 2 inch Documented by: [id number] Ondansetron HCl (Ondansetron Inj 2 Mg/Ml 2 Ml Vial) 4 mg IV NOW STA Stop: 09/08/21 15:56 Last Admin: 09/08/21 16:36 Dose: 4 mg Documented by: [id number] Imaging Data Radiologist's Impression: Chest X-Ray 09/08/21 15:54 SINGLE VIEW CHEST CLINICAL HISTORY: Dyspnea FINDINGS: An AP, portable, upright chest radiograph is compared to study dated 03/19/2021. The heart is mildly enlarged noting atherosclerotic calcification of the thoracic aorta. The pulmonary vasculature is noncongested. Chronic interstitial thickening is similar to previous. There is chronic elevation of the right hemidiaphragm and bibasilar atelectasis. No airspace consolidation, large pleural effusion, or pneumothorax is seen. The skeletal structures are osteopenic. The bony thorax is grossly intact. IMPRESSION: No acute cardiopulmonary abnormality. ACT 112: Negative or not required by law. Electronically signed by: Kalpesh Menendez M.D. 09/08/2021 4:52 PM Chest X-Ray 09/08/21 17:31 XR chest 1V portable HISTORY: 76 years-old Female sob acute shortness of breath COMPARISON: Chest radiograph of same day at 3:58 PM TECHNIQUE: Portable AP view of the chest FINDINGS: Cardiac silhouette is enlarged. Calcified plaque of the thoracic aorta. Unchanged right hemidiaphragmatic elevation. No pneumothorax or large pleural effusion. Interval development of pulmonary vascular congestion with interstitial coarsening and ill-defined left greater than right airspace opacities. Degenerative changes of the shoulders and spine. IMPRESSION: 1. Cardiomegaly with interval development of left greater than right bilateral pulmonary opacities suggestive of pulmonary edema. 2. Unchanged right hemidiaphragmatic elevation. ACT 112: Negative or not required by law. The above report was generated using voice recognition software. It may contain grammatical, syntax or spelling errors. Electronically signed by: Rene Bowers M.D. 09/08/2021 5:47 PM Discharge Plan Visit Data Chief Complaint: Shortness of Breath/Dyspnea Stated Complaint: VOMITTING, SOB, BODY ACHES ED Provider: Kalpesh Bustlilo Discharge Problem: Hypoxia, CHF (congestive heart failure), SOB (shortness of breath), Acute e lectrocardiogram changes, Elevated troponin Patient Disposition: Admitted As Inpatient Condition: Serious Forms Stand Alone Forms: My [facility] Prescriptions Prescriptions: No Action nitroglycerin [Nitrostat] 0.4 mg tablet, sublingual 0.4 mg Sublingual UD PRN (Reason: Chest Pain) Qty: 30 RF: 5 ferrous gluconate 324 mg (37.5 mg iron) tablet 324 mg PO BID Qty: 60 RF: 5 (DME) ShowcaseTouch Ultra Test Strip See Rx Instructions .Route Qty: 100 RF: 3 calcitriol [Rocaltrol] 0.25 mcg capsule 0.25 mcg PO 3XWK Qty: 45 RF: 3 amlodipine [Norvasc] 10 mg tablet 10 mg PO QAM Qty: 90 RF: 3 benzonatate 100 mg capsule 100 mg PO BID PRN (Reason: cough) Qty: 60 RF: 0 furosemide [Lasix] 20 mg tablet 20 mg PO QAM Qty: 90 RF: 3 Jardiance 10 mg tablet 10 mg PO DAILY Qty: 30 RF: 5 atorvastatin 80 mg tablet 80 mg PO DAILY RF: 0 lisinopril 10 mg tablet 10 mg PO DAILY Qty: 90 RF: 3 albuterol sulfate [ProAir HFA] 90 mcg/actuation HFA aerosol inhaler 2 puff inhalation Q6H PRN (Reason: shortness of breath or wheezing) Qty: 8.5 RF: 3 ipratropium-albuterol 0.5 mg-3 mg(2.5 mg base)/3 mL solution for nebulization 3 ml inhalation .COMPLEX PRN (Reason: wheezing) Qty: 180 RF: 5 Spiriva with HandiHaler 18 mcg capsule, w/inhalation device 1 cap inhalation QAM Qty: 30 RF: 5 cyanocobalamin (vitamin B-12) [Vitamin B-12] 1,000 mcg Tablet 1,000 mcg PO QAM RF: 0 cholecalciferol (vitamin D3) [Vitamin D3] 1,000 unit Tablet 1,000 unit PO BID RF: 0 polysaccharide iron complex [Ferric x-150] 150 mg iron capsule 150 mg PO HS RF: 0 gabapentin [Neurontin] 100 mg capsule 200 mg PO BID RF: 0 carvedilol 25 mg tablet 25 mg PO BID RF: 0 clopidogrel 75 mg tablet 75 mg PO DAILY RF: 0 glimepiride [Amaryl] 2 mg tablet 4 mg PO BID RF: 0 pantoprazole 40 mg tablet,delayed release (DR/EC) 40 mg PO DAILY RF: 0 Referrals Referrals: Lew Cedeno III, MD [Physician] - Discharge Problem: CHF (congestive heart failure) Qualifiers: Heart failure type: unspecified Heart failure chronicity: acute Qualified Code(s): I50.9 - Heart failure, unspecified
[2021-09-08 16:50] LABS: Basophils # (auto) 0.02 K/uL (0-0.2); Basophils % (auto) 0.2 %; Eosinophils # (auto) 0.05 K/uL (0-0.5); Eosinophils % (auto) 0.5 %; Hematocrit (blood only) 33.9 % (37-47); Hemoglobin 10.4 g/dL (12.0-16.0); Immature Granulocytes # (auto) 0.02 K/uL (0.00-0.02); Immature Granulocytes % (auto) 0.2 %; Lymphocytes # (auto) 0.81 K/uL (1.2-3.4); Lymphocytes % (auto) 8.5 %; Mean Corpuscular Hemoglobin 26.9 pg (25-34); Mean Corpuscular Hgb Conc 30.7 g/dL (32-36); Mean Corpuscular Volume 87.6 fL (80-100); Mean Platelet Volume 11.8 fL (7.4-10.4); Monocytes # (auto) 0.63 K/uL (0.11-0.59); Monocytes % (auto) 6.6 %; Neutrophils # (auto) 7.97 K/uL (1.4-6.5); Platelet Count 219 K/uL (130-400); RDW Coefficient of Variation 13.6 % (11.5-14.5); RDW Standard Deviation 43.3 fL (36.4-46.3); Red Blood Count 3.87 M/uL (4.2-5.4)
--- NOTE | 2021-09-08 16:53 | XRay Report ---
SINGLE VIEW CHEST CLINICAL HISTORY: Dyspnea FINDINGS: An AP, portable, upright chest radiograph is compared to study dated 03/19/2021. The heart i s mildly enlarged noting atherosclerotic calcification of the thoracic aorta. The pulmonary vasculatu re is noncongested. Chronic interstitial thickening is similar to previous. There is chronic elevatio n of the right hemidiaphragm and bibasilar atelectasis. No airspace consolidation, large pleural effu kareem, or pneumothorax is seen. The skeletal structures are osteopenic. The bony thorax is grossly int act. IMPRESSION: No acute cardiopulmonary abnormality. ACT 112: Negative or not required by law. Electronically signed by: Kalpesh Menendez M.D. 09/08/2021 4:52 PM
[2021-09-08 17:06] LABS: Influenza A virus by PCR Negative (Negative); Influenza B virus by PCR Negative (Negative)
[2021-09-08 17:07] LABS: Partial Thromboplastin Ratio 0.9; Partial Thromboplastin Time 23.6 Seconds (21.0-31.0); Prothrombin Time 10.5 Seconds (9.0-12.0)
[2021-09-08 17:17] LABS: Troponin I 0.94 ng/ml (0-0.04)
[2021-09-08] MEDS ORDERED: ACETAMINOPHEN 500 MG TAB PO STA (17:18)
[2021-09-08] MEDS ORDERED: ACETAMINOPHEN 500 MG TAB ONE (17:19)
[2021-09-08] MEDS ORDERED: dexAMETHasone**PF** 10 MG/ML VIAL IV ONE (17:31)
[2021-09-08 17:39] LABS: Alanine Aminotransferase 11 U/L (7-52); Albumin Globulin Ratio 1.3 (0.9-2); Albumin Level 3.5 gm/dl (3.4-5.0); Alkaline Phosphatase 58 U/L (34-104); Anion Gap 9 (3-11); BUN Creatinine Ratio 18.8 (10-20); Bilirubin,Total 0.3 mg/dl (0.2-1.0); Blood Urea Nitrogen 33 mg/dl (6-23); Calcium 8.4 mg/dl (8.5-10.1); Carbon Dioxide 24 mmol/L (21-32); Chloride 103 mmol/L (98-107); Est GFR (African American) 32.2 ml/min; Est GFR (Non-African American) 27.8 ml/min; Globulin 2.8 gm/dl (2.5-4.0); Glucose 195 mg/dl (70-99(Fasting)); Magnesium 1.6 mg/dl (1.7-2.4); Sodium 136 mmol/L (136-145); Total Protein 6.3 gm/dl (6.0-8.3)
[2021-09-08] MEDS ORDERED: FUROSEMIDE 40 MG/4 ML VIAL IV ONE (17:42)
[2021-09-08] MEDS ORDERED: NITROGLYCERIN 2% OINTMENT 30GM TUBE EXT STA (17:42)
--- NOTE | 2021-09-08 17:48 | XRay Report ---
XR chest 1V portable HISTORY: 76 years-old Female sob acute shortness of breath COMPARISON: Chest radiograph of same day at 3:58 PM TECHNIQUE: Portable AP view of the chest FINDINGS: Cardiac silhouette is enlarged. Calcified plaque of the thoracic aorta. Unchanged right hemidiaphragm atic elevation. No pneumothorax or large pleural effusion. Interval development of pulmonary vascular congestion with interstitial coarsening and ill-defined left greater than right airspace opacities. Degenerative changes of the shoulders and spine. IMPRESSION: 1. Cardiomegaly with interval development of left greater than right bilateral pulmonary opacities guaman ggestive of pulmonary edema. 2. Unchanged right hemidiaphragmatic elevation. ACT 112: Negative or not required by law. The above report was generated using voice recognition software. It may contain grammatical, syntax o r spelling errors. Electronically signed by: Rene Bowers M.D. 09/08/2021 5:47 PM
[2021-09-08] MEDS ORDERED: ASPIRIN CHEW 324 MG PO STA (17:58)
[2021-09-08] MEDS ORDERED: ASPIRIN CHEW 324 MG ONE (17:59)
[2021-09-08] MEDS ORDERED: niCARdipine HCL INJ 2.5 MG/ML 10 ML AMP ONE (18:09)
[2021-09-08] MEDS ORDERED: fentaNYL citrate 100 MCG/2 ML VIAL ONE (18:09)
[2021-09-08] MEDS ORDERED: MIDAZOLAM HCL 1 MG/ML 2ML VIAL ONE (18:09)
[2021-09-08] MEDS ORDERED: HEPARIN (PORCINE) 1000 UNIT/ML 10 ML (CATH LAB USE ONLY) ONE (18:09)
[2021-09-08] MEDS ORDERED: NITROGLYCERIN/D5W 100MCG/ML 20ML SYR ONE (18:10)
[2021-09-08 18:23] LABS: Potassium 4.1 mmol/L (3.5-5.1)
[2021-09-08] MEDS ORDERED: MAGNESIUM SULFATE / D5W 1 GM/100 ML BAG IV STA (18:29)
--- NOTE | 2021-09-08 18:53 | Cardiology Consultation ---
Date of Consultation September 08, 2021 Assessment & Plan (1) NSTEMI (non-ST elevated myocardial infarction): Patient with concerning dynamic ST changes on ECG, elevated troponin and evidence of acute heart failure. Presently stable on BiPAP, Nitropaste, post IV diuretic. With high risk ACS recommend proceeding with urgent cardiac catheterization via right radial artery. Procedure discussed with patient including risk, benefits, alternatives and she is willing to proceed. Further conditions pending findings. History of Present Illness History of Present Illness Ms. Mcdaniels is a 76-year-old woman seen urgently in the ED due to suspected ACS and acute heart failure. Patient followed by Dr. Bradley for cardiac care. She has a history of coronary artery disease with prior NSTEMI in 2010 with ARABELLA placement to mid circumflex and angioplasty of OM 2 and diagonal. Last echo 01/2021 showed LVEF 55 to 60%, mild MR. Other medical issues include type 2 diabetes, stage IIIb chronic kidney disease, anemia, COPD, morbid obesity, obstructive sleep apnea, lumbar spinal stenosis post back surgery. She is post prior CVA in 2018. Has known left ICA moderate stenosis followed by [facility]. Ongoing tobacco use. Patient developed shortness of breath with back pain beginning yesterday. Symptoms worse with exertion. Denied orthopnea or edema. Shortness of breath progressed today in the ED. Covid negative. Shortness of breath progressed while in ED and serial ECG showed diffuse lateral ST depressions and elevation in aVR. Troponin mildly elevated 0.9. Second chest x-ray showed new pulmonary edema. Breathing improved with Nitropaste, 20 of IV Lasix and placed on BiPAP. Allergies Allergy/AdvReac Type Severity Reaction Status Date / Time No Known Allergies Allergy Verified 09/08/21 16:14 Home Medications Medication Instructions Recorded Confirmed Type cholecalciferol (vitamin D3) 25 1,000 unit PO BID 05/19/18 09/08/21 History mcg (1,000 unit) tablet (Vitamin D3) cyanocobalamin (vitamin B-12) 1,000 mcg PO QAM 05/19/18 09/08/21 History 1,000 mcg tablet (Vitamin B-12) polysaccharide iron complex 150 mg 150 mg PO HS 04/02/19 09/08/21 History iron capsule (Ferric x-150) nitroglycerin 0.4 mg sublingual 0.4 mg SUBLINGUAL UD PRN #30 tab 04/07/20 09/08/21 Rx tablet (Nitrostat) gabapentin 100 mg capsule 200 mg PO BID 03/19/21 09/08/21 History (Neurontin) ferrous gluconate 324 mg (37.5 mg 324 mg PO BID #60 tab 06/04/21 09/08/21 Rx iron) tablet blood sugar diagnostic (OneTouch #100 ea 06/11/21 09/06/21 Rx Ultra Test) albuterol sulfate 90 mcg/actuation 2 puff INHALATION Q6H PRN #8.5 g 07/21/21 09/08/21 Rx aerosol inhaler (ProAir HFA) ipratropium 0.5 mg-albuterol 3 mg 3 ml INHALATION .COMPLEX PRN #180 07/21/21 09/08/21 Rx (2.5 mg base)/3 mL nebulization ml soln tiotropium bromide 18 mcg capsule 1 cap INHALATION QAM #30 inh 07/21/21 09/08/21 Rx with inhalation device (Spiriva with HandiHaler) calcitriol 0.25 mcg capsule 0.25 mcg PO 3XWK #45 cap 07/22/21 09/08/21 Rx (Rocaltrol) amlodipine 10 mg tablet (Norvasc) 10 mg PO QAM #90 tab 08/23/21 09/08/21 Rx benzonatate 100 mg capsule 100 mg PO BID PRN #60 cap 08/23/21 09/08/21 Rx furosemide 20 mg tablet (Lasix) 20 mg PO QAM #90 tab 08/24/21 09/08/21 Rx empagliflozin 10 mg tablet 10 mg PO DAILY #30 tab 08/27/21 09/08/21 Rx (Jardiance) atorvastatin 80 mg tablet 80 mg PO DAILY 09/06/21 09/08/21 History lisinopril 10 mg tablet 10 mg PO DAILY #90 tab 09/06/21 09/08/21 Rx carvedilol 25 mg tablet 25 mg PO BID 09/08/21 09/08/21 History clopidogrel 75 mg tablet 75 mg PO DAILY 09/08/21 09/08/21 History glimepiride 2 mg tablet (Amaryl) 4 mg PO BID 09/08/21 09/08/21 History pantoprazole 40 mg tablet,delayed 40 mg PO DAILY 09/08/21 09/08/21 History release Patient History Medical History Acute respiratory failure with hypoxia Anemia (~12/03/13) CAD (coronary artery disease) NSTEMI 2011, ARABELLA x 1, POBA x 1 @ [facility] [place] CAD (coronary atherosclerotic disease) 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 diabetes mellitus Diabetes mellitus, type 2 Diabetic peripheral neuropathy DJD (degenerative joint disease) GERD (gastroesophageal reflux disease) H/O: CVA (cerebrovascular accident) Developed facial droop after cardiac cath 2010. Acute infarct. Treated, complete resolution of symptoms. No residual deficits. Hyperkalemia Persistent since 12/2018 Hyperkalemia Hyperlipidemia Hypertension Hypoxia Hypoxia Lumbar spinal stenosis Myocardial Infarction NSTEMI 2010. ARABELLA to mid LCx and POBA to LAD/Dx. Presence of drug-eluting stent in left circumflex coronary artery Secondary hyperparathyroidism of renal origin SOB (shortness of breath) Stage 3b chronic kidney disease Stage 3B nodular histiocytic lymphoma Tobacco use disorder, continuous Vitamin D deficiency Surgical History History of cardiac cath History of carpal tunnel release History of cataract surgery History of colonoscopy History of tooth extraction History of tubal ligation Family History Brother Family history of diabetes mellitus Sister Family history of diabetes mellitus Sister Family history of diabetes mellitus Mother Family history of diabetes mellitus Myocardial infarction Stroke Father Myocardial infarction Denies family history of Ovarian cancer Prostate cancer Breast cancer Colorectal cancer Social History Smoking Status: Never smoker Tobacco Type: Cigarettes Age Started Using Tobacco: 24; Age Quit Using Tobacco: 75; packs per day: 0.5; Second Hand Exposure: Yes (previous, her niece smoked ); Hx Alcohol Use: No Hx Substance Use: No Preferred Language: Lao Communication Ability: Effective Visual Impairment: No Limitations Insurance Verification Specialist Required: No Beliefs That Will Affect Care: None marital status: Current Living Situation: Alone Current Living Situation Comment: lives home alone in a house current occupational status: retired 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 Feels Safe at Home: Yes Childhood Exposure to Second-Hand Smoke: Yes caffeine: Yes Dental Care, Regularly: No Physical Activity Frequency: 3-4 Times per Week Seatbelt Use: sometimes Sunscreen Use: No Assistive Devices: Glasses Review of Systems Review of Systems: All systems reviewed & are unremarkable except as noted in HPI & below Physical Exam Physical Exam: General: Comfortable HEENT: Sclerae anicteric Lungs: Crackles at bases bilaterally Cardiac: Regular rate and rhythm, 2 of 6 at apex Vascular: 2+ radial bilaterally Abdomen: Soft, nontender Extremities: Well perfused, no peripheral edema Neuro: Nonfocal Psych: Alert orient x3, normal affect and mood Results & Data ([facility]) Vital Signs (Past 12 Hours) Vital Signs Temp Pulse Resp BP Pulse Ox 09/08/21 18:20 89 18 94 09/08/21 18:15 79 27 H 125/52 L 09/08/21 18:10 88 23 124/56 L 94 09/08/21 18:00 84 36 H 93 09/08/21 17:50 81 21 92 09/08/21 17:42 79 97 H 96 09/08/21 17:40 83 22 91 09/08/21 17:32 90 09/08/21 17:30 86 19 83 L 09/08/21 17:25 86 L 09/08/21 17:20 89 25 H 88 L 09/08/21 17:10 100 H 18 91 09/08/21 17:00 76 24 95 09/08/21 16:53 81 99 09/08/21 16:50 82 24 99 09/08/21 16:45 92 09/08/21 16:40 82 18 99 09/08/21 16:30 86 23 93 09/08/21 16:20 91 H 21 93 09/08/21 16:17 86 18 93 09/08/21 15:41 96.8 F L 89 24 147/79 H 92 PG Care Time/CCT Total # of Minutes Spent Total Time Spent with Patient: Total time spent is greater than 50% in coordination of care (as documented) at patient's floor/unit and/or counseling patient: Coding Level of Care Code 21278 Initial Inpt Care Lvl 3 Diagnoses NSTEMI (non-ST elevated myocardial infarction) I21.4
[2021-09-08] MEDS ORDERED: HEPARIN 25000 UNIT/500 ML D5W IV ONE (19:18)
[2021-09-08] MEDS ORDERED: NITROGLYCERIN/D5W 100 MCG/ML BTL ONE (19:18)
--- NOTE | 2021-09-08 19:37 | Pre Anesthesia Assessment ---
Date of Service September 08, 2021 Pre Sedation Assessment Vital Signs Temp Pulse Resp BP Pulse Ox 09/08/21 18:20 89 18 94 09/08/21 18:15 79 27 H 125/52 L 09/08/21 18:10 88 23 124/56 L 94 09/08/21 18:00 84 36 H 93 09/08/21 17:50 81 21 92 09/08/21 17:42 79 97 H 96 09/08/21 17:40 83 22 91 09/08/21 17:32 90 09/08/21 17:30 86 19 83 L 09/08/21 17:25 86 L 09/08/21 17:20 89 25 H 88 L 09/08/21 17:10 100 H 18 91 09/08/21 17:00 76 24 95 09/08/21 16:53 81 99 09/08/21 16:50 82 24 99 09/08/21 16:45 92 09/08/21 16:40 82 18 99 09/08/21 16:30 86 23 93 09/08/21 16:20 91 H 21 93 09/08/21 16:17 86 18 93 09/08/21 15:41 96.8 F L 89 24 147/79 H 92 Cardiovascular RRR, no murmur, no edema Respiratory + respiratory distress Pre-Sedation Airway Assessment Smoking Status: Never smoker Hx Sleep Apnea: No Hx Difficult Intubation: No Short, Thick Neck: No Thyromental Distance: > or= 3.5 Finger Breadths Oral Cavity: + WNL Mallampati Class: III ASA: ASA4 Procedure Planning Contraindications for Sedation: none Current Medications Reviewed: Yes Notes The planned sedation has been discussed with the patient. Informed Consent was obtained. I have identified the patient, determined the appropriateness of sedation and have assessed the patient immediately prior to the procedure. All medicine(s) and interventions are by my order.
--- NOTE | 2021-09-08 19:37 | Post Anesthesia Assessment ---
Date of Service September 08, 2021 Post Sedation Assessment Vital Signs Temp Pulse Resp BP Pulse Ox 09/08/21 18:20 89 18 94 09/08/21 18:15 79 27 H 125/52 L 09/08/21 18:10 88 23 124/56 L 94 09/08/21 18:00 84 36 H 93 09/08/21 17:50 81 21 92 09/08/21 17:42 79 97 H 96 09/08/21 17:40 83 22 91 09/08/21 17:32 90 09/08/21 17:30 86 19 83 L 09/08/21 17:25 86 L 09/08/21 17:20 89 25 H 88 L 09/08/21 17:10 100 H 18 91 09/08/21 17:00 76 24 95 09/08/21 16:53 81 99 09/08/21 16:50 82 24 99 09/08/21 16:45 92 09/08/21 16:40 82 18 99 09/08/21 16:30 86 23 93 09/08/21 16:20 91 H 21 93 09/08/21 16:17 86 18 93 09/08/21 15:41 96.8 F L 89 24 147/79 H 92 Recovery Score Activity: Moves 4 extremities Respiration: Deep Breath/Cough Circulation: +/-20% PreAnes Value Consciousness: Fully Awake Oxygen Saturation: O2 needed for >90% Discharge Sedation Level of Care: Fast Track Phase II Post Sedation Plan On clinical assessment, the patient appears to have tolerated the sedation without complications. Patient is recovering as anticipated. Patient will continue to be monitored by nursing and may be discharged when sedation discharge criteria are met per below protocol. Upon Completions of procedure up to 15 minutes continue every 5 minute vital signs and the P.A.R. score; then discharge to a Phase I or Fast Track to Phase II per the following guidelines: * Discharge Patient to appropriate Phase II area if PAR is 8 or greater or return to pre- procedure baseline. The post - procedure orders will be as directed. * If PAR score is less than 8 or not return to pre-procedure baseline then patient will follow Phase I monitoring till PAR is reached for Phase II. The Phase I may be done in procedure room or may call to secure a Phase I area. * If naloxone or flumazenil are used for reversal, hold in Phase I for continued monitoring from when last reversal dose was given for a minimum of 60 minutes or longer pending the nurse and/or physician discretion of patient condition before discharge to Phase II. Please call the Sedation Physician to re-evaluate and complete post-note for discharge to Phase II area. Do NOT discharge from procedure sedation or Phase 1 until post- sedation evaluation note is complete by procedure /sedation MD Sedation Discharge Instructions to be given to the patient at discharge to home.
[2021-09-08] MEDS ORDERED: ICU PROTOCOL FOR HYPERGLYCEMIA PRN (19:46)
[2021-09-08] MEDS ORDERED: STAT IV Infusion **Titration per Protocol STA (19:47)
[2021-09-08] MEDS ORDERED: Heparin IV Adult Wt-Based Standard *NO* Bolus Protocol IV ONE (19:51)
[2021-09-08] MEDS ORDERED: NITROGLYCERIN/D5W 100MCG/ML 250 ML IV SCH (20:00)
[2021-09-08] MEDS ORDERED: HEPARIN SODIUM/DEXTROSE 25,000 UNITS/500 ML BAG IV SCH (20:15)
--- NOTE | 2021-09-08 20:26 | Cardiac Catheterization ---
[facility] Data: Magnetic Resonance Technologist Cardiac Status Clinical evaluation leading to the procedure CAD Presenation: Non STEMI Anginal Classification: CCS IV Heart Failure: NYHA Class: CCS IV Cardiogenic Shock within 24 Hours: No Cardiac Arrest within 24 Hours: No Imaging Studies Past 6 Months: No Stress Studies Past 6 Months: No Diagnostic Physicians Name: Rafael Sullivan MD Status: Elective Closure Device Closure Device: Radial Band Recommendations: CABG Intraprocedure Events Significant Disection: No Cardiac Cath Procedure Full Procedure Date September 08, 2021 Pre-Procedure Diagnosis Pre-Procedure Diagnosis: Non STEMI AUC Score AUC Score: 8 Post-Procedure Diagnosis Post-Procedure Diagnosis: Severe CAD and Elevated Intracardiac Pressures Procedure(s) Performed Procedure(s) Performed: Coronary Angiography and Left Heart Cath Commercial Project Manager Rafael Sullivan MD Surgery Specialist(s) [place] Estimated Blood Loss Estimated Blood Loss: 5 Medication(s) Medication(s): Fentanyl, Heparin, Lidocaine 1%, Nicardipine, Nitroglycerin and Versed Summary of Findings Indication: High risk NSTEMI, acute heart failure. History of coronary artery disease with prior PR and circumflex stent in 2010 Access: 6 Fr right radial artery Catheters: [place], JR4 Findings: LM -normal caliber, calcified, 95% acute appearing distal stenosis before bifurcation LAD -severe disease extending from left main into ostium, 50% diffuse mid segment disease. Distal vessel with luminal irregularities. Small to medium caliber D1 40% ostial, D2 50% proximal Circumflex -2% ostial 40% mid. Distal vessel left PLB is without significant disease. RCA -dominant, medium caliber 20% early mid, distal luminal regularities, 30% ostial PDA. LVEDP -27 Arterial Closure: TR band Summary: 1. Severe multivessel coronary artery disease including LMCA disease -95% distal left main extending into ostial LAD, ostial circumflex 50% diffuse mid LAD 2. Elevated intracardiac filling pressure Recommendations: Recommend transfer to [facility] for cardiac surgery evaluation and possible CABG While awaiting transfer will continue on heparin infusion, nitroglycerin infusion. Given additional IV Lasix in Magnetic Resonance Technologist. Hemodynamics Rest Ao:: 111/41/68 Final Ao: 111/44/70 LV: 106/27 Recommendations Recommendations: CABG Specimens Specimens: None Radiation Exposure (mGy) 968 Contrast (mls) 35 Fluids (cc crystalloids) Fluids (cc crystalloids): 12 Drains Drains: None Anesthesia Moderate 8865-3089 Procedural Complication(s) None Disposition ICU I attest to the content of the Intraoperative Record and any orders documented therein. Any exceptions are noted below. [facility] Card Cath Procedure Codes Cardiac Catheterization Procedure 1: Cardiovascular Cath Procedures: 30415 Coronaries and LHC (+/-LV) Moderate Sedation Procedure 1: Sedation/Anesthesia: 06671 Mod Sedation by the same physician;Init15 Min Child Age 5 & Up PG Care Time/CCT Total # of Minutes Spent Total Time Spent with Patient: Total time spent is greater than 50% in coordination of care (as documented) at patient's floor/unit and/or counseling patient:
--- NOTE | 2021-09-08 20:27 | History & Physical Report ---
Date of Service September 08, 2021 Assessment & Plan (1) NSTEMI (non-ST elevated myocardial infarction): Plan: This is a 76-year-old female with a history of CAD (status post ARABELLA placement in mid circumflex and angioplasty of OM 2/diagonal in 2010), type 2 diabetes, COPD, CKD 3, ESTELA, prior CVA in 2019 (follows with [facility] vascular), tobacco abuse who presented to [facility] for evaluation of shortness of breath and back pain. Upon arrival to the ED, symptoms progressed and her ECG demonstrated changes concerning for lateral infarct (lateral ST depressions, aVR elevation). Her chest x-ray demonstrated flash pulmonary edema, requiring Lasix and BiPAP. Her exam was extremely concerning for ACS and acute heart failure. She was emergently taken to the Pattern Attendant by Dr. Rafael Sullivan. Here, she was found to have severe distal LAD occlusion extending to the ostial LAD and circumflex. Her LVEDP was found to be 27 - TTE at this time demonstrated global- moderate left ventricular dysfunction (LVEF 40%). Lasix given. ASA, atorvastatin continued. Previous Plavix held. Dr. Sullivan spoke with on-call [facility] cardiothoracic surgery, who did agree to transfer patient for CABG. She was started on nitro drip and heparin drip with some improvement of symptoms. Still required BiPAP. She was briefly held in the ICU before being transferred to [facility]. (2) Hypoxia: (3) CHF (congestive heart failure): (4) SOB (shortness of breath): (5) Acute electrocardiogram changes: (6) Elevated troponin: (7) Ex-smoker: (8) Presence of drug-eluting stent in left circumflex coronary artery: (9) CKD (chronic kidney disease): (10) Acute exacerbation of chronic obstructive pulmonary disease (COPD): (11) COPD with acute bronchitis: (12) Stage 3b chronic kidney disease: (13) Left acute arterial ischemic stroke, MCA (middle cerebral artery): (14) CAD (coronary atherosclerotic disease): (15) Carotid stenosis: (16) GERD (gastroesophageal reflux disease): (17) Hyperkalemia: (18) HTN (hypertension): (19) DM (diabetes mellitus), type 2, uncontrolled w/neurologic complication: Admission and Anticipated Discharge Date Admission Date: September 08, 2021 History of Present Illness Primary Care Provider: Nadia Suarez PA-C This is a 76-year-old female with a history of CAD (status post ARABELLA placement in mid circumflex and angioplasty of OM 2/diagonal in 2010), type 2 diabetes, COPD, CKD 3, ESTELA, prior CVA in 2019 (follows with [facility] vascular), tobacco abuse who presented to [facility] for evaluation of shortness of breath. History is obtained by chart review, as patient was transferred immediately following emergent catheterization. Apparently, patient had experienced worsening back pain with shortness of breath ongoing since yesterday, worse with exertion. Upon arrival into the ED, her symptoms progressed and her EKG began demonstrating changes concerning for lateral infarct (lateral ST depressions, aVR elevation). Her repeat chest x-ray demonstrated flash pulmonary edema, subsequently requiring BiPAP, Lasix. She was taken emergently to cardiac cath tech with Dr. Sullivan. Here she was found to have severe distal LAD occlusion extending to ostial LAD and circumflex. Patient was shortly thereafter accepted for transfer to [facility] for CABG. She was started on nitro gtt, heparin gtt. Symptoms improved. Admitted to ICU and subsequently transferred to [facility]. Allergies Allergy/AdvReac Type Severity Reaction Status Date / Time No Known Allergies Allergy Verified 09/08/21 16:14 Home Medications Medication Instructions Recorded Confirmed Type cholecalciferol (vitamin D3) 25 1,000 unit PO BID 05/19/18 09/08/21 History mcg (1,000 unit) tablet (Vitamin D3) cyanocobalamin (vitamin B-12) 1,000 mcg PO QAM 05/19/18 09/08/21 History 1,000 mcg tablet (Vitamin B-12) polysaccharide iron complex 150 mg 150 mg PO HS 04/02/19 09/08/21 History iron capsule (Ferric x-150) nitroglycerin 0.4 mg sublingual 0.4 mg SUBLINGUAL UD PRN #30 tab 04/07/20 09/08/21 Rx tablet (Nitrostat) gabapentin 100 mg capsule 200 mg PO BID 03/19/21 09/08/21 History (Neurontin) ferrous gluconate 324 mg (37.5 mg 324 mg PO BID #60 tab 06/04/21 09/08/21 Rx iron) tablet blood sugar diagnostic (OneTouch #100 ea 06/11/21 09/06/21 Rx Ultra Test) albuterol sulfate 90 mcg/actuation 2 puff INHALATION Q6H PRN #8.5 g 07/21/21 09/08/21 Rx aerosol inhaler (ProAir HFA) ipratropium 0.5 mg-albuterol 3 mg 3 ml INHALATION .COMPLEX PRN #180 07/21/21 09/08/21 Rx (2.5 mg base)/3 mL nebulization ml soln tiotropium bromide 18 mcg capsule 1 cap INHALATION QAM #30 inh 07/21/21 09/08/21 Rx with inhalation device (Spiriva with HandiHaler) calcitriol 0.25 mcg capsule 0.25 mcg PO 3XWK #45 cap 07/22/21 09/08/21 Rx (Rocaltrol) amlodipine 10 mg tablet (Norvasc) 10 mg PO QAM #90 tab 08/23/21 09/08/21 Rx benzonatate 100 mg capsule 100 mg PO BID PRN #60 cap 08/23/21 09/08/21 Rx furosemide 20 mg tablet (Lasix) 20 mg PO QAM #90 tab 08/24/21 09/08/21 Rx empagliflozin 10 mg tablet 10 mg PO DAILY #30 tab 08/27/21 09/08/21 Rx (Jardiance) atorvastatin 80 mg tablet 80 mg PO DAILY 09/06/21 09/08/21 History lisinopril 10 mg tablet 10 mg PO DAILY #90 tab 09/06/21 09/08/21 Rx carvedilol 25 mg tablet 25 mg PO BID 09/08/21 09/08/21 History clopidogrel 75 mg tablet 75 mg PO DAILY 09/08/21 09/08/21 History glimepiride 2 mg tablet (Amaryl) 4 mg PO BID 09/08/21 09/08/21 History pantoprazole 40 mg tablet,delayed 40 mg PO DAILY 09/08/21 09/08/21 History release Past Med/Surg History Medical History Acute respiratory failure with hypoxia Anemia (~12/03/13) CAD (coronary artery disease) NSTEMI 2010, ARABELLA x 1, POBA x 1 @ [facility] [facility] CAD (coronary atherosclerotic disease) 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 diabetes mellitus Diabetes mellitus, type 2 Diabetic peripheral neuropathy DJD (degenerative joint disease) GERD (gastroesophageal reflux disease) H/O: CVA (cerebrovascular accident) Developed facial droop after cardiac cath 2010. Acute infarct. Treated, complete resolution of symptoms. No residual deficits. Hyperkalemia Persistent since 12/2018 Hyperkalemia Hyperlipidemia Hypertension Hypoxia Hypoxia Lumbar spinal stenosis Myocardial Infarction NSTEMI 2010. ARABELLA to mid LCx and POBA to LAD/Dx. Presence of drug-eluting stent in left circumflex coronary artery Secondary hyperparathyroidism of renal origin SOB (shortness of breath) Stage 3b chronic kidney disease Stage 3B nodular histiocytic lymphoma Tobacco use disorder, continuous Vitamin D deficiency Surgical History History of cardiac cath History of carpal tunnel release History of cataract surgery History of colonoscopy History of tooth extraction History of tubal ligation Family History Brother Family history of diabetes mellitus Sister Family history of diabetes mellitus Sister Family history of diabetes mellitus Mother Family history of diabetes mellitus Myocardial infarction Stroke Father Myocardial infarction Denies family history of Ovarian cancer Prostate cancer Breast cancer Colorectal cancer Social History Smoking Status: Former smoker Tobacco Type: Cigarettes Age Started Using Tobacco: 24; Age Quit Using Tobacco: 75; packs per day: 0.5; Second Hand Exposure: No; Do You Dip or Chew Tobacco: No; Tobacco Cessation Education Requested by Patient: No Hx Alcohol Use: No Hx Substance Use: No Preferred Language: Mozambican Communication Ability: Effective Visual Impairment: No Limitations Chiropractic Doctor Required: No Beliefs That Will Affect Care: None marital status: Current Living Situation: Alone Current Living Situation Comment: lives home alone in a house current occupational status: retired 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 Please see note entered by cardiology for admission and discharge examination. Results & Data Results & Data ([facility]) Vital Signs (Past 12 Hours) Vital Signs Temp Pulse Resp BP Pulse Ox 09/08/21 18:20 89 18 94 09/08/21 18:15 79 27 H 125/52 L 09/08/21 18:10 88 23 124/56 L 94 09/08/21 18:00 84 36 H 93 09/08/21 17:50 81 21 92 09/08/21 17:42 79 97 H 96 09/08/21 17:40 83 22 91 09/08/21 17:32 90 09/08/21 17:30 86 19 83 L 09/08/21 17:25 86 L 09/08/21 17:20 89 25 H 88 L 09/08/21 17:10 100 H 18 91 09/08/21 17:00 76 24 95 09/08/21 16:53 81 99 09/08/21 16:50 82 24 99 09/08/21 16:45 92 09/08/21 16:40 82 18 99 09/08/21 16:30 86 23 93 09/08/21 16:20 91 H 21 93 09/08/21 16:17 86 18 93 09/08/21 15:41 36.0 C L 89 24 147/79 H 92 Code Status & VTE Plan VTE Prophylaxis Plan VTE Prophylaxis will be ordered: Yes Critical Care Time 40 minutes Supervising Physician Co-Signing Physician Notes Attending addendum: I have physically seen this patient, have supervised the medical residents activities, and agree with the H&P unless as otherwise noted. Assessment and Plan: NSTEMI/heart alert- Taken emergently to cardiac catheterization by Dr. Rafael Sullivan ARABELLA placement in mid circumflex and angioplasty of OM 2/diagonal in 2010 Continuing Lasix and BiPAP due to flash pulmonary edema associated with acute cardiac event Catheterization showed severe distal LAD occlusion extending to the ostial LAD and circumflex Plan per Dr. Sullivan's referral to [facility] cardiothoracic surgery for CABG Admit to the ICU here until bed available at [facility] Remaining orders and notations as noted Resident Activity Tracking Resident Involvement: Resident Care Provided Care Provided: Adult Hospital Medicine (1) CHF (congestive heart failure) Heart failure chronicity: acute Heart failure type: unspecified Qualified Code(s): I50.9 - Heart failure, unspecified (2) CKD (chronic kidney disease) Chronic kidney disease stage: unspecified stage Qualified Code(s): N18.9 - Chronic kidney disease, unspecified
--- NOTE | 2021-09-08 20:28 | Discharge Summary ---
Date of Service September 08, 2021 Admission HPI Per Admitting Provider Ms. Mcdaniels is a 76-year-old woman seen urgently in the ED due to suspected ACS and acute heart failure. Patient followed by Dr. Bradley for cardiac care. She has a history of coronary artery disease with prior NSTEMI in 2010 with ARABELLA placement to mid circumflex and angioplasty of OM 2 and diagonal. Last echo 01/2021 showed LVEF 55 to 60%, mild MR. Other medical issues include type 2 diabetes, stage IIIb chronic kidney disease, anemia, COPD, morbid obesity, obstructive sleep apnea, lumbar spinal stenosis post back surgery. She is post prior CVA in 2019. Has known left ICA moderate stenosis followed by [facility] vascular. Ongoing tobacco use. Patient developed shortness of breath with back pain beginning yesterday. Symptoms worse with exertion. Denied orthopnea or edema. Shortness of breath progressed today in the ED. Covid negative. Shortness of breath progressed while in ED and serial ECG showed diffuse lateral ST depressions and elevation in aVR. Troponin mildly elevated 0.9. Second chest x-ray showed new pulmonary edema. Breathing improved with Nitropaste, 20 of IV Lasix and placed on BiPAP. Discharge Data Consultations 09/08/21 18:02 ED Decision to Admit Stat 09/08/21 19:47 Consult Account Executive [employer] Routine Procedures Performed Operation Date: 09/08/21 18:20 Actual Procedures p Cineradiography w/Routine Exam - Karlos Sullivan MD p Cath, Left with Cors and Vent - Karlos Sullivan MD Hospital Course (1) NSTEMI (non-ST elevated myocardial infarction): Patient taken urgently for cardiac catheterization. Found to have critical left main disease, 95% distal extending into ostial LAD, ostial circumflex. Patient in need of CABG evaluation and discussed with [facility] cardiac surgery who agreed to accept patient. LVEDP elevated to 27. Quick look echocardiogram in Data Control Clerk Supervisor suggested global moderate LV dysfunction with EF around 40%. Given additional IV Lasix in Data Control Clerk Supervisor. Started on nitro infusion, heparin infusion while awaiting transfer. Prior clopidogrel held. Patient's presenting back pain resolved. Breathing comfortably on BiPAP. Coding Level of Care Code D/C DAY MANAGEMENT >30 MINS Diagnoses NSTEMI (non-ST elevated myocardial infarction) I21.4
[2021-09-08] MEDS ORDERED: METOPROLOL TARTRATE 25 MG TAB PO SCH (21:00)
--- NOTE | 2021-09-08 22:30 | Critical Care Consultation ---
Date of Consultation September 08, 2021 Assessment & Plan (1) NSTEMI (non-ST elevated myocardial infarction): Impression: 76-year-old female presents to the ICU following ACS and heart catheterization and awaiting transfer to tertiary center for eval for CABG Neuro - [facility] ICU: Negative Cardiac - NSTEMIpatient with ST depressions and ST elevation in aVR with acute pulmonary edema was taken for emergent cardiac catheterization where she was found to have severe multivessel CAD with 95% distal left main disease. Cardiology managing and plan for patient to transfer to [facility] for evaluation for CABG. She is admitted to ICU pending transfer. -Echo 01/29/2021jection fraction 55 to 60% with normal LVEF and mild mitral regurgitation -Continue heparin and nitro infusions -Received 40 IV Lasix in Aircraft Engine Cylinder Mechanic. Will hold on further diuresis for time being and reevaluate -Continue ASA, statin, MTP -Trend troponins -Maximize electrolyte -Continuous monitoring on telemetry Respiratory - Hypoxialikely secondary to pulmonary edema due to acute heart failure -Patient was initially on BiPAP and now able to be weaned to nasal cannula following IV Lasix -Continue to wean oxygen as tolerated -We will follow creatinine and spot diuresis as allowed to maintain negative fluid balance -Continuous monitoring pulse ox GI - Heart healthy diabetic diet RENAL/LYTES - CKDcreatinine currently at baseline at 1.76, monitor routine BMPs and replete electrolytes as indicated - Foleystrict I's and O's ENDO - DM type IIhold glimepiride, transition to sliding scale -ICU hyperglycemic protocol HEME - H&H stable, monitor routine CBC ID - No indication for infectious process at this time LINES/IV ACCESS - Peripheral IVs DVT PROPHYLAXIS - SCDs, heparin Thank you for allowing us to participate in the care of this patient. Please refer to my attending physician's documentation for any further recommendations. (2) Hypoxia: (3) SOB (shortness of breath): (4) CHF (congestive heart failure): (5) Acute electrocardiogram changes: (6) Elevated troponin: (7) Chronic bronchitis: (8) COPD (chronic obstructive pulmonary disease): (9) Morbid obesity: (10) Nocturnal hypoxia: (11) CKD (chronic kidney disease): (12) GERD (gastroesophageal reflux disease): (13) HTN (hypertension): History of Present Illness Attending Physician: Rafael Sullivan MD History of Present Illness Patient is a 76-year-old female with past medical history of CAD, NSTEMI with ARABELLA placement 2010, DM type II, CKD, COPD, ESTELA, and history of tobacco abuse who presented to the emergency department with complaints of dizziness and shortness of breath which were ongoing x2 days. She also had one episode of vomiting. EKG showed diffuse lateral ST depression and elevation in aVR with troponin elevated 0.9. Her chest x-ray showed pulmonary edema. She was placed on BiPAP and given IV Lasix and heart alert was initiated. She underwent emergent heart catheterization where she was found to have severe multivessel CAD including LMCA disease and 95% distal left main stenosis extending to ostial LAD, ostial circumflex. production trainer recommended transfer to [place] for evaluation for CABG and she was placed on heparin drip and nitro infusion. She has been accepted to [facility] and is awaiting transfer which was delayed until the morning and she will be further managed in ICU for the time being. On arrival to the ICU the patient is alert and oriented and appears comfortable currently on 6 L nasal cannula. She complains of mild shortness of breath which she says has much improved. Like she currently denies dizziness, headache, recent illness or fevers, congestion, cough, chest pain or palpitations, nausea or vomiting or diarrhea. Allergies Allergy/AdvReac Type Severity Reaction Status Date / Time No Known Allergies Allergy Verified 09/08/21 16:14 Home Medications Medication Instructions Recorded Confirmed Type cholecalciferol (vitamin D3) 25 1,000 unit PO BID 05/19/18 09/08/21 History mcg (1,000 unit) tablet (Vitamin D3) cyanocobalamin (vitamin B-12) 1,000 mcg PO QAM 05/19/18 09/08/21 History 1,000 mcg tablet (Vitamin B-12) polysaccharide iron complex 150 mg 150 mg PO HS 04/02/19 09/08/21 History iron capsule (Ferric x-150) nitroglycerin 0.4 mg sublingual 0.4 mg SUBLINGUAL UD PRN #30 tab 04/07/20 09/08/21 Rx tablet (Nitrostat) gabapentin 100 mg capsule 200 mg PO BID 03/19/21 09/08/21 History (Neurontin) ferrous gluconate 324 mg (37.5 mg 324 mg PO BID #60 tab 06/04/21 09/08/21 Rx iron) tablet blood sugar diagnostic (OneTouch #100 ea 06/11/21 09/06/21 Rx Ultra Test) albuterol sulfate 90 mcg/actuation 2 puff INHALATION Q6H PRN #8.5 g 07/21/21 09/08/21 Rx aerosol inhaler (ProAir HFA) ipratropium 0.5 mg-albuterol 3 mg 3 ml INHALATION .COMPLEX PRN #180 07/21/21 09/08/21 Rx (2.5 mg base)/3 mL nebulization ml soln tiotropium bromide 18 mcg capsule 1 cap INHALATION QAM #30 inh 07/21/21 09/08/21 Rx with inhalation device (Spiriva with HandiHaler) calcitriol 0.25 mcg capsule 0.25 mcg PO 3XWK #45 cap 07/22/21 09/08/21 Rx (Rocaltrol) amlodipine 10 mg tablet (Norvasc) 10 mg PO QAM #90 tab 08/23/21 09/08/21 Rx benzonatate 100 mg capsule 100 mg PO BID PRN #60 cap 08/23/21 09/08/21 Rx furosemide 20 mg tablet (Lasix) 20 mg PO QAM #90 tab 08/24/21 09/08/21 Rx empagliflozin 10 mg tablet 10 mg PO DAILY #30 tab 08/27/21 09/08/21 Rx (Jardiance) atorvastatin 80 mg tablet 80 mg PO DAILY 09/06/21 09/08/21 History lisinopril 10 mg tablet 10 mg PO DAILY #90 tab 09/06/21 09/08/21 Rx carvedilol 25 mg tablet 25 mg PO BID 09/08/21 09/08/21 History clopidogrel 75 mg tablet 75 mg PO DAILY 09/08/21 09/08/21 History glimepiride 2 mg tablet (Amaryl) 4 mg PO BID 09/08/21 09/08/21 History pantoprazole 40 mg tablet,delayed 40 mg PO DAILY 09/08/21 09/08/21 History release Patient History Medical History Acute respiratory failure with hypoxia Anemia (~12/03/13) CAD (coronary artery disease) NSTEMI 2010, ARABELLA x 1, POBA x 1 @ [facility] CAD (coronary atherosclerotic disease) 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 diabetes mellitus Diabetes mellitus, type 2 Diabetic peripheral neuropathy DJD (degenerative joint disease) GERD (gastroesophageal reflux disease) H/O: CVA (cerebrovascular accident) Developed facial droop after cardiac cath 2010. Acute infarct. Treated, complete resolution of symptoms. No residual deficits. Hyperkalemia Persistent since 12/2018 Hyperkalemia Hyperlipidemia Hypertension Hypoxia Hypoxia Lumbar spinal stenosis Myocardial Infarction NSTEMI 2010. ARABELLA to mid LCx and POBA to LAD/Dx. Presence of drug-eluting stent in left circumflex coronary artery Secondary hyperparathyroidism of renal origin SOB (shortness of breath) Stage 3b chronic kidney disease Stage 3B nodular histiocytic lymphoma Tobacco use disorder, continuous Vitamin D deficiency Surgical History History of cardiac cath History of carpal tunnel release History of cataract surgery History of colonoscopy History of tooth extraction History of tubal ligation Family History Brother Family history of diabetes mellitus Sister Family history of diabetes mellitus Sister Family history of diabetes mellitus Mother Family history of diabetes mellitus Myocardial infarction Stroke Father Myocardial infarction Denies family history of Ovarian cancer Prostate cancer Breast cancer Colorectal cancer Social History Smoking Status: Former smoker Tobacco Type: Cigarettes Age Started Using Tobacco: 24; Age Quit Using Tobacco: 75; packs per day: 0.5; Second Hand Exposure: No; Do You Dip or Chew Tobacco: No; Tobacco Cessation Education Requested by Patient: No Hx Alcohol Use: No Hx Substance Use: No Preferred Language: Malaysian Communication Ability: Effective Visual Impairment: No Limitations Correctional Maintenance Technician Required: No Beliefs That Will Affect Care: None marital status: Current Living Situation: Alone Current Living Situation Comment: lives home alone in a house current occupational status: retired 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 Other Information That Helps Us Care for You: No Feels Safe at Home: Yes Safety Concerns: Feels Safe At This Time Childhood Exposure to Second-Hand Smoke: Yes caffeine: Yes Dental Care, Regularly: No Physical Activity Frequency: 3-4 Times per Week Seatbelt Use: sometimes Sunscreen Use: No Assistive Devices: Denture - Upper, Glasses, Oxygen - at Night and Walker Review of Systems Review of Systems: All systems reviewed & are unremarkable except as noted in HPI & below Physical Exam Constitutional: cooperative and comfortable; no acute distress Eyes: PERRL, conjunctivae normal, anicteric sclerae ENMT: external ear and nose normal, oropharynx normal Neck: trachea midline, no thyromegaly Respiratory: normal respiratory effort, lungs clear to auscultation Cardiovascular: RRR, no murmur, no edema Heart Sounds: normal S1 and normal S2 Vessels: no JVD Extremities: no edema Gastrointestinal (Abdomen): normal bowel sounds, soft, nontender, no hepatosplenomegaly Musculoskeletal: no cyanosis or clubbing, extremities motor strength 5/5 Skin: no rashes, warm and dry Neurologic: PERRL, EOMI, accommodation nl, no face palsy, no dysarthria Psychiatric: A+Ox3, euthymic affect Results & Data Results & Data ([facility]) Vital Signs (Past 12 Hours) Vital Signs Temp Pulse Pulse Resp BP BP Pulse Ox 09/08/21 19:45 37.0 C 70 24 106/52 L 100 09/08/21 18:20 89 18 94 09/08/21 18:15 79 27 H 125/52 L 09/08/21 18:10 88 23 124/56 L 94 09/08/21 18:00 84 36 H 93 09/08/21 17:50 81 21 92 09/08/21 17:42 79 97 H 96 09/08/21 17:40 83 22 91 09/08/21 17:32 90 09/08/21 17:30 86 19 83 L 09/08/21 17:25 86 L 09/08/21 17:20 89 25 H 88 L 09/08/21 17:10 100 H 18 91 09/08/21 17:00 76 24 95 09/08/21 16:53 81 99 09/08/21 16:50 82 24 99 09/08/21 16:45 92 09/08/21 16:40 82 18 99 09/08/21 16:30 86 23 93 09/08/21 16:20 91 H 21 93 09/08/21 16:17 86 18 93 09/08/21 15:41 36.0 C L 89 24 147/79 H 92 Coding Level of Care Code 08239 Inpt Consult Level 5 Diagnoses NSTEMI (non-ST elevated myocardial infarction) I21.4 Hypoxia R09.02 SOB (shortness of breath) R06.02 CHF (congestive heart failure) I50.9 Heart failure chronicity: acute Heart failure type: unspecified Acute electrocardiogram changes R94.31 Elevated troponin R77.8 Chronic bronchitis J42 COPD (chronic obstructive pulmonary disease) J44.9 Morbid obesity E66.01 Nocturnal hypoxia G47.34 CKD (chronic kidney disease) N18.9 Chronic kidney disease stage: unspecified stage GERD (gastroesophageal reflux disease) K21.9 HTN (hypertension) I10 (1) CHF (congestive heart failure) Heart failure chronicity: acute Heart failure type: unspecified Qualified Code(s): I50.9 - Heart failure, unspecified (2) CKD (chronic kidney disease) Chronic kidney disease stage: unspecified stage Qualified Code(s): N18.9 - Chronic kidney disease, unspecified
[2021-09-08] MEDS ORDERED: PHARMACY GLYCEMIC MGMT CONSULT PRN (22:40)
[2021-09-08] MEDS ORDERED: CARBOHYDRATES FOR HYPOGLYCEMIA PO PRN (22:40)
[2021-09-08] MEDS ORDERED: DEXTROSE 50% 50 ML SYRINGE IV PRN (22:40)
[2021-09-08] MEDS ORDERED: GLUCOSE 10 TABS/TUBE PO PRN (22:40)
[2021-09-08] MEDS ORDERED: GLUCOSE 40% GEL 15 GM TUBE PO PRN (22:40)
[2021-09-08] MEDS ORDERED: GLUCAGON FOR INJ 1 MG VIAL SQ PRN (22:40)
[2021-09-08] MEDS ORDERED: INSULIN ASPART PER UNIT SC SCH (23:00)
[2021-09-08] MEDS: MAGNESIUM SULFATE / D5W 1 GM/100 ML BAG IV SCH (23:19)
[2021-09-09] MEDS: MAGNESIUM SULFATE / D5W 1 GM/100 ML BAG IV SCH (01:36)
[2021-09-09 02:01] LABS: Basophils # (auto) 0.01 K/uL (0-0.2); Basophils % (auto) 0.1 %; Eosinophils # (auto) 0.01 K/uL (0-0.5); Eosinophils % (auto) 0.1 %; Hematocrit (blood only) 34.4 % (37-47); Hemoglobin 10.9 g/dL (12.0-16.0); Immature Granulocytes # (auto) 0.03 K/uL (0.00-0.02); Immature Granulocytes % (auto) 0.3 %; Lymphocytes # (auto) 0.95 K/uL (1.2-3.4); Mean Corpuscular Hemoglobin 27.9 pg (25-34); Mean Platelet Volume 11.4 fL (7.4-10.4); Monocytes # (auto) 0.13 K/uL (0.11-0.59); Monocytes % (auto) 1.2 %; Neutrophils # (auto) 9.43 K/uL (1.4-6.5); Neutrophils % (auto) 89.3 %; Platelet Count 225 K/uL (130-400); RDW Coefficient of Variation 13.9 % (11.5-14.5); RDW Standard Deviation 44.6 fL (36.4-46.3); Red Blood Count 3.91 M/uL (4.2-5.4); White Blood Count 10.56 K/uL (4.8-10.8)
[2021-09-09 02:12] LABS: Mean Corpuscular Hgb Conc 31.7 g/dL (32-36)
[2021-09-09 02:21] LABS: Albumin Globulin Ratio 1.2 (0.9-2); Albumin Level 3.4 gm/dl (3.4-5.0); BUN Creatinine Ratio 20.5 (10-20); Bilirubin,Total 0.3 mg/dl (0.2-1.0); Calcium 8.1 mg/dl (8.5-10.1); Creatinine Clr Calc Pharmacy 23.3 ml/min; Est GFR (African American) 28.5 ml/min; Est GFR (Non-African American) 24.6 ml/min; Globulin 2.8 gm/dl (2.5-4.0); Total Protein 6.2 gm/dl (6.0-8.3)
[2021-09-09 02:35] LABS: Partial Thromboplastin Ratio 5.2
[2021-09-09 02:48] LABS: Troponin I 14.63 ng/ml (0-0.04)
[2021-09-09 07:08] LABS: Estimated Average Glucose 169 mg/dl; Hemoglobin A1C 7.5 % (4.5-5.6)
[2021-09-09] MEDS ORDERED: INSULIN ASPART PER UNIT SC SCH (07:30)
[2021-09-09] MEDS ORDERED: ASPIRIN 81 MG ECTAB PO SCH (09:00)
[2021-09-09] MEDS ORDERED: ATORVASTATIN 40 MG TAB PO SCH (09:00)
--- NOTE | 2021-09-09 21:47 | Electrocardiogram Report ---
Test Reason : Blood Pressure : / mmHG Vent. Rate : 068 BPM Atrial Rate : 068 BPM P-R Int : 162 ms QRS Dur : 100 ms QT Int : 420 ms P-R-T Axes : 036 -29 137 degrees QTc Int : 446 ms Normal sinus rhythm Abnormal ECG When compared with ECG of 25-JUN-2020 13:39, ST now depressed in Lateral leads T wave inversion more evident in Lateral leads Confirmed by Chas Duarte ([id number]) on 09/09/2021 9:46:34 PM Referred By: REFERRED SELF Confirmed By:Chas Duarte
--- NOTE | 2021-09-09 21:51 | Electrocardiogram Report ---
Test Reason : Blood Pressure : / mmHG Vent. Rate : 084 BPM Atrial Rate : 084 BPM P-R Int : 154 ms QRS Dur : 100 ms QT Int : 372 ms P-R-T Axes : 037 -36 152 degrees QTc Int : 439 ms Normal sinus rhythm Left axis deviation Septal infarct , age undetermined Abnormal ECG When compared with ECG of 19-MAR-2021 12:25, ST now depressed in Inferior leads ST now depressed in Lateral leads T wave inversion more evident in Lateral leads Confirmed by Chas Duarte ([id number]) on 09/09/2021 9:51:36 PM Referred By: REFERRED SELF Confirmed By:Chas Duarte
--- NOTE | 2021-09-09 22:21 | Electrocardiogram Report ---
Test Reason : Blood Pressure : / mmHG Vent. Rate : 088 BPM Atrial Rate : 088 BPM P-R Int : 142 ms QRS Dur : 096 ms QT Int : 354 ms P-R-T Axes : 022 -41 186 degrees QTc Int : 428 ms Poor data quality, interpretation may be adversely affected Normal sinus rhythm Left axis deviation Septal infarct (cited on or before 08-SEP-2021) Marked ST abnormality, possible inferior subendocardial injury Abnormal ECG When compared with ECG of 08-SEP-2021 16:40, No significant change Confirmed by Chas Duarte ([id number]) on 09/09/2021 10:21:11 PM Referred By: REFERRED SELF Confirmed By:Chas Duarte
--- NOTE | 2021-09-09 22:22 | Electrocardiogram Report ---
Test Reason : Blood Pressure : / mmHG Vent. Rate : 077 BPM Atrial Rate : 077 BPM P-R Int : 154 ms QRS Dur : 100 ms QT Int : 380 ms P-R-T Axes : 001 -30 119 degrees QTc Int : 430 ms Normal sinus rhythm Left axis deviation Abnormal ECG When compared with ECG of 08-SEP-2021 17:29, ST no longer depressed in Inferior leads Confirmed by Chas Duarte ([id number]) on 09/09/2021 10:22:27 PM Referred By: REFERRED SELF Confirmed By:Chas Duarte
--- NOTE | 2021-09-09 22:36 | Billing Data ---
Date of Service September 09, 2021 Coding Level of Care Code Critical Care 1st - mins
== END 2021-09-09 02:15 | disposition short-term general hospital (02) | DRG 280 ==
LOC: ED 15:38 → CC 19:08 → 1E 19:08

== ENCOUNTER 2021-10-18 07:06 | Inpatient (IN) ==
--- NOTE | 2021-10-18 07:23 | Emergency Department Note ---
Impression & Plan ESRD with anemia, Hypoxia, Tachycardia, Fever, S/P CABG (coronary artery bypass graft) ED Provider Note CHIEF COMPLAINT: SOB HISTORY OF PRESENT ILLNESS: This 76 yo female patient presents to the emergency department with c/o shortness of breath. Patient is coming from dialysis where she was initially asymptomatic on her nasal cannula oxygen. Per the dialysis nurses and report from her middle school director, the patient became suddenly short of breath and hypoxic to the mid 80s on her home O2. The oxygen was turned up to 3 to 4 L but the patient remained symptomatic. They were not able to get her comfortable for her treatment therefore discontinued the treatment and called the ambulance. Patient denied any chest pain but was noted to be tachycardic and hypertensive. Patient had a CABG in August 2021. She states she does urinate, approximately 3 times a day. She follows with Dr. Morales of [facility] nephrology. She denies any recent fevers, chills, vomiting or diarrhea. She states her stools have been black but she is takes an iron supplement. She denies any blood thinners but does take aspirin and Plavix. REVIEW OF SYSTEMS: A review of systems was performed with positives and pertinent negatives listed in the history of present illness. 10 systems were reviewed and are otherwise negative. ALLERGIES: see below MEDICATIONS: see below PMH: see below SOCIAL HISTORY: see below DDx:Reactive airway disease, pneumonia, pneumothorax, COPD, CHF, infections, cardiac ischemia, pulmonary embolism, musculoskeletal, gastrointestinal, as well as other pathologies. PHYSICAL EXAM: Vital signs reviewed. General: Chronically ill-appearing 76 yo female, in no significant distress. HEENT: No scleral icterus, PERRLA, neck supple. Moist mucous membranes. Cardiovascular: Tachycardic rate and regular rhythm, no extra sounds. Pulmonary: crackles at the bases bilaterally slightly increased work of breathing, nasal cannula oxygen Abdomen: Soft, nontender, nondistended, positive bowel sounds. Musculoskeletal: Atraumatic, no peripheral edema. Rectal: Guaiac negative dark stool, no gross blood. Neurologic: Patient awake alert and oriented x 3, speech is clear Skin: Warm, dry, no rash. Surgical changes noted to the anterior chest wall. Dialysis catheter in place left anterior chest/subclavian EMERGENCY DEPARTMENT COURSE/MDM: This pt was evaluated and appeared to be in no distress. IV access was obtained and lab work was drawn. The patient was placed on tank car inspector and noted to be in a sinus tachycardia. Patient was noted to be slightly hypertensive initially. Patient was given 10 mg of IV labetalol as she is on metoprolol daily. Oxygen saturations have remained stable. She is noted to have a hemoglobin of 8.1. Patient was given Lasix 40 mg IV as she does still make urine. Chest x-ray was performed and reveals no evidence of pulmonary edema but pleural effusions are noted. Patient did develop a temperature of 38.1 in the ED. Blood cultures and lactate were added. Patient was medicated with IV cefepime and vancomycin. Review of records indicates a recent Klebsiella UTI which was treated with p.o. Keflex. UA is negative today but will be sent for culture. Patient's source may be the dialysis catheter. CT of the chest was performed to rule out PE which is negative, no focal infiltrate is noted however the pleural effusions are noted. Patient was typed and crossed for 2 units of PRBCs given the tachycardia, shortness of breath and anemia. She is guaiac negative from the rectum. She was transfused 1 unit of PRBCs after this was discussed with both the patient and her niece at the bedside. Patient's case was discussed with the hospitalist service for admission and further management. Patient's middle school director, Dr. Espinosa is aware of the situation and agrees with the plan. MONITORING: An order for cardiac monitoring was placed and the patient is noted to be in a sinus tachycardia at 119 beats per minute. RADIOLOGY: see below EKG: Sinus tachycardia 112 bpm, left axis deviation, nonspecific ST and T wave abnormality in the lateral leads. No PVC, no PAC. Normal HI interval. Normal QTC. DISPOSITION: Admit I have personally spent 45 minutes of critical care time in the direct management of this patient. This was a life/limb threatening event. This 45 minutes is in excess of all separately billable procedures. Past Med/Surg History Medical History (Updated 10/22/21 @ 06:49 by Abdulkadir Koenig) Acute electrocardiogram changes Acute kidney injury Acute respiratory failure with hypoxia Anemia (~12/03/13) Anemia due to chronic kidney disease CAD (coronary artery disease) NSTEMI 2010, ARABELLA x 1, POBA x 1 @ [facility] CAD (coronary atherosclerotic disease) CABG x2 09/10/2021 at the [facility] LEGER-LAD, SVG-OM 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 diabetes mellitus Diabetes mellitus, type 2 Diabetic peripheral neuropathy DJD (degenerative joint disease) Elevated troponin GERD (gastroesophageal reflux disease) H/O: CVA (cerebrovascular accident) Developed facial droop after cardiac cath 2010. Acute infarct. Treated, complete resolution of symptoms. No residual deficits. Hyperkalemia Persistent since 12/2018 Hyperkalemia Hyperlipidemia Hypertension Hypoxia Hypoxia Hypoxia Lumbar spinal stenosis Myocardial Infarction NSTEMI 2010. ARABELLA to mid LCx and POBA to LAD/Dx. Presence of drug-eluting stent in left circumflex coronary artery Secondary hyperparathyroidism of renal origin SOB (shortness of breath) SOB (shortness of breath) Stage 3b chronic kidney disease Stage 3B nodular histiocytic lymphoma Tobacco use disorder, continuous Vitamin D deficiency Surgical History (Updated 10/18/21 @ 14:54 by Shari Booth MD) History of cardiac cath 1 STENT 2010-[facility]-NO CHEST PAIN SINCE History of carpal tunnel release RT History of cataract surgery RT/LEFT History of colonoscopy History of tooth extraction History of tubal ligation Family History Brother Family history of diabetes mellitus Sister Family history of diabetes mellitus Sister Family history of diabetes mellitus Mother Family history of diabetes mellitus Myocardial infarction Stroke Father Myocardial infarction Denies family history of Ovarian cancer Prostate cancer Breast cancer Colorectal cancer Social History Smoking Status: Former smoker Tobacco Type: Cigarettes Age Started Using Tobacco: 24; Age Quit Using Tobacco: 75; packs per day: 0.5; Second Hand Exposure: No; Hx Alcohol Use: No Hx Substance Use: No Preferred Language: Ethiopian Communication Ability: Effective Visual Impairment: No Limitations 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 Required: No Beliefs That Will Affect Care: None marital status: Current Living Situation: Alone Current Living Situation Comment: lives home alone in a house current occupational status: retired 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 How many Children do You have: 1 Feels Safe at Home: Yes Childhood Exposure to Second-Hand Smoke: Yes caffeine: Yes Dental Care, Regularly: No Physical Activity Frequency: 3-4 Times per Week Seatbelt Use: sometimes Sunscreen Use: No Assistive Devices: Oxygen - Continuous and Walker Allergies Allergies Allergy/AdvReac Type Severity Reaction Status Date / Time No Known Allergies Allergy Verified 10/13/21 09:17 Home Meds Home Medications Medication Instructions Recorded Confirmed gabapentin 100 mg capsule 200 mg PO BID 03/19/21 10/18/21 (Neurontin) atorvastatin 80 mg tablet 80 mg PO DAILY 09/06/21 10/18/21 clopidogrel 75 mg tablet 75 mg PO DAILY 09/08/21 10/18/21 pantoprazole 40 mg tablet,delayed 40 mg PO DAILY 09/08/21 10/18/21 release aspirin 81 mg tablet,delayed 81 mg PO DAILY 10/06/21 10/18/21 release (Adult Aspirin Regimen) metoprolol tartrate 25 mg tablet 12.5 mg PO BID tab 10/06/21 10/18/21 sitagliptin 25 mg tablet (Januvia) 25 mg PO DAILY 10/06/21 10/18/21 blood sugar diagnostic (OneTouch 10/13/21 10/13/21 Ultra Test) Previous Rx's Medication Instructions Recorded nitroglycerin 0.4 mg sublingual 0.4 mg SUBLINGUAL UD PRN #30 tab 04/07/20 tablet (Nitrostat) albuterol sulfate 90 mcg/actuation 2 puff INHALATION Q6H PRN #8.5 g 07/21/21 aerosol inhaler (ProAir HFA) ipratropium 0.5 mg-albuterol 3 mg 3 ml INHALATION .COMPLEX PRN #180 07/21/21 (2.5 mg base)/3 mL nebulization ml soln tiotropium bromide 18 mcg capsule 1 cap INHALATION QAM #30 inh 07/21/21 with inhalation device (Spiriva with HandiHaler) Portable Oxygen #2 ea 10/12/21 cephalexin 250 mg capsule 250 mg PO BID 7 Days #14 cap 10/13/21 Results & Data (ED) Vital Signs Vital Signs - 24 hr 10/18/21 07:20 10/18/21 07:33 10/18/21 08:02 Temperature 37.0 C Temperature Source Oral Pulse Rate 110 H Pulse Rate [Apical] 119 H Pulse Rhythm Regular Pulse Rhythm [Apical] Regular Pulse Strength [Apical] Normal Respiratory Rate 26 H 26 H Respiratory Effort / Characteristics Spontaneous Short of Breath Short of Breath Respiratory Depth Normal Respiratory Pattern Regular Blood Pressure 142/54 H Blood Pressure [Right Arm] 101/72 Blood Pressure Mean 83 Blood Pressure Mean [Right Arm] 81 Blood Pressure Position Pulse Oximetry 93 93 96 Oxygen Delivery Method Nasal Cannula Nasal Cannula Nasal Cannula Oxygen Flow Rate 3 3 3 Sepsis Recent Fever Within 48 Hours No Sepsis New/Unexplained Change in Mental Status No Sepsis Action Taken by Nursing Physician Notified 10/18/21 08:39 10/18/21 09:00 10/18/21 09:39 Temperature Temperature Source Pulse Rate Pulse Rate [Apical] 107 H 112 H 117 H Pulse Rhythm Pulse Rhythm [Apical] Regular Regular Regular Pulse Strength [Apical] Normal Respiratory Rate 25 H 25 H 27 H Respiratory Effort / Characteristics Short of Breath Spontaneous Short of Breath Short of Breath Respiratory Depth Respiratory Pattern Blood Pressure Blood Pressure [Right Arm] 130/60 148/46 H 136/54 L Blood Pressure Mean Blood Pressure Mean [Right Arm] 83 80 81 Blood Pressure Position Pulse Oximetry 95 93 95 Oxygen Delivery Method Nasal Cannula Nasal Cannula Nasal Cannula Oxygen Flow Rate 3 3 3 Sepsis Recent Fever Within 48 Hours Sepsis New/Unexplained Change in Mental Status Sepsis Action Taken by Nursing 10/18/21 09:45 10/18/21 10:04 10/18/21 10:19 Temperature 38.1 C H 37.7 C H 37.8 C H Temperature Source Oral Oral Oral Pulse Rate 115 H 109 H 108 H Pulse Rate [Apical] Pulse Rhythm Regular Pulse Rhythm [Apical] Pulse Strength [Apical] Respiratory Rate 20 22 27 H Respiratory Effort / Characteristics Respiratory Depth Respiratory Pattern Blood Pressure 149/60 H 126/51 L 114/51 L Blood Pressure [Right Arm] Blood Pressure Mean 89 76 72 Blood Pressure Mean [Right Arm] Blood Pressure Position Lying Lying Pulse Oximetry 93 93 95 Oxygen Delivery Method Oxygen Flow Rate 3 3 Sepsis Recent Fever Within 48 Hours Sepsis New/Unexplained Change in Mental Status Sepsis Action Taken by Nursing 10/18/21 10:20 10/18/21 10:49 Temperature 37.4 C Temperature Source Oral Pulse Rate 103 H Pulse Rate [Apical] Pulse Rhythm Regular Pulse Rhythm [Apical] Pulse Strength [Apical] Respiratory Rate 26 H Respiratory Effort / Characteristics Respiratory Depth Respiratory Pattern Blood Pressure 119/76 Blood Pressure [Right Arm] Blood Pressure Mean 90 Blood Pressure Mean [Right Arm] Blood Pressure Position Lying Pulse Oximetry 96 96 Oxygen Delivery Method Oxymask Oxygen Flow Rate 3 3 Sepsis Recent Fever Within 48 Hours Sepsis New/Unexplained Change in Mental Status Sepsis Action Taken by Halfway Medications Current Medication List: was personally reviewed by nc Laboratory Data Attestation: I reviewed the patient's lab results. Result diagrams: 10/21/21 06:45 10/21/21 06:45 Lab Results 10/18/21 10/18/21 10/18/21 Range/Units 07:10 07:15 07:15 WBC 13.60 H (4.8-10.8) K/uL RBC 3.03 L (4.2-5.4) M/uL Hgb 8.1 L (12.0-16.0) g/dL Hct 26.9 L (37-47) % MCV 88.8 (80-100) fL MCH 26.7 (25-34) pg MCHC 30.1 L (32-36) g/dL RDW Std Deviation 56.4 H (36.4-46.3) fL RDW Coeff of Sushant 17.8 H (11.5-14.5) % Plt Count 278 (130-400) K/uL MPV 10.1 (7.4-10.4) fL Immature Gran % (Auto) 0.6 % Neut % (Auto) 83.3 % Lymph % (Auto) 11.0 % Dodge % (Auto) 3.9 % Eos % (Auto) 1.0 % Baso % (Auto) 0.2 % Neut # (Auto) 11.32 H (1.4-6.5) K/uL Lymph # (Auto) 1.50 (1.2-3.4) K/uL Dodge # (Auto) 0.53 (0.11-0.59) K/uL Eos # (Auto) 0.14 (0-0.5) K/uL Baso # (Auto) 0.03 (0-0.2) K/uL Immature Gran # (Auto) 0.08 H (0.00-0.02) K/uL PT 11.2 (9.0-12.0) Seconds INR 1.1 (0.9-1.1) APTT 27.3 (21.0-31.0) Seconds PTT Ratio 1.0 Sodium (136-145) mmol/L Potassium (3.5-5.1) mmol/L Chloride (98-107) mmol/L Carbon Dioxide (21-32) mmol/L Anion Gap (3-11) BUN (6-23) mg/dl Creatinine (0.6-1.2) mg/dl Est Cr Clr Drug Dosing ml/min Est GFR ( Amer) ml/min Est GFR (Non-Af Amer) ml/min BUN/Creatinine Ratio (10-20) Glucose (70-99(Fasting)) mg/dl Lactate (0.4-2.0) mmol/L Calcium (8.5-10.1) mg/dl Magnesium (1.7-2.4) mg/dl Total Bilirubin (0.2-1.0) mg/dl AST (13-39) U/L ALT (7-52) U/L Alkaline Phosphatase (34-104) U/L Troponin I (0-0.04) ng/ml Total Protein (6.0-8.3) gm/dl Albumin (3.4-5.0) gm/dl Globulin (2.5-4.0) gm/dl Albumin/Globulin Ratio (0.9-2) Urine Color Urine Appearance (Clear) Urine pH (4.5-7.5) Ur Specific Moira (1.000-1.030) Urine Protein (Negative) Urine Glucose (UA) (Negative) Urine Ketones (Negative) Urine Blood (Negative) Urine Nitrite (Negative) Urine Bilirubin (Negative) Urine Urobilinogen (Negative) Ur Leukocyte Esterase (Negative) Urine WBC (Auto) (0-5) /hpf Urine RBC (Auto) (0-4) /hpf U Hyaline Cast (Auto) (0-5) /lpf U Epithel Cells (Auto) (0-5) /lpf Urine Bacteria (Auto) (Negative) SARS-CoV-2, RNA, NAAT Cancelled Blood Type Antibody Screen Crossmatch 10/18/21 10/18/21 10/18/21 Range/Units 07:15 07:45 08:29 WBC (4.8-10.8) K/uL RBC (4.2-5.4) M/uL Hgb (12.0-16.0) g/dL Hct (37-47) % MCV (80-100) fL MCH (25-34) pg MCHC (32-36) g/dL RDW Std Deviation (36.4-46.3) fL RDW Coeff of Sushant (11.5-14.5) % Plt Count (130-400) K/uL MPV (7.4-10.4) fL Immature Gran % (Auto) % Neut % (Auto) % Lymph % (Auto) % Dodge % (Auto) % Eos % (Auto) % Baso % (Auto) % Neut # (Auto) (1.4-6.5) K/uL Lymph # (Auto) (1.2-3.4) K/uL Dodge # (Auto) (0.11-0.59) K/uL Eos # (Auto) (0-0.5) K/uL Baso # (Auto) (0-0.2) K/uL Immature Gran # (Auto) (0.00-0.02) K/uL PT (9.0-12.0) Seconds INR (0.9-1.1) APTT (21.0-31.0) Seconds PTT Ratio Sodium 131 L (136-145) mmol/L Potassium 4.3 (3.5-5.1) mmol/L Chloride 98 (98-107) mmol/L Carbon Dioxide 26 (21-32) mmol/L Anion Gap 7 (3-11) BUN 44 H (6-23) mg/dl Creatinine 1.93 H (0.6-1.2) mg/dl Est Cr Clr Drug Dosing 23.3 ml/min Est GFR ( Amer) 28.8 ml/min Est GFR (Non-Af Amer) 24.9 ml/min BUN/Creatinine Ratio 22.8 H (10-20) Glucose 170 H (70-99(Fasting)) mg/dl Lactate (0.4-2.0) mmol/L Calcium 7.9 L (8.5-10.1) mg/dl Magnesium 1.5 L (1.7-2.4) mg/dl Total Bilirubin 0.3 (0.2-1.0) mg/dl AST 17 (13-39) U/L ALT 8 (7-52) U/L Alkaline Phosphatase 87 (34-104) U/L Troponin I 0.03 (0-0.04) ng/ml Total Protein 6.3 (6.0-8.3) gm/dl Albumin 3.1 L (3.4-5.0) gm/dl Globulin 3.2 (2.5-4.0) gm/dl Albumin/Globulin Ratio 1.0 (0.9-2) Urine Color Urine Appearance (Clear) Urine pH (4.5-7.5) Ur Specific Moira (1.000-1.030) Urine Protein (Negative) Urine Glucose (UA) (Negative) Urine Ketones (Negative) Urine Blood (Negative) Urine Nitrite (Negative) Urine Bilirubin (Negative) Urine Urobilinogen (Negative) Ur Leukocyte Esterase (Negative) Urine WBC (Auto) (0-5) /hpf Urine RBC (Auto) (0-4) /hpf U Hyaline Cast (Auto) (0-5) /lpf U Epithel Cells (Auto) (0-5) /lpf Urine Bacteria (Auto) (Negative) SARS-CoV-2, RNA, NAAT NEGATIVE Blood Type A Positive Antibody Screen NEGATIVE Crossmatch See Detail 10/18/21 10/18/21 Range/Units 09:35 10:27 WBC (4.8-10.8) K/uL RBC (4.2-5.4) M/uL Hgb (12.0-16.0) g/dL Hct (37-47) % MCV (80-100) fL MCH (25-34) pg MCHC (32-36) g/dL RDW Std Deviation (36.4-46.3) fL RDW Coeff of Sushant (11.5-14.5) % Plt Count (130-400) K/uL MPV (7.4-10.4) fL Immature Gran % (Auto) % Neut % (Auto) % Lymph % (Auto) % Dodge % (Auto) % Eos % (Auto) % Baso % (Auto) % Neut # (Auto) (1.4-6.5) K/uL Lymph # (Auto) (1.2-3.4) K/uL Dodge # (Auto) (0.11-0.59) K/uL Eos # (Auto) (0-0.5) K/uL Baso # (Auto) (0-0.2) K/uL Immature Gran # (Auto) (0.00-0.02) K/uL PT (9.0-12.0) Seconds INR (0.9-1.1) APTT (21.0-31.0) Seconds PTT Ratio Sodium (136-145) mmol/L Potassium (3.5-5.1) mmol/L Chloride (98-107) mmol/L Carbon Dioxide (21-32) mmol/L Anion Gap (3-11) BUN (6-23) mg/dl Creatinine (0.6-1.2) mg/dl Est Cr Clr Drug Dosing ml/min Est GFR ( Amer) ml/min Est GFR (Non-Af Amer) ml/min BUN/Creatinine Ratio (10-20) Glucose (70-99(Fasting)) mg/dl Lactate 0.7 (0.4-2.0) mmol/L Calcium (8.5-10.1) mg/dl Magnesium (1.7-2.4) mg/dl Total Bilirubin (0.2-1.0) mg/dl AST (13-39) U/L ALT (7-52) U/L Alkaline Phosphatase (34-104) U/L Troponin I (0-0.04) ng/ml Total Protein (6.0-8.3) gm/dl Albumin (3.4-5.0) gm/dl Globulin (2.5-4.0) gm/dl Albumin/Globulin Ratio (0.9-2) Urine Color Yellow Urine Appearance Clear (Clear) Urine pH 5.0 (4.5-7.5) Ur Specific Moira 1.007 (1.000-1.030) Urine Protein 1+ H (Negative) Urine Glucose (UA) Negative (Negative) Urine Ketones Negative (Negative) Urine Blood Negative (Negative) Urine Nitrite Negative (Negative) Urine Bilirubin Negative (Negative) Urine Urobilinogen Negative (Negative) Ur Leukocyte Esterase Trace H (Negative) Urine WBC (Auto) 5-10 H (0-5) /hpf Urine RBC (Auto) 0-4 (0-4) /hpf U Hyaline Cast (Auto) 1-5 (0-5) /lpf U Epithel Cells (Auto) >30 H (0-5) /lpf Urine Bacteria (Auto) Negative (Negative) SARS-CoV-2, RNA, NAAT Blood Type Antibody Screen Crossmatch Administered Medications Albuterol (Albut/Ipratrop 3mg/0.5mg Neb 3 Ml Vial) 3 ml INH Q4H PRN; Protocol PRN Reason: wheezing Stop: 11/17/21 13:16 Last Admin: 10/21/21 15:11 Dose: 3 ml Documented by: [id number] Aspirin (Aspirin 81 Mg Ectab) 81 mg PO DAILY MICHAELLE Stop: 11/18/21 08:59 Last Admin: 10/21/21 09:00 Dose: 81 mg Documented by: [id number] Admin: 10/20/21 08:28 Dose: 81 mg Documented by: [id number] Admin: 10/19/21 08:04 Dose: 81 mg Documented by: [id number] Atorvastatin Calcium (Atorvastatin 40 Mg Tab) 80 mg PO DAILY MICHAELLE Stop: 11/18/21 08:59 Last Admin: 10/21/21 09:00 Dose: 80 mg Documented by: [id number] Admin: 10/20/21 08:28 Dose: 80 mg Documented by: [id number] Admin: 10/19/21 08:03 Dose: 80 mg Documented by: [id number] Clopidogrel Bisulfate (Clopidogrel Bisulfate 75 Mg Tab) 75 mg PO DAILY MICHAELLE Stop: 11/18/21 08:59 Last Admin: 10/21/21 09:00 Dose: 75 mg Documented by: [id number] Admin: 10/20/21 08:28 Dose: 75 mg Documented by: [id number] Admin: 10/19/21 08:05 Dose: 75 mg Documented by: [id number] Gabapentin (Gabapentin 100 Mg Cap) 200 mg PO BID MICHAELLE Stop: 11/17/21 20:59 Last Admin: 10/21/21 22:35 Dose: 200 mg Documented by: [id number] Admin: 10/21/21 09:00 Dose: 200 mg Documented by: [id number] Admin: 10/20/21 20:58 Dose: 200 mg Documented by: [id number] Admin: 10/20/21 08:29 Dose: 200 mg Documented by: [id number] Admin: 10/19/21 20:50 Dose: 200 mg Documented by: [id number] Admin: 10/19/21 08:04 Dose: 200 mg Documented by: [id number] Admin: 10/18/21 19:59 Dose: 200 mg Documented by: [id number] Cefepime HCl 1,000 mg/ Syringe 11.3 mls @ 5.5 mls/min IV Q24H MICHAELLE; Protocol Stop: 10/22/21 23:59 Last Admin: 10/21/21 16:50 Dose: 5.5 mls/min Documented by: [id number] Admin: 10/20/21 16:04 Dose: 5.5 mls/min Documented by: [id number] Admin: 10/19/21 15:56 Dose: 5.5 mls/min Documented by: [id number] Insulin Aspart (Insulin Aspart Per Unit) 0 units SC ACHS MICHAELLE Stop: 11/17/21 16:29 Last Admin: 10/21/21 22:44 Dose: 2 units Documented by: [id number] Cosigned by: [id number] Admin: 10/21/21 17:27 Dose: 4 units Documented by: [id number] Cosigned by: [id number] Admin: 10/21/21 12:29 Dose: 6 units Documented by: [id number] Cosigned by: [id number] Admin: 10/21/21 08:58 Dose: 5 units Documented by: [id number] Cosigned by: [id number] Admin: 10/20/21 21:00 Dose: 2 units Documented by: [id number] Cosigned by: [id number] Admin: 10/20/21 17:39 Dose: 3 units Documented by: [id number] Cosigned by: [id number] Admin: 10/20/21 12:27 Dose: 4 units Documented by: [id number] Cosigned by: [id number] Admin: 10/20/21 08:35 Dose: 5 units Documented by: [id number] Cosigned by: [id number] Admin: 10/19/21 20:51 Dose: Not Given Documented by: [id number] Cosigned by: [id number] Admin: 10/19/21 17:26 Dose: 4 units Documented by: [id number] Cosigned by: [id number] Admin: 10/19/21 12:15 Dose: 5 units Documented by: [id number] Cosigned by: [id number] Admin: 10/19/21 08:11 Dose: 4 units Documented by: [id number] Cosigned by: [id number] Admin: 10/18/21 20:50 Dose: Not Given Documented by: [id number] Cosigned by: [id number] Admin: 10/18/21 17:16 Dose: 4 units Documented by: [id number] Cosigned by: [id number] Insulin Glargine (Insulin Glargine Solostar 100 Units/Ml 3 Ml Pen) 8 units SC BID MICHAELLE Stop: 11/17/21 20:59 Last Admin: 10/21/21 22:35 Dose: 8 units Documented by: [id number] Cosigned by: [id number] Admin: 10/21/21 08:59 Dose: 8 units Documented by: [id number] Cosigned by: [id number] Admin: 10/20/21 20:59 Dose: 8 units Documented by: [id number] Cosigned by: [id number] Admin: 10/20/21 08:29 Dose: 8 units Documented by: [id number] Cosigned by: [id number] Admin: 10/19/21 20:51 Dose: 8 units Documented by: [id number] Cosigned by: [id number] Admin: 10/19/21 08:06 Dose: 8 units Documented by: [id number] Cosigned by: [id number] Admin: 10/18/21 20:50 Dose: 8 units Documented by: [id number] Cosigned by: [id number] Metoprolol Tartrate (Metoprolol Tartrate 25 Mg Tab) 12.5 mg PO BID MICHAELLE Stop: 11/17/21 20:59 Last Admin: 10/21/21 22:36 Dose: 12.5 mg Documented by: [id number] Admin: 10/21/21 09:00 Dose: 12.5 mg Documented by: [id number] Admin: 10/20/21 20:58 Dose: 12.5 mg Documented by: [id number] Admin: 10/20/21 08:28 Dose: 12.5 mg Documented by: [id number] Admin: 10/19/21 20:50 Dose: 12.5 mg Documented by: [id number] Admin: 10/19/21 09:25 Dose: 12.5 mg Documented by: [id number] Admin: 10/18/21 19:59 Dose: 12.5 mg Documented by: [id number] Pantoprazole Sodium (Pantoprazole 40 Mg Tab) 40 mg PO DAILY MICHAELLE Stop: 11/18/21 08:59 Last Admin: 10/21/21 09:01 Dose: 40 mg Documented by: [id number] Admin: 10/20/21 08:27 Dose: 40 mg Documented by: [id number] Admin: 10/19/21 08:04 Dose: 40 mg Documented by: [id number] Umeclidinium [place] (Umeclidinium [place] 62.5mcg/Blister 7 Puffs/Inhaler) 1 puffs INH QAM MICHAELLE Stop: 11/18/21 08:59 Last Admin: 10/21/21 09:01 Dose: 1 puffs Documented by: [id number] Admin: 10/20/21 08:27 Dose: 1 puffs Documented by: [id number] Admin: 10/19/21 08:16 Dose: 1 puffs Documented by: [id number] Discontinued Medications Aspirin (Aspirin 81 Mg Ectab) 81 mg PO NOW ONE Stop: 10/18/21 11:36 Last Admin: 10/18/21 14:08 Dose: 81 mg Documented by: [id number] Clopidogrel Bisulfate (Clopidogrel Bisulfate 75 Mg Tab) 75 mg PO NOW ONE Stop: 10/18/21 11:34 Last Admin: 10/18/21 14:08 Dose: 75 mg Documented by: [id number] Furosemide (Furosemide 40 Mg/4 Ml Vial) 40 mg IV NOW STA Stop: 10/18/21 08:02 Last Admin: 10/18/21 08:11 Dose: 40 mg Documented by: [id number] Magnesium Sulfate/Dextrose (Magnesium Sulfate / D5w) 1 gm in 100 mls @ 100 mls/hr IV Q1H MICHAELLE Stop: 10/18/21 09:59 Last Infusion: 10/18/21 10:17 Dose: 0 mls/hr Documented by: [id number] Admin: 10/18/21 09:17 Dose: 100 mls/hr Documented by: [id number] Infusion: 10/18/21 09:17 Dose: 0 mls/hr Documented by: [id number] Admin: 10/18/21 08:11 Dose: 100 mls/hr Documented by: [id number] Cefepime HCl (Maxipime) 2,000 mg in 20 mls @ 5 mls/min IV NOW STA; Protocol Stop: 10/18/21 09:55 Last Admin: 10/18/21 10:32 Dose: 5 mls/min Documented by: [id number] Vancomycin HCl 1,750 mg/ (Sodium Chloride) 535 mls @ 200 mls/hr IV NOW ONE Stop: 10/18/21 13:02 Last Infusion: 10/18/21 16:35 Dose: 0 mls/hr Documented by: [id number] Admin: 10/18/21 13:21 Dose: 200 mls/hr Documented by: [id number] Lactated Ringer's (Lr) 1,000 mls @ 80 mls/hr IV .[id number] MICHAELLE Stop: 10/21/21 00:29 Last Infusion: 10/21/21 01:30 Dose: 0 mls/hr Documented by: [id number] Admin: 10/20/21 12:41 Dose: 80 mls/hr Documented by: [id number] Vancomycin HCl 750 mg/ Sodium (Chloride) 265 mls @ 200 mls/hr IV NOW ONE Stop: 10/20/21 14:49 Last Infusion: 10/20/21 16:09 Dose: 0 mls/hr Documented by: [id number] Admin: 10/20/21 13:50 Dose: 200 mls/hr Documented by: [id number] Vancomycin HCl 500 mg/ (Dextrose) 110 mls @ 132 mls/hr IV NOW ONE Stop: 10/21/21 10:49 Last Infusion: 10/21/21 10:36 Dose: 0 mls/hr Documented by: [id number] Admin: 10/21/21 09:29 Dose: 132 mls/hr Documented by: [id number] Ioversol (Optiray 320 125ml) 120 ml IV ONCE ONE Stop: 10/18/21 09:29 Last Admin: 10/18/21 09:19 Dose: 120 ml Documented by: [id number] Labetalol HCl (Labetalol Hcl Iv 5 Mg/Ml 20ml) 10 mg IV NOW STA Stop: 10/18/21 08:02 Last Admin: 10/18/21 08:11 Dose: 10 mg Documented by: [id number] Cosigned by: [id number] Metoprolol Tartrate (Metoprolol Tartrate 25 Mg Tab) 12.5 mg PO NOW ONE Stop: 10/18/21 11:35 Last Admin: 10/18/21 14:08 Dose: Not Given Documented by: [id number] Imaging Data Radiologist's Impression: Chest X-Ray 10/18/21 07:18 XR chest 1V portable CLINICAL HISTORY: Shortness of breath. COMPARISON STUDY: Chest radiograph September 08, 2021. Chest CT October 07, 2021. FINDINGS: Dual lumen right internal jugular [id number] is in place. There are median sternotomy wires and mediastinal clips. Cardiomegaly is unchanged. A small to moderate left pleural effusion is again noted. Healing left-sided rib fractures are present. No evidence for pulmonary edema. IMPRESSION: 1. Persistent small to moderate left pleural effusion with associated left basilar opacity. 2. Cardiomegaly. No evidence for pulmonary edema. ACT 112: Negative or not required by law. Electronically signed by: Owen Doherty M.D. 10/18/2021 7:38 AM Chest CTA 10/18/21 08:14 CHEST CTA for PULMONARY ARTERIES CT DOSE: 542.72 mGy.cm HISTORY: PE, recent CABG, hypoxia and tachycardia TECHNIQUE: Multiaxial CT images of the chest were performed following the i ntravenous administration of contrast to evaluate the pulmonary arteries. Maximal intensity projection images were also obtained. A dose lowering technique was utilized adhering to the principles of ALARA. COMPARISON STUDY: CT lung screening 10/07/2021. FINDINGS: Limited views of the upper abdomen demonstrate a normal liver, spleen, and adrenal glands. Normal esophagus. The thyroid gland enhances normally. No mediastinal or hilar lymphadenopathy. The heart remains enlarged. Small pericardial effusion and a small to moderate left pleural effusion remain unchanged. Severe calcified plaque within the [place] coronary arteries. Normal caliber thoracic aorta with no evidence for dissection. Moderate to severe narrowing at the brachiocephalic and proximal left subclavian artery due to the calcified plaque. There are healing left first through third rib fractures, unchanged. Poststernotomy changes are again noted. Mild presacral retrosternal s oft tissue thickening/edema persists. This is consistent with the patient's recent postoperative change. No loculated mediastinal fluid collections identified to suggest an abscess. Right jugular catheter terminates at the right atrium. Respiratory motion motion artifact results in nondiagnostic evaluation of the majority of the segmental and subsegmental pulmonary arteries. No definite filling defects within the central pulmonary arteries to suggest a pulmonary embolus. No evidence for right-sided heart strain. No pneumothorax. The central airways are patent. Consolidation within the base of the left lower lobe and a few bibasilar linear densities remain unchanged and favor subsegmental atelectasis. Stable 7 mm subpleural nodular density within the left lung apex on image 208. Patchy density within the right upper lobe posteriorly and superior segment of the right lower lobe may represent scarring or atelectasis given the adjacent bony exostosis. This is also similar to the prior study. IMPRESSION: 1. No evidence for central pulmonary embolus with limitations as described above. 2. Status post recent median sternotomy and coronary bypass grafting. 3. Small pericardial effusion and a [id number] left pleural effusion remain unchanged. 4. Healing left first through third rib fractures are again noted. No pneumothorax. 5. Stable 7 mm subpleural nodule within the left lung apex. Continued follow-up as recommended on the prior CT examination. ACT 112: Negative or not required by law. Electronically signed by: Rashid Becerra M.D. 10/18/2021 10:18 AM Blood Pressure Blood Pressure Findings: Elevated blood pressure Blood Pressure Disposition: further management by hospitalist Discharge Plan Visit Data Chief Complaint: Shortness of Breath/Dyspnea Stated Complaint: SOB ED Provider: Shari Booth Discharge Problem: ESRD with anemia, Hypoxia, Tachycardia, Fever, S/P CABG (coronary artery bypass graft) Patient Disposition: Admitted As Inpatient Discharge Instructions Interventions: ED Discharge Assessment Last Done: 10/18/21 12:27 Discharge Problem: Fever Qualifiers: Fever type: unspecified Qualified Code(s): R50.9 - Fever, unspecified
--- NOTE | 2021-10-18 07:40 | XRay Report ---
XR chest 1V portable CLINICAL HISTORY: Shortness of breath. COMPARISON STUDY: Chest radiograph September 08, 2021. Chest CT October 07, 2021. FINDINGS: Dual lumen right internal jugular [id number]-b-[id number] is in place. There are median sternotomy wi res and mediastinal clips. Cardiomegaly is unchanged. A small to moderate left pleural effusion is ag ain noted. Healing left-sided rib fractures are present. No evidence for pulmonary edema. IMPRESSION: 1. Persistent small to moderate left pleural effusion with associated left basilar opacity. 2. Cardiomegaly. No evidence for pulmonary edema. ACT 112: Negative or not required by law. Electronically signed by: Owen Doherty M.D. 10/18/2021 7:38 AM
[2021-10-18 07:41] LABS: Basophils # (auto) 0.03 K/uL (0-0.2); Basophils % (auto) 0.2 %; Eosinophils # (auto) 0.14 K/uL (0-0.5); Hematocrit (blood only) 26.9 % (37-47); Hemoglobin 8.1 g/dL (12.0-16.0); Immature Granulocytes # (auto) 0.08 K/uL (0.00-0.02); Immature Granulocytes % (auto) 0.6 %; Mean Corpuscular Hemoglobin 26.7 pg (25-34); Mean Corpuscular Hgb Conc 30.1 g/dL (32-36); Mean Corpuscular Volume 88.8 fL (80-100); Mean Platelet Volume 10.1 fL (7.4-10.4); Monocytes # (auto) 0.53 K/uL (0.11-0.59); Monocytes % (auto) 3.9 %; Neutrophils # (auto) 11.32 K/uL (1.4-6.5); Neutrophils % (auto) 83.3 %; Platelet Count 278 K/uL (130-400); RDW Coefficient of Variation 17.8 % (11.5-14.5); RDW Standard Deviation 56.4 fL (36.4-46.3); Red Blood Count 3.03 M/uL (4.2-5.4)
[2021-10-18 07:50] LABS: Albumin Level 3.1 gm/dl (3.4-5.0); BUN Creatinine Ratio 22.8 (10-20); Bilirubin,Total 0.3 mg/dl (0.2-1.0); Calcium 7.9 mg/dl (8.5-10.1); Creatinine Clr Calc Pharmacy 23.3 ml/min; Est GFR (African American) 28.8 ml/min; Est GFR (Non-African American) 24.9 ml/min; Globulin 3.2 gm/dl (2.5-4.0); Magnesium 1.5 mg/dl (1.7-2.4); Potassium 4.3 mmol/L (3.5-5.1); Total Protein 6.3 gm/dl (6.0-8.3)
[2021-10-18 07:51] LABS: INR 1.1 (0.9-1.1); Partial Thromboplastin Time 27.3 Seconds (21.0-31.0); Prothrombin Time 11.2 Seconds (9.0-12.0)
[2021-10-18 07:52] LABS: Troponin I 0.03 ng/ml (0-0.04)
[2021-10-18] MEDS ORDERED: SODIUM CHLORIDE 0.9% 250 ML IV PRN ×3 (07:59→18:32)
[2021-10-18] MEDS ORDERED: LABETALOL HCL IV 5 MG/ML 20ML IV STA (08:01)
[2021-10-18] MEDS ORDERED: FUROSEMIDE 40 MG/4 ML VIAL IV STA (08:01)
[2021-10-18] MEDS: MAGNESIUM SULFATE / D5W 1 GM/100 ML BAG IV SCH ×2 (08:11→09:17)
[2021-10-18] MEDS ORDERED: OPTIRAY 320 125ml IV ONE (09:28)
--- NOTE | 2021-10-18 09:34 | Electrocardiogram Report ---
Test Reason : Blood Pressure : / mmHG Vent. Rate : 112 BPM Atrial Rate : 112 BPM P-R Int : 148 ms QRS Dur : 094 ms QT Int : 328 ms P-R-T Axes : 048 -36 135 degrees QTc Int : 447 ms Sinus tachycardia Left axis deviation Abnormal ECG When compared with ECG of 08-SEP-2021 18:20, No significant change Confirmed by Chas Duarte ([id number]) on 10/18/2021 9:33:52 AM Referred By: REFERRED SELF Confirmed By:Chas Duarte
[2021-10-18] MEDS ORDERED: CEFEPIME 2,000 MG/20 ML VIAL IV STA (09:52)
[2021-10-18 09:59] LABS: Appearance Urine Clear (Clear); Bacteria Urine Automated Negative (Negative); Bilirubin Urine Negative (Negative); Blood Urine Negative (Negative); Color Urine Yellow; Epithelial Cell Urine Auto >30 /lpf (0-5); Glucose Urine UA Negative (Negative); Ketones Urine Negative (Negative); Leukocyte Esterase Urine Trace (Negative); Nitrite Urine Negative (Negative); Protein Urine 1+ (Negative); RBC Urine Automated 0-4 /hpf (0-4); Specific Gravity Urine 1.007 (1.000-1.030); Urobilinogen Urine Negative (Negative)
[2021-10-18] MEDS ORDERED: VANCOMYCIN CONSULT ACTIVE PRN (10:22)
[2021-10-18] MEDS ORDERED: VANCOMYCIN HCL 1,750 MG in SODIUM CHLORIDE 0.9% 500 ML IV ONE (10:22)
--- NOTE | 2021-10-18 10:24 | CT Scan Report ---
CHEST CTA for PULMONARY ARTERIES CT DOSE: 542.72 mGy.cm HISTORY: PE, recent CABG, hypoxia and tachycardia TECHNIQUE: Multiaxial CT images of the chest were performed following the intravenous administration of contrast to evaluate the pulmonary arteries. Maximal intensity projection images were also obtaine d. A dose lowering technique was utilized adhering to the principles of ALARA. COMPARISON STUDY: CT lung screening 10/07/2021. FINDINGS: Limited views of the upper abdomen demonstrate a normal liver, spleen, and adrenal glands. Normal esophagus. The thyroid gland enhances normally. No mediastinal or hilar lymphadenopathy. The h eart remains enlarged. Small pericardial effusion and a small to moderate left pleural effusion remai n unchanged. Severe calcified plaque within the [place] coronary arteries. Normal caliber thoracic aor ta with no evidence for dissection. Moderate to severe narrowing at the brachiocephalic and proximal left subclavian artery due to the calcified plaque. There are healing left first through third rib fr actures, unchanged. Poststernotomy changes are again noted. Mild presacral retrosternal soft tissue t hickening/edema persists. This is consistent with the patient's recent postoperative change. No locul ated mediastinal fluid collections identified to suggest an abscess. Right jugular catheter terminate s at the right atrium. Respiratory motion motion artifact results in nondiagnostic evaluation of the majority of the segmental and subsegmental pulmonary arteries. No definite filling defects within the central pulmonary arteries to suggest a pulmonary embolus. No evidence for right-sided heart strain. No pneumothorax. The central airways are patent. Consolidation within the base of the left lower lob e and a few bibasilar linear densities remain unchanged and favor subsegmental atelectasis. Stable 7 mm subpleural nodular density within the left lung apex on image 208. Patchy density within the right upper lobe posteriorly and superior segment of the right lower lobe may represent scarring or atelec tasis given the adjacent bony exostosis. This is also similar to the prior study. IMPRESSION: 1. No evidence for central pulmonary embolus with limitations as described above. 2. Status post recent median sternotomy and coronary bypass grafting. 3. Small pericardial effusion and a [id number] left pleural effusion remain unchanged. 4. Healing left first through third rib fractures are again noted. No pneumothorax. 5. Stable 7 mm subpleural nodule within the left lung apex. Continued follow-up as recommended on the prior CT examination. ACT 112: Negative or not required by law. Electronically signed by: Rashid Becerra M.D. 10/18/2021 10:18 AM
--- NOTE | 2021-10-18 10:43 | History & Physical Report ---
Date of Service October 18, 2021 Assessment & Plan (1) Dyspnea: Plan: -SpO2 in mid 80s on 2L during initial presentation, up to 93% on 3L. -DDx includes ACS vs HF vs anemia. ACS unlikely, initial troponin in ED is < .03, EKG unchanged from previous EKG on 09/28/21, patient does not complain of chest pain today. Repeat troponins .06 and .08, this is likely a demand ischemia due to both infection and anemia. BNP is 1135. A small pericardial effusion and small-moderate left pleural effusion were seen on CTA, however they are unchanged when compared to previous images from before her CABG. Patient did receive 40 mg IV Lasix in ED and is now 90% on 2L. -Continue to tranfuse and recheck H/H, diurese as needed (2) Sepsis: Plan: -WBC 13.60, temp 100.6, HR 100s. Lactate 0.7, PCT .43, blood + urine cx pending. -MAP > 65 without need for IVF. -Patient started empirically on vancomycin and cefepime for suspected infection possibly from dialysis port. (3) Anemia: Plan: -Hgb 8.1 today, down from 10.9 on labs from 09/09. Did require transfusion at [facility] for Hgb of 7.0. She is not on any blood thinners, does take ASA and Plavix daily. No obvious source of bleeding, heme negative in ED. Patient has a history of chronic iron deficiency anemia. Was previously taking PO iron, however this has been stopped since dialysis was started one month ago. -One unit of pRBCs transfused in ED, recheck Hgb 7.7, no obvious source of bleeding. 1 additional unit of pRBCs ordered this evening. Recheck H/H at 2300. (4) COPD (chronic obstructive pulmonary disease): Plan: -On 2L NC at all times, as well as Spiriva + rescue inhalers. Currently on 3L NC with SpO2 in low 90s. -Continue home inhalers, supplemental oxygen. (5) CKD (chronic kidney disease): Plan: -Acute on CKD during hospitalization in September for NSTEMI. BUN 44, Cr -Dialysis M-W-F since discharge from [facility]. Patient did not receive dialysis today due to transportation to ED. (6) CAD (coronary atherosclerotic disease): Plan: -CABG x2 09/10/2021 at the [facility]. Without chest pain/tightness or palpitations today. -Continue ASA + Plavix, beta aidee, statin. (7) Dyslipidemia: Plan: -Continue statin. (8) GERD (gastroesophageal reflux disease): Plan: -Continue protonix. (9) Hypomagnesemia: Plan: -1.5 in ED, 2g Mg++ ordered for repletion. -Recheck level in AM. Plan: -Admit to [facility] w/ tele -Conditional Code: chest compressions only -SCDs for DVT ppx. History of Present Illness Chief Complaint: shortness of breath Primary Care Provider: Nadia Suarez PA-C Patient is a 76-year-old female with past medical history of CAD s/p CABG in August 2021, HTN, DM2, COPD, CKD, and ESTELA who presents today with complaints of shortness of breath. Patient was at her dialysis appointment this morning, about 5 minutes into her treatment she experienced new onset shortness of breath. Patient is on 2 L NC at all times at home and was on this at dialysis with SpO2 reported to be in mid 80s. Her oxygen was increased to 3 L, however her SOB did not resolve. Patient was otherwise asymptomatic during this episode, no associated chest pain, palpitations, nausea/vomiting, weakness/dizziness. She states she had felt well over the past few days, she was recently seen in the ED on 10/13 and was prescribed antibiotics for a UTI, since then her urinary symptoms have resolved and she denies shortness of breath, cough, chest pain/tightness, palpitations, fever/chills, fatigue, edema, orthopnea, PND, nausea/vomiting, abdominal pain. In ED, routine labs drawn were significant for WBC 13.6, Hgb 8.1, down from 10.9 on 09/09, Na+ 131, BUN 44, CR 1.93, glucose 170, Mg++ 1.5. Chest CTA did not reveal PE, did show small pericardial effusion and left sided pleural effusion, both unchanged from previous images. Hospitalist service was consulted for further evaluation and admission. Allergies Allergy/AdvReac Type Severity Reaction Status Date / Time No Known Allergies Allergy Verified 10/13/21 09:17 Home Medications Medication Instructions Recorded Confirmed Type nitroglycerin 0.4 mg sublingual 0.4 mg SUBLINGUAL UD PRN #30 tab 04/07/20 Rx tablet (Nitrostat) gabapentin 100 mg capsule 200 mg PO BID 03/19/21 10/18/21 History (Neurontin) albuterol sulfate 90 mcg/actuation 2 puff INHALATION Q6H PRN #8.5 g 07/21/21 10/18/21 Rx aerosol inhaler (ProAir HFA) ipratropium 0.5 mg-albuterol 3 mg 3 ml INHALATION .COMPLEX PRN #180 07/21/21 10/18/21 Rx (2.5 mg base)/3 mL nebulization ml soln tiotropium bromide 18 mcg capsule 1 cap INHALATION QAM #30 inh 07/21/21 10/18/21 Rx with inhalation device (Spiriva with HandiHaler) atorvastatin 80 mg tablet 80 mg PO DAILY 09/06/21 10/18/21 History clopidogrel 75 mg tablet 75 mg PO DAILY 09/08/21 10/18/21 History pantoprazole 40 mg tablet,delayed 40 mg PO DAILY 09/08/21 10/18/21 History release aspirin 81 mg tablet,delayed 81 mg PO DAILY 10/06/21 10/18/21 History release (Adult Aspirin Regimen) metoprolol tartrate 25 mg tablet 12.5 mg PO BID tab 10/06/21 10/18/21 History sitagliptin 25 mg tablet (Januvia) 25 mg PO DAILY 10/06/21 10/18/21 History Portable Oxygen #2 ea 10/12/21 10/13/21 Rx blood sugar diagnostic (OneTouch 10/13/21 10/13/21 History Ultra Test) cephalexin 250 mg capsule 250 mg PO BID 7 Days #14 cap 10/13/21 10/18/21 Rx Past Med/Surg History Medical History (Updated 10/22/21 @ 06:49 by Abdulkadir Koenig) Acute electrocardiogram changes Acute kidney injury Acute respiratory failure with hypoxia Anemia (~12/03/13) Anemia due to chronic kidney disease CAD (coronary artery disease) NSTEMI 2010, ARABELLA x 1, POBA x 1 @ [facility] CAD (coronary atherosclerotic disease) CABG x2 09/10/2021 at the [facility] LEGER-LAD, SVG-OM 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 diabetes mellitus Diabetes mellitus, type 2 Diabetic peripheral neuropathy DJD (degenerative joint disease) Elevated troponin GERD (gastroesophageal reflux disease) H/O: CVA (cerebrovascular accident) Developed facial droop after cardiac cath 2010. Acute infarct. Treated, com plete resolution of symptoms. No residual deficits. Hyperkalemia Persistent since 12/2018 Hyperkalemia Hyperlipidemia Hypertension Hypoxia Hypoxia Hypoxia Lumbar spinal stenosis Myocardial Infarction NSTEMI 2010. ARABELLA to mid LCx and POBA to LAD/Dx. Presence of drug-eluting stent in left circumflex coronary artery Secondary hyperparathyroidism of renal origin SOB (shortness of breath) SOB (shortness of breath) Stage 3b chronic kidney disease Stage 3B nodular histiocytic lymphoma Tobacco use disorder, continuous Vitamin D deficiency Surgical History (Updated 10/18/21 @ 14:54 by Shari Booth MD) History of cardiac cath 1 STENT 2010-[facility]-NO CHEST PAIN SINCE History of carpal tunnel release RT History of cataract surgery RT/LEFT History of colonoscopy History of tooth extraction History of tubal ligation Family History Brother Family history of diabetes mellitus Sister Family history of diabetes mellitus Sister Family history of diabetes mellitus Mother Family history of diabetes mellitus Myocardial infarction Stroke Father Myocardial infarction Denies family history of Ovarian cancer Prostate cancer Breast cancer Colorectal cancer Social History Smoking Status: Former smoker Tobacco Type: Cigarettes Age Started Using Tobacco: 24; Age Quit Using Tobacco: 75; packs per day: 0.5; Second Hand Exposure: No; Hx Alcohol Use: No Hx Substance Use: No Preferred Language: Lao Communication Ability: Effective Visual Impairment: No Limitations Horticultural Nursery Assistant Required: No Beliefs That Will Affect Care: None marital status: Current Living Situation: Alone Current Living Situation Comment: lives home alone in a house current occupational status: retired 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 How many Children do You have: 1 Feels Safe at Home: Yes Childhood Exposure to Second-Hand Smoke: Yes caffeine: Yes Dental Care, Regularly: No Physical Activity Frequency: 3-4 Times per Week Seatbelt Use: sometimes Sunscreen Use: No Assistive Devices: Oxygen - Continuous and Walker Review of Systems Review of Systems: Constitutional: No fever, sweats or chills Eyes: No diplopia, no worsening or blurred vision ENT: normal hearing, no trouble swallowing Respiratory: dyspnea at rest since this morning w/ 2L NC; no change to chronic cough or sputum production Cardiovascular: No chest pain, tightness or palpitations Abdomen: No pain, nausea, vomiting, diarrhea or constipation Musculoskeletal: No joint pain, calf pain, swelling Neurologic: No weakness, numbness/tingling, or balance problems Psychiatric: No anxiety or depression Skin: No rash or itch Physical Exam Physical Exam: General: awake, alert, no apparent distress, on 3L NC via oxymask Head: Normocephalic, atraumatic ENT: PERRL, EOMI, no pharyngeal exudate, mucous membranes moist Chest: Cear to auscultation, on room air, no adventitious breath sounds Cardiac: Tachycardic, regular rhythm, no murmur, no JVD, normal peripheral pulses, good capillary refill Abdominal: NABS x 4 quadrants, soft, nontender to palpation, no rebound, guarding or tenderness Extremities: Normal inspection, no peripheral edema or erythema, calfs nontender to palpation Psych: Normal mood and affect Neuro: AAO x 3, strength intact bilaterally and rated 5/5, no motor deficits, speech is clear, no peripheral sensory deficits Skin: scar on anterior chest consistent with recent CABG surgery; dialysis cath in place on left anterior chest wall without erythema or edema, signs of infection. Results & Data Results & Data ([facility]) Vital Signs (Past 12 Hours) Vital Signs Temp Pulse Pulse Resp BP BP Pulse Ox 10/18/21 10:20 96 10/18/21 10:19 37.8 C H 108 H 27 H 114/51 L 95 10/18/21 10:04 37.7 C H 109 H 22 126/51 L 93 10/18/21 09:45 38.1 C H 115 H 20 149/60 H 93 10/18/21 09:39 117 H 27 H 136/54 L 95 10/18/21 09:00 112 H 25 H 148/46 H 93 10/18/21 08:39 107 H 25 H 130/60 95 10/18/21 08:02 119 H 26 H 101/72 96 10/18/21 07:33 93 10/18/21 07:20 37.0 C 110 H 26 H 142/54 H 93 Laboratory Results Abnormal lab results 10/18/21 10/18/21 10/18/21 Range/Units 07:15 07:15 08:29 WBC 13.60 H (4.8-10.8) K/uL RBC 3.03 L (4.2-5.4) M/uL Hgb 8.1 L (12.0-16.0) g/dL Hct 26.9 L (37-47) % MCHC 30.1 L (32-36) g/dL RDW Std Deviation 56.4 H (36.4-46.3) fL RDW Coeff of Sushant 17.8 H (11.5-14.5) % Neut # (Auto) 11.32 H (1.4-6.5) K/uL Immature Gran # (Auto) 0.08 H (0.00-0.02) K/uL Sodium 131 L (136-145) mmol/L BUN 44 H (6-23) mg/dl Creatinine 1.93 H (0.6-1.2) mg/dl BUN/Creatinine Ratio 22.8 H (10-20) Glucose 170 H (70-99(Fasting)) mg/dl Calcium 7.9 L (8.5-10.1) mg/dl Magnesium 1.5 L (1.7-2.4) mg/dl Albumin 3.1 L (3.4-5.0) gm/dl Urine Protein (Negative) Ur Leukocyte Esterase (Negative) Urine WBC (Auto) (0-5) /hpf U Epithel Cells (Auto) (0-5) /lpf Crossmatch See Detail 10/18/21 Range/Units 09:35 WBC (4.8-10.8) K/uL RBC (4.2-5.4) M/uL Hgb (12.0-16.0) g/dL Hct (37-47) % MCHC (32-36) g/dL RDW Std Deviation (36.4-46.3) fL RDW Coeff of Sushant (11.5-14.5) % Neut # (Auto) (1.4-6.5) K/uL Immature Gran # (Auto) (0.00-0.02) K/uL Sodium (136-145) mmol/L BUN (6-23) mg/dl Creatinine (0.6-1.2) mg/dl BUN/Creatinine Ratio (10-20) Glucose (70-99(Fasting)) mg/dl Calcium (8.5-10.1) mg/dl Magnesium (1.7-2.4) mg/dl Albumin (3.4-5.0) gm/dl Urine Protein 1+ H (Negative) Ur Leukocyte Esterase Trace H (Negative) Urine WBC (Auto) 5-10 H (0-5) /hpf U Epithel Cells (Auto) >30 H (0-5) /lpf Crossmatch Diagnostic Findings Chest X-Ray 10/18/21 07:18 XR chest 1V portable CLINICAL HISTORY: Shortness of breath. COMPARISON STUDY: Chest radiograph September 08, 2021. Chest CT October 07, 2021. FINDINGS: Dual lumen right internal jugular [id number] is in place. There are median sternotomy wires and mediastinal clips. Cardiomegaly is unchanged. A small to moderate left pleural effusion is again noted. Healing left-sided rib fractures are present. No evidence for pulmonary edema. IMPRESSION: 1. Persistent small to moderate left pleural effusion with associated left basilar opacity. 2. Cardiomegaly. No evidence for pulmonary edema. Chest CTA 10/18/21 08:14 CHEST CTA for PULMONARY ARTERIES CT DOSE: 542.72 mGy.cm HISTORY: PE, recent CABG, hypoxia and tachycardia TECHNIQUE: Multiaxial CT images of the chest were performed following the intravenous administration of contrast to evaluate the pulmonary arteries. Maximal intensity projection images were also obtained. A dose lowering technique was utilized adhering to the principles of ALARA. COMPARISON STUDY: CT lung screening 10/07/2021. FINDINGS: Limited views of the upper abdomen demonstrate a normal liver, spleen, and adrenal glands. Normal esophagus. The thyroid gland enhances normally. No mediastinal or hilar lymphadenopathy. The heart remains enlarged. Small pericardial effusion and a small to moderate left pleural effusion remain unchanged. Severe calcified plaque within the [place] coronary arteries. Normal caliber thoracic aorta with no evidence for dissection. Moderate to severe narrowing at the brachiocephalic and proximal left subclavian artery due to the calcified plaque. There are healing left first through third rib fractures, unchanged. Poststernotomy changes are again noted. Mild presacral retrosternal soft tissue thickening/edema persists. This is consistent with the patient's recent postoperative change. No loculated mediastinal fluid collections identified to suggest an abscess. Right jugular catheter terminates at the right atrium. Respiratory motion motion artifact results in nondiagnostic evaluation of the majority of the segmental and subsegmental pulmonary arteries. No definite filling defects within the central pulmonary arteries to suggest a pulmonary embolus. No evidence for right-sided heart strain. No pneumothorax. The central airways are patent. Consolidation within the base of the left lower lobe and a few bibasilar linear densities remain unchanged and favor subsegmental atelectasis. Stable 7 mm subpleural nodular density within the left lung apex on image 208. Patchy density within the right upper lobe posteriorly and superior segment of the right lower lobe may represent scarring or atelectasis given the adjacent bony exostosis. This is also similar to the prior study. IMPRESSION: 1. No evidence for central pulmonary embolus with limitations as described above. 2. Status post recent median sternotomy and coronary bypass grafting. 3. Small pericardial effusion and a [id number] left pleural effusion remain unchanged. 4. Healing left first through third rib fractures are again noted. No pneumothorax. 5. Stable 7 mm subpleural nodule within the left lung apex. Continued follow-up as recommended on the prior CT examination. ECG Additional Comments: Sinus tachycardia Left axis deviation Abnormal ECG When compared with ECG of 08-SEP-2021 18:20, No significant change Confirmed by Chas Duarte ([id number]) on 10/18/2021 9:33:52 AM Code Status & VTE Plan Code Status Conditional Code Supervising Physician Co-Signing Physician Notes I personally saw and examined the patient. I verified all stacy points and agree with Pao Wallace PA-C with the following exceptions and/or additions: 76 year old female presents with shortness of breath. Recently discharged from [facility] 09/25 after CABG 2/3 and subsequent acute hypoxic respiratory failure, pulmonary edema and LUCERO requiring dialysis. Sudden shortness of breath after starting dialysis today ?while lying flat. O/E Respiratory accessory muscle use, bibasal crackles, reduced breath sounds on left side posteriorly, no wheezing, Abdo SNT, BS normal A/P Dyspnea - procalcitonin negative, no definitive PNA on CT however significant pleural effusion on this side. ?due to anemia. ?post op pleural effusion causing dyspnea on lying flat for dialysis. Anemia - Likely post operative since she required 1 unit PRBCs at [facility] on 09/23 due to drop of Hgb 7.0. FOB pending. No melena or bright red blood in stool. Aim Hgb > 9. Fever - temp 38.1 degrees celsius, agree with broad spectrum antibiotics pending blood culture. ?bacteremic from HD catheter. PG Care Time/CCT Total # of Minutes Spent Total Time Spent with Patient: Total time spent is greater than 50% in coordination of care (as documented) at patient's floor/unit and/or counseling patient: Coding Level of Care Code 70078 Initial Inpt Care Lvl 3 Diagnoses Sepsis A41.9 COPD (chronic obstructive pulmonary disease) J44.9 CKD (chronic kidney disease) N18.9 Chronic kidney disease stage: unspecified stage Dyspnea R06.00 Dyspnea type: dyspnea on exertion CAD (coronary atherosclerotic disease) I25.10 Dyslipidemia E78.5 GERD (gastroesophageal reflux disease) K21.9 Anemia D64.9 Anemia type: unspecified type Hypomagnesemia E83.42 (1) Anemia Anemia type: unspecified type Qualified Code(s): D64.9 - Anemia, unspecified (2) Dyspnea Dyspnea type: dyspnea on exertion Qualified Code(s): R06.00 - Dyspnea, unspecified (3) CKD (chronic kidney disease) Chronic kidney disease stage: unspecified stage Qualified Code(s): N18.9 - Chronic kidney disease, unspecified
[2021-10-18] MEDS ORDERED: CLOPIDOGREL BISULFATE 75 MG TAB PO ONE (11:33)
[2021-10-18] MEDS ORDERED: METOPROLOL TARTRATE 25 MG TAB PO ONE (11:34)
[2021-10-18] MEDS ORDERED: ASPIRIN 81 MG ECTAB PO ONE (11:35)
--- NOTE | 2021-10-18 12:43 | Nephrology Consultation ---
Date of Consultation October 18, 2021 Assessment & Plan (1) Acute kidney injury: (2) Anemia due to chronic kidney disease: (3) Hypoxia: (4) S/P CABG (coronary artery bypass graft): (5) Edema: (6) Secondary hyperparathyroidism of renal origin: 75-year-old female with recent dialysis requiring LUCERO after CABG and cardiogenic shock. Developed acute respiratory distress while getting dialysis this morning. Evaluation in ER negative for PE, troponin just mildly elevated without significant EKG change. Hemoglobin was found to be less than 8, overall generalized volume overload and elevated BNP, mild pericardial effusion and moderate pleural effusion. last dialysis was last Monday and this morning had dialysis only for 10 minutes however lab showed creatinine of 1.9, BUN 44 and normal electrolyte. She reports decent urine output. -- No indication for dialysis today, continue to monitor with daily lab, urine output for evidence of renal recovery. -- if urine output remains low okay to use diuretics as needed, would start with Lasix 40 mg IV x1 dose and increase dose as needed -- will evaluate in a.m. for any need for dialysis -- Currently getting blood transfusion -- continue on empiric antibiotic pending culture. -- if blood culture comes back positive, will have to remove tunneled dialysis catheter will follow Thank you for allowing me to participate in your patient's care. It was a pleasure to see Shirley History of Present Illness History of Present Illness Shirley Mcdaniels is a 76 yo f With past medical history significant for stage IIIB/4 CKD, recent AK I after cardiogenic shock requiring dialysis for last 1 month, CABG, type 2 diabetes admitted to the hospital with acute respiratory distress. Nephrology consult was requested to evaluate for need for dialysis. EMR records were reviewed in detail during patient's visit. Shirley was sent to ER from dialysis unit with progressive respiratory distress. According to the report from dialysis units nurse, she went for dialysis this morning as per her regular schedule. Initially she was otherwise asymptomatic however, 10 minutes into dialysis she started complaining of shortness of breath. Did not have any chest pain, diaphoresis, hypotension, dizziness or lightheadedness. She has been on 3 L nasal cannula oxygen but oxygen saturation was only in mid 80s. The oxygen was turned up to 3 to 4 L but she remain uncomfortable with shortness of breath. Patient denied any chest pain but was noted to be tachycardic and hypertensive. She CABG on 09/08/2021 at [facility] for multivessel coronary artery disease after she was initially presented to [facility] ER and later transferred to [facility]. CABG was complicated by cardiogenic shock and LUCERO requiring dialysis and she has been on dialysis for last almost a month.She reports having decent urine output, approximately 3 to 4 times a day.She denies any recent fevers, chills, vomiting or diarrhea. denies dysuria or increased frequency of urination. She states her stools have been black but she is takes an iron supplement. Chest x-ray showed [id number] pleural effusion. CTA was negative for pulmonary embolism but found to have mild pericardial effusion in addition to pleural effusion. No significant pulmonary congestion. Troponin was slightly elevated, BN P elevated more than 1000. lab showed creatinine of 1.9, BUN 44, other electrolyte acceptable. Hemoglobin was 7.9. in ER she was also found to be febrile with temperature above 37. blood culture was drawn and she was empirically started on vancomycin and cefepime. She was also recently diagnosed with Klebsiella UTI on 10/13/2021. She has h/o stage 3B CKD, b/l cr 1.6 to 1.8 secondary to diabetic nephropathy and heavy NSAID use. Has moderate degree proteinuria with diabetic retinopathy. Has left atrophic kidney. Renal artery Doppler was negative for hemodynamically significant renal artery stenosis. She is a chronic smoker and does not follow low-salt or heart healthy diet. Denies chronic NSAID use Has been off of lisinopril because of repeated episodes of hyperkalemia. HTN for last > 10 years, on amlodipine 5 milligrams, carvedilol 25 twice a day. Has been off of lisinopril for repeated hyperkalemia. Has diabetes for almost 15 years, no retinopathy or peripheral neuropathy. H/O CAD, s/p CABG, prior PTCA with stent, on aspirin 81 milligram and atorvastatin 80 milligrams p.o. daily and carvedilol 25 milligram twice a day. She reports slight improvement in shortness of breath, denied chest pain. No fever or chills. The Allergies Allergy/AdvReac Type Severity Reaction Status Date / Time No Known Allergies Allergy Verified 10/13/21 09:17 Home Medications Medication Instructions Recorded Confirmed Type nitroglycerin 0.4 mg sublingual 0.4 mg SUBLINGUAL UD PRN #30 tab 04/07/20 10/18/21 Rx tablet (Nitrostat) gabapentin 100 mg capsule 200 mg PO BID 03/19/21 10/18/21 History (Neurontin) albuterol sulfate 90 mcg/actuation 2 puff INHALATION Q6H PRN #8.5 g 07/21/21 10/18/21 Rx aerosol inhaler (ProAir HFA) ipratropium 0.5 mg-albuterol 3 mg 3 ml INHALATION .COMPLEX PRN #180 07/21/21 10/18/21 Rx (2.5 mg base)/3 mL nebulization ml soln tiotropium bromide 18 mcg capsule 1 cap INHALATION QAM #30 inh 07/21/21 10/18/21 Rx with inhalation device (Spiriva with HandiHaler) atorvastatin 80 mg tablet 80 mg PO DAILY 09/06/21 10/18/21 History clopidogrel 75 mg tablet 75 mg PO DAILY 09/08/21 10/18/21 History pantoprazole 40 mg tablet,delayed 40 mg PO DAILY 09/08/21 10/18/21 History release aspirin 81 mg tablet,delayed 81 mg PO DAILY 10/06/21 10/18/21 History release (Adult Aspirin Regimen) metoprolol tartrate 25 mg tablet 12.5 mg PO BID tab 10/06/21 10/18/21 History sitagliptin 25 mg tablet (Januvia) 25 mg PO DAILY 10/06/21 10/18/21 History Portable Oxygen #2 ea 10/12/21 10/13/21 Rx blood sugar diagnostic (OneTouch 10/13/21 10/13/21 History Ultra Test) cephalexin 250 mg capsule 250 mg PO BID 7 Days #14 cap 10/13/21 10/18/21 Rx Patient History Medical History (Updated 10/18/21 @ 18:01 by Julienne Espinosa MD) Acute electrocardiogram changes Acute kidney injury Acute respiratory failure with hypoxia Anemia (~12/03/13) Anemia due to chronic kidney disease CAD (coronary artery disease) NSTEMI 2010, ARABELLA x 1, POBA x 1 @ [facility] CAD (coronary atherosclerotic disease) CABG x2 09/10/2021 at the [facility] LEGER-LAD, SVG-OM 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 diabetes mellitus Diabetes mellitus, type 2 Diabetic peripheral neuropathy DJD (degenerative joint disease) Elevated troponin GERD (gastroesophageal reflux disease) H/O: CVA (cerebrovascular accident) Developed facial droop after cardiac cath 2010. Acute infarct. Treated, complete resolution of symptoms. No residual deficits. Hyperkalemia Persistent since 12/2018 Hyperkalemia Hyperlipidemia Hypertension Hypoxia Hypoxia Hypoxia Lumbar spinal stenosis Myocardial Infarction NSTEMI 2010. ARABELLA to mid LCx and POBA to LAD/Dx. Presence of drug-eluting stent in left circumflex coronary artery Secondary hyperparathyroidism of renal origin SOB (shortness of breath) SOB (shortness of breath) Stage 3b chronic kidney disease Stage 3B nodular histiocytic lymphoma Tobacco use disorder, continuous Vitamin D deficiency Surgical History (Updated 10/18/21 @ 14:54 by Shari Booth MD) History of cardiac cath 1 STENT 2010-[facility]NO CHEST PAIN SINCE History of carpal tunnel release RT History of cataract surgery RT/LEFT History of colonoscopy History of tooth extraction History of tubal ligation Family History Brother Family history of diabetes mellitus Sister Family history of diabetes mellitus Sister Family history of diabetes mellitus Mother Family history of diabetes mellitus Myocardial infarction Stroke Father Myocardial infarction Denies family history of Ovarian cancer Prostate cancer Breast cancer Colorectal cancer Social History Smoking Status: Former smoker Tobacco Type: Cigarettes Age Started Using Tobacco: 24; Age Quit Using Tobacco: 75; packs per day: 0.5; Second Hand Exposure: No; Hx Alcohol Use: No Hx Substance Use: No Preferred Language: Colombian Communication Ability: Effective Visual Impairment: No Limitations [employer] Required: No Beliefs That Will Affect Care: None marital status: Current Living Situation: Alone Current Living Situation Comment: lives home alone in a house current occupational status: retired 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 Physical Exam Constitutional: WD/WN, vitals as above + ill appearing and + edematous; no acute distress Eyes: + anicteric sclerae Neck: normal visual inspection Respiratory: no respiratory distress and no cough Auscultation: + diminished lung sounds and + rales Cardiovascular: Rate/Rhythm: regular rate and regular rhythm Heart Sounds: normal S1 and normal S2 Extremities: + edema Gastrointestinal (Abdomen): Inspection/Auscultation: abdomen normal to inspection and normal bowel sounds Percussion/Palpation: abdomen soft; abdomen nontender Musculoskeletal: Extremities: extremities normal to inspection Skin: no rashes Neurologic: no focal motor deficits Psychiatric: Orientation: alert and oriented x 3 Affect: euthymic affect Results & Data ([facility]) Vital Signs (Past 12 Hours) Vital Signs Temp Pulse Pulse Resp BP BP Pulse Ox 10/18/21 12:27 92 H 20 107/40 L 96 10/18/21 10:49 37.4 C 103 H 26 H 119/76 96 10/18/21 10:20 96 10/18/21 10:19 37.8 C H 108 H 27 H 114/51 L 95 10/18/21 10:04 37.7 C H 109 H 22 126/51 L 93 10/18/21 09:45 38.1 C H 115 H 20 149/60 H 93 10/18/21 09:39 117 H 27 H 136/54 L 95 10/18/21 09:00 112 H 25 H 148/46 H 93 10/18/21 08:39 107 H 25 H 130/60 95 10/18/21 08:02 119 H 26 H 101/72 96 10/18/21 07:33 93 10/18/21 07:20 37.0 C 110 H 26 H 142/54 H 93 PG Care Time/CCT Total # of Minutes Spent Total Time Spent with Patient: Total time spent is greater than 50% in coordination of care (as documented) at patient's floor/unit and/or counseling patient: Coding Level of Care Code 85047 Initial Inpt Care Lvl 3 Diagnoses Acute kidney injury N17.9 Anemia due to chronic kidney disease N18.9; D63.1 Hypoxia R09.02 S/P CABG (coronary artery bypass graft) Z95.1 Edema R60.9 Secondary hyperparathyroidism of renal origin N25.81
[2021-10-18] MEDS ORDERED: NITROGLYCERIN SL 0.4 MG/TAB TAB SL PRN (13:17)
[2021-10-18] MEDS ORDERED: DEXTROSE 50% 50 ML SYRINGE IV PRN (13:17)
[2021-10-18] MEDS ORDERED: GLUCOSE 10 TABS/TUBE PO PRN (13:17)
[2021-10-18] MEDS ORDERED: POLYETHYLENE (MIRALAX) 17 GM PACK PO PRN (13:17)
[2021-10-18] MEDS ORDERED: GLUCOSE 40% GEL 15 GM TUBE PO PRN (13:17)
[2021-10-18] MEDS ORDERED: ONDANSETRON INJ 2 MG/ML 2 ML VIAL IV PRN (13:17)
[2021-10-18] MEDS ORDERED: ACETAMINOPHEN 325 MG TAB PO PRN (13:17)
[2021-10-18] MEDS ORDERED: GLUCAGON FOR INJ 1 MG VIAL SQ PRN (13:17)
[2021-10-18] MEDS ORDERED: ALBUT/IPRATROP 3MG/0.5MG NEB 3 ML VIAL INH PRN (13:17)
[2021-10-18] MEDS ORDERED: CARBOHYDRATES FOR HYPOGLYCEMIA PO PRN (13:17)
[2021-10-18] MEDS ORDERED: ALBUTEROL HFA 8 GM INHALER INH PRN (13:24)
[2021-10-18] MEDS ORDERED: ENOXAPARIN INJ 30 MG/0.3 ML SYR SQ ONE (14:30)
--- NOTE | 2021-10-18 14:40 | XCELERA ---
[id number]
--- NOTE | 2021-10-18 15:00 | Pharmacy Report ---
Pharmacy Abx Dose Short Note - Date of Service October 18, 2021 - Assessment & Plan Assessment 76 year old F receiving vancomycin/cefepime for treatment of potential dialysis port infection Day # 1 of antimicrobial therapy. Plan Vancomycin * Vancomycin 1750 mg IV x 1 (21 mg/kg) * Patient did not have dialysis today; unclear if will have dialysis later today. * Vancomycin random ordered for 10/18/21 Cefepime * 2 gm IV x 1 then 1 gm IV daily after dialysis Pharmacy will continue to follow and will adjust dose/frequency as necessary. Thank you.
[2021-10-18] MEDS: INSULIN ASPART PER UNIT SC SCH ×2 (17:16→20:50)
[2021-10-18 17:29] LABS: Hematocrit (blood only) 24.3 % (37-47); Hemoglobin 7.5 g/dL (12.0-16.0)
[2021-10-18 19:21] LABS: Hematocrit (blood only) 24.8 % (37-47); Hemoglobin 7.7 g/dL (12.0-16.0)
[2021-10-18] MEDS: GABAPENTIN 100 MG CAP PO SCH (19:59)
[2021-10-18] MEDS: METOPROLOL TARTRATE 25 MG TAB PO SCH (19:59)
[2021-10-18] MEDS: INSULIN GLARGINE SOLOSTAR 100 UNITS/ML 3 ML PEN SC SCH (20:50)
[2021-10-19 01:01] LABS: Hematocrit (blood only) 27.4 % (37-47); Hemoglobin 8.7 g/dL (12.0-16.0)
[2021-10-19 06:18] LABS: Basophils # (auto) 0.04 K/uL (0-0.2); Basophils % (auto) 0.5 %; Eosinophils # (auto) 0.29 K/uL (0-0.5); Eosinophils % (auto) 3.3 %; Hematocrit (blood only) 28.3 % (37-47); Hemoglobin 9.2 g/dL (12.0-16.0); Immature Granulocytes # (auto) 0.04 K/uL (0.00-0.02); Immature Granulocytes % (auto) 0.5 %; Lymphocytes % (auto) 19.3 %; Mean Corpuscular Hemoglobin 28.1 pg (25-34); Mean Corpuscular Hgb Conc 32.5 g/dL (32-36); Mean Corpuscular Volume 86.5 fL (80-100); Mean Platelet Volume 9.7 fL (7.4-10.4); Monocytes # (auto) 0.65 K/uL (0.11-0.59); Monocytes % (auto) 7.4 %; Neutrophils # (auto) 6.07 K/uL (1.4-6.5); Platelet Count 311 K/uL (130-400); RDW Coefficient of Variation 17.6 % (11.5-14.5); RDW Standard Deviation 55.7 fL (36.4-46.3); Red Blood Count 3.27 M/uL (4.2-5.4); White Blood Count 8.79 K/uL (4.8-10.8)
[2021-10-19 06:42] LABS: Albumin Level 2.8 gm/dl (3.4-5.0); BUN Creatinine Ratio 20.9 (10-20); Bilirubin,Total 0.3 mg/dl (0.2-1.0); Calcium 7.7 mg/dl (8.5-10.1); Creatinine Clr Calc Pharmacy 17.9 ml/min; Est GFR (African American) 21.7 ml/min; Est GFR (Non-African American) 18.7 ml/min; Globulin 2.8 gm/dl (2.5-4.0); Magnesium 1.9 mg/dl (1.7-2.4); Potassium 4.5 mmol/L (3.5-5.1); Total Protein 5.6 gm/dl (6.0-8.3)
[2021-10-19] MEDS: ATORVASTATIN 40 MG TAB PO SCH (08:03)
[2021-10-19] MEDS: GABAPENTIN 100 MG CAP PO SCH ×2 (08:04→20:50)
[2021-10-19] MEDS: ASPIRIN 81 MG ECTAB PO SCH (08:04)
[2021-10-19] MEDS: PANTOprazole 40 MG TAB PO SCH (08:04)
[2021-10-19] MEDS: CLOPIDOGREL BISULFATE 75 MG TAB PO SCH (08:05)
[2021-10-19] MEDS: INSULIN GLARGINE SOLOSTAR 100 UNITS/ML 3 ML PEN SC SCH ×2 (08:06→20:51)
[2021-10-19] MEDS: INSULIN ASPART PER UNIT SC SCH ×4 (08:11→20:51)
[2021-10-19] MEDS: UMECLIDINIUM BROMIDE 62.5MCG/BLISTER 7 PUFFS/INHALER INH SCH (08:16)
--- NOTE | 2021-10-19 08:45 | Hospitalist Progress Note ---
Date of Service October 19, 2021 Assessment & Plan (1) Dyspnea: Plan: Patient's shortness could be due to multiple issues. -Her hypoxia could be the main cultprit. -SpO2 in mid 80s on 2L during initial presentation, up to 93% on 3L. It could also be due to her anemia. Patient received transfusion x2 PRBC. Patient reports dark black stools, she states it has been months since she was on iron tablets. Obtained echo. received IV diuretics. consult nephro. will consult GI for possible scope. (2) Sepsis: Plan: -WBC 13.60, temp 100.6, HR 100s. Lactate 0.7, PCT .43, blood + urine cx pending. -MAP > 65 without need for IVF. -Patient started empirically on vancomycin and cefepime for suspected infection possibly from dialysis port. awaiting culture results (3) Anemia: Plan: -Hgb 8.1 today, down from 10.9 on labs from 09/09. Did require transfusion at [facility] for Hgb of 7.0. She is not on any blood thinners, does take ASA and Plavix daily. No obvious source of bleeding, heme negative in ED. Patient has a history of chronic iron deficiency anemia. Was previously taking PO iron, however this has been stopped since dialysis was started one month ago. -One unit of pRBCs transfused in ED, recheck Hgb 7.7, no obvious source of bleeding. 1 additional unit of pRBCs ordered this evening. Recheck H/H at 2300. (4) COPD (chronic obstructive pulmonary disease): Plan: -On 2L NC at all times, as well as Spiriva + rescue inhalers. Currently on 3L NC with SpO2 in low 90s. -Continue home inhalers, supplemental oxygen. (5) CKD (chronic kidney disease): Plan: -Acute on CKD during hospitalization in September for NSTEMI. BUN 44, Cr -Dialysis M-W-F since discharge from [facility]. Patient did not receive dialysis today due to transportation to ED. (6) CAD (coronary atherosclerotic disease): Plan: -CABG x2 09/10/2021 at the [facility]. Without chest pain/tightness or palpitations today. -Continue ASA + Plavix, beta aidee, statin. (7) Dyslipidemia: Plan: -Continue statin. (8) GERD (gastroesophageal reflux disease): Plan: -Continue protonix. (9) Hypomagnesemia: Plan: -1.5 in ED, 2g Mg++ ordered for repletion. -Recheck level in AM. Plan: -Admit to [facility] w/ tele -Conditional Code: chest compressions only -SCDs for DVT ppx. Admission and Anticipated Discharge Date Admission Date: October 18, 2021 Subjective This is a pleasant 76 yo female with a complicated history. Past medical history of hypertension, type 2 diabetes, hyperlipidemia, coronary artery disease, status post non ST elevation AL in 2010 for she received a drug- eluting stent in her mid circumflex artery and balloon angioplasty to OM 2 and T2 after plaque shift, carotid artery stenosis, chronic kidney disease stage 3, COPD, obstructive sleep apnea and CVA in 2019. Patient also recently had a stay [facility] 09/08/2021-09/25/2021 for coronary artery disease, status post CABG x2- LEGER-LAD, SVG-OM ( 09/09/2021), cardiogenic postoperative shock, acute on CKD, initiation of hemodialysis and COVID-19 a diagnosed on 09/19/2021. Patient complained that her right IV line infiltrated and she had swelling in that arm. She reports her SOB has improved. Review of Systems Review of Systems: All systems reviewed & are unremarkable except as noted in HPI & below Physical Exam Constitutional: WD/WN, vitals as above + ill appearing and + edematous; no acute distress Eyes: + anicteric sclerae Neck: normal visual inspection Respiratory: no respiratory distress and no cough Auscultation: + diminished lung sounds; no rales Cardiovascular: Rate/Rhythm: regular rate and regular rhythm Heart Sounds: normal S1 and normal S2 Extremities: + edema Gastrointestinal (Abdomen): Inspection/Auscultation: abdomen normal to inspection and normal bowel sounds Percussion/Palpation: abdomen soft; abdomen nontender Musculoskeletal: Extremities: extremities normal to inspection Skin: no rashes Neurologic: no focal motor deficits Psychiatric: Orientation: alert and oriented x 3 Affect: euthymic affect Results & Data Results & Data ([facility]) Vital Signs (Past 12 Hours) Vital Signs Temp Pulse Pulse Resp BP BP Pulse Ox 10/19/21 06:47 36.6 C 82 20 151/71 H 93 10/19/21 03:11 36.7 C 79 20 132/67 92 10/18/21 23:36 75 10/18/21 23:11 36.6 C 77 18 151/72 H 93 10/18/21 21:56 36.9 C 73 18 148/69 H 92 10/18/21 20:53 36.7 C 76 16 129/72 95 PG Care Time/CCT Total # of Minutes Spent Total Time Spent with Patient: Total time spent is greater than 50% in coordination of care (as documented) at patient's floor/unit and/or counseling patient: Coding Level of Care Code 20111 Subseq Hosp Care Lvl 3 Diagnoses Dyspnea R06.00 Dyspnea type: dyspnea on exertion Sepsis A41.9 Anemia D64.9 Anemia type: unspecified type COPD (chronic obstructive pulmonary disease) J44.9 CKD (chronic kidney disease) N18.9 Chronic kidney disease stage: unspecified stage CAD (coronary atherosclerotic disease) I25.10 Dyslipidemia E78.5 GERD (gastroesophageal reflux disease) K21.9 Hypomagnesemia E83.42 (1) Anemia Anemia type: unspecified type Qualified Code(s): D64.9 - Anemia, unspecified (2) Dyspnea Dyspnea type: dyspnea on exertion Qualified Code(s): R06.00 - Dyspnea, unspecified (3) CKD (chronic kidney disease) Chronic kidney disease stage: unspecified stage Qualified Code(s): N18.9 - Chronic kidney disease, unspecified
[2021-10-19] MEDS: METOPROLOL TARTRATE 25 MG TAB PO SCH ×2 (09:25→20:50)
--- NOTE | 2021-10-19 10:42 | Nephrology Progress Note ---
Date of Service October 19, 2021 Assessment & Plan (1) Acute kidney injury: (2) Anemia due to chronic kidney disease: (3) Hypoxia: (4) S/P CABG (coronary artery bypass graft): (5) Edema: (6) Secondary hyperparathyroidism of renal origin: Plan: 75-year-old female with recent dialysis requiring LUCERO after CABG and cardiogenic shock. Developed acute respiratory distress while getting dialysis this morning. Evaluation in ER negative for PE, troponin just mildly elevated without significant EKG change. Hemoglobin was found to be less than 8, overall generalized volume overload and elevated BNP, mild pericardial effusion and moderate pleural effusion. last dialysis was last Monday and this morning had dialysis only for 10 minutes however lab showed creatinine of 1.9, BUN 44 and normal electrolyte. She reports decent urine output. Blood pressure well control, no respiratory distress. Acceptable volume status. -- No indication for dialysis today, continue to monitor with daily lab, urine output for evidence of renal recovery.will evaluate in a.m. for any need for dialysis -- Measure accurate intake and output. -- continue on empiric antibiotic pending culture. -- if blood culture comes back positive, will have to remove tunneled dialysis c atheter will follow Admission and Anticipated Discharge Date Admission Date: October 18, 2021 Marcel Watson was seen this morning, overall she feels well, appetite good, denies any further episode of shortness of breath or chest pain. Electrolyte acceptable but creatinine went up slightly to 2.4 this morning. She reports decent urine output at least 4-5 times over last 24 hour although on measured and EMR record shows only 350 mL. Looks less edematous. Review of Systems Review of Systems: Detailed review of system was otherwise unremarkable. Physical Exam Constitutional: WD/WN, vitals as above no acute distress Eyes: + anicteric sclerae Neck: normal visual inspection Respiratory: no respiratory distress Auscultation: lungs clear to auscultation bilaterally Cardiovascular: Rate/Rhythm: regular rate and regular rhythm Heart Sounds: normal S1 and normal S2 Extremities: + edema (rt UE with hematoma) and + vascular access device ( Right IJ TDC with no erythema, drainage, non tender) Skin: no rashes Neurologic: no focal motor deficits Psychiatric: Orientation: alert and oriented x 3 Results & Data ([facility]) Vital Signs (Past 12 Hours) Vital Signs Temp Pulse Pulse Resp BP BP Pulse Ox 10/19/21 06:47 36.6 C 82 20 151/71 H 93 10/19/21 03:11 36.7 C 79 20 132/67 92 10/18/21 23:36 75 10/18/21 23:11 36.6 C 77 18 151/72 H 93 PG Care Time/CCT Total # of Minutes Spent Total Time Spent with Patient: Total time spent is greater than 50% in coordination of care (as documented) at patient's floor/unit and/or counseling patient: Coding Level of Care Code 51704 Subseq Hosp Care Lvl 3 Diagnoses Acute kidney injury N17.9 Anemia due to chronic kidney disease N18.9; D63.1 Hypoxia R09.02 S/P CABG (coronary artery bypass graft) Z95.1 Edema R60.9 Secondary hyperparathyroidism of renal origin N25.81
[2021-10-19] MEDS ORDERED: ENOXAPARIN INJ 30 MG/0.3 ML SYR SQ SCH (11:00)
--- NOTE | 2021-10-19 13:45 | Gastrointestinal Consultation ---
Date of Consultation October 19, 2021 Assessment & Plan (1) Normocytic anemia: If this were from acute GI bleeding then would expect heme positive stool. If from chronic bleeding then would expect microcytic anemia. Fe sat and ferritin would not be accurate given blood transfusion. Discussed with Dr Koenig would recommend consideration of A/P CT to look for retroperitoneal bleed. Dark stools--heme neg at present so no acute bleeding. If this represents bleeding in the past then likely upper source. She is at risk for PUD because of ASA use. Would recommend continue PPI. Once patient stable as much as possible form renal, cardiac, and pulmonary standpoint could do EGD inpt versus outpt. I, Chago Flores MD have spent 38 minutes of discrete time performing the activities of this visit which include but are not limited to review of the medical record, obtaining a history, physical exam, and entering information in the electronic record. History of Present Illness Reason for Consultation: black stools, anemia Requesting Physician: Dr Koenig Attending Physician: Abdulkadir Koenig History of Present Illness Pt with multiple medical problems including COPD on home O2, DM, HTN and on dialysis since CABG at [facility] [place]. Was at hemodialysis day of admit and had respiratory distress. She came to ER and admitted. Hgb noted to be 8.1 normocytic versus 10.9 2. Pt states on chronic Fe and told me stopped about a week ago but per DR Koenig told him she stopped it a month ago. Stools black according to patient. In ER stool dark on rectal but heme negative. One unit of blood given in ER and Hgb 9.2 today. Chest CTA no PE but pericardial and pleural effusions, cardiomegaly and stable 7 mm lung nodule, CXR cardiomegaly adn pleural effusion. Troponins postiive 0.08. Pt thinks she had colonoscopy long time in the past. . Allergies Allergy/AdvReac Type Severity Reaction Status Date / Time No Known Allergies Allergy Verified 10/13/21 09:17 Home Medications Medication Instructions Recorded Confirmed Type nitroglycerin 0.4 mg sublingual 0.4 mg SUBLINGUAL UD PRN #30 tab 04/07/20 10/18/21 Rx tablet (Nitrostat) gabapentin 100 mg capsule 200 mg PO BID 03/19/21 10/18/21 History (Neurontin) albuterol sulfate 90 mcg/actuation 2 puff INHALATION Q6H PRN #8.5 g 07/21/21 10/18/21 Rx aerosol inhaler (ProAir HFA) ipratropium 0.5 mg-albuterol 3 mg 3 ml INHALATION .COMPLEX PRN #180 07/21/21 10/18/21 Rx (2.5 mg base)/3 mL nebulization ml soln tiotropium bromide 18 mcg capsule 1 cap INHALATION QAM #30 inh 07/21/21 10/18/21 Rx with inhalation device (Spiriva with HandiHaler) atorvastatin 80 mg tablet 80 mg PO DAILY 09/06/21 10/18/21 History clopidogrel 75 mg tablet 75 mg PO DAILY 09/08/21 10/18/21 History pantoprazole 40 mg tablet,delayed 40 mg PO DAILY 09/08/21 10/18/21 History release aspirin 81 mg tablet,delayed 81 mg PO DAILY 10/06/21 10/18/21 History release (Adult Aspirin Regimen) metoprolol tartrate 25 mg tablet 12.5 mg PO BID tab 10/06/21 10/18/21 History sitagliptin 25 mg tablet (Januvia) 25 mg PO DAILY 10/06/21 10/18/21 History Portable Oxygen #2 ea 10/12/21 10/13/21 Rx blood sugar diagnostic (OneTouch 10/13/21 10/13/21 History Ultra Test) cephalexin 250 mg capsule 250 mg PO BID 7 Days #14 cap 10/13/21 10/18/21 Rx Patient History Medical History (Updated 10/19/21 @ 13:42 by Chago Flores) Acute electrocardiogram changes Acute kidney injury Acute respiratory failure with hypoxia Anemia (~12/03/13) Anemia due to chronic kidney disease CAD (coronary artery disease) NSTEMI 2010, ARABELLA x 1, POBA x 1 @ [facility] CAD (coronary atherosclerotic disease) CABG x2 09/10/[address] [facility] LEGER-LAD, SVG-OM 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 diabetes mellitus Diabetes mellitus, type 2 Diabetic peripheral neuropathy DJD (degenerative joint disease) Elevated troponin GERD (gastroesophageal reflux disease) H/O: CVA (cerebrovascular accident) Developed facial droop after cardiac cath 2010. Acute infarct. Treated, complete resolution of symptoms. No residual deficits. Hyperkalemia Persistent since 12/2018 Hyperkalemia Hyperlipidemia Hypertension Hypoxia Hypoxia Hypoxia Lumbar spinal stenosis Myocardial Infarction NSTEMI 2010. ARABELLA to mid LCx and POBA to LAD/Dx. Presence of drug-eluting stent in left circumflex coronary artery Secondary hyperparathyroidism of renal origin SOB (shortness of breath) SOB (shortness of breath) Stage 3b chronic kidney disease Stage 3B nodular histiocytic lymphoma Tobacco use disorder, continuous Vitamin D deficiency Surgical History (Updated 10/18/21 @ 14:54 by Shari Booth MD) History of cardiac cath 1 STENT 2010-[facility]NO CHEST PAIN SINCE History of carpal tunnel release RT History of cataract surgery RT/LEFT History of colonoscopy History of tooth extraction History of tubal ligation Family History Brother Family history of diabetes mellitus Sister Family history of diabetes mellitus Sister Family history of diabetes mellitus Mother Family history of diabetes mellitus Myocardial infarction Stroke Father Myocardial infarction Denies family history of Ovarian cancer Prostate cancer Breast cancer Colorectal cancer Social History Smoking Status: Former smoker Tobacco Type: Cigarettes Age Started Using Tobacco: 24; Age Quit Using Tobacco: 75; packs per day: 0.5; Second Hand Exposure: No; Hx Alcohol Use: No Hx Substance Use: No Preferred Language: Emirati Communication Ability: Effective Visual Impairment: No Limitations Seam Taper Machine Required: No Beliefs That Will Affect Care: None marital status: Current Living Situation: Alone Current Living Situation Comment: lives home alone in a house current occupational status: retired 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 Feels Safe at Home: Yes Safety Concerns: Feels Safe At This Time Childhood Exposure to Second-Hand Smoke: Yes caffeine: Yes Dental Care, Regularly: No Physical Activity Frequency: 3-4 Times per Week Seatbelt Use: sometimes Sunscreen Use: No Assistive Devices: Oxygen - Continuous Review of Systems Review of Systems: All systems reviewed & are unremarkable except as noted in HPI & below Physical Exam Constitutional: WD/WN, vitals as above Eyes: PERRL, conjunctivae normal, anicteric sclerae ENMT: Nose: + external nose abnormality Neck: normal visual inspection and trachea midline Respiratory: normal respiratory effort, lungs clear to auscultation Cardiovascular: RRR without murmur Gastrointestinal (Abdomen): normal bowel sounds, soft, nontender, no hepatosplenomegaly Skin: normal turgor Neurologic: PERRL, EOMI, accommodation nl, no face palsy, no dysarthria Psychiatric: A+Ox3, euthymic affect Results & Data ([facility]) Vital Signs (Past 12 Hours) Vital Signs Temp Pulse Resp BP BP Pulse Ox 10/19/21 11:43 36.6 C 79 20 148/58 H 94 10/19/21 06:47 36.6 C 82 20 151/71 H 93 10/19/21 03:11 36.7 C 79 20 132/67 92
[2021-10-19] MEDS ORDERED: VANCOMYCIN HCL 500 MG in DEXTROSE 5% 100 ML IV SCH (14:45)
--- NOTE | 2021-10-19 14:53 | Pharmacy Report ---
Pharmacy [facility] Short Note - Date of Service October 19, 2021 - Assessment & Plan Assessment 76 year old F receiving IV vancomycin for treatment of possible HD line infection. Pertinent microbiologic data includes: blood culture is preliminary no growth; urine culture pin-point growth is reincubating. Day # 2 of antimicrobial therapy. Hemodialysis: * HD schedule is MWF * Last completed dialysis session was on 10/15 * Dialysis session on 10/18 was only for 10 minutes because patient developed acute respiratory distress while getting dialysis Plan Vancomycin * Pre-HD random level of 16.3 obtained approximately 16 hours post administration of a loading dose of vancomycin 1750 mg * Nephrology consult note specifies that patient would not be scheduled for hemodialysis today * Vancomycin 500 mg x 1 is scheduled to be administered today * Next pre-HD random level would be obtained with AM labs tomorrow * Target vancomycin level of 15-20 mcg/mL Pharmacy will continue to follow and will adjust dose/frequency as necessary. Thank you.
[2021-10-19] MEDS: CEFEPIME 1,000 MG in SYRINGE 0 ML IV SCH (15:56)
[2021-10-20 05:58] LABS: Hematocrit (blood only) 29.2 % (37-47); Hemoglobin 9.2 g/dL (12.0-16.0); Mean Corpuscular Hemoglobin 27.4 pg (25-34); Mean Corpuscular Hgb Conc 31.5 g/dL (32-36); Mean Corpuscular Volume 86.9 fL (80-100); Mean Platelet Volume 9.6 fL (7.4-10.4); Platelet Count 315 K/uL (130-400); RDW Coefficient of Variation 17.7 % (11.5-14.5); RDW Standard Deviation 55.8 fL (36.4-46.3); Red Blood Count 3.36 M/uL (4.2-5.4); White Blood Count 9.29 K/uL (4.8-10.8)
[2021-10-20 06:17] LABS: BUN Creatinine Ratio 22.8 (10-20); Calcium 8.3 mg/dl (8.5-10.1); Creatinine Clr Calc Pharmacy 17.5 ml/min; Est GFR (African American) 21.1 ml/min; Est GFR (Non-African American) 18.2 ml/min; Potassium 4.8 mmol/L (3.5-5.1)
--- NOTE | 2021-10-20 08:19 | Gastroenterology Progress Note ---
Date of Service October 20, 2021 Assessment & Plan (1) Normocytic anemia: Plan: Anemia: Hemoglobin 9.2, hematocrit 29.2 this morning which is stable from yesterday. She is status post 2 units of packed red blood cells transfused on 10/18/2021. No bowel movement today per the patient. Heme-negative stool with admission. Patient does have risk for PUD due to aspirin use. Commend continued PPI. Would consider EGD inpatient versus outpatient once patient is stabilized from renal, cardiac, pulmonary standpoint Case reviewed with Dr. Flores. Please refer to supervising physician addendum for further recommendations. I have spent 20 minutes of discrete time performing the activities of this visit which include but are not limited to review of the medical record, obtaining a history, physical exam, and entering information in the electronic record. Admission and Anticipated Discharge Date Admission Date: October 18, 2021 Supervising Physician Co-Signing Physician Notes I have seen and examined the patient. I agree with note above by PIPPA Peacock except as noted below. HPI Pt states had brown stool this am. No abd pain PE Abdomen pos bs, soft, no guarding nor rebound A/P Black stools anemia--stable. Continue PPI. When patient optimized from renal/cardiac/pulmonary standpoint can do EGD. Await hospitalist for decision on when optimized and whether inpatient or outpt. As the supervising physician, I , Chago Flores MD have spent 10 minutes of discrete time performing the activities of this visit which include but not limited to review of the medical records, obtaining a history, physical exam and entering information in the electronic record. PIPPA Peacock has reported spending 20 minutes of discrete time with the activities of this visit. Subjective The patient is awake alert and oriented this morning sitting at bedside talking to her roommate. She denies any specific complaints this morning. She states she feels good overall. She has had no bowel movement since admission. She denies any abdominal pain, nausea, vomiting. She is tolerating p.o. diet without difficulty. Review of Systems Review of Systems: All systems reviewed & are unremarkable except as noted in Subjective Physical Exam Constitutional: WD/WN, vitals as above Respiratory: normal respiratory effort, lungs clear to auscultation Cardiovascular: Rate/Rhythm: regular rate and regular rhythm Gastrointestinal (Abdomen): normal bowel sounds, soft, nontender, no hepatosplenomegaly Psychiatric: A+Ox3, euthymic affect Results & Data ([facility]) Vital Signs (Past 12 Hours) Vital Signs Temp Pulse Pulse Resp BP Pulse Ox 10/20/21 06:42 36.6 C 89 20 161/67 H 92 10/20/21 04:15 36.8 C 77 20 133/65 92 10/20/21 00:00 81 10/19/21 23:47 37.2 C 90 20 150/70 H 92 Laboratory Results Laboratory Results - last 24 hr 10/18/21 10/19/21 10/19/21 08:29 11:32 16:29 WBC RBC Hgb Hct MCV MCH MCHC RDW Std Deviation RDW Coeff of Sushant Plt Count MPV Sodium Potassium Chloride Carbon Dioxide Anion Gap BUN Creatinine Est Cr Clr Drug Dosing Est GFR ( Amer) Est GFR (Non-Af Amer) BUN/Creatinine Ratio Glucose POC Glucose 139 H 105 H Calcium Random Vancomycin Hep Bs Antigen Hep B Core IgM Ab Crossmatch See Detail 10/19/21 10/20/21 10/20/21 20:11 05:36 05:36 WBC 9.29 RBC 3.36 L Hgb 9.2 L Hct 29.2 L MCV 86.9 MCH 27.4 MCHC 31.5 L RDW Std Deviation 55.8 H RDW Coeff of Sushant 17.7 H Plt Count 315 MPV 9.6 Sodium Potassium Chloride Carbon Dioxide Anion Gap BUN Creatinine Est Cr Clr Drug Dosing Est GFR ( Amer) Est GFR (Non-Af Amer) BUN/Creatinine Ratio Glucose POC Glucose 137 H Calcium Random Vancomycin 11.5 Hep Bs Antigen Hep B Core IgM Ab Crossmatch 10/20/21 10/20/21 10/20/21 05:36 05:36 07:20 WBC RBC Hgb Hct MCV MCH MCHC RDW Std Deviation RDW Coeff of Sushant Plt Count MPV Sodium 131 L Potassium 4.8 Chloride 100 Carbon Dioxide 26 Anion Gap 5 BUN 57 H Creatinine 2.50 H Est Cr Clr Drug Dosing 17.5 Est GFR ( Amer) 21.1 Est GFR (Non-Af Amer) 18.2 BUN/Creatinine Ratio 22.8 H Glucose 138 H POC Glucose 154 H Calcium 8.3 L Random Vancomycin Hep Bs Antigen Pending Hep B Core IgM Ab Pending Crossmatch
[2021-10-20] MEDS: UMECLIDINIUM BROMIDE 62.5MCG/BLISTER 7 PUFFS/INHALER INH SCH (08:27)
[2021-10-20] MEDS: PANTOprazole 40 MG TAB PO SCH (08:27)
[2021-10-20] MEDS: ATORVASTATIN 40 MG TAB PO SCH (08:28)
[2021-10-20] MEDS: CLOPIDOGREL BISULFATE 75 MG TAB PO SCH (08:28)
[2021-10-20] MEDS: ASPIRIN 81 MG ECTAB PO SCH (08:28)
[2021-10-20] MEDS: METOPROLOL TARTRATE 25 MG TAB PO SCH ×2 (08:28→20:58)
[2021-10-20] MEDS: GABAPENTIN 100 MG CAP PO SCH ×2 (08:29→20:58)
[2021-10-20] MEDS: INSULIN GLARGINE SOLOSTAR 100 UNITS/ML 3 ML PEN SC SCH ×2 (08:29→20:59)
[2021-10-20] MEDS: INSULIN ASPART PER UNIT SC SCH ×4 (08:35→21:00)
[2021-10-20] MEDS ORDERED: LACTATED RINGER'S 1,000 ML IV SCH (12:00)
--- NOTE | 2021-10-20 12:48 | Nephrology Progress Note ---
Date of Service October 20, 2021 Assessment & Plan (1) Acute kidney injury: (2) Anemia due to chronic kidney disease: (3) Hypoxia: (4) S/P CABG (coronary artery bypass graft): (5) Edema: (6) Secondary hyperparathyroidism of renal origin: Plan: 75-year-old female with recent dialysis requiring LUCERO after CABG and cardiogenic shock. Developed acute respiratory distress while getting dialysis this morning. Evaluation in ER negative for PE, troponin just mildly elevated without significant EKG change. Hemoglobin was found to be less than 8, overall generalized volume overload and elevated BNP, mild pericardial effusion and moderate pleural effusion. last dialysis was last Monday and this morning had dialysis only for 10 minutes however lab showed creatinine of 1.9, BUN 44 and normal electrolyte. She reports decent urine output. Blood pressure well control, no respiratory distress. Acceptable volume status. -- No indication for dialysis today, continue to monitor with daily lab, urine output for evidence of renal recovery. will evaluate in a.m. for any need for dialysis. However, cr has been slowly increasing raising concern for ESRD and needing to resume dialysis in near future -- Measure accurate intake and output. -- continue on empiric antibiotic pending culture. -- if blood culture comes back positive, will have to remove tunneled dialysis catheter --as per pt request to check whether [facility] can provide different date and time for dialysis so that she can use [facility] transportation, ntacted [facility] and the social work job titles will contact pt. will follow Admission and Anticipated Discharge Date Admission Date: October 18, 2021 Marcel Watson was seen this morning, overall she feels well, appetite good, denies any further episode of shortness of breath or chest pain. Electrolyte acceptable but creatinines to go up slightly to 2.5 this morning. She reports decent urine output at least 4-5 times over last 24 hour although on measured. BP well controlled. Review of Systems Review of Systems: Detailed review of system was otherwise unremarkable. Physical Exam Constitutional: WD/WN, vitals as above no acute distress Respiratory: no respiratory distress and no cough Auscultation: lungs clear to auscultation bilaterally and + diminished lung sounds Cardiovascular: Rate/Rhythm: regular rate and regular rhythm Heart Sounds: normal S1 and normal S2 Extremities: + vascular access device ( Right IJ TDC with no erythema, drainage, non tender) Musculoskeletal: Extremities: extremities normal to inspection Skin: no rashes Neurologic: no focal motor deficits Psychiatric: Orientation: alert and oriented x 3 Affect: euthymic affect Results & Data ([facility]) Vital Signs (Past 12 Hours) Vital Signs Temp Pulse Pulse Resp BP Pulse Ox 10/20/21 10:53 37.1 C 88 18 143/73 H 93 10/20/21 06:42 36.6 C 89 20 161/67 H 92 10/20/21 06:18 84 10/20/21 04:15 36.8 C 77 20 133/65 92 PG Care Time/CCT Total # of Minutes Spent Total Time Spent with Patient: Total time spent is greater than 50% in coordination of care (as documented) at patient's floor/unit and/or counseling patient: Coding Level of Care Code 54294 Subseq Hosp Care Lvl 3 Diagnoses Acute kidney injury N17.9 Anemia due to chronic kidney disease N18.9; D63.1 Hypoxia R09.02 S/P CABG (coronary artery bypass graft) Z95.1 Edema R60.9 Secondary hyperparathyroidism of renal origin N25.81
[2021-10-20] MEDS ORDERED: VANCOMYCIN HCL 750 MG in SODIUM CHLORIDE 0.9% 250 ML IV ONE (13:30)
--- NOTE | 2021-10-20 13:40 | Pharmacy Report ---
Pharmacy [facility] Short Note - Date of Service October 20, 2021 - Assessment & Plan Assessment 76 year old F receiving IV vancomycin for treatment of possible HD line infection. Pertinent microbiologic data includes: blood culture is preliminary no growth; urine culture pin-point growth is reincubating. Day # 2 of antimicrobial therapy. Hemodialysis: * HD schedule is MWF * Last completed dialysis session was on 10/15 * Dialysis session on 10/18 was only for 10 minutes because patient developed acute respiratory distress while getting dialysis * HD on hold for now per nephrology consult report Plan Vancomycin * Vancomycin 500 mg IV x 1 dose was inadvertently not administered * Pre-HD random level of 11.5 * Per nephrology consult report hemodialysis is still on hold * Vancomycin 750 mg x 1 is scheduled to be administered today * Next pre-HD random level would be obtained with AM labs tomorrow * Target vancomycin level of 15-20 mcg/mL Pharmacy will continue to follow and will adjust dose/frequency as necessary. Thank you.
[2021-10-20] MEDS: CEFEPIME 1,000 MG in SYRINGE 0 ML IV SCH (16:04)
--- NOTE | 2021-10-20 20:03 | Hospitalist Progress Note ---
Date of Service October 20, 2021 Assessment & Plan (1) Dyspnea: Plan: Patient's shortness could be due to multiple issues. -Her hypoxia could be the main cultprit. -SpO2 in mid 80s on 2L during initial presentation, up to 93% on 3L. It could also be due to her anemia. Patient received transfusion x2 PRBC. Patient reports dark black stools, she states it has been months since she was on iron tablets. Obtained echo: no significant changes. received IV diuretics. Patient appears euvolemic and is feeling better. Now making urine, will order one liter of IV fluids, will monitor. consult nephro. will consult GI: no signs if active bleeding. (2) Sepsis: Plan: -WBC 13.60, temp 100.6, HR 100s. Lactate 0.7, PCT .43, blood + urine cx pending. -MAP > 65 without need for IVF. -Patient started empirically on vancomycin and cefepime for suspected infection possibly from dialysis port. awaiting culture results (3) Anemia: Plan: -Hgb 8.1 today, down from 10.9 on labs from 09/09. Did require transfusion at [facility] for Hgb of 7.0. She is not on any blood thinners, does take ASA and Plavix daily. No obvious source of bleeding, heme negative in ED. Patient has a history of chronic iron deficiency anemia. Was previously taking PO iron, however this has been stopped since dialysis was started one month ago. -One unit of pRBCs transfused in ED, recheck Hgb 7.7, no obvious source of bleeding. 1 additional unit of pRBCs ordered this evening. Recheck H/H at 2300. (4) COPD (chronic obstructive pulmonary disease): Plan: -On 2L NC at all times, as well as Spiriva + rescue inhalers. Currently on 3L NC with SpO2 in low 90s. -Continue home inhalers, supplemental oxygen. (5) CKD (chronic kidney disease): Plan: -Acute on CKD during hospitalization in September for NSTEMI. BUN 44, Cr -Dialysis M-W-F since discharge from [facility]. Patient did not receive dialysis today due to transportation to ED. -currently withholding dialysis as patient is improving and making urine. (6) CAD (coronary atherosclerotic disease): Plan: -CABG x2 09/10/2021 at the [facility]. Without chest pain/tightness or palpitations today. -Continue ASA + Plavix, beta aidee, statin. (7) Dyslipidemia: Plan: -Continue statin. (8) GERD (gastroesophageal reflux disease): Plan: -Continue protonix. (9) Hypomagnesemia: Plan: -1.5 in ED, 2g Mg++ ordered for repletion. -Recheck level in AM. Plan: -Admit to [facility] w/ tele -Conditional Code: chest compressions only -SCDs for DVT ppx. Admission and Anticipated Discharge Date Admission Date: October 18, 2021 Subjective 76 yo female reports feeling better. She has no new complaints. Review of Systems Review of Systems: All systems reviewed & are unremarkable except as noted in HPI & below Physical Exam Constitutional: WD/WN, vitals as above + ill appearing and + edematous; no acute distress Eyes: + anicteric sclerae Neck: normal visual inspection Respiratory: no respiratory distress and no cough Auscultation: + diminished lung sounds; no rales Cardiovascular: Rate/Rhythm: regular rate and regular rhythm Heart Sounds: normal S1 and normal S2 Extremities: + edema Gastrointestinal (Abdomen): Inspection/Auscultation: abdomen normal to inspection and normal bowel sounds Percussion/Palpation: abdomen soft; abdomen nontender Musculoskeletal: Extremities: extremities normal to inspection Skin: no rashes Neurologic: no focal motor deficits Psychiatric: Orientation: alert and oriented x 3 Affect: euthymic affect Results & Data Results & [facility]) Vital Signs (Past 12 Hours) Vital Signs Temp Pulse Pulse Resp BP Pulse Ox 10/20/21 19:00 36.9 C 92 H 20 174/72 H 90 10/20/21 14:49 36.9 C 89 18 150/70 H 92 10/20/21 14:18 92 H 10/20/21 10:53 37.1 C 88 18 143/73 H 93 PG Care Time/CCT Total # of Minutes Spent Total Time Spent with Patient: Total time spent is greater than 50% in coordination of care (as documented) at patient's floor/unit and/or counseling patient: Coding Level of Care Code 02316 Subseq Hosp Care Lvl 2 Diagnoses Dyspnea R06.00 Dyspnea type: dyspnea on exertion Sepsis A41.9 Anemia D64.9 Anemia type: unspecified type COPD (chronic obstructive pulmonary disease) J44.9 CKD (chronic kidney disease) N18.9 Chronic kidney disease stage: unspecified stage CAD (coronary atherosclerotic disease) I25.10 Dyslipidemia E78.5 GERD (gastroesophageal reflux disease) K21.9 Hypomagnesemia E83.42 (1) Anemia Anemia type: unspecified type Qualified Code(s): D64.9 - Anemia, unspecified (2) Dyspnea Dyspnea type: dyspnea on exertion Qualified Code(s): R06.00 - Dyspnea, unspecified (3) CKD (chronic kidney disease) Chronic kidney disease stage: unspecified stage Qualified Code(s): N18.9 - Chronic kidney disease, unspecified
[2021-10-21 07:13] LABS: Hematocrit (blood only) 30.6 % (37-47); Hemoglobin 9.5 g/dL (12.0-16.0); Mean Corpuscular Volume 86.9 fL (80-100); Mean Platelet Volume 9.7 fL (7.4-10.4); Platelet Count 341 K/uL (130-400); RDW Coefficient of Variation 17.8 % (11.5-14.5); RDW Standard Deviation 56.8 fL (36.4-46.3); Red Blood Count 3.52 M/uL (4.2-5.4); White Blood Count 8.53 K/uL (4.8-10.8)
[2021-10-21 07:48] LABS: BUN Creatinine Ratio 21.6 (10-20); Calcium 8.6 mg/dl (8.5-10.1); Creatinine Clr Calc Pharmacy 15.9 ml/min; Est GFR (African American) 18.5 ml/min; Phosphorus 4.5 mg/dl (2.5-4.9); Potassium 4.8 mmol/L (3.5-5.1)
--- NOTE | 2021-10-21 08:06 | Pharmacy Report ---
Pharmacy Abx Dose Short Note - Date of Service October 21, 2021 - Assessment & Plan Assessment 76 year old F receiving vancomycin/cefepime for treatment of line infection Day # 4 of antimicrobial therapy. Plan Vancomycin * Random level of 15.9 mcg/mL is therapeutic. * Give vancomycin 500 mg IV x 1 * Goal trough level for line infection : 15 to 20 mcg/mL * Random level ordered for: 10/22/21 Pharmacy will continue to follow and will adjust dose/frequency as necessary. Thank you.
[2021-10-21] MEDS: INSULIN ASPART PER UNIT SC SCH ×4 (08:58→22:44)
--- NOTE | 2021-10-21 08:58 | Gastroenterology Progress Note ---
Date of Service October 21, 2021 Assessment & Plan (1) Normocytic anemia: Plan: Anemia: Hemoglobin 9.5, hematocrit 30.6 this morning which remained stable since transfusion. She is status post 2 units of packed red blood cells transfused on 10/18/2021. Bowel movement this morning which was brown in color. Patient does have risk for PUD due to aspirin use. Commend continued PPI. Would consider outpatient work-up once patient is stabilized from renal, cardiac, pulmonary standpoint. Case reviewed with Dr. Garcia. Please refer to supervising physician addendum for further recommendations. I have spent 20 minutes of discrete time performing the activities of this visit which include but are not limited to review of the medical record, obtaining a history, physical exam, and entering information in the electronic record. Admission and Anticipated Discharge Date Admission Date: October 18, 2021 Supervising Physician Co-Signing Physician Notes I interviewed and examined the patient and reviewed the medical record, with the following observations: Subjective: The patient was interviewed and denied any episodes of hematemesis, melena, rectal bleeding. Physical Examination: Benign abdominal examination Chart Review: Note that she had CABG X 2 at [facility], 1st week of September, with follow up visit next week I agree with the assessment as outlined in this consultation, with the following observations: No evidence of GI blood loss I agree with the plan of care as outlined in this consultation, with the following changes and/or additions: Agree with the plan of care: No indication for urgent endoscopy in this case, recommend empiric treatment with oral PPI As the supervising physician, I have spent 20 minutes of discrete time performing the activities of this consultation which include, but are not limited to review of the medical record, obtaining a history, physical examination, and entering information into the electronic record. PIPPA Peacock, has reported spending 20 minutes of discrete time with the activities of the consultation. Subjective The patient is awake alert and oriented this morning. She reports that she is feeling well. She is sitting at bedside tolerating p.o. breakfast. Denies any abdominal pain. Denies nausea or vomiting. She reports positive flatus. She states she did have a bowel movement this morning which was brown in color. Review of Systems Review of Systems: All systems reviewed & are unremarkable except as noted in Subjective Physical Exam Constitutional: WD/WN, vitals as above Respiratory: normal respiratory effort, lungs clear to auscultation Cardiovascular: Rate/Rhythm: regular rate and regular rhythm Gastrointestinal (Abdomen): normal bowel sounds, soft, nontender, no hepatosplenomegaly Psychiatric: A+Ox3, euthymic affect Results & Data ([facility]) Vital Signs (Past 12 Hours) Vital Signs Temp Pulse Pulse Resp BP Pulse Ox 10/21/21 06:19 87 10/21/21 03:15 37.0 C 88 20 126/66 92 10/20/21 23:19 37.3 C 97 H 20 152/77 H 92 10/20/21 22:19 89 Laboratory Results Laboratory Results - last 24 hr 10/20/21 10/20/21 10/20/21 11:22 16:27 20:13 WBC RBC Hgb Hct MCV MCH MCHC RDW Std Deviation RDW Coeff of Sushant Plt Count MPV Sodium Potassium Chloride Carbon Dioxide Anion Gap BUN Creatinine Est Cr Clr Drug Dosing Est GFR ( Amer) Est GFR (Non-Af Amer) BUN/Creatinine Ratio Glucose POC Glucose 133 H 129 H 153 H Calcium Phosphorus Albumin PTH Intact Random Vancomycin 10/21/21 10/21/21 10/21/21 06:45 06:45 06:45 WBC 8.53 RBC 3.52 L Hgb 9.5 L Hct 30.6 L MCV 86.9 MCH 27.0 MCHC 31.0 L RDW Std Deviation 56.8 H RDW Coeff of Sushant 17.8 H Plt Count 341 MPV 9.7 Sodium 137 Potassium 4.8 Chloride 105 Carbon Dioxide 26 Anion Gap 6 BUN 60 H Creatinine 2.78 H Est Cr Clr Drug Dosing 15.9 Est GFR ( Amer) 18.5 Est GFR (Non-Af Amer) 16.0 BUN/Creatinine Ratio 21.6 H Glucose 131 H POC Glucose Calcium 8.6 Phosphorus 4.5 Albumin 3.0 L PTH Intact Random Vancomycin 15.9 10/21/21 10/21/21 06:45 07:23 WBC RBC Hgb Hct MCV MCH MCHC RDW Std Deviation RDW Coeff of Sushant Plt Count MPV Sodium Potassium Chloride Carbon Dioxide Anion Gap BUN Creatinine Est Cr Clr Drug Dosing Est GFR ( Amer) Est GFR (Non-Af Amer) BUN/Creatinine Ratio Glucose POC Glucose 147 H Calcium Phosphorus Albumin PTH Intact 73.2 Random Vancomycin
[2021-10-21] MEDS: INSULIN GLARGINE SOLOSTAR 100 UNITS/ML 3 ML PEN SC SCH ×2 (08:59→22:35)
[2021-10-21] MEDS: GABAPENTIN 100 MG CAP PO SCH ×2 (09:00→22:35)
[2021-10-21] MEDS: METOPROLOL TARTRATE 25 MG TAB PO SCH ×2 (09:00→22:36)
[2021-10-21] MEDS: CLOPIDOGREL BISULFATE 75 MG TAB PO SCH (09:00)
[2021-10-21] MEDS: ATORVASTATIN 40 MG TAB PO SCH (09:00)
[2021-10-21] MEDS: ASPIRIN 81 MG ECTAB PO SCH (09:00)
[2021-10-21] MEDS: UMECLIDINIUM BROMIDE 62.5MCG/BLISTER 7 PUFFS/INHALER INH SCH (09:01)
[2021-10-21] MEDS: PANTOprazole 40 MG TAB PO SCH (09:01)
[2021-10-21] MEDS ORDERED: VANCOMYCIN HCL 500 MG in DEXTROSE 5% 100 ML IV ONE (10:00)
--- NOTE | 2021-10-21 11:28 | Nephrology Progress Note ---
Date of Service October 21, 2021 Assessment & Plan (1) Acute kidney injury: (2) Anemia due to chronic kidney disease: (3) Hypoxia: (4) S/P CABG (coronary artery bypass graft): (5) Edema: (6) Secondary hyperparathyroidism of renal origin: Plan: 75-year-old female with recent dialysis requiring LUCERO after CABG and cardiogenic shock. Developed acute respiratory distress while getting dialysis this morning. Evaluation in ER negative for PE, troponin just mildly elevated without significant EKG change. Hemoglobin was found to be less than 8, overall generalized volume overload and elevated BNP, mild pericardial effusion and moderate pleural effusion. last dialysis was last Monday and this morning had dialysis only for 10 minutes however lab showed creatinine of 1.9, BUN 44 and normal electrolyte. slight worsening of renal function, creatinine up to 2.4 at 2.8 but electrolyte acceptable, decent urine output. Blood pressure well control, no respiratory distress. Acceptable volume status. -- No indication for dialysis today, continue to monitor with daily lab. However, cr has been slowly increasing raising concern for ESRD and needing to resume dialysis in near future -- Measure accurate intake and output. -- continue on empiric antibiotic pending culture. -- if blood culture comes back positive, will have to remove tunneled dialysis catheter -- discussed with case management for outpatient dialysis set up at [facility] as per patient request to have transportation to and from dialysis unit. Once outpatient dialysis set up, she can be discharged, next dialysis can be on Monday10/25/2021 at outpatient unit. will follow Admission and Anticipated Discharge Date Admission Date: October 18, 2021 Marcel Watson was seen this morning, overall she feels well, appetite good, denies any further episode of shortness of breath or chest pain. Electrolyte acceptable but creatinine continues to go up slightly to 2.8 this morning. UO 2 L. BP well controlled. Review of Systems Review of Systems: Detailed review of system was otherwise unremarkable. Physical Exam Constitutional: WD/WN, vitals as above no acute distress Respiratory: no respiratory distress and no cough Auscultation: lungs clear to auscultation bilaterally and + diminished lung sounds Cardiovascular: Rate/Rhythm: regular rate and regular rhythm Heart Sounds: normal S1 and normal S2 Extremities: + vascular access device ( Right IJ TDC with no erythema, drainage, non tender) Musculoskeletal: Extremities: extremities normal to inspection Skin: no rashes Neurologic: no focal motor deficits Psychiatric: Orientation: alert and oriented x 3 Affect: euthymic affect Results & Data ([facility]) Vital Signs (Past 12 Hours) Vital Signs Temp Pulse Pulse Resp BP Pulse Ox 10/21/21 10:52 36.8 C 80 20 152/74 H 94 10/21/21 06:19 87 10/21/21 03:15 37.0 C 88 20 126/66 92 PG Care Time/CCT Total # of Minutes Spent Total Time Spent with Patient: Total time spent is greater than 50% in coordination of care (as documented) at patient's floor/unit and/or counseling patient: Coding Level of Care Code 53864 Subseq Hosp Care Lvl 3 Diagnoses Acute kidney injury N17.9 Anemia due to chronic kidney disease N18.9; D63.1 Hypoxia R09.02 S/P CABG (coronary artery bypass graft) Z95.1 Edema R60.9 Secondary hyperparathyroidism of renal origin N25.81
[2021-10-21 12:02] LABS: HBSAG NON-REACTIVE (NON-REACTIVE); Hepatitis B Core Antibody IgM NON-REACTIVE (NON-REACTIVE)
[2021-10-21] MEDS: CEFEPIME 1,000 MG in SYRINGE 0 ML IV SCH (16:50)
--- NOTE | 2021-10-21 20:11 | Hospitalist Progress Note ---
Date of Service October 21, 2021 Assessment & Plan (1) Dyspnea: Plan: Patient's shortness could be due to multiple issues. From diastolic CHF to COPD exacerbation. 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 -Her anemia is also playing a wisam -SpO2 in mid 80s on 2L during initial presentation, now back to 1 liter (uses 2 liters at home at all times). Patient received transfusion x2 PRBC. Patient reports dark black stools, she states it has been months since she was on iron tablets. Obtained echo: no significant changes. received IV diuretics. Patient appears euvolemic and is feeling better. Now making urine, will order one liter of IV fluids, will monitor. consult nephro: setting up hemodialysis as an outpatient, likely discharge on 10/22 consult GI: no need for EGD currently as no signs of active bleeding and hemoglobin is normal. (2) Sepsis: Plan: -WBC 13.60, temp 100.6, HR 100s. Lactate 0.7, PCT .43, blood + urine cx pending. -MAP > 65 without need for IVF. -Patient started empirically on vancomycin and cefepime for suspected infection possibly from dialysis port. awaiting culture results: negative preliminary. (3) Anemia: Plan: -Hgb 9.5 today, down from 10.9 on labs from 09/09. Did require transfusion at [facility] for Hgb of 7.0. She is not on any blood thinners, does take ASA and Plavix daily. No obvious source of bleeding, heme negative in ED. Patient has a history of chronic iron deficiency anemia. Was previously taking PO iron, however this has been stopped since dialysis was started one month ago. -One unit of pRBCs transfused in ED, recheck Hgb 7.7, no obvious source of bleeding. 1 additional unit of pRBCs ordered this evening. Recheck H/H at 2300. (4) COPD (chronic obstructive pulmonary disease): Plan: -On 2L NC at all times, as well as Spiriva + rescue inhalers. Currently on 3L NC with SpO2 in low 90s. -Continue home inhalers, supplemental oxygen. (5) CKD (chronic kidney disease): Plan: -Acute on CKD during hospitalization in September for NSTEMI. BUN 44, Cr -Dialysis M-W- since discharge from [facility]. Patient did not receive dialysis today due to transportation to ED. -currently withholding dialysis as patient is improving and making urine. (6) CAD (coronary atherosclerotic disease): Plan: -CABG x2 09/10/2021 at the [facility]. Without chest pain/tightness or palpitations today. -Continue ASA + Plavix, beta aidee, statin. (7) Dyslipidemia: Plan: -Continue statin. (8) GERD (gastroesophageal reflux disease): Plan: -Continue protonix. (9) Hypomagnesemia: Plan: -1.5 in ED, 2g Mg++ ordered for repletion. -Recheck level in AM. (10) Acute respiratory failure with hypoxia: Plan: Acute respiratory failure with hypoxia, resolved Patient with SOB presented with respiratory rate of 26bpm and SPO2 of 83%, requiring O2 and IV Lasix. Risk Factor(s): Hypoxia, tachypnea, CKD4, pleural effusion Treatment: O2, IV Lasix (11) Acute diastolic (congestive) heart failure: Plan: Acute diastolic (congestive) heart failure, resolved Patient on dialysis and makes urine admitted for SOB and hypoxia. Echo demonstrates mild concentric left ventricular hypertrophy, EF=55-60%. Chest CTA with small-moderate pleural effusion. Patient treated with IV Lasix. Hypoxia, pleural effusion, CKD 4 Treatment: Lasix IV, O2, CTA, echo Plan: -Admit to [facility] w/ tele -Conditional Code: chest compressions only -SCDs for DVT ppx. Admission and Anticipated Discharge Date Admission Date: October 18, 2021 Subjective 76 yo female reports breathing well and currently has no new symptoms. Review of Systems Review of Systems: All systems reviewed & are unremarkable except as noted in HPI & below Physical Exam Constitutional: WD/WN, vitals as above + ill appearing and + edematous; no acute distress Eyes: + anicteric sclerae Neck: normal visual inspection Respiratory: no respiratory distress and no cough Auscultation: + dim inished lung sounds; no rales Cardiovascular: Rate/Rhythm: regular rate and regular rhythm Heart Sounds: normal S1 and normal S2 Extremities: + edema Gastrointestinal (Abdomen): Inspection/Auscultation: abdomen normal to inspection and normal bowel sounds Percussion/Palpation: abdomen soft; abdomen nontender Musculoskeletal: Extremities: extremities normal to inspection Skin: no rashes Neurologic: no focal motor deficits Psychiatric: Orientation: alert and oriented x 3 Affect: euthymic affect Results & Data Results & Data ([facility]) Vital Signs (Past 12 Hours) Vital Signs Temp Pulse Pulse Resp BP BP Pulse Ox 10/21/21 18:30 36.7 C 95 H 20 161/77 H 93 10/21/21 15:11 87 18 92 10/21/21 14:55 166/82 H 10/21/21 14:37 36.6 C 92 H 20 187/67 H 94 10/21/21 14:17 87 10/21/21 13:41 96 10/21/21 10:52 36.8 C 80 20 152/74 H 94 PG Care Time/CCT Total # of Minutes Spent Total Time Spent with Patient: Total time spent is greater than 50% in coordination of care (as documented) at patient's floor/unit and/or counseling patient: Coding Level of Care Code 27295 Subseq Hosp Care Lvl 2 Diagnoses Dyspnea R06.00 Dyspnea type: dyspnea on exertion Sepsis A41.9 Anemia D64.9 Anemia type: unspecified type COPD (chronic obstructive pulmonary disease) J44.9 CKD (chronic kidney disease) N18.9 Chronic kidney disease stage: unspecified stage CAD (coronary atherosclerotic disease) I25.10 Dyslipidemia E78.5 GERD (gastroesophageal reflux disease) K21.9 Hypomagnesemia E83.42 Acute respiratory failure with hypoxia J96.01 Acute diastolic (congestive) heart failure I50.31 Time Spent (min) 25 (1) Anemia Anemia type: unspecified type Qualified Code(s): D64.9 - Anemia, unspecified (2) Dyspnea Dyspnea type: dyspnea on exertion Qualified Code(s): R06.00 - Dyspnea, unspecified (3) CKD (chronic kidney disease) Chronic kidney disease stage: unspecified stage Qualified Code(s): N18.9 - Chronic kidney disease, unspecified
[2021-10-22 08:00] LABS: Albumin Level 2.9 gm/dl (3.4-5.0); BUN Creatinine Ratio 25.9 (10-20); Calcium 8.3 mg/dl (8.5-10.1); Creatinine Clr Calc Pharmacy 20.3 ml/min; Est GFR (African American) 24.6 ml/min; Est GFR (Non-African American) 21.2 ml/min; Phosphorus 4.7 mg/dl (2.5-4.9); Potassium 5.1 mmol/L (3.5-5.1)
[2021-10-22] MEDS ORDERED: EPOETIN ALFA 40,000 UNITS/ML VIAL SQ STA (08:23)
[2021-10-22] MEDS: ASPIRIN 81 MG ECTAB PO SCH (08:52)
[2021-10-22] MEDS: METOPROLOL TARTRATE 25 MG TAB PO SCH (08:52)
[2021-10-22] MEDS: ATORVASTATIN 40 MG TAB PO SCH (08:52)
[2021-10-22] MEDS: PANTOprazole 40 MG TAB PO SCH (08:52)
[2021-10-22] MEDS: CLOPIDOGREL BISULFATE 75 MG TAB PO SCH (08:53)
[2021-10-22] MEDS: GABAPENTIN 100 MG CAP PO SCH (08:53)
[2021-10-22] MEDS: UMECLIDINIUM BROMIDE 62.5MCG/BLISTER 7 PUFFS/INHALER INH SCH (08:54)
[2021-10-22] MEDS: INSULIN GLARGINE SOLOSTAR 100 UNITS/ML 3 ML PEN SC SCH (08:59)
[2021-10-22] MEDS: INSULIN ASPART PER UNIT SC SCH ×2 (08:59→13:31)
--- NOTE | 2021-10-22 09:02 | Pharmacy Report ---
Pharmacy Abx Dose Short Note - Date of Service October 22, 2021 - Assessment & Plan Assessment 76 year old F receiving vancomycin/cefepime for treatment of empiric indication Day # 5/5 of antimicrobial therapy. Plan Vancomycin * Random level of 14.8 mcg/mL is slightly subtherapeutic. * vancomycin 1000 mg IV x 1 * Goal trough level for empiric indication : 15 to 20 mcg/mL * no additional levels as today is the last day of therapy. Pharmacy will continue to follow and will adjust dose/frequency as necessary. Thank you.
[2021-10-22] MEDS ORDERED: VANCOMYCIN HCL 1,000 MG in SODIUM CHLORIDE 0.9% 250 ML IV ONE (11:00)
--- NOTE | 2021-10-22 11:56 | Nephrology Progress Note ---
Date of Service October 22, 2021 Assessment & Plan (1) Acute kidney injury: (2) Anemia due to chronic kidney disease: (3) Hypoxia: (4) S/P CABG (coronary artery bypass graft): (5) Edema: (6) Secondary hyperparathyroidism of renal origin: Plan: 75-year-old female with recent dialysis requiring LUCERO after CABG and cardiogenic shock. Developed acute respiratory distress while getting dialysis this morning. Evaluation in ER negative for PE, troponin just mildly elevated without significant EKG change. Hemoglobin was found to be less than 8, overall generalized volume overload and elevated BNP, mild pericardial effusion and moderate pleural effusion. Last full dialysis treatment was on 10/15/2021. Creatinine has been staying around 2.7-2.8 with acceptable electrolyte but slightly improved to 2.2 this morning staying off of dialysis for a week. Decent urine output, volume status improved, blood pressure acceptable overall otherwise asymptomatic. -- No indication for dialysis today, continue to monitor with daily lab. okay to be discharged this afternoon. She is set for outpatient dialysis at [facility]. However, since there is some improvement in renal function, will check renal function Monday to decide whether she needs to resume dialysis or we can keep her off of dialysis. Will keep the tunneled dialysis catheter for now. -- Encouraged to maintain p.o. intake, avoid all NSAIDs. will follow Admission and Anticipated Discharge Date Admission Date: October 18, 2021 Marcel Watson was seen this morning, overall she feels well, appetite good, denies any further episode of shortness of breath or chest pain. Electrolyte acceptable renal function again slightly improved, creatinine down to 2.2. UO 2 L. BP well controlled. Review of Systems Review of Systems: Detailed review of system was otherwise unremarkable. Physical Exam Constitutional: WD/WN, vitals as above no acute distress Respiratory: no respiratory distress and no cough Auscultation: lungs clear to auscultation bilaterally and + diminished lung sounds Cardiovascular: Rate/Rhythm: regular rate and regular rhythm Heart Sounds: normal S1 and normal S2 Extremities: + vascular access device ( Right IJ TDC with no erythema, drainage, non tender) Musculoskeletal: Extremities: extremities normal to inspection Skin: no rashes Neurologic: no focal motor deficits Psychiatric: Orientation: alert and oriented x 3 Affect: euthymic affect Results & Data ([facility]) Vital Signs (Past 12 Hours) Vital Signs Temp Pulse Resp BP Pulse Ox 10/22/21 06:56 36.7 C 87 20 136/80 93 10/22/21 03:00 36.5 C 87 20 133/63 92 PG Care Time/CCT Total # of Minutes Spent Total Time Spent with Patient: Total time spent is greater than 50% in coordination of care (as documented) at patient's floor/unit and/or counseling patient: Coding Level of Care Code 87391 Subseq Hosp Care Lvl 3 Diagnoses Acute kidney injury N17.9 Anemia due to chronic kidney disease N18.9; D63.1 Hypoxia R09.02 S/P CABG (coronary artery bypass graft) Z95.1 Edema R60.9 Secondary hyperparathyroidism of renal origin N25.81
--- NOTE | 2021-10-25 15:54 | Discharge Summary ---
Date of Service October 22, 2021 Admission HPI Per Admitting Provider Patient is a 76-year-old female with past medical history of CAD s/p CABG in August 2021, HTN, DM2, COPD, CKD, and ESTELA who presents today with complaints of shortness of breath. Patient was at her dialysis appointment this morning, about 5 minutes into her treatment she experienced new onset shortness of breath. Patient is on 2 L NC at all times at home and was on this at dialysis with SpO2 reported to be in mid 80s. Her oxygen was increased to 3 L, however her SOB did not resolve. Patient was otherwise asymptomatic during this episode, no associated chest pain, palpitations, nausea/vomiting, weakness/dizziness. She states she had felt well over the past few days, she was recently seen in the ED on 10/13 and was prescribed antibiotics for a UTI, since then her urinary symptoms have resolved and she denies shortness of breath, cough, chest pain/tightness, palpitations, fever/chills, fatigue, edema, orthopnea, PND, nausea/vomiting, abdominal pain. In ED, routine labs drawn were significant for WBC 13.6, Hgb 8.1, down from 10.9 on 09/09, Na+ 131, BUN 44, CR 1.93, glucose 170, Mg++ 1.5. Chest CTA did not reveal PE, did show small pericardial effusion and left sided pleural effusion, both unchanged from previous images. Hospitalist service was consulted for further evaluation and admission. Principal Diagnosis Post operative anemia Moderate pleural effusion COPD Discharge Exam Feels well. Passing urine. Reports Dr Espinosa said she could go home today therefore she wants to leave. Constitutional WD/WN, vitals as above Eyes + anicteric sclerae; normal pupil size Respiratory normal respiratory effort, lungs clear to auscultation Cardiovascular RRR, no murmur, no edema Gastrointestinal (Abdomen) Inspection/Auscultation: normal bowel sounds Percussion/Palpation: abdomen soft; abdomen nontender, no guarding and abdomen not rigid Skin no rashes, warm and dry Neurologic moves all extremities and awake; not confused Psychiatric A+Ox3, euthymic affect Discharge Data Allergies Allergy/AdvReac Type Severity Reaction Status Date / Time No Known Allergies Allergy Verified 10/13/21 09:17 Consultations 10/18/21 10:34 ED Decision to Admit Stat 10/18/21 21:27 Consult Nephrology Routine 10/19/21 08:38 Consult Gastroenterology Routine Ordered Studies 10/18/21 08:14 CT angio chest PE protocol Stat Hospital Course (1) Dyspnea: Shirley Mcdaniels is a 76 year old female admitted to [facility] from October 18 - 2021 due to shortness of breath during dialysis. Suspect this was a combination of post operative anemia (after recent CABG), pl eural effusion and COPD. Since this happened during dialysis suspect most likely her anemia was the primary contributing factor. Hemoglobin 7.5 g/dL. She received 2 units of packed red blood cells with hemoglobin 9.5 on discharge. Stool was negative for blood therefore further evaluation for gastrointestinal bleed was deferred and she will follow up with Dr Flores (Gastroenterology) as an outpatient. Most likely anemia is due to her recent acute kidney disease (requiring dialysis) and residual anemia post operatively from her bypass at [place] (she required 1 unit packed red blood cells during that admission). Repeat labs ordered for Monday to determine whether she requires ongoing dialysis. She should follow up with pulmonology regarding COPD and your pleural effusion. Breo Ellipta prescribed due to continued wheezing on discharge despite Spiriva use. She was notably initially treated for a possible infection with broad spectrum antibiotics due to fever on admission. Blood cultures were subsequently negative and no further antibiotics are required at this time. Her previous UTI diagnosed on October 13 has been adequately treated at this time. (2) Sepsis: (3) Anemia: (4) COPD (chronic obstructive pulmonary disease): (5) CKD (chronic kidney disease): (6) CAD (coronary atherosclerotic disease): (7) Dyslipidemia: (8) GERD (gastroesophageal reflux disease): (9) Hypomagnesemia: Total Time Total Time Spent Total Time Spent (In Minutes): 40 Discharge Plan Discharge Items Patient Disposition: Home - Self-Care Reason For Visit: Shortness of breath Discharge Diagnosis: Post operative anemia Moderate pleural effusion COPD Activity: Resume your previous activity Non-emergency contact: Primary Care Provider Call non-emergency contact if: you have any medication questions and your symptoms worsen Follow-up/Referrals: Nadia Suarez PA-C [Primary Care Provider] - 10/28/21 11:00 am Julienne Espinosa MD [Physician] - 10/27/21 3:20 pm (Follow up for end stage renal disease) Sally Stovall MD [Physician] - 11/11/21 3:15 pm (4 week follow up for left pleural effusion) Chago Flores [Physician] - 10/25/21 2:20 pm (Follow up anemia) Diet: Carb Consistent or DM2 and Dialysis Renal Addtl Attending Provider Instructions: You were admitted to [facility] from October 18 - 2021 due to shortness of breath during dialysis. Suspect this was a combination of post operative anemia, pleural effusion and COPD. Since this happened during dialysis suspect most likely your anemia was the primary contributing factor. For your anemia you received 2 units of packed red blood cells. Your stool was negative for blood therefore further evaluation for gastrointestinal bleed was deferred and you will follow up with Dr Flores for this. Most likely this anemia is due to your acute kidney disease and residual anemia post operatively from your bypa ss. Please have repeat labs performed on Monday as prescribed - results to be sent to Dr Espinosa to determine when further dialysis is required. Please follow up with pulmonology regarding COPD and your pleural effusion. Recommend starting Breo Ellipta given continued wheezing on discharge despite Spiriva use. You were also initially treated for a possible infection with broad spectrum antibiotics due to fever on admission. Blood culture subsequently were negative and no further antibiotics are required at this time. Your previous UTI diagnosed on October 13 has been adequately treated. Pending Studies at Discharge: No Stand-Alone Forms: My [facility], Smoking Cessation Medications and DC Order Prescriptions: New furosemide [Lasix] 20 mg tablet 20 mg PO DAILY Qty: 30 RF: 0 Breo Ellipta 200-25 mcg/dose blister with device 1 inh inhalation DAILY Qty: 60 RF: 0 Continued nitroglycerin [Nitrostat] 0.4 mg tablet, sublingual 0.4 mg Sublingual UD PRN (Reason: Chest Pain) Qty: 30 RF: 5 (DME) Portable Oxygen Misc See Rx Instructions .Route Qty: 2 RF: 0 atorvastatin 80 mg tablet 80 mg PO DAILY RF: 0 aspirin [Adult Aspirin Regimen] 81 mg tablet,delayed release (DR/EC) 81 mg PO DAILY RF: 0 Januvia 25 mg tablet 25 mg PO DAILY RF: 0 metoprolol tartrate 25 mg tablet 12.5 mg PO BID RF: 0 albuterol sulfate [ProAir HFA] 90 mcg/actuation HFA aerosol inhaler 2 puff inhalation Q6H PRN (Reason: shortness of breath or wheezing) Qty: 8.5 RF: 3 ipratropium-albuterol 0.5 mg-3 mg(2.5 mg base)/3 mL solution for nebulization 3 ml inhalation .COMPLEX PRN (Reason: wheezing) Qty: 180 RF: 5 Spiriva with HandiHaler 18 mcg capsule, w/inhalation device 1 cap inhalation QAM Qty: 30 RF: 5 gabapentin [Neurontin] 100 mg capsule 200 mg PO BID RF: 0 (DME) OneTouch Ultra Test Strip See Rx Instructions .Route RF: 0 clopidogrel 75 mg tablet 75 mg PO DAILY RF: 0 pantoprazole 40 mg tablet,delayed release (DR/EC) 40 mg PO DAILY RF: 0 Discontinued cephalexin 250 mg capsule 250 mg PO BID 7 Days Qty: 14 RF: 0 Discharge Orders: Discharge Order (Routine); Ordered 10/22/21 Ordered By: Adrian Kovacs Admission Data Admit Date/Time: 10/18/21 11:11 Attending Provider: Adrian Kovacs Admit Provider: Adrian Kovacs Primary Care Provider: Nadia Suarez Other Providers: Adrian Kovacs ; Julienne Espinosa Brian D. Other Interventions: Discharge Summary Assessment (RN) Last Done: 10/22/21 13:01 Coding Level of Care Code D/C DAY MANAGEMENT >30 MINS Diagnoses Dyspnea R06.00 Dyspnea type: dyspnea on exertion Sepsis A41.9 Anemia D64.9 Anemia type: unspecified type COPD (chronic obstructive pulmonary disease) J44.9 CKD (chronic kidney disease) N18.9 Chronic kidney disease stage: unspecified stage CAD (coronary atherosclerotic disease) I25.10 Dyslipidemia E78.5 GERD (gastroesophageal reflux disease) K21.9 Hypomagnesemia E83.42
== END 2021-10-22 13:55 | disposition home or self-care (01) | DRG 314 ==
LOC: ED 07:06 → 2N 11:11 → SUATTDRO 11:11 → 2N 12:27

== ENCOUNTER 2022-01-15 22:32 | Inpatient (IN) ==
[2022-01-15 23:10] LABS: Basophils # (auto) 0.03 K/uL (0-0.2); Basophils % (auto) 0.3 %; Eosinophils % (auto) 4.7 %; Hematocrit (blood only) 28.2 % (37-47); Hemoglobin 8.3 g/dL (12.0-16.0); Immature Granulocytes # (auto) 0.02 K/uL (0.00-0.02); Immature Granulocytes % (auto) 0.2 %; Lymphocytes # (auto) 1.76 K/uL (1.2-3.4); Lymphocytes % (auto) 16.5 %; Mean Corpuscular Hemoglobin 26.5 pg (25-34); Mean Corpuscular Hgb Conc 29.4 g/dL (32-36); Mean Corpuscular Volume 90.1 fL (80-100); Mean Platelet Volume 10.8 fL (7.4-10.4); Monocytes # (auto) 0.53 K/uL (0.11-0.59); Neutrophils # (auto) 7.84 K/uL (1.4-6.5); Neutrophils % (auto) 73.3 %; Platelet Count 266 K/uL (130-400); RDW Coefficient of Variation 15.4 % (11.5-14.5); RDW Standard Deviation 50.9 fL (36.4-46.3); Red Blood Count 3.13 M/uL (4.2-5.4); White Blood Count 10.68 K/uL (4.8-10.8)
[2022-01-15 23:30] LABS: Alanine Aminotransferase 10 U/L (7-52); Albumin Globulin Ratio 1.1 (0.9-2); Albumin Level 3.4 gm/dl (3.4-5.0); Alkaline Phosphatase 58 U/L (34-104); Anion Gap 5 (3-11); Aspartate Aminotransferase 10 U/L (13-39); BUN Creatinine Ratio 28.5 (10-20); Bilirubin,Total 0.3 mg/dl (0.2-1.0); Blood Urea Nitrogen 43 mg/dl (6-23); Calcium 8.5 mg/dl (8.5-10.1); Carbon Dioxide 30 mmol/L (21-32); Chloride 104 mmol/L (98-107); Est GFR (African American) 38.8 ml/min; Est GFR (Non-African American) 33.5 ml/min; Globulin 3.1 gm/dl (2.5-4.0); Glucose 147 mg/dl (70-99(Fasting)); Potassium 4.1 mmol/L (3.5-5.1); Sodium 139 mmol/L (136-145); Total Protein 6.5 gm/dl (6.0-8.3)
[2022-01-16] MEDS ORDERED: FUROSEMIDE 40 MG/4 ML VIAL IV ONE (01:07)
--- NOTE | 2022-01-16 01:21 | History & Physical Report ---
Date of Service January 16, 2022 Assessment & Plan (1) CHF exacerbation: Plan: Shirley Mcdaniels is a 76-year-old female with past medical history of CHF, CAD with bypass in September 2021, ESTELA, hypertension, anemia of chronic kidney disease, COPD, hyperlipidemia, GERD who presented due to swelling and shortness of breath for the past few days. CHF exacerbation Received Lasix 40 mg IV x1 We will continue Lasix 40 mg IV daily on admission Daily weights Strict I's and O's Monitor creatinine on admission seem to be at baseline Supplemental O2 as needed Anemia Hemoglobin of 8.3 on admission Likely can [place] to chronic kidney disease However will obtain Hemoccult Continue iron supplementation Monitor CBC DM2 Hold home regimen Basal and SSI insulin while admitted A1c ordered Chronic conditions HTN/CAD/HLD: Aspirin 81 mg daily, atorvastatin 80 mg daily, clopidogrel 75 mg daily, Lopressor 25 mg twice daily COPD:Continue Breo Ellipta 1 puff daily, albuterol as needed GERD: Continue Protonix 40 mg daily DVT prophylaxis: Heparin SQ Diet: Heart healthy, low-sodium, DM 2 Dispo: Admit to telemetry CODE STATUS: Conditional compressions okay, no other ACLS (2) ESTELA (obstructive sleep apnea): (3) Anemia due to chronic kidney disease: (4) Hypoxia: (5) CHF (congestive heart failure): (6) COPD (chronic obstructive pulmonary disease): (7) CKD (chronic kidney disease): (8) CAD (coronary atherosclerotic disease): (9) Hyperkalemia: (10) GERD (gastroesophageal reflux disease): (11) HTN (hypertension): (12) Diabetes mellitus with renal manifestations, uncontrolled: History of Present Illness Primary Care Provider: Lew Cedeno MD Shirley Mcdaniels is a 76-year-old female with past medical history of CHF, CAD with bypass in September 2021, ESTELA, hypertension, anemia of chronic kidney disease, COPD, hyperlipidemia, GERD who presented due to swelling and shortness of breath for the past few days. Patient states that she has noticed swelling in both of her legs as well as her stomach. She has also felt short of breath at rest and more so with walking. She uses 3 L of oxygen via nasal cannula at baseline due to COPD. States that lately did have to use more oxygen up to about 5 L. Currently denies chest pain, palpitations, nausea, vomiting, abdominal pain, weakness, numbness, headache, fever, chills, coughing. In ED labs showed normal white count, hemoglobin of 8.3, platelet count of 266. Electrolytes normal, did have a BUN of 43 and a creatinine of 1.5, which seems to be at about her baseline. High-sensitivity troponin found to be 25.5. Chest x-ray showing signs of fluid overload. She received 1 dose of IV Lasix. Allergies Allergy/AdvReac Type Severity Reaction Status Date / Time No Known Allergies Allergy Verified 01/16/22 00:21 Home Medications Medication Instructions Recorded Confirmed Type nitroglycerin 0.4 mg sublingual 0.4 mg SUBLINGUAL UD PRN #30 tab 04/07/20 01/16/22 Rx tablet (Nitrostat) atorvastatin 80 mg tablet 80 mg PO DAILY 09/06/21 01/15/22 History clopidogrel 75 mg tablet 75 mg PO DAILY 09/08/21 01/15/22 History aspirin 81 mg tablet,delayed 81 mg PO DAILY 10/06/21 01/15/22 History release (Adult Aspirin Regimen) sitagliptin 25 mg tablet (Januvia) 25 mg PO DAILY 10/06/21 01/15/22 History blood sugar diagnostic (OneTouch 10/13/21 12/08/21 History Ultra Test) metoprolol tartrate 25 mg tablet 25 mg PO BID #60 tab 11/02/21 01/15/22 Rx pantoprazole 40 mg tablet,delayed 40 mg PO DAILY 11/02/21 01/15/22 History release Portable Oxygen #1 ea 11/11/21 12/08/21 Rx albuterol sulfate 90 mcg/actuation 2 puff INHALATION Q6H PRN #8.5 g 11/11/21 01/16/22 Rx aerosol inhaler (ProAir HFA) fluticasone furoate 100 1 inh INHALATION DAILY #60 ea 11/11/21 01/16/22 Rx mcg-vilanterol 25 mcg/dose inhalation powder (Breo Ellipta) tiotropium bromide 18 mcg capsule 1 cap INHALATION QAM #30 inh 11/11/21 01/16/22 Rx with inhalation device (Spiriva with HandiHaler) furosemide 20 mg tablet (Lasix) 20 mg PO DAILY #30 tab 11/15/21 01/15/22 Rx ferrous sulfate 325 mg (65 mg 325 mg PO TID tab 11/30/21 01/15/22 History iron) tablet gabapentin 100 mg capsule 100 mg PO BID cap 11/30/21 01/15/22 History (Neurontin) cholecalciferol (vitamin D3) 25 1,000 unit PO DAILY 01/15/22 01/15/22 History mcg (1,000 unit) capsule cyanocobalamin (vitamin B-12) 1,000 mcg PO DAILY 01/15/22 01/16/22 History 1,000 mcg tablet polysaccharide iron complex 150 mg 150 mg PO DAILY 01/16/22 01/16/22 History iron capsule (Ferrex) Past Med/Surg History Medical History (Updated 01/16/22 @ 15:56 by Barbara Vivar DO) Acute diastolic (congestive) heart failure Acute electrocardiogram changes Acute kidney injury Acute respiratory failure with hypoxia Anemia (~12/03/13) Anemia due to chronic kidney disease CAD (coronary artery disease) NSTEMI 2010, ARABELLA x 1, POBA x 1 @ [facility] CAD (coronary atherosclerotic disease) CABG x2 09/10/[address] [facility] LEGER-LAD, SVG-OM 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 diabetes mellitus Diabetes mellitus, type 2 Diabetic peripheral neuropathy DJD (degenerative joint disease) Elevated troponin GERD (gastroesophageal reflux disease) H/O: CVA (cerebrovascular accident) Developed facial droop after cardiac cath 2010. Acute infarct. Treated, complete resolution of symptoms. No residual deficits. Hyperkalemia Persistent since 12/2018 Hyperkalemia Hyperlipidemia Hypertension Hypoxia Hypoxia Hypoxia Lumbar spinal stenosis Myocardial Infarction NSTEMI 2010. ARABELLA to mid LCx and POBA to LAD/Dx. NSTEMI (non-ST elevated myocardial infarction) Positive blood culture Presence of drug-eluting stent in left circumflex coronary artery Secondary hyperparathyroidism of renal origin SOB (shortness of breath) SOB (shortness of breath) Stage 3b chronic kidney disease Stage 3B nodular histiocytic lymphoma Tobacco use disorder, continuous Vitamin D deficiency Surgical History History of cardiac cath History of carpal tunnel release History of cataract surgery History of colonoscopy History of tooth extraction History of tubal ligation Family History Brother Family history of diabetes mellitus Sister Family history of diabetes mellitus Sister Family history of diabetes mellitus Mother Family history of diabetes mellitus Myocardial infarction Stroke Father Myocardial infarction Denies family history of Ovarian cancer Prostate cancer Breast cancer Colorectal cancer Social History (Updated 12/08/21 @ 10:37 by Lesli Awan LPN) Smoking Status: Former smoker Tobacco Type: Cigarettes Age Started Using Tobacco: 24; Age Quit Using Tobacco: 75; packs per day: 0.5; Second Hand Exposure: No; Do You Dip or Chew Tobacco: No; Tobacco Cessation Education Requested by Patient: No Hx Alcohol Use: No Hx Substance Use: No Preferred Language: Monegasque Communication Ability: Effective Visual Impairment: No Limitations Crusher Setter Required: No Beliefs That Will Affect Care: None marital status: Current Living Situation: Alone Current Living Situation Comment: lives home alone in a house current occupational status: retired 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 NAD. HEENT: PERRL, EOMI. Moist mucous membranes. CHEST/LUNGS: Crackles at bilateral lung bases. Diminished air movement bilaterally. No increased work of breathing. HEART: RRR. No m/g/r. No carotid bruits. ABDOMEN: NT/ND, soft. BS+ x4 EXTREMITIES: 3+ pitting edema to bilateral lower extremities up to mid calf. SKIN: Warm and dry. No rashes or lesions. PSYCHIATRIC: Euthymic affect, no SI, no pressured speech, no hallucinations NEUROLOGIC: No FND. CN II-XII grossly intact. Results & Data Results & Data ([facility]) Vital Signs (Past 12 Hours) Vital Signs Pulse Pulse Resp BP BP Pulse Ox 01/16/22 01:00 79 18 183/113 H 98 01/15/22 23:37 78 20 151/71 H 99 01/15/22 23:01 98 01/15/22 22:33 86 20 176/90 H 96 Supervising Physician Co-Signing Physician Notes Attending addendum: I have physically seen this patient, have supervised the medical residents activities, and agree with the H&P unless as otherwise noted. Assessment and Plan: CHF exacerbation/status post CABG/CAD- Received Lasix 40 mg IV x1 from the ED Resume usual Lasix dose 20 mg p.o. daily starting tomorrow Continue aspirin 81 mg daily, clopidogrel 75 mg daily, and metoprolol tartrate 25 mg p.o. twice daily Serial BMP and magnesium levels Anemia- History of anemia of chronic disease due to CKD stage III Hemoccult testing Continue iron supplementation Diabetes mellitus- Place on Accu-Cheks before meals and at bedtime with NovoLog coverage per scale Check hemoglobin A1c Remaining orders and notations as noted Resident Activity Tracking Resident Involvement: Resident Care Provided Care Provided: Adult Hospital Medicine (1) CHF (congestive heart failure) Heart failure chronicity: acute Heart failure type: unspecified Qualified Code(s): I50.9 - Heart failure, unspecified (2) CKD (chronic kidney disease) Chronic kidney disease stage: unspecified stage Qualified Code(s): N18.9 - Chronic kidney disease, unspecified
[2022-01-16 02:20] LABS: Appearance Urine Clear (Clear); Bacteria Urine Automated Negative (Negative); Bilirubin Urine Negative (Negative); Blood Urine Negative (Negative); Color Urine Yellow; Epithelial Cell Urine Auto 20-30 /lpf (0-5); Glucose Urine UA Negative (Negative); Ketones Urine Negative (Negative); Leukocyte Esterase Urine Trace (Negative); Nitrite Urine Negative (Negative); Protein Urine 2+ (Negative); RBC Urine Automated 0-4 /hpf (0-4); Specific Gravity Urine 1.008 (1.000-1.030); Urobilinogen Urine Negative (Negative); pH Urine 5.5 (4.5-7.5)
[2022-01-16] MEDS ORDERED: NITROGLYCERIN SL 0.4 MG/TAB TAB SL PRN (03:56)
[2022-01-16] MEDS ORDERED: ONDANSETRON INJ 2 MG/ML 2 ML VIAL IV PRN (03:56)
[2022-01-16] MEDS ORDERED: ACETAMINOPHEN 325 MG TAB PO PRN (03:56)
[2022-01-16] MEDS ORDERED: ALBUTEROL HFA 8 GM INHALER INH PRN (04:21)
[2022-01-16] MEDS ORDERED: CARBOHYDRATES FOR HYPOGLYCEMIA PO PRN (04:30)
[2022-01-16] MEDS ORDERED: GLUCOSE 40% GEL 15 GM TUBE PO PRN (04:30)
[2022-01-16] MEDS ORDERED: DEXTROSE 50% 50 ML SYRINGE IV PRN (04:30)
[2022-01-16] MEDS ORDERED: GLUCOSE 10 TABS/TUBE PO PRN (04:30)
[2022-01-16] MEDS ORDERED: GLUCAGON FOR INJ 1 MG VIAL IM PRN (04:30)
[2022-01-16] MEDS: HEPARIN SOD 5,000 UNIT/0.5 ML VIAL SQ SCH ×3 (05:55→22:28)
--- NOTE | 2022-01-16 08:16 | Emergency Department Note ---
Impression & Plan CHF (congestive heart failure), Elevated troponin Admit to the [facility] ED Provider Note NAME: LEON SAENZ AGE: 76 SEX: F ARRIVES VIA: Walk-In INFORMANT: Patient and family ED PROVIDER(S): Barbara Vivar DO CHIEF COMPLAINT: Increased shortness of breath PLAN: Disposition: Admit to the [facility] Condition: Fair MEDICAL DECISION MAKING: This is a 76-year-old female patient with COPD who presents to the emergency department with increased shortness of breath. The patient has increased lower extremity edema and edema to her abdomen. The patient has increased her home oxygen from 3 to 4 L. Patient's family describes that fluid retention since undergoing two-vessel bypass surgery in September of this year. Patient's Lasix dose had been lowered last week as result of kidney function problems according to the patient's family. Chest x-ray shows evidence of CHF. The patient has an elevated high-sensitivity troponin. I have discussed the case with the [facility]ist and they will evaluate for further management. Triage Nursing notes reviewed and agree with them. Additional history obtained from the patient's family member sitting at the bedside. Vital Signs: reviewed and remarkable for hypertension Differential diagnosis: COPD exacerbation, CHF, pneumonia, STEMI, NSTEMI ER treatment provided: IV Lasix Diagnostics interpreted by me: ECG: Normal sinus rhythm at a rate of [address] segment elevation. There is T wave inversion in lead I and aVL but this is unchanged from previous EKGs. There are flattened T waves in the lateral leads which is new compared to previous EKGs. There is no ectopy. Cardiac Monitoring: Normal sinus rhythm at a rate of 68. Laboratory studies: See below Imaging studies: As per my interpretation Portable chest x-ray: Evidence of congestive heart failure. HPI: 76/F arrives for evaluation of increased shortness of breath. Over the past 2 days, the patient has increased shortness of breath and wheezing lower extremity swelling. She has increased her supplemental O2 from 3 L to 4 L. The patient had previously been on 2 Lasix pills but it has since been decreased to 1 pill a day. ROS: See above HPI for pertinent positives & negatives. A total of 10 systems reviewed and were otherwise negative. PAST MEDICAL HISTORY:See Below PAST SURGICAL HISTORY:See Below FAMILY HISTORY:See Below SOCIAL HISTORY:See Below HOME MEDICATIONS: See list ALLERGIES: None VITALS:See Below PHYSICAL EXAMINATION: HEENT: Head - normocephalic and atraumatic. Pupils are equal, round, and reactive to light. Extraocular eye muscles are intact, and sclera are anicteric. Nose - moist nasal mucosa without discharge. Mouth - moist buccal mucosa. Oropharynx is nonerythematous and there is no tonsillar exudate or edema noted. Neck: Supple; mild JVD Heart: Regular rate and rhythm. There is a normal S1 and S2 with no murmurs, clicks, or gallops appreciated. Lungs: Diminished lung sounds in both lower lung kelley with rales bilaterally with the left being worse than the right. Abdomen: Soft, completely nontender, nondistended, with good bowel sounds. There are no palpable pulsatile masses or hepatosplenomegaly. There is no guarding, rigidity, or rebound noted. Extremities: 4+ pitting edema in both lower extremities Skin: warm and dry with good turgor and no rashes. ED COURSE: Times/Reassessments: 2250: Patient was evaluated initially by the medical student. An order was placed for continuous cardiac monitoring. Patient was in a normal sinus rhythm at a rate of 68. Laboratory studies were drawn as above. A twelve-lead EKG was obtained. A portable chest x-ray was performed. This was concerning for CHF. The patient was given 40 mg of IV Lasix. I reviewed the results of the lab and the x-ray with the patient and her family. A COVID swab was obtained. I discussed the case with the [facility] Hospitalist and they will evaluate for further management. Barbara Vivar DO Past Med/Surg History Medical History (Updated 01/16/22 @ 15:56 by Barbara Vivar DO) Acute diastolic (congestive) heart failure Acute electrocardiogram changes Acute kidney injury Acute respiratory failure with hypoxia Anemia (~12/03/13) Anemia due to chronic kidney disease CAD (coronary artery disease) NSTEMI 2010, ARABELLA x 1, POBA x 1 @ [facility] CAD (coronary atherosclerotic disease) CABG x2 09/10/2021 at the [facility] LEGER-LAD, SVG-OM 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 diabetes mellitus Diabetes mellitus, type 2 Diabetic peripheral neuropathy DJD (degenerative joint disease) Elevated troponin GERD (gastroesophageal reflux disease) H/O: CVA (cerebrovascular accident) Developed facial droop after cardiac cath 2010. Acute infarct. Treated, complete resolution of symptoms. No residual deficits. Hyperkalemia Persistent since 12/2018 Hyperkalemia Hyperlipidemia Hypertension Hypoxia Hypoxia Hypoxia Lumbar spinal stenosis Myocardial Infarction NSTEMI 2010. ARABELLA to mid LCx and POBA to LAD/Dx. NSTEMI (non-ST elevated myocardial infarction) Positive blood culture Presence of drug-eluting stent in left circumflex coronary artery Secondary hyperparathyroidism of renal origin SOB (shortness of breath) SOB (shortness of breath) Stage 3b chronic kidney disease Stage 3B nodular histiocytic lymphoma Tobacco use disorder, continuous Vitamin D deficiency Surgical History History of cardiac cath History of carpal tunnel release History of cataract surgery History of colonoscopy History of tooth extraction History of tubal ligation Family History Brother Family history of diabetes mellitus Sister Family history of diabetes mellitus Sister Family history of diabetes mellitus Mother Family history of diabetes mellitus Myocardial infarction Stroke Father Myocardial infarction Denies family history of Ovarian cancer Prostate cancer Breast cancer Colorectal cancer Social History (Updated 12/08/21 @ 10:37 by Lesli Awan LPN) Smoking Status: Former smoker Tobacco Type: Cigarettes Age Started Using Tobacco: 24; Age Quit Using Tobacco: 75; packs per day: 0.5; Second Hand Exposure: No; Do You Dip or Chew Tobacco: No; Tobacco Cessation Education Requested by Patient: No Hx Alcohol Use: No Hx Substance Use: No Preferred Language: Estonian Communication Ability: Effective Visual Impairment: No 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 Beliefs That Will Affect Care: None marital status: Current Living Situation: Alone Current Living Situation Comment: lives home alone in a house current occupational status: retired 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 How many Children do You have: 1 Other Information That Helps Us Care for You: No Feels Safe at Home: Yes Safety Concerns: Feels Safe At This Time Childhood Exposure to Second-Hand Smoke: Yes caffeine: Yes Dental Care, Regularly: No Physical Activity Frequency: 3-4 Times per Week Seatbelt Use: sometimes Sunscreen Use: No Assistive Devices: Oxygen - Continuous and Walker Allergies Allergies Allergy/AdvReac Type Severity Reaction Status Date / Time No Known Allergies Allergy Verified 01/16/22 00:21 Home Meds Home Medications Medication Instructions Recorded Confirmed atorvastatin 80 mg tablet 80 mg PO DAILY 09/06/21 01/15/22 clopidogrel 75 mg tablet 75 mg PO DAILY 09/08/21 01/15/22 aspirin 81 mg tablet,delayed 81 mg PO DAILY 10/06/21 01/15/22 release (Adult Aspirin Regimen) sitagliptin 25 mg tablet (Januvia) 25 mg PO DAILY 10/06/21 01/15/22 blood sugar diagnostic (OneTouch 10/13/21 12/08/21 Ultra Test) pantoprazole 40 mg tablet,delayed 40 mg PO DAILY 11/02/21 01/15/22 release ferrous sulfate 325 mg (65 mg 325 mg PO TID tab 11/30/21 01/15/22 iron) tablet gabapentin 100 mg capsule 100 mg PO BID cap 11/30/21 01/15/22 (Neurontin) cholecalciferol (vitamin D3) 25 1,000 unit PO DAILY 01/15/22 01/15/22 mcg (1,000 unit) capsule cyanocobalamin (vitamin B-12) 1,000 mcg PO DAILY 01/15/22 01/16/22 1,000 mcg tablet polysaccharide iron complex 150 mg 150 mg PO DAILY 01/16/22 01/16/22 iron capsule (Ferrex) Previous Rx's Medication Instructions Recorded nitroglycerin 0.4 mg sublingual 0.4 mg SUBLINGUAL UD PRN #30 tab 04/07/20 tablet (Nitrostat) metoprolol tartrate 25 mg tablet 25 mg PO BID #60 tab 11/02/21 Portable Oxygen #1 ea 11/11/21 albuterol sulfate 90 mcg/actuation 2 puff INHALATION Q6H PRN #8.5 g 11/11/21 aerosol inhaler (ProAir HFA) fluticasone furoate 100 1 inh INHALATION DAILY #60 ea 11/11/21 mcg-vilanterol 25 mcg/dose inhalation powder (Breo Ellipta) tiotropium bromide 18 mcg capsule 1 cap INHALATION QAM #30 inh 11/11/21 with inhalation device (Spiriva with HandiHaler) furosemide 20 mg tablet (Lasix) 20 mg PO DAILY #30 tab 11/15/21 Results & Data (ED) Vital Signs Vital Signs - 24 hr 01/15/22 22:33 01/15/22 23:01 01/15/22 23:37 Pulse Rate 86 Pulse Rate [Apical] 78 Respiratory Rate 20 20 Respiratory Effort / Characteristics Non-Labored Spontaneous Non-Labored Non-Labored Spontaneous Respiratory Depth Normal Shallow Normal Respiratory Pattern Regular Blood Pressure 176/90 H Blood Pressure [Right Arm] 151/71 H Blood Pressure Mean 118 Blood Pressure Mean [Right Arm] 97 Blood Pressure Position Sitting Blood Pressure Position [Right Arm] Semi-fowlers Pulse Oximetry 96 98 99 Oxygen Delivery Method Nasal Cannula Nasal Cannula Nasal Cannula Oxygen Flow Rate 4 4 4 Sepsis Recent Fever Within 48 Hours No Sepsis New/Unexplained Change in Mental Status N/A Sepsis Action Taken by Nursing No Action Required Oxygen Flow Rate - Titration Fraction of Inspired Oxygen - Titration 01/16/22 01:00 01/16/22 01:14 01/16/22 02:11 Pulse Rate Pulse Rate [Apical] 79 78 Respiratory Rate 18 18 Respiratory Effort / Characteristics Non-Labored Spontaneous Respiratory Depth Normal Respiratory Pattern Blood Pressure Blood Pressure [Right Arm] 183/113 H 156/81 H Blood Pressure Mean Blood Pressure Mean [Right Arm] 136 106 Blood Pressure Position Blood Pressure Position [Right Arm] Pulse Oximetry 98 98 99 Oxygen Delivery Method Nasal Cannula Nasal Cannula Nasal Cannula Oxygen Flow Rate 4 4 4 Sepsis Recent Fever Within 48 Hours Sepsis New/Unexplained Change in Mental Status Sepsis Action Taken by Nursing Oxygen Flow Rate - Titration 3 Fraction of Inspired Oxygen - Titration 96 01/16/22 02:12 Pulse Rate Pulse Rate [Apical] 75 Respiratory Rate 20 Respiratory Effort / Characteristics Respiratory Depth Respiratory Pattern Blood Pressure Blood Pressure [Right Arm] 153/72 H Blood Pressure Mean Blood Pressure Mean [Right Arm] 99 Blood Pressure Position Blood Pressure Position [Right Arm] Pulse Oximetry 96 Oxygen Delivery Method Nasal Cannula Oxygen Flow Rate 3 Sepsis Recent Fever Within 48 Hours Sepsis New/Unexplained Change in Mental Status Sepsis Action Taken by Nursing Oxygen Flow Rate - Titration Fraction of Inspired Oxygen - Titration Laboratory Data Result diagrams: 01/15/22 22:55 01/15/22 22:55 Lab Results 01/15/22 01/15/22 01/16/22 Range/Units 22:55 22:55 01:12 WBC 10.68 (4.8-10.8) K/uL RBC 3.13 L (4.2-5.4) M/uL Hgb 8.3 L (12.0-16.0) g/dL Hct 28.2 L (37-47) % MCV 90.1 (80-100) fL MCH 26.5 (25-34) pg MCHC 29.4 L (32-36) g/dL RDW Std Deviation 50.9 H (36.4-46.3) fL RDW Coeff of Sushant 15.4 H (11.5-14.5) % Plt Count 266 (130-400) K/uL MPV 10.8 H (7.4-10.4) fL Immature Gran % (Auto) 0.2 % Neut % (Auto) 73.3 % Lymph % (Auto) 16.5 % Bee % (Auto) 5.0 % Eos % (Auto) 4.7 % Baso % (Auto) 0.3 % Neut # (Auto) 7.84 H (1.4-6.5) K/uL Lymph # (Auto) 1.76 (1.2-3.4) K/uL Bee # (Auto) 0.53 (0.11-0.59) K/uL Eos # (Auto) 0.50 (0-0.5) K/uL Baso # (Auto) 0.03 (0-0.2) K/uL Immature Gran # (Auto) 0.02 (0.00-0.02) K/uL Sodium 139 (136-145) mmol/L Potassium 4.1 (3.5-5.1) mmol/L Chloride 104 (98-107) mmol/L Carbon Dioxide 30 (21-32) mmol/L Anion Gap 5 (3-11) BUN 43 H (6-23) mg/dl Creatinine 1.51 H (0.6-1.2) mg/dl Est Cr Clr Drug Dosing Not Reportable Est GFR ( Amer) 38.8 ml/min Est GFR (Non-Af Amer) 33.5 ml/min BUN/Creatinine Ratio 28.5 H (10-20) Glucose 147 H (70-99(Fasting)) mg/dl Calcium 8.5 (8.5-10.1) mg/dl Total Bilirubin 0.3 (0.2-1.0) mg/dl AST 10 L (13-39) U/L ALT 10 (7-52) U/L Alkaline Phosphatase 58 (34-104) U/L Troponin I High Sens (0-14) pg/ml Total Protein 6.5 (6.0-8.3) gm/dl Albumin 3.4 (3.4-5.0) gm/dl Globulin 3.1 (2.5-4.0) gm/dl Albumin/Globulin Ratio 1.1 (0.9-2) Urine Color Urine Appearance (Clear) Urine pH (4.5-7.5) Ur Specific Mcgrady (1.000-1.030) Urine Protein (Negative) Urine Glucose (UA) (Negative) Urine Ketones (Negative) Urine Blood (Negative) Urine Nitrite (Negative) Urine Bilirubin (Negative) Urine Urobilinogen (Negative) Ur Leukocyte Esterase (Negative) Urine WBC (Auto) (0-5) /hpf Urine RBC (Auto) (0-4) /hpf U Hyaline Cast (Auto) (0-5) /lpf U Epithel Cells (Auto) (0-5) /lpf Urine Bacteria (Auto) (Negative) SARS-CoV-2, RNA, NAAT NEGATIVE (NEGATIVE) 01/16/22 01/16/22 Range/Units 01:31 02:10 WBC (4.8-10.8) K/uL RBC (4.2-5.4) M/uL Hgb (12.0-16.0) g/dL Hct (37-47) % MCV (80-100) fL MCH (25-34) pg MCHC (32-36) g/dL RDW Std Deviation (36.4-46.3) fL RDW Coeff of Sushant (11.5-14.5) % Plt Count (130-400) K/uL MPV (7.4-10.4) fL Immature Gran % (Auto) % Neut % (Auto) % Lymph % (Auto) % Bee % (Auto) % Eos % (Auto) % Baso % (Auto) % Neut # (Auto) (1.4-6.5) K/uL Lymph # (Auto) (1.2-3.4) K/uL Bee # (Auto) (0.11-0.59) K/uL Eos # (Auto) (0-0.5) K/uL Baso # (Auto) (0-0.2) K/uL Immature Gran # (Auto) (0.00-0.02) K/uL Sodium (136-145) mmol/L Potassium (3.5-5.1) mmol/L Chloride (98-107) mmol/L Carbon Dioxide (21-32) mmol/L Anion Gap (3-11) BUN (6-23) mg/dl Creatinine (0.6-1.2) mg/dl Est Cr Clr Drug Dosing Est GFR ( Amer) ml/min Est GFR (Non-Af Amer) ml/min BUN/Creatinine Ratio (10-20) Glucose (70-99(Fasting)) mg/dl Calcium (8.5-10.1) mg/dl Total Bilirubin (0.2-1.0) mg/dl AST (13-39) U/L ALT (7-52) U/L Alkaline Phosphatase (34-104) U/L Troponin I High Sens 25.5 H (0-14) pg/ml Total Protein (6.0-8.3) gm/dl Albumin (3.4-5.0) gm/dl Globulin (2.5-4.0) gm/dl Albumin/Globulin Ratio (0.9-2) Urine Color Yellow Urine Appearance Clear (Clear) Urine pH 5.5 (4.5-7.5) Ur Specific Mcgrady 1.008 (1.000-1.030) Urine Protein 2+ H (Negative) Urine Glucose (UA) Negative (Negative) Urine Ketones Negative (Negative) Urine Blood Negative (Negative) Urine Nitrite Negative (Negative) Urine Bilirubin Negative (Negative) Urine Urobilinogen Negative (Negative) Ur Leukocyte Esterase Trace H (Negative) Urine WBC (Auto) 1-5 (0-5) /hpf Urine RBC (Auto) 0-4 (0-4) /hpf U Hyaline Cast (Auto) 1-5 (0-5) /lpf U Epithel Cells (Auto) 20-30 H (0-5) /lpf Urine Bacteria (Auto) Negative (Negative) SARS-CoV-2, RNA, NAAT (NEGATIVE) Administered Medications Aspirin (Aspirin 81 Mg Ectab) 81 mg PO DAILY MICHAELLE Stop: 02/15/22 08:59 Last Admin: 01/16/22 09:06 Dose: 81 mg Documented by: [id number] Atorvastatin Calcium (Atorvastatin 40 Mg Tab) 80 mg PO DAILY MICHAELLE Stop: 02/15/22 08:59 Last Admin: 01/16/22 09:06 Dose: 80 mg Documented by: [id number] Clopidogrel Bisulfate (Clopidogrel Bisulfate 75 Mg Tab) 75 mg PO DAILY MICHAELLE Stop: 02/15/22 08:59 Last Admin: 01/16/22 09:07 Dose: 75 mg Documented by: [id number] Cyanocobalamin (Cyanocobalamin (B-12) 500 Mcg Tablet) 1,000 mcg PO DAILY MICHAELLE Stop: 02/15/22 08:59 Last Admin: 01/16/22 09:07 Dose: 1,000 mcg Documented by: [id number] Ferrous Sulfate (Ferrous Sulfate 325 Mg Tab) 325 mg PO TID MICHAELLE Stop: 02/15/22 08:59 Last Admin: 01/16/22 14:29 Dose: 325 mg Documented by: [id number] Admin: 01/16/22 09:07 Dose: 325 mg Documented by: [id number] Fluticasone/Vilanterol (Fluticasone/Vilanterol 100/25mcg 14 Puffs/Inhaler) 1 puffs INH DAILY MICHAELLE Stop: 02/15/22 08:59 Last Admin: 01/16/22 09:04 Dose: 1 puffs Documented by: [id number] Furosemide (Furosemide 40 Mg/4 Ml Vial) 40 mg IV DAILY MICHAELLE Stop: 02/15/22 08:59 Last Admin: 01/16/22 09:07 Dose: 40 mg Documented by: [id number] Gabapentin (Gabapentin 100 Mg Cap) 100 mg PO BID MICHAELLE Stop: 02/15/22 08:59 Last Admin: 01/16/22 09:07 Dose: 100 mg Documented by: [id number] Heparin Sodium (Porcine) (Heparin Sod 5,000 Unit/0.5 Ml Vial) 7,500 units SQ Q8 MICHAELLE Stop: 02/15/22 05:59 Last Admin: 01/16/22 14:29 Dose: 7,500 units Documented by: [id number] Admin: 01/16/22 05:55 Dose: 7,500 units Documented by: [id number] Insulin Aspart (Insulin Aspart Per Unit) 0 units SC ACHS MICHAELLE Stop: 02/15/22 07:29 Last Admin: 01/16/22 12:23 Dose: 3 units Documented by: [id number] Cosigned by: [id number] Admin: 01/16/22 09:02 Dose: 1 units Documented by: [id number] Cosigned by: [id number] Insulin Glargine (Insulin Glargine Solostar 100 Units/Ml 3 Ml Pen) 7 units SC BID MICHAELLE Stop: 02/15/22 08:59 Last Admin: 01/16/22 09:03 Dose: 7 units Documented by: [id number] Cosigned by: [id number] Metoprolol Tartrate (Metoprolol Tartrate 25 Mg Tab) 25 mg PO BID MICHAELLE Stop: 02/15/22 08:59 Last Admin: 01/16/22 09:07 Dose: 25 mg Documented by: [id number] Pantoprazole Sodium (Pantoprazole 40 Mg Tab) 40 mg PO DAILY MICHAELLE Stop: 02/15/22 08:59 Last Admin: 01/16/22 09:07 Dose: 40 mg Documented by: [id number] Polysaccharide Iron Complex (Iron Polysaccharide Complex 150 Mg Capsule) 150 mg PO DAILY MICHAELLE Stop: 02/15/22 08:59 Last Admin: 01/16/22 09:07 Dose: 150 mg Documented by: [id number] Umeclidinium [place] (Umeclidinium [place] 62.5mcg/Blister 7 Puffs/Inhaler) 1 puffs INH QAM MICHAELLE Stop: 02/15/22 08:59 Last Admin: 01/16/22 09:04 Dose: 1 puffs Documented by: [id number] Vitamin D (Cholecalciferol 1,000 Units 25 Mcg Tab) 1,000 units PO DAILY MICHAELLE Stop: 02/15/22 08:59 Last Admin: 01/16/22 09:07 Dose: 1,000 units Documented by: [id number] Discontinued Medications Furosemide (Furosemide 40 Mg/4 Ml Vial) 40 mg IV ONE ONE Stop: 01/16/22 01:08 Last Admin: 01/16/22 01:13 Dose: 40 mg Documented by: [id number] Imaging Data Radiologist's Impression: Chest X-Ray 01/15/22 22:57 XR chest 1V portable CLINICAL HISTORY: Dyspnea. COMPARISON STUDY: 11/08/2021 TECHNIQUE: 1 view of the chest FINDINGS: Single frontal view of the chest demonstrates the heart to again be enlarged status post previous cardiothoracic surgery. There is evidence for mild central vascular congestion. There is no peripheral interstitial edema. There is no evid ence for pleural effusion. No confluent alveolar opacities are identified. There is no acute osseous pathology. IMPRESSION: 1. Mild central vascular congestion. ACT 112: Negative or not required by law. Electronically signed by: Jesus Szymanski M.D. 01/16/2022 8:34 AM Discharge Plan Visit Data Chief Complaint: Shortness of Breath/Dyspnea Stated Complaint: SOB Discharge Problem: CHF (congestive heart failure), Elevated troponin Patient Disposition: Admitted As Inpatient Discharge Instructions Interventions: ED Discharge Assessment Last Done: 01/16/22 03:38 Discharge Problem: CHF (congestive heart failure) Qualifiers: Heart failure type: unspecified Heart failure chronicity: acute on chronic Qualified Code(s): I50.9 - Heart failure, unspecified
--- NOTE | 2022-01-16 08:19 | Hospitalist Progress Note ---
Date of Service January 16, 2022 Assessment & Plan (1) CHF exacerbation: Plan: Shirley Mcdaniels is a 76-year-old female with past medical history of CHF, CAD with bypass in September 2021, ESTELA, hypertension, anemia of chronic kidney disease, COPD, hyperlipidemia, GERD who presented due to swelling and shortness of breath for the past few days. Acute on Chronic CHF with preserved ejection fraction -Historical dry weight appears to be around 75.8 kg. 78.5 kg on admission Echo 10/18/2021: Normal LV SF, EF 55-60%. No region no wall motion abnormalities. Mild concentric LVH. Received Lasix 40 mg IV x1 Continue Lasix 40 mg IV daily Daily weights Strict I's and O's Monitor creatinine, near baseline on admission Supplemental O2 as needed CKD Patient creatinine 1.55, near baseline Continue Lasix IV 40 mg daily, clinically improving with good output Patient previously needed dialysis, reports that this was distressing to her and she would never do this again. Fortunately doing well and does not require this at this time Anemia of chronic disease Hemoglobin of 8.3 on admission Continue iron supplementation Monitor CBC No clinical signs of bleeding DM2 Hold home regimen Basal and SSI insulin while admitted A1c pending Coronary artery disease, history of NSTEMI with [place]G [place] 26/10[place] [facility] [place] [facility] [place] Moderate LV systolic dysfunction 09/2021. 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 COPD Continue Breo Ellipta daily Albuterol as needed No signs of COPD exacerbation at this time, suspect symptoms due to acute on chronic CHF GERD Continue Protonix 40 mg daily DVT prophylaxis: Heparin SQ Diet: Heart healthy, low-sodium, DM 2 Dispo: Admit to telemetry CODE STATUS: Conditional compressions okay, no other ACLS (2) ESTELA (obstructive sleep apnea): (3) Anemia due to chronic kidney disease: (4) Hypoxia: (5) CHF (congestive heart failure): (6) COPD (chronic obstructive pulmonary disease): (7) CKD (chronic kidney disease): (8) CAD (coronary atherosclerotic disease): (9) Hyperkalemia: (10) GERD (gastroesophageal reflux disease): (11) HTN (hypertension): (12) Diabetes mellitus with renal manifestations, uncontrolled: Admission and Anticipated Discharge Date Admission Date: January 16, 2022 Marcel Watson is seen at the bedside this morning. She reports that she feels better, but still like she has more fluid than normal. Breathing is still with a little more effort when moving around, but comfortable at rest now on 3 L. She reports she uses 3 L at home. No fevers, chills, sweats. She is very concerned about her kidneys, reports that she wishes she had not gotten dialysis and should she worsen she would never want this again.She is grateful her kidney function is okay and near baseline. Does not use much salt and does not think she had dietary indiscretion that led to her fluid buildup. Does note that her family had made her a bunch of soups which she froze and has been eating a lot of soup, but is not sure if this is with stock broth or if it is salt free that they had made for her. Does note that she thinks her family made the brought from scratch. Review of Systems Review of Systems: All systems reviewed & are unremarkable except as noted in Subjective Physical Exam Physical Exam: General: A&Ox3. NAD. Cooperative. HEENT: Atraumatic, normocephalic. Pulm: Bibasilar crackles, moderate air movement, no wheezing. Symmetrical chest rise. No increase in work of breathing. No respiratory distress. Cardiac: RRR, -mrg. Radial pulses intact and symmetrical. Abdominal: Nontender, nondistended, soft. BS present. Results & Data Results & Data ([facility]) Vital Signs (Past 12 Hours) Vital Signs Temp Pulse Pulse Resp BP BP Pulse Ox 01/16/22 06:16 68 01/16/22 04:47 72 01/16/22 04:15 36.4 C L 71 18 150/64 H 96 01/16/22 03:38 69 20 152/55 H 97 01/16/22 02:12 75 20 153/72 H 96 01/16/22 02:11 99 01/16/22 01:14 78 18 156/81 H 98 01/16/22 01:00 79 18 183/113 H 98 01/15/22 23:37 78 20 151/71 H 99 01/15/22 23:01 98 01/15/22 22:33 86 20 176/90 H 96 PG Care Time/CCT Total # of Minutes Spent Total Time Spent with Patient: Total time spent is greater than 50% in coordination of care (as documented) at patient's floor/unit and/or counseling patient: Coding Level of Care Code 66239 Subseq Hosp Care Lvl 3 Diagnoses CHF exacerbation I50.9 ESTELA (obstructive sleep apnea) G47.33 Anemia due to chronic kidney disease N18.9; D63.1 Hypoxia R09.02 CHF (congestive heart failure) I50.9 Heart failure chronicity: acute Heart failure type: unspecified COPD (chronic obstructive pulmonary disease) J44.9 CKD (chronic kidney disease) N18.9 Chronic kidney disease stage: unspecified stage CAD (coronary atherosclerotic disease) I25.10 Hyperkalemia E87.5 GERD (gastroesophageal reflux disease) K21.9 HTN (hypertension) I10 Diabetes mellitus with renal manifestations, uncontrolled E11.29; E11.65 (1) CHF (congestive heart failure) Heart failure chronicity: acute Heart failure type: unspecified Qualified Code(s): I50.9 - Heart failure, unspecified (2) CKD (chronic kidney disease) Chronic kidney disease stage: unspecified stage Qualified Code(s): N18.9 - Chronic kidney disease, unspecified
--- NOTE | 2022-01-16 08:35 | XRay Report ---
XR chest 1V portable CLINICAL HISTORY: Dyspnea. COMPARISON STUDY: 11/08/2021 TECHNIQUE: 1 view of the chest FINDINGS: Single frontal view of the chest demonstrates the heart to again be enlarged status post previous car diothoracic surgery. There is evidence for mild central vascular congestion. There is no peripheral i nterstitial edema. There is no evidence for pleural effusion. No confluent alveolar opacities are marbin ntified. There is no acute osseous pathology. IMPRESSION: 1. Mild central vascular congestion. ACT 112: Negative or not required by law. Electronically signed by: Jesus Szymanski M.D. 01/16/2022 8:34 AM
[2022-01-16] MEDS: INSULIN ASPART PER UNIT SC SCH ×4 (09:02→20:59)
[2022-01-16] MEDS: INSULIN GLARGINE SOLOSTAR 100 UNITS/ML 3 ML PEN SC SCH ×2 (09:03→20:13)
[2022-01-16] MEDS: FLUTICASONE/VILANTEROL 100/25MCG 14 PUFFS/INHALER INH SCH (09:04)
[2022-01-16] MEDS: UMECLIDINIUM BROMIDE 62.5MCG/BLISTER 7 PUFFS/INHALER INH SCH (09:04)
[2022-01-16] MEDS: ATORVASTATIN 40 MG TAB PO SCH (09:06)
[2022-01-16] MEDS: ASPIRIN 81 MG ECTAB PO SCH (09:06)
[2022-01-16] MEDS: IRON POLYSACCHARIDE COMPLEX 150 MG CAPSULE PO SCH (09:07)
[2022-01-16] MEDS: CHOLECALCIFEROL 1,000 UNITS 25 MCG TAB PO SCH (09:07)
[2022-01-16] MEDS: PANTOprazole 40 MG TAB PO SCH (09:07)
[2022-01-16] MEDS: METOPROLOL TARTRATE 25 MG TAB PO SCH ×2 (09:07→20:13)
[2022-01-16] MEDS: CLOPIDOGREL BISULFATE 75 MG TAB PO SCH (09:07)
[2022-01-16] MEDS: CYANOCOBALAMIN (B-12) 500 MCG TABLET PO SCH (09:07)
[2022-01-16] MEDS: FUROSEMIDE 40 MG/4 ML VIAL IV SCH (09:07)
[2022-01-16] MEDS: FERROUS SULFATE 325 MG TAB PO SCH ×3 (09:07→20:12)
[2022-01-16] MEDS: GABAPENTIN 100 MG CAP PO SCH ×2 (09:07→20:12)
--- NOTE | 2022-01-16 12:26 | Electrocardiogram Report ---
Test Reason : Blood Pressure : / mmHG Vent. Rate : 080 BPM Atrial Rate : 080 BPM P-R Int : 166 ms QRS Dur : 088 ms QT Int : 374 ms P-R-T Axes : 017 -34 136 degrees QTc Int : 431 ms Normal sinus rhythm Left axis deviation Abnormal ECG When compared with ECG of 18-OCT-2021 07:12, T wave inversion more evident in Lateral leads Confirmed by Rafael Nguyen ([id number]) on 01/16/2022 12:25:48 PM Referred By: REFERRED SELF Confirmed By:Luis Nguyen
--- NOTE | 2022-01-16 20:46 | Billing Data ---
Date of Service January 16, 2022 Coding Level of Care Code 50785 Initial Inpt Care Lvl 3
[2022-01-17] MEDS: HEPARIN SOD 5,000 UNIT/0.5 ML VIAL SQ SCH ×3 (05:17→20:32)
[2022-01-17 07:32] LABS: Estimated Average Glucose 169 mg/dl; Hemoglobin A1C 7.5 % (4.5-5.6)
[2022-01-17] MEDS: FERROUS SULFATE 325 MG TAB PO SCH ×3 (08:26→20:34)
[2022-01-17] MEDS: INSULIN ASPART PER UNIT SC SCH ×4 (08:26→20:04)
[2022-01-17] MEDS: GABAPENTIN 100 MG CAP PO SCH ×2 (08:27→20:33)
[2022-01-17] MEDS: METOPROLOL TARTRATE 25 MG TAB PO SCH ×2 (08:27→20:33)
[2022-01-17] MEDS: ATORVASTATIN 40 MG TAB PO SCH (08:27)
[2022-01-17] MEDS: CHOLECALCIFEROL 1,000 UNITS 25 MCG TAB PO SCH (08:27)
[2022-01-17 08:28] LABS: Hemoglobin 8.3 g/dL (12.0-16.0); Mean Corpuscular Hemoglobin 26.7 pg (25-34); Mean Corpuscular Hgb Conc 28.6 g/dL (32-36); Mean Corpuscular Volume 93.2 fL (80-100); Mean Platelet Volume 11.4 fL (7.4-10.4); Platelet Count 248 K/uL (130-400); RDW Coefficient of Variation 15.5 % (11.5-14.5); Red Blood Count 3.11 M/uL (4.2-5.4); White Blood Count 9.57 K/uL (4.8-10.8)
[2022-01-17] MEDS: IRON POLYSACCHARIDE COMPLEX 150 MG CAPSULE PO SCH (08:28)
[2022-01-17] MEDS: ASPIRIN 81 MG ECTAB PO SCH (08:28)
[2022-01-17] MEDS: CLOPIDOGREL BISULFATE 75 MG TAB PO SCH (08:29)
[2022-01-17] MEDS: PANTOprazole 40 MG TAB PO SCH (08:29)
[2022-01-17] MEDS: FLUTICASONE/VILANTEROL 100/25MCG 14 PUFFS/INHALER INH SCH (08:29)
[2022-01-17] MEDS: CYANOCOBALAMIN (B-12) 500 MCG TABLET PO SCH (08:29)
[2022-01-17] MEDS: UMECLIDINIUM BROMIDE 62.5MCG/BLISTER 7 PUFFS/INHALER INH SCH (08:30)
[2022-01-17] MEDS: FUROSEMIDE 40 MG/4 ML VIAL IV SCH ×2 (08:32→09:28)
[2022-01-17] MEDS: INSULIN GLARGINE SOLOSTAR 100 UNITS/ML 3 ML PEN SC SCH ×2 (08:33→20:34)
[2022-01-17 08:44] LABS: Basophils # (auto) 0.01 K/uL (0-0.2); Basophils % (auto) 0.1 %; Calcium 8.4 mg/dl (8.5-10.1); Creatinine Clr Calc Pharmacy 23.9 ml/min; Eosinophils # (auto) 0.35 K/uL (0-0.5); Eosinophils % (auto) 3.7 %; Est GFR (African American) 30.7 ml/min; Est GFR (Non-African American) 26.5 ml/min; Immature Granulocytes # (auto) 0.01 K/uL (0.00-0.02); Immature Granulocytes % (auto) 0.1 %; Lymphocytes # (auto) 1.48 K/uL (1.2-3.4); Lymphocytes % (auto) 15.5 %; Monocytes # (auto) 0.53 K/uL (0.11-0.59); Monocytes % (auto) 5.5 %; Neutrophils # (auto) 7.19 K/uL (1.4-6.5); Neutrophils % (auto) 75.1 %; Potassium 4.3 mmol/L (3.5-5.1)
--- NOTE | 2022-01-17 12:32 | Hospitalist Progress Note ---
Date of Service January 17, 2022 Assessment & Plan (1) CHF exacerbation: Plan: Historical dry weight appears to be around 75.8 kg. 78.5 kg on admission Echo 10/18/2021: Normal LV SF, EF 55-60%. No region no wall motion abnormalities. Mild concentric LVH. Received Lasix 40 mg IV x1 Creatinine up trended but still within range of baseline at 1.8. Brisk output, Lasix decreased to 20 mg IV follow BMP and I/O Clinically remains with some crackles, improved but not yet at baseline. Persists with lower extremity edema Daily weights - 1850 cc output 01/16-01/17 Monitor creatinine, near baseline on admission Supplemental O2 as needed, currently on 3 L. Home O2 ~3L - Nearing but not yet at baseline CKD Patient creatinine 1.55, bl approximately 1.41.9 lasix as noted Patient previously needed dialysis, reports that this was distressing to her and she would never do this again. Fortunately doing well and does not require this at this time Anemia of chronic disease Hemoglobin of 8.3 on admission Continue iron supplementation Monitor CBC No clinical signs of bleeding DM2 Hold home regimen Basal and SSI insulin while admitted A1c 7.5, liberalized goal of 8 given age Coronary artery disease, history of NSTEMI with CABG times 26/10/2021 at [place] Moderate LV systolic dysfunction 09/2021. 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 thinks due to intrarenal disease and prior need for dialysis COPD Continue Breo Ellipta daily Albuterol as needed No signs of COPD exacerbation at this time, suspect symptoms due to acute on chronic CHF GERD Continue Protonix 40 mg daily DVT prophylaxis: Heparin SQ Diet: Heart healthy, low-sodium, DM 2 Dispo: Admit to telemetry CODE STATUS: Conditional compressions okay, no other ACLS (2) ESTELA (obstructive sleep apnea): (3) Anemia due to chronic kidney disease: (4) Hypoxia: (5) CHF (congestive heart failure): (6) COPD (chronic obstructive pulmonary disease): (7) CKD (chronic kidney disease): (8) CAD (coronary atherosclerotic disease): (9) Hyperkalemia: (10) GERD (gastroesophageal reflux disease): (11) HTN (hypertension): (12) Diabetes mellitus with renal manifestations, uncontrolled: Admission and Anticipated Discharge Date Admission Date: January 16, 2022 Subjective Lulu seen at bedside this morning. She reports she feels improved and is breathing comfortably at rest, but has not been moving around much and is not sure how her energy will feel moving. She reports her legs are better, still does feel a little bit more full than normal but improved. No nausea, vomiting, diarrhea, constipation. Has had brisk output following each Lasix dose. No lightheadedness, dizziness, chest pain. Review of Systems Review of Systems: All systems reviewed & are unremarkable except as noted in Subjective Physical Exam Physical Exam: General: A&Ox3. NAD. Cooperative. HEENT: Atraumatic, normocephalic. Vision and hearing grossly intact Pulm: Bibasilar crackles continued today moderate air movement, no wheezing. Symmetrical chest rise. No increase in work of breathing. No respiratory distress. Cardiac: RRR, -mrg. Radial pulses intact and symmetrical. Abdominal: Nontender, nondistended, soft. BS present. Extremities: Bilateral lower extremity 1+ edema, similar to prior qualitatively improved per patient Results & Data Results & Data ([facility]) Vital Signs (Past 12 Hours) Vital Signs Temp Pulse Resp BP Pulse Ox 01/17/22 11:36 36.9 C 71 16 130/56 L 96 01/17/22 07:47 37.0 C 74 17 147/81 H 97 01/17/22 04:51 36.7 C 75 18 148/75 H 93 PG Care Time/CCT Total # of Minutes Spent Total Time Spent with Patient: Total time spent is greater than 50% in coordination of care (as documented) at patient's floor/unit and/or counseling patient: Coding Level of Care Code 47330 Subseq Hosp Care Lvl 2 Diagnoses CHF exacerbation I50.9 ESTELA (obstructive sleep apnea) G47.33 Anemia due to chronic kidney disease N18.9; D63.1 Hypoxia R09.02 CHF (congestive heart failure) I50.9 Heart failure chronicity: acute Heart failure type: unspecified COPD (chronic obstructive pulmonary disease) J44.9 CKD (chronic kidney disease) N18.9 Chronic kidney disease stage: unspecified stage CAD (coronary atherosclerotic disease) I25.10 Hyperkalemia E87.5 GERD (gastroesophageal reflux disease) K21.9 HTN (hypertension) I10 Diabetes mellitus with renal manifestations, uncontrolled E11.29; E11.65 (1) CHF (congestive heart failure) Heart failure chronicity: acute Heart failure type: unspecified Qualified Code(s): I50.9 - Heart failure, unspecified (2) CKD (chronic kidney disease) Chronic kidney disease stage: unspecified stage Qualified Code(s): N18.9 - Chronic kidney disease, unspecified
--- NOTE | 2022-01-17 20:12 | Communication Note ---
Date of Service: January 17, 2022 Received message from RN at 19:34 statin patient had left chest tightness. No SOB. PRN EKG performed and showing no new ST changes. Patient evaluated at bedside and states she has this a few times per week at home, usually when laying in bed. States it feels like someone wringing out a towel. Denies it feeling like pain, just tightness. Point to upper left chest below clavicle when asked where her tightness is. Denies SOB, cough, n/v, TILLMAN, dizziness, abd pain. On exam she is RRR, no mgr. Bilateral crackles, overall good air entry. Symptoms not reproducible on chest palpation. Chest tightness - With patient having this at rest and not reproducible on exam it is a bit concerning for cardiac etiology - However, EKG without any acute changes - High sensitivity Trop ordered. Resulted at 16.1 -- downtrending from previous 25.5 --> 19.8 --> 16.1. - Patient given prn Tylenol -- will reassess as needed
[2022-01-18] MEDS: HEPARIN SOD 5,000 UNIT/0.5 ML VIAL SQ SCH ×3 (05:12→21:00)
[2022-01-18 07:42] LABS: Basophils # (auto) 0.03 K/uL (0-0.2); Basophils % (auto) 0.4 %; Eosinophils # (auto) 0.32 K/uL (0-0.5); Eosinophils % (auto) 4.4 %; Hematocrit (blood only) 29.4 % (37-47); Hemoglobin 8.4 g/dL (12.0-16.0); Immature Granulocytes # (auto) 0.01 K/uL (0.00-0.02); Immature Granulocytes % (auto) 0.1 %; Lymphocytes # (auto) 1.88 K/uL (1.2-3.4); Mean Corpuscular Hemoglobin 26.4 pg (25-34); Mean Corpuscular Hgb Conc 28.6 g/dL (32-36); Mean Corpuscular Volume 92.5 fL (80-100); Mean Platelet Volume 11.3 fL (7.4-10.4); Monocytes # (auto) 0.45 K/uL (0.11-0.59); Monocytes % (auto) 6.2 %; Neutrophils # (auto) 4.55 K/uL (1.4-6.5); Neutrophils % (auto) 62.9 %; Platelet Count 246 K/uL (130-400); RDW Coefficient of Variation 15.2 % (11.5-14.5); RDW Standard Deviation 51.8 fL (36.4-46.3); Red Blood Count 3.18 M/uL (4.2-5.4); White Blood Count 7.24 K/uL (4.8-10.8)
[2022-01-18 08:08] LABS: BUN Creatinine Ratio 22.7 (10-20); Calcium 8.5 mg/dl (8.5-10.1); Creatinine Clr Calc Pharmacy 21.5 ml/min; Est GFR (African American) 27.1 ml/min; Est GFR (Non-African American) 23.4 ml/min; Potassium 4.4 mmol/L (3.5-5.1)
[2022-01-18] MEDS: INSULIN ASPART PER UNIT SC SCH ×4 (09:22→21:00)
[2022-01-18] MEDS: INSULIN GLARGINE SOLOSTAR 100 UNITS/ML 3 ML PEN SC SCH ×2 (09:22→20:58)
[2022-01-18] MEDS: METOPROLOL TARTRATE 25 MG TAB PO SCH ×2 (09:30→20:58)
[2022-01-18] MEDS: PANTOprazole 40 MG TAB PO SCH (09:31)
[2022-01-18] MEDS: GABAPENTIN 100 MG CAP PO SCH ×2 (09:31→20:59)
[2022-01-18] MEDS: CYANOCOBALAMIN (B-12) 500 MCG TABLET PO SCH (09:32)
[2022-01-18] MEDS: CLOPIDOGREL BISULFATE 75 MG TAB PO SCH (09:33)
[2022-01-18] MEDS: CHOLECALCIFEROL 1,000 UNITS 25 MCG TAB PO SCH (09:33)
[2022-01-18] MEDS: FERROUS SULFATE 325 MG TAB PO SCH ×3 (09:34→20:59)
[2022-01-18] MEDS: IRON POLYSACCHARIDE COMPLEX 150 MG CAPSULE PO SCH (09:34)
[2022-01-18] MEDS: ASPIRIN 81 MG ECTAB PO SCH (09:35)
[2022-01-18] MEDS: UMECLIDINIUM BROMIDE 62.5MCG/BLISTER 7 PUFFS/INHALER INH SCH (09:36)
[2022-01-18] MEDS: FUROSEMIDE 40 MG/4 ML VIAL IV SCH (09:36)
[2022-01-18] MEDS: FLUTICASONE/VILANTEROL 100/25MCG 14 PUFFS/INHALER INH SCH (09:36)
[2022-01-18] MEDS: ATORVASTATIN 40 MG TAB PO SCH (09:38)
--- NOTE | 2022-01-18 13:47 | Hospitalist Progress Note ---
Date of Service January 18, 2022 Assessment & Plan (1) CHF exacerbation: Plan: Historical dry weight appears to be around 75.8 kg. 78.5 kg on admission Echo 10/18/2021: Normal LV SF, EF 55-60%. No region no wall motion abnormalities. Mild concentric LVH. Received Lasix 40 mg IV x1 Creatinine up trended but still within range of baseline at 1.8. Brisk output, Lasix decreased to 20 mg IV on 01/17 Clinically remains with some crackles, improved but not yet at baseline. Persists with lower extremity edema Daily weights - 1850 cc output 01/16-01/17 Approximately 1 L output into 01/18 Monitor creatinine, near baseline on admission Supplemental O2 as needed, currently on 3 L. Home O2 ~3L -Very near baseline. Did have uptrending creatinine above baseline, lasix previously dose reduced. Will hold 1 dose and follow BMP. if stable resume PO and dc CKD Patient creatinine 1.55, bl approximately 1.41.9 lasix as noted Patient previously needed dialysis, reports that this was distressing to her and she would never do this again. Fortunately doing well and does not require this at this time Anemia of chronic disease Hemoglobin of 8.3 on admission Continue iron supplementation Monitor CBC No clinical signs of bleeding DM2 Hold home regimen Basal and SSI insulin while admitted A1c 7.5, liberalized goal of 8 given age Coronary artery disease, history of [place]STEMI with [place] [facility] [place] systolic dysfunction 09/2021. 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 COPD Continue Breo Ellipta daily Albuterol as needed No signs of COPD exacerbation at this time, suspect symptoms due to acute on chronic CHF GERD Continue Protonix 40 mg daily DVT prophylaxis: Heparin SQ Diet: Heart healthy, low-sodium, DM 2 Dispo: Admit to telemetry CODE STATUS: Conditional compressions okay, no other ACLS (2) ESTELA (obstructive sleep apnea): (3) Anemia due to chronic kidney disease: (4) Hypoxia: (5) CHF (congestive heart failure): (6) COPD (chronic obstructive pulmonary disease): (7) CKD (chronic kidney disease): (8) CAD (coronary atherosclerotic disease): (9) Hyperkalemia: (10) GERD (gastroesophageal reflux disease): (11) HTN (hypertension): (12) Diabetes mellitus with renal manifestations, uncontrolled: Admission and Anticipated Discharge Date Admission Date: January 16, 2022 Subjective Seen at bedside this morning. Patient feels again improved, nearly back to more normal. He is on 3 L nasal cannula, has walked around a little bit with some sh ortness of breath but almost normal and no increased oxygen need feels a little bit tight in her legs, but again improved. Denies fever, chills, sweats, chest pain, chest pressure, shortness of breath, difficulty breathing. He is very concerned about needing dialysis again, and notes that she does not think she would want to go through this again even if it were medically recommended. Review of Systems Review of Systems: All systems reviewed & are unremarkable except as noted in Subjective Physical Exam Physical Exam: General: A&Ox3. NAD. Cooperative. HEENT: Atraumatic, normocephalic. Vision and hearing grossly intact Pulm: Minimal basilar crackles today, nearly resolved symmetrical chest rise. No increase in work of breathing. No respiratory distress. Cardiac: RRR, -mrg. Radial pulses intact and symmetrical. Abdominal: Nontender, nondistended, soft. BS present. Extremities: Bilateral lower extremity 1+ edema, similar to prior exam but near normal per patient Results & Data Results & Data ([facility]) Vital Signs (Past 12 Hours) Vital Signs Temp Pulse Pulse Resp BP BP Pulse Ox 01/18/22 12:28 36.8 C 88 18 138/67 98 01/18/22 08:00 72 01/18/22 07:10 36.7 C 72 19 138/76 96 01/18/22 04:12 37.0 C 68 18 131/69 94 Pulse Ox 01/18/22 12:28 01/18/22 08:00 96 01/18/22 07:10 01/18/22 04:12 PG Care Time/CCT Total # of Minutes Spent Total Time Spent with Patient: Total time spent is greater than 50% in coordination of care (as documented) at patient's floor/unit and/or counseling patient: Coding Level of Care Code 27825 Subseq Hosp Care Lvl 2 Diagnoses CHF exacerbation I50.9 ESTELA (obstructive sleep apnea) G47.33 Anemia due to chronic kidney disease N18.9; D63.1 Hypoxia R09.02 CHF (congestive heart failure) I50.9 Heart failure chronicity: acute Heart failure type: unspecified COPD (chronic obstructive pulmonary disease) J44.9 CKD (chronic kidney disease) N18.9 Chronic kidney disease stage: unspecified stage CAD (coronary atherosclerotic disease) I25.10 Hyperkalemia E87.5 GERD (gastroesophageal reflux disease) K21.9 HTN (hypertension) I10 Diabetes mellitus with renal manifestations, uncontrolled E11.29; E11.65 (1) CHF (congestive heart failure) Heart failure chronicity: acute Heart failure type: unspecified Qualified Code(s): I50.9 - Heart failure, unspecified (2) CKD (chronic kidney disease) Chronic kidney disease stage: unspecified stage Qualified Code(s): N18.9 - Chronic kidney disease, unspecified
--- NOTE | 2022-01-18 19:00 | Electrocardiogram Report ---
Test Reason : Blood Pressure : / mmHG Vent. Rate : 076 BPM Atrial Rate : 076 BPM P-R Int : 156 ms QRS Dur : 090 ms QT Int : 426 ms P-R-T Axes : 016 -29 159 degrees QTc Int : 479 ms Normal sinus rhythm T wave abnormality, consider lateral ischemia Poor R wave progression, consider anterior MD vs. lead placement vs. LVH Nonspecific ST abnormality Prolonged QT Abnormal ECG When compared with ECG of 15-JAN-2022 22:46, QT has lengthened Confirmed by Rafael Nguyen ([id number]) on 01/18/2022 7:00:16 PM Referred By: REFERRED SELF Confirmed By:Luis Nguyen
[2022-01-19] MEDS: HEPARIN SOD 5,000 UNIT/0.5 ML VIAL SQ SCH ×2 (05:10→13:29)
[2022-01-19] MEDS: INSULIN ASPART PER UNIT SC SCH ×2 (08:18→12:04)
[2022-01-19] MEDS: ATORVASTATIN 40 MG TAB PO SCH (08:35)
[2022-01-19] MEDS: CHOLECALCIFEROL 1,000 UNITS 25 MCG TAB PO SCH (08:35)
[2022-01-19] MEDS: CLOPIDOGREL BISULFATE 75 MG TAB PO SCH (08:35)
[2022-01-19] MEDS: ASPIRIN 81 MG ECTAB PO SCH (08:35)
[2022-01-19] MEDS: PANTOprazole 40 MG TAB PO SCH (08:35)
[2022-01-19] MEDS: IRON POLYSACCHARIDE COMPLEX 150 MG CAPSULE PO SCH (08:35)
[2022-01-19] MEDS: CYANOCOBALAMIN (B-12) 500 MCG TABLET PO SCH (08:36)
[2022-01-19] MEDS: FLUTICASONE/VILANTEROL 100/25MCG 14 PUFFS/INHALER INH SCH (08:36)
[2022-01-19] MEDS: FERROUS SULFATE 325 MG TAB PO SCH ×2 (08:36→13:29)
[2022-01-19] MEDS: METOPROLOL TARTRATE 25 MG TAB PO SCH (08:37)
[2022-01-19] MEDS: GABAPENTIN 100 MG CAP PO SCH (08:37)
[2022-01-19] MEDS: UMECLIDINIUM BROMIDE 62.5MCG/BLISTER 7 PUFFS/INHALER INH SCH (08:37)
[2022-01-19] MEDS: INSULIN GLARGINE SOLOSTAR 100 UNITS/ML 3 ML PEN SC SCH (08:45)
--- NOTE | 2022-01-19 08:52 | Hospitalist Progress Note ---
Date of Service January 19, 2022 Assessment & Plan (1) CHF exacerbation: Plan: Heart failure preserved Ejection fraction, historical dry weight appears to be around 75.8 kg. 78.5 kg on admission Echo 10/18/2021: Normal LV SF, EF 55-60%. No region no wall motion abnormalities. Mild concentric LVH. Received Lasix 40 mg IV x1 Creatinine up trended but still within range of baseline at 1.8. Brisk output, Lasix decreased to 20 mg IV on 01/17 Persists with lower extremity edema Supplemental O2 as needed, currently on 3 L. Home O2 ~3L CKD 3-4 Patient creatinine 1.55, bl approximately 1.41.9 lasix as noted Patient previously needed dialysis, reports that this was distressing to her and she would never do this again. 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 COPD Continue Breo Ellipta daily Albuterol as needed No signs of COPD exacerbation at this time, suspect symptoms due to acute on chronic CHF GERD Continue Protonix 40 mg daily DVT prophylaxis: Heparin SQ Diet: Heart healthy, low-sodium, DM 2 CODE STATUS: Conditional compressions okay, no other ACLS (2) ESTELA (obstructive sleep apnea): (3) Anemia due to chronic kidney disease: (4) Hypoxia: (5) CHF (congestive heart failure): (6) COPD (chronic obstructive pulmonary disease): (7) CKD (chronic kidney disease): (8) CAD (coronary atherosclerotic disease): (9) Hyperkalemia: (10) GERD (gastroesophageal reflux disease): (11) HTN (hypertension): (12) Diabetes mellitus with renal manifestations, uncontrolled: Admission and Anticipated Discharge Date Admission Date: January 16, 2022 Results & Data Results & Data ([facility]) Vital Signs (Past 12 Hours) Vital Signs Temp Pulse Pulse Pulse Resp BP BP 01/19/22 08:32 98.4 F 83 23 143/61 H 01/19/22 07:00 75 01/19/22 04:25 98.1 F 75 16 128/69 01/19/22 00:31 98.1 F 75 18 123/70 01/18/22 23:48 80 Pulse Ox 01/19/22 08:32 97 01/19/22 07:00 01/19/22 04:25 93 01/19/22 00:31 94 01/18/22 23:48 PG Care Time/CCT Total # of Minutes Spent Total Time Spent with Patient: Total time spent is greater than 50% in coordination of care (as documented) at patient's floor/unit and/or counseling patient: Coding Diagnoses CHF exacerbation I50.9 ESTELA (obstructive sleep apnea) G47.33 Anemia due to chronic kidney disease N18.9; D63.1 Hypoxia R09.02 CHF (congestive heart failure) I50.9 Heart failure chronicity: acute Heart failure type: unspecified COPD (chronic obstructive pulmonary disease) J44.9 CKD (chronic kidney disease) N18.9 Chronic kidney disease stage: unspecified stage CAD (coronary atherosclerotic disease) I25.10 Hyperkalemia E87.5 GERD (gastroesophageal reflux disease) K21.9 HTN (hypertension) I10 Diabetes mellitus with renal manifestations, uncontrolled E11.29; E11.65 (1) CHF (congestive heart failure) Heart failure chronicity: acute Heart failure type: unspecified Qualified C ode(s): I50.9 - Heart failure, unspecified (2) CKD (chronic kidney disease) Chronic kidney disease stage: unspecified stage Qualified Code(s): N18.9 - Chronic kidney disease, unspecified
[2022-01-19 08:54] LABS: BUN Creatinine Ratio 24.3 (10-20); Basophils # (auto) 0.02 K/uL (0-0.2); Basophils % (auto) 0.2 %; Calcium 8.9 mg/dl (8.5-10.1); Creatinine Clr Calc Pharmacy 24.5 ml/min; Eosinophils # (auto) 0.32 K/uL (0-0.5); Eosinophils % (auto) 3.9 %; Est GFR (Non-African American) 27.6 ml/min; Hematocrit (blood only) 30.2 % (37-47); Hemoglobin 8.6 g/dL (12.0-16.0); Immature Granulocytes # (auto) 0.01 K/uL (0.00-0.02); Immature Granulocytes % (auto) 0.1 %; Lymphocytes # (auto) 1.73 K/uL (1.2-3.4); Mean Corpuscular Hemoglobin 26.1 pg (25-34); Mean Corpuscular Hgb Conc 28.5 g/dL (32-36); Mean Corpuscular Volume 91.8 fL (80-100); Mean Platelet Volume 11.3 fL (7.4-10.4); Monocytes # (auto) 0.54 K/uL (0.11-0.59); Monocytes % (auto) 6.6 %; Neutrophils # (auto) 5.62 K/uL (1.4-6.5); Neutrophils % (auto) 68.2 %; Platelet Count 264 K/uL (130-400); Potassium 4.5 mmol/L (3.5-5.1); RDW Coefficient of Variation 15.6 % (11.5-14.5); RDW Standard Deviation 52.3 fL (36.4-46.3); Red Blood Count 3.29 M/uL (4.2-5.4); White Blood Count 8.24 K/uL (4.8-10.8)
--- NOTE | 2022-01-19 14:26 | Discharge Summary ---
Date of Service January 19, 2022 Admission HPI Per Admitting Provider Shirley Mcdaniels is a 76-year-old female with past medical history of CHF, CAD with bypass in September 2021, ESTELA, hypertension, anemia of chronic kidney disease, COPD, hyperlipidemia, GERD who presented due to swelling and shortness of breath for the past few days. Patient states that she has noticed swelling in both of her legs as well as her stomach. She has also felt short of breath at rest and more so with walking. She uses 3 L of oxygen via nasal cannula at baseline due to COPD. States that lately did have to use more oxygen up to about 5 L. Currently denies chest pain, palpitations, nausea, vomiting, abdominal pain, weakness, numbness, headache, fever, chills, coughing. In ED labs showed normal white count, hemoglobin of 8.3, platelet count of 266. Electrolytes normal, did have a BUN of 43 and a creatinine of 1.5, which seems to be at about her baseline. High-sensitivity troponin found to be 25.5. Chest x-ray showing signs of fluid overload. She received 1 dose of IV Lasix. Principal Diagnosis HEART FAILURE PRESERVED EJECTION FRACTION Discharge Exam The patient appeared stable Vital signs as documented. Lungs are clear to auscultation and appear unlabored Cardiac exam, Rhythm is regular.. No murmurs, rubs or gallops. Abdominal exam reveals normal bowel sounds, soft non tender, no masses Extremities are TRACE edematous and both pedal pulses are normal. Neurologic exam is alert and oriented, no focal loss of strength or sensation Skin is without bruises or rashes Psychologically is without concerns for anxiety or depression. Discharge Data Allergies Allergy/AdvReac Type Severity Reaction Status Date / Time No Known Allergies Allergy Verified 01/16/22 00:21 Consultations 01/16/22 01:10 ED Decision to Admit Stat Hospital Course (1) CHF exacerbation: Heart failure preserved Ejection fraction, historical dry weight appears to be around 75.8 kg. 78.5 kg on admission Echo 10/18/2021: Normal LV SF, EF 55-60%. No region no wall motion abnormalities. Mild concentric LVH. Received Lasix 40 mg IV x1 , Lasix decreased to 20 mg IV on 01/17 Persists with lower extremity edema this will likely be chronic Supplemental O2 as needed, currently on 3 L. Home O2 ~3L CKD 3-4 Creatinine is in the 1.5-1.7 range lasix as noted Patient previously needed dialysis, reports that this was distressing to her and she would never do this again. Fortunately doing well and does not require this at this time Anemia of chronic disease Hemoglobin of 8.3 on admission Continue iron supplementation No clinical signs of bleeding DM2 Resume home regimen A1c 7.5, liberalized goal of 8 given age Coronary artery disease, history of NSTEMI with CABG times 26/10/2021 at [facility] Echo 10/18/21 with EF 55-60% Aspirin 81 mg daily, Plavix 75 mg daily, Atorvastatin 80 mg daily -Metoprolol 25 mg daily Hypertension Metoprolol as above Not on [employer] patient reports thinks due to intrarenal disease and prior need for dialysis COPD-chronic respiratory failure with hypoxia 3 L nasal cannula Continue Breo Ellipta daily Albuterol as needed No signs of COPD exacerbation at this time, suspect symptoms due to acute on chronic CHF GERD CODE STATUS: Conditional compressions okay, no other ACLS (2) ESTELA (obstructive sleep apnea): (3) Anemia due to chronic kidney disease: (4) Hypoxia: (5) CHF (congestive heart failure): (6) COPD (chronic obstructive pulmonary disease): (7) CKD (chronic kidney disease): (8) CAD (coronary atherosclerotic disease): (9) Hyperkalemia: (10) GERD (gastroesophageal reflux disease): (11) HTN (hypertension): (12) Diabetes mellitus with renal manifestations, uncontrolled: Total Time Total Time Spent Total Time Spent (In Minutes): It required greater than 30 minutes to prepare this patient for discharge Discharge Plan Discharge Items Patient Disposition: Home - Self-Care Reason For Visit: CHF EXACERBATION Discharge Diagnosis: FLARE OF HEART FAILURE, EXCESS OF FLUID Activity: Per Instructions section Non-emergency contact: Primary Care Provider Call non-emergency contact if: your symptoms worsen Follow-up/Referrals: Lew Cedeno III, MD [Primary Care Provider] - Shea Arnett PA-C [Physician Certified Substance Abuse Counselor] - 01/26/22 10:30 am (Congestive Heart Failure Program Appointment Information Early follow up is essential to managing your heart failure. An appointment has been scheduled for you with the [facility] Heart Failure Program within 7 days of discharge. Anticipate this visit to be 30-60 minutes long. Please expect a background investigator phone call from one of our nurses approximately 48 hours from discharge. They will also be placing an order for lab work to be completed 1-2 days prior to your heart failure follow up appointment. Please be sure to have this done so we can go over the results when you come in. Office Location The cardiology office building is located in front of the hospital at [address] Bring the following with you to your follow-up doctor appointments: Please bring your daily weight log any discharge paperwork all of your medication bottles with you to this visit. ) Diet: Low Sodium (2gm) Addtl Attending Provider Instructions: Call 911 and go to the Emergency Room if: * You have tightness or pain in your chest that does not go away with rest or Nitroglycerin * You are very short of breath even with rest Call your doctor if any of the following symptoms or problems start or get worse: * Shortness of breath or difficulty breathing * Wake up at night short of breath * Chest pain * Cough * Swelling of your hands, fee, or legs * More fatigued or tired with your normal activity * Palpitations - sudden fast heart beats WEIGHT * Weigh yourself every morning after using the bathroom. * Use the same scale. * Wear the same amount of clothing. * Write your weight down on your chart. * Call your doctor if you gain more than 2-3 pounds in 1-2 days. MEDICATIONS * Use this discharge instruction sheet for instructions. * Take your medications at the time your doctor ordered. * Do not skip a dose of your medicines. * If you miss a dose of medicine, take as soon as possible, but DO NOT DOUBLE A DOSE. * Read your medicine information when you get home. * Know all of the side effects of your medicine. * Call your doctor's office if you have any side effects. * Be sure all of your doctors know what medicine and herbs you take (including cold, flu, and herbal medicine). * Pain Medicine: If you do not get relief from your pain, please call your doctor for help. Take the following with you to your follow-up doctor appointments: * Weight Chart * Medication List * List of questions Do not drink excessive alcohol, beer or wine. Addtl Steam Table Attendant Provider Instructions: Call your Primary Care doctor if any of the following symptoms or problems start or get worse: * Shortness of breath or difficulty breathing * Wake up at night short of breath * Chest pain * Cough * Swelling of your hands, feet, or legs * More fatigued or tired with your normal activity * Palpitations - sudden fast heart beats WEIGHT * Weigh yourself every morning after using the bathroom. * Use the same scale. * Wear the same amount of clothing. * Write your weight down on a chart. * Call your Primary Care doctor if you gain more than 2-3 pounds in 1-2 days. MEDICATIONS * Use this discharge instruction sheet for medication instructions. * Take your medications at the time your doctor ordered. * Do not skip a dose of your medicines. * If you miss a dose of medicine, take it as soon as possible, but DO NOT DOUBLE A DOSE. * Read your medicine information when you get home. * Know all of the side effects of your medicine. If in doubt, ask your pharmacist * Call your Primary Care doctor's office if you have any side effects. * Be sure all of your doctors know what medicine and herbs you take (including cold, flu, and herbal medicine). Take the following with you to your follow-up doctor appointments: * Weight Chart * Medication List * List of questions Do not drink excessive alcohol, beer or wine. Pending Studies at Discharge: No Stand-Alone Forms: My [facility] [place], Smoking Cessation Medications and DC Order Prescriptions: Continued nitroglycerin [Nitrostat] 0.4 mg tablet, sublingual 0.4 mg Sublingual UD PRN (Reason: Chest Pain) Qty: 30 RF: 5 furosemide [Lasix] 20 mg tablet 20 mg PO DAILY Qty: 30 RF: 11 atorvastatin 80 mg tablet 80 mg PO DAILY RF: 0 aspirin [Adult Aspirin Regimen] 81 mg tablet,delayed release (DR/EC) 81 mg PO DAILY RF: 0 Januvia 25 mg tablet 25 mg PO DAILY RF: 0 ferrous sulfate 325 mg (65 mg iron) tablet 325 mg PO TID RF: 0 pantoprazole 40 mg tablet,delayed release (DR/EC) 40 mg PO DAILY RF: 0 metoprolol tartrate 25 mg tablet 25 mg PO BID Qty: 60 RF: 5 albuterol sulfate [ProAir HFA] 90 mcg/actuation HFA aerosol inhaler 2 puff inhalation Q6H PRN (Reason: shortness of breath or wheezing) Qty: 8.5 RF: 3 Breo Ellipta 100-25 mcg/dose blister with device 1 inh inhalation DAILY Qty: 60 RF: 5 Spiriva with HandiHaler 18 mcg capsule, w/inhalation device 1 cap inhalation QAM Qty: 30 RF: 5 (DME) Portable Oxygen Misc See Rx Instructions .Route Qty: 1 RF: 0 gabapentin [Neurontin] 100 mg capsule 100 mg PO BID RF: 0 (DME) OneTouch Ultra Test Strip See Rx Instructions .Route RF: 0 cholecalciferol (vitamin D3) 25 mcg (1,000 unit) Capsule 1,000 unit PO DAILY RF: 0 cyanocobalamin (vitamin B-12) 1,000 mcg Tablet 1,000 mcg PO DAILY RF: 0 polysaccharide iron complex [Ferrex 150] 150 mg iron Capsule 150 mg PO DAILY RF: 0 clopidogrel 75 mg tablet 75 mg PO DAILY RF: 0 Discharge Orders: Discharge Order (Routine); Ordered 01/19/22 Ordered By: Andrea Hernandez/Other Patient Handouts: Managing Type 2 Diabetes Admission Data Admit Date/Time: 01/16/22 03:09 Attending Provider: Andrea Rose Admit Provider: Lucio Ardon Primary Care Provider: Lew Cedeno III Other Providers: Ethan Perry Coding Level of Care Code D/C DAY MANAGEMENT >30 MINS Diagnoses CHF exacerbation I50.9 ESTELA (obstructive sleep apnea) G47.33 Anemia due to chronic kidney disease N18.9; D63.1 Hypoxia R09.02 CHF (congestive heart failure) I50.9 Heart failure chronicity: acute Heart failure type: unspecified COPD (chronic obstructive pulmonary disease) J44.9 CKD (chronic kidney disease) N18.9 Chronic kidney disease stage: unspecified stage CAD (coronary atherosclerotic disease) I25.10 Hyperkalemia E87.5 GERD (gastroesophageal reflux disease) K21.9 HTN (hypertension) I10 Diabetes mellitus with renal manifestations, uncontrolled E11.29; E11.65
== END 2022-01-19 15:15 | disposition home or self-care (01) | DRG 291 ==
LOC: ED 22:32 → SUATTDRO 01-16 03:09 → 2S 01-16 03:09

== ENCOUNTER 2025-06-23 13:06 | Inpatient (IN) ==
[2025-06-23 14:22] LABS: Base Excess VBG 0.5 mEq/L; HCO3 VBG 29 mmol/L; Oxygen Saturation VBG < 60.0 %; PCO2 VBG 63 mmHg (38-50); PO2 VBG 35 mmHg; pH VBG 7.27 (7.36-7.41)
[2025-06-23 14:31] LABS: Hematocrit (blood only) 33.5 % (37.0-47.0); Hemoglobin 9.7 g/dL (12.0-16.0); Immature Granulocytes # (auto) 0.04 K/uL (0.01-0.20); Immature Granulocytes % (auto) 0.4 %; Mean Corpuscular Hemoglobin 28.7 pg (25.0-34.0); Mean Corpuscular Volume 99.1 fL (80.0-100.0); Platelet Count 171 K/uL (130-400); RDW Standard Deviation 57.0 fL (36.4-46.3); Red Blood Count 3.38 M/uL (4.20-5.40); White Blood Count 9.44 K/ul (4.8-10.8)
[2025-06-23 14:48] LABS: Albumin Level 4.0 gm/dl (3.4-5.0); Anion Gap 9 (3-11); Bilirubin,Total 0.3 mg/dl (0.2-1.0); Calcium 9.5 mg/dl (8.6-10.3); Carbon Dioxide 29 mmol/L (21-32); Chloride 100 mmol/L (98-107); Potassium 6.4 mmol/L (3.5-5.1); Sodium 138 mmol/L (136-145)
[2025-06-23 15:09] LABS: Alanine Aminotransferase 4 U/L (7-52); Albumin Globulin Ratio 1.4 (0.9-2); Alkaline Phosphatase 49 U/L (34-104); Blood Urea Nitrogen 126 mg/dl (6-23); Globulin 2.8 gm/dl (2.5-4.0); Glucose 146 mg/dl (70-99(Fasting)); Total Protein 6.8 gm/dl (6.0-8.3)
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
[2025-06-23] MEDS: SODIUM ZIRCONIUM CYCLOSILICATE 10 GM PACKET PO STA (16:01)
[2025-06-23] MEDS: ALBUTEROL 0.5% NEB SOLN 2.5 MG/0.5 ML VIAL NEB STA (16:03)
[2025-06-23] MEDS: CALCIUM GLUCONATE 1,000 MG/60 ML BAG IV STA (16:03)
[2025-06-23] MEDS: BUMETANIDE 4 MG in SYRINGE 0 ML IV ONE (16:03)
[2025-06-23] MEDS: INSULIN HUMAN REGULAR PER UNIT 10 UNITS in SYRINGE 9.9 ML IV STA (16:09)
[2025-06-23] MEDS: DEXTROSE 50% 50 ML SYRINGE IV STA (16:09)
[2025-06-23 16:18] LABS: Chlamydia pneumoniae PCR Not Detected (NotDetected); Coronavirus 229E PCR Not Detected (NotDetected); Coronavirus CoV-2 (COVID19)PCR Not Detected (NotDetected); Coronavirus HKU1 PCR Not Detected (NotDetected); Coronavirus NL63 PCR Not Detected (NotDetected); Coronavirus OC43PCR Not Detected (NotDetected); Human Metapneumovirus PCR Not Detected (NotDetected); Parainfluenza Virus 1 PCR Not Detected (NotDetected); Parainfluenza Virus 2 PCR Not Detected (NotDetected); Parainfluenza Virus 3 PCR Not Detected (NotDetected); Parainfluenza Virus 4 PCR Not Detected (NotDetected); Respiratory Syncytial VirusPCR Not Detected (NotDetected); Rhinovirus/Enterovirus PCR Not Detected (NotDetected)
[2025-06-23] MEDS: SODIUM BICARBONATE 8.4% 150 MEQ in DEXTROSE 5% 1,000 ML IV STA (16:29)
--- NOTE | 2025-06-23 16:47 | XRay Report ---
Clinical History: Hypoxia Technique: A frontal view of the chest was obtained Comparison is made to the prior examination dated 05/16/2025 Findings: There are no confluent pulmonary infiltrates. There is suspected mild pulmonary vascular congestion. The heart size is at the upper limit of normal. No pleural effusion or pneumothorax is seen. Sternal wires are present No fracture is noted. No foreign body is seen Impression: Suspected mild pulmonary vascular congestion ACT 112: Positive. There are findings on this exam that require communication between the performing entity and the patient following Patient Test Result Information Act ([place] ACT 112) guidelines. Electronically signed by Antonino Méndez 06-23-2025 4:46 PM
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
[2025-06-23] MEDS ORDERED: GLUCAGON FOR INJ 1 MG VIAL SQ PRN (18:30)
[2025-06-23] MEDS ORDERED: ACETAMINOPHEN 325 MG TAB PO PRN (18:30)
[2025-06-23] MEDS ORDERED: ALBUTEROL HFA 8 GM INHALER INH PRN (18:30)
[2025-06-23] MEDS ORDERED: GLUCOSE 40% GEL 15 GM TUBE PO PRN (18:30)
[2025-06-23] MEDS ORDERED: DEXTROSE 50% 50 ML SYRINGE IV PRN (18:30)
[2025-06-23] MEDS ORDERED: NITROGLYCERIN SL 0.4 MG/TAB TAB SL PRN (18:30)
[2025-06-23] MEDS ORDERED: CARBOHYDRATES FOR HYPOGLYCEMIA PO PRN (18:30)
[2025-06-23] MEDS ORDERED: GLUCOSE 10 TAB/TUBE PO PRN (18:30)
[2025-06-23 18:36] LABS: Magnesium 3.4 mg/dl (1.7-2.4)
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
[2025-06-23] MEDS: HEPARIN SOD 5,000 UNIT/0.5 ML VIAL SQ SCH (20:33)
[2025-06-23] MEDS: FERROUS SULFATE 325 MG TAB PO SCH (20:33)
[2025-06-23] MEDS: ATORVASTATIN 40 MG TAB PO SCH (20:33)
[2025-06-23] MEDS: GABAPENTIN 100 MG CAP PO SCH (20:34)
[2025-06-23] MEDS: NYSTATIN POWDER 15GM BTL EXT PRN (20:34)
[2025-06-23] MEDS: INSULIN ASPART PER UNIT CHARGE SC SCH (21:02)
[2025-06-23 21:32] LABS: Anion Gap 9.0 (3-11); Blood Urea Nitrogen 121.0 mg/dl (6-23); Calcium 9.3 mg/dl (8.6-10.3); Carbon Dioxide 30.0 mmol/L (21-32); Chloride 99.0 mmol/L (98-107); Creatinine Clr Calc Pharmacy 8.2 ml/min; Glucose 179.0 mg/dl (70-99(Fasting)); Potassium 5.1 mmol/L (3.5-5.1); Sodium 138.0 mmol/L (136-145)
[2025-06-24 01:19] LABS: Appearance Urine Clear (Clear); Bacteria Urine Automated None Seen (None Seen); Glucose Urine UA Negative (Negative)
[2025-06-24 06:18] LABS: Hematocrit (blood only) 31.5 % (37.0-47.0); Hemoglobin 9.6 g/dL (12.0-16.0); Immature Granulocytes # (auto) 0.03 K/uL (0.01-0.20); Immature Granulocytes % (auto) 0.3 %; Mean Corpuscular Hemoglobin 29.8 pg (25.0-34.0); Mean Corpuscular Volume 97.8 fL (80.0-100.0); Platelet Count 163 K/uL (130-400); RDW Standard Deviation 55.8 fL (36.4-46.3); Red Blood Count 3.22 M/uL (4.20-5.40); White Blood Count 9.05 K/ul (4.8-10.8)
[2025-06-24 07:01] LABS: Folate (Folic Acid),Ser orPlas 13.66 ng/ml (>5.38)
[2025-06-24 07:02] LABS: Vitamin B12 > 1500 pg/ml (180-914)
[2025-06-24 07:10] LABS: Albumin Level 3.7 gm/dl (3.4-5.0); Anion Gap 11.0 (3-11); Blood Urea Nitrogen 124.0 mg/dl (6-23); Calcium 9.3 mg/dl (8.6-10.3); Carbon Dioxide 30.0 mmol/L (21-32); Chloride 98.0 mmol/L (98-107); Creatinine Clr Calc Pharmacy 8.2 ml/min; Ferritin 511.8 ng/ml (8-388); Glucose 146.0 mg/dl (70-99(Fasting)); Iron 42.0 mcg/dl (35-150); Potassium 5.9 mmol/L (3.5-5.1); Sodium 139.0 mmol/L (136-145); Thyroid Stimulating Hormone 3.64 uIu/ml (0.300-4.500); Total Iron Binding Cap Calc 235.0 mcg/dl (250-450); Transferrin 168.0 mg/dl (200-360); Transferrin (FE) Percent Satur 18.0 % (15-50)
[2025-06-24 07:37] LABS: Hemoglobin A1C 7.2 % (4.5-5.6)
[2025-06-24] MEDS ORDERED: Nursing to Pharmacy Communication SCH ×2 (08:45→17:15)
[2025-06-24] MEDS: SODIUM ZIRCONIUM CYCLOSILICATE 10 GM PACKET PO STA (08:54)
[2025-06-24] MEDS: METOPROLOL SUCC 50MG EXT REL TAB PO SCH (08:54)
[2025-06-24] MEDS: CLOPIDOGREL BISULFATE 75 MG TAB PO SCH (08:55)
[2025-06-24] MEDS: CYANOCOBALAMIN (B-12) 500 MCG TABLET PO SCH (08:55)
[2025-06-24] MEDS: UMECLIDINIUM BROMIDE 62.5MCG/BLISTER 7 PUFFS/INHALER INH SCH (08:56)
[2025-06-24] MEDS: FLUTICASONE/VILANTEROL 100/25MCG 14 PUFFS/INHALER INH SCH (08:56)
[2025-06-24] MEDS ORDERED: ASPIRIN 81 MG ECTAB PO SCH (09:00)
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
[2025-06-24] MEDS: BUMETANIDE 4 MG in SYRINGE 0 ML IV ONE (09:14)
--- NOTE | 2025-06-24 09:51 | Nephrology Progress Note ---
Date of Service June 24, 2025 Assessment & Plan (1) Acute kidney injury superimposed on chronic kidney disease: (2) Hyperkalemia: (3) Generalized weakness: (4) Chronic kidney disease, stage 4 (severe): (5) HFrEF (heart failure with reduced ejection fraction): (6) Anemia due to chronic kidney disease: Plan 80-year-old female with PMH of stage 4 CKD, HFrEF, DM2, CAD s/p CABG presented with generalized weakness, decreased appetite, SOB, weight gain and increased lower extremity edema for a week. Lab showed LUCERO and hyperkalemia, cr 5.2 with b/l cr around 3.5 to 3.8 mg/dl, K was 6.4. CXR showed pulmonary congestion. UA pending. In ER she received Bumex 4 mg IV x 1, Lokelma, insulin and D50, calcium gluconate, and an albuterol nebulizer. Had Rt BC AVF placed on 06/16/25. No further improvement in kidney function and in fact potassium again worsened to 5.9. --Give Lokelma 10 g x 1 dose now and Bumex 4 mg IV x 1 dose, repeat serum sodium at 11 AM, if sodium at a safer level she will have the tunneled dialysis catheter otherwise she needed temporary dialysis catheter and have close dialysis this afternoon. --keep NPO --monitor intake and output --dose meds from eGFR <15 --Will give Epogen and Venofer with first dialysis treatment. --Continue on calcitriol 0.25 mcg 3 times a week, low salt diet. Admission and Anticipated Discharge Date Admission Date: June 23, 2025 Marcel Watson was seen and evaluated this morning. She denied any specific symptoms, denies significant shortness of breath, nausea, vomiting or abdominal pain. Urine output slightly improved. Potassium improved overnight but again worsened this morning to 5.9. Hemoglobin low but staying stable. Blood pressure stable. Review of Systems Review of Systems: Detailed review of system was otherwise unremarkable. Physical Exam Constitutional: WD/WN, vitals as above no acute distress Eyes: + anicteric sclerae Respiratory: no respiratory distress Auscultation: + rales Cardiovascular: Rate/Rhythm: regular rate and regular rhythm Heart Sounds: normal S1 and normal S2 Extremities: + edema and + AV fistula Musculoskeletal: Extremities: extremities normal to inspection Skin: no rashes, warm and dry Neurologic: no focal motor deficits Psychiatric: Orientation: oriented x 3 Affect: euthymic affect Results & Data Vital Signs (Past 12 Hours) Vital Signs Temp Pulse Resp BP Pulse Ox O2 Del Method O2 Flow Rate 06/24/25 07:30 36.4 C L 58 L 17 118/48 L 91 Nasal Cannula 06/24/25 02:32 36.6 C 57 L 18 126/55 L 97 Nasal Cannula 2.0 06/23/25 22:27 36.3 C L 58 L 16 158/97 H 91 Nasal Cannula 2.0 PG Care Time/CCT Total # of Minutes Spent Total Time Spent with Patient: Total time spent is greater than 50% in coordination of care (as documented) at patient's floor/unit and/or counseling patient: Coding Level of Care Code 60235 SUB INP/OBS CARE 3/50MIN Diagnoses Acute kidney injury superimposed on chronic kidney disease N17.9; N18.9 Hyperkalemia E87.5 Generalized weakness R53.1 Chronic kidney disease, stage 4 (severe) N18.4 HFrEF (heart failure with reduced ejection fraction) I50.20 Anemia due to chronic kidney disease N18.9; D63.1
--- NOTE | 2025-06-24 09:58 | Hospitalist Progress Note ---
Date of Service June 24, 2025 Assessment & Plan (1) Hyperkalemia: (2) Acute kidney injury superimposed on chronic kidney disease: (3) HFrEF (heart failure with reduced ejection fraction): (4) CAD (coronary atherosclerotic disease): Plan This patient is a 80-year-old female with a history of CKD stage IV, HFrEF, DM2 with neuropathy, ESTELA, CAD s/p CABG and stents, HTN, CVA, anemia of chronic renal disease, COPD, chronic respiratory failure with hypoxia, secondary hyperparathyr oidism, carotid artery stenosis, GERD, lumbar spinal stenosis, who recently had an AV fistula placed 1 week prior and now presents with worsening fatigue, decreased appetite, increased weight of 11 pounds and increased lower extremity edema over the last week. She denies any increase in fluid or sodium in her diet. She reports she has been taking extra Lasix 120 mg p.o. twice daily rather than once daily for the last week or so without improvement. She denies fevers or chills, chest pains, SOB. She was found in the ED to have an acute kidney injury and hyperkalemia. Initially treated with Bumex 4 mg IV x 1, [facility], and treatment of hyperkalemia otherwise-she was given sodium bicarb, insulin and D50, calcium gluconate, and an albuterol nebulizer. She is admitted for LUCERO on CKD stage IV and hyperkalemia as well as hypervolemia secondary to development of end-stage renal disease and acute on chronic HFrEF #LUCERO on CKD stage IV/ESRD/hyperkalemia/volume overload-unclear cause but likely related to worsening renal function and acute on chronic HFrEF. No new medications except her Rybelsus was recently increased in dose which likely would not cause worsening heart failure although it might of contributed to her poor appetite. Creatinine up to 5.06 on admission and baseline is 3.6. BUN up to 126 from baseline 100. Potassium elevated at 6.4, and serum bicarbonate lower than usual at 29. VBG pH low at 7.27 with a CO2 of 63 which is higher than her usual. With pitting edema and 11 pound weight gain. She is making urine and BPs are normal. CXR with some vascular congestion. Unfortunately, renal function not improving, potassium remains elevated but somewhat improved at 5.9. She needs to start dialysis. Appreciate nephrology consultation - Can need stay on PCU for telemetry monitoring -Give Bumex 4 mg IV x 1 and Lokelma times 1 in the AM then repeat potassium level at 1130 - If remains hyperkalemic, cannot undergo anesthesia for PermCath and will go for temporary dialysis catheter with associate business analyst - Follow BMP in the a.m. - Continue to hold home lisinopril and Januvia which must be renally dosed - Fluid restrict to 1500 mL/day, renal/dialysis diet, strict I's and O's, bladder scan as needed #Acute on chronic HFrEF/CAD s/p CABG and stents/HTN/DELORES/history of CVA-follows with CHF clinic. No chest pain. With elevated BNP greater than 4700, lower extremity pitting edema, and volume overload. BPs controlled, no acute ischemic changes on ECG. - Continue aspirin, Plavix, atorvastatin, and metoprolol - Continue IV Bumex as needed and starting dialysis for volume control - Holding home lisinopril - Not on SGLT2 due to renal dysfunction #Anemia of chronic kidney disease-Hgb is low at 9.6 but stable from previous, normocytic to borderline macrocytic. Recent iron studies in 06/2025 are normal with transferrin saturation 22%. B12, TSH, and folate all checked here and neg ative. Repeat iron studies with transferrin saturation 18% - Continue home B12 supplement and iron supplements - Give Procrit and IV iron as needed-defer to nephrology #COPD/chronic respiratory failure with hypoxemia/ESTELA-no acute issues, she is on her usual 2 LNC O2 and does not wear CPAP at night - Continue supplemental O2 - Continue home maintenance inhalers #DM 2 with neuropathy-no acute issues. HgbA1c controlled at 7.2% - Hold home Januvia as this should be renally dosed at 25 mg once daily once restarted - Continue home Rybelsus if brought in from home - Continue gabapentin 100 mg p.o. twice daily which is renally dosed - BSG's, diabetic diet, and supplemental NovoLog ordered #GERD-no acute issues - Continue Protonix #Lumbar spinal stenosis-no acute issues DVT prophylaxis-heparin SQ, DONALD hose Disposition-continued stay on PCU Patient is a full code but would not want prolonged life support, feeding tubes, or tracheostomy. Discussed her care with her nephew at the bedside on 06/24 Admission and Anticipated Discharge Date Admission Date: June 23, 2025 Subjective Patient slept well overnight. Is feeling hungry. Denies shortness of breath or chest pains, no pain anywhere. She urinated 2 times for a total of about 700 mL since admission. I discussed her care with nephrology at the bedside. Also discussed her care with the patient's nephew/keyboard instrument repairer at the bedside. We reviewed the plan for dialysis catheter today-perm cath versus temporary dialysis catheter I also discussed her care with vascular surgery PA. Physical Exam Constitutional: WD/WN, vitals as above + morbidly obese Neck: trachea midline, no thyromegaly Respiratory: normal respiratory effort; no respiratory distress Auscultation: + diminished lung sounds (Throughout) Cardiovascular: Rate/Rhythm: regular rate and regular rhythm Heart Sounds: no murmur Extremities: + edema (1+ pitting edema of LEs to the thighs bilaterally, improved) and + AV fistula (Right brachial region with incision CDI) Chest (Breasts): Chest: normal inspection of chest Gastrointestinal (Abdomen): normal bowel sounds, soft, nontender, no hepatosplenomegaly Musculoskeletal: Extremities: no cyanosis and no clubbing Skin: no rashes, warm and dry Neurologic: moves all extremities and awake; no focal motor deficits Psychiatric: A+Ox3, euthymic affect Results & Data Results & Data Vital Signs (Past 12 Hours) Vital Signs Temp Pulse Resp BP Pulse Ox O2 Del Method O2 Flow Rate 06/24/25 07:30 36.4 C L 58 L 17 118/48 L 91 Nasal Cannula 06/24/25 02:32 36.6 C 57 L 18 126/55 L 97 Nasal Cannula 2.0 06/23/25 22:27 36.3 C L 58 L 16 158/97 H 91 Nasal Cannula 2.0 Laboratory Results CBC, BMP, iron studies, TSH, B12, folate, phosphorus, UA reviewed PG Care Time/CCT Total # of Minutes Spent Total Time Spent with Patient: Total time spent is greater than 50% in coordination of care (as documented) at patient's floor/unit and/or counseling patient: Coding Level of Care Code 81313 SUB INP/OBS CARE 3/50MIN Diagnoses Hyperkalemia E87.5 Acute kidney injury superimposed on chronic kidney disease N17.9; N18.9 HFrEF (heart failure with reduced ejection fraction) I50.20 CAD (coronary atherosclerotic disease) I25.10
[2025-06-24] MEDS ORDERED: SODIUM ZIRCONIUM CYCLOSILICATE 10 GM PACKET PO SCH (11:00)
[2025-06-24 12:24] LABS: Hep B Surface Ag with confirm Negative (Negative)
[2025-06-24] MEDS: INSULIN ASPART PER UNIT CHARGE SC SCH ×2 (13:03→21:03)
--- NOTE | 2025-06-24 13:57 | Pre Anesthesia Assessment ---
Date of Service June 24, 2025 Pre Sedation Assessment Vital Signs Temp Pulse Pulse Pulse Resp BP BP 06/24/25 13:01 36.6 C 60 20 117/58 L 06/24/25 11:16 36.3 C L 59 L 17 06/24/25 09:00 59 L 06/24/25 09:00 06/24/25 07:30 36.4 C L 58 L 17 118/48 L 06/24/25 02:32 36.6 C 57 L 18 126/55 L 06/23/25 22:27 36.3 C L 58 L 16 158/97 H 06/23/25 21:41 58 L 06/23/25 19:36 36.3 C L 63 20 107/51 L 06/23/25 19:30 06/23/25 18:42 63 06/23/25 18:41 36.2 C L 61 22 138/70 06/23/25 17:55 36.7 C 63 22 06/23/25 17:00 62 18 06/23/25 15:32 63 18 06/23/25 15:25 57 L 06/23/25 15:12 63 22 06/23/25 15:03 60 21 06/23/25 15:00 112/73 06/23/25 15:00 112/73 BP Pulse Ox O2 Del Method O2 Flow Rate 06/24/25 13:01 96 Nasal Cannula 2 06/24/25 11:16 119/57 L 97 Nasal Cannula 2 06/24/25 09:00 06/24/25 09:00 Nasal Cannula 2 06/24/25 07:30 91 Nasal Cannula 06/24/25 02:32 97 Nasal Cannula 2.0 06/23/25 22:27 91 Nasal Cannula 2.0 06/23/25 21:41 06/23/25 19:36 97 Nasal Cannula 2.0 06/23/25 19:30 Nasal Cannula 2 06/23/25 18:42 06/23/25 18:41 91 Nasal Cannula 2 06/23/25 17:55 119/74 95 Nasal Cannula 3 06/23/25 17:00 124/80 95 06/23/25 15:32 112/73 95 Nasal Cannula 4 06/23/25 15:25 06/23/25 15:12 95 06/23/25 15:03 72 L 06/23/25 15:00 06/23/25 15:00 Cardiovascular RRR, no murmur, no edema Respiratory normal respiratory effort, lungs clear to auscultation Pre-Sedation Airway Assessment Smoking Status: Former smoker Hx Sleep Apnea: Yes Hx Difficult Intubation: No Short, Thick Neck: Yes Thyromental Distance: < 3.5 Finger Breadths Oral Cavity: + WNL Mallampati Class: III ASA: ASA4 NPO Status Date of Last Intake of Fluids: 06/24/25 Time of Last Intake of Fluids: 08:55 Last Oral Intake of Fluids Comment: sip with meds Date of Last Intake of Solid Food: 06/23/25 Time of Last Intake of Solid Foods: 17:00 Procedure Planning Contraindications for Sedation: none Current Medications Reviewed: Yes Notes The planned sedation has been discussed with the patient. Informed Consent was obtained. I have identified the patient, determined the appropriateness of sedation and have assessed the patient immediately prior to the procedure. All medicine(s) and interventions are by my order.
[2025-06-24] MEDS: MIDAZOLAM HCL 1 MG/ML 2ML VIAL ONE (14:07)
--- NOTE | 2025-06-24 14:23 | Procedure Note ---
Angiogram Post Procedure Fluoroscopy Time (minutes): 0 Conscious Sedation Time (minutes): 18 Radiation (mGy): 0 Contrast: 0 Post Operative Report Pre & Post Diagnosis Operation Date: 06/24/25 09:50 Pre-Op Diagnosis: Acute kidney injury Post-Op Diagnosis: Acute kidney injury I identified the patient and participated in the time-out.: Yes Procedure Operation Date: 06/24/25 09:50 Actual Procedures p Insertion of Perm Catheter, Right Internal Jugular Approach, Ultrasound Localization of Right Internal Jugular Vein, Fluoroscopy for Positioning, Moderate Sedation Time 7230-3912(Right) - Rey Morales MD Surgeon Rey Morales MD Sales Support Advisor none Estimated Blood Loss 5 Findings Consistent with Post-Op Diagnosis Specimens none Anesthesia Type RN Sedation Complications none Disposition Accompanied Patient To Recovery: No Disposition: Recovery Room Indications This is a 80-year-old female with end-stage renal disease and now has acute kidney injury in need of dialysis. She has a fistula in place which was not mature enough to use. PermCath insertion was recommended for dialysis. I have discussed the risks options and benefits of the procedure with the patient. The patient understands the risks options and benefits and agrees to the procedure. Description of Procedure Patient was taken to the angio suite and placed in the supine position. The right side of the neck and chest wall were prepped and draped in a sterile manner. The patient was identified and a timeout performed. Local anesthesia was then administered to the appropriate areas of the neck and chest wall. Ultrasound was then used to locate the right internal jugular vein. The vein compressed easily, had no filing defects, and was patent. The vein was then punctured under direct ultrasound imaging. A guidewire was then passed centrally under fluoroscopic imaging. A stab wound was then made in the anterior chest wall and a 19 cm permcath was passed from the stab wound on the chest wall to the puncture site on the neck. The puncture site was then dilated till the 14Fr peel away sheath was inserted. The permcath was then inserted through the sheath to a central position in the distal superior vena cava. The peel away sheath was then removed. The catheter was then sutured in place using nylon sutures. The puncture was then closed using a 4-0 Vicryl subcuticular suture. Dermabond was used for a dressing on the puncture site. Both ports aspirated and flushed easily and were then packed with heparin. A sterile dressing was applied to the catheter. The patient left the operation room in satisfactory condition and tolerated the procedure well. All needle and sponge counts were correct at the end of the procedure. I attest to the content of the Intraoperative Record and any orders documented therein. Any exceptions are noted below.
[2025-06-24] MEDS: LIDOCAINE 1% LOCAL 20 ML VIAL ONE (14:26)
[2025-06-24] MEDS: HEPARIN SOD (PORCINE) 5,000 UNITS/ML VIAL ONE (14:26)
--- NOTE | 2025-06-24 14:32 | Post Anesthesia Assessment ---
Date of Service June 24, 2025 Post Sedation Assessment Vital Signs Temp Pulse Pulse Pulse Resp BP BP 06/24/25 14:25 60 16 109/60 06/24/25 14:20 60 16 95/43 L 06/24/25 14:17 59 L 16 114/64 06/24/25 14:12 58 L 16 109/50 L 06/24/25 14:07 59 L 16 120/48 L 06/24/25 14:05 61 16 120/74 06/24/25 13:01 36.6 C 60 20 117/58 L 06/24/25 11:16 36.3 C L 59 L 17 06/24/25 09:00 59 L 06/24/25 09:00 06/24/25 07:30 36.4 C L 58 L 17 118/48 L 06/24/25 02:32 36.6 C 57 L 18 126/55 L 06/23/25 22:27 36.3 C L 58 L 16 158/97 H 06/23/25 21:41 58 L 06/23/25 19:36 36.3 C L 63 20 107/51 L 06/23/25 19:30 06/23/25 18:42 63 06/23/25 18:41 36.2 C L 61 22 138/70 06/23/25 17:55 36.7 C 63 22 06/23/25 17:00 62 18 06/23/25 15:32 63 18 06/23/25 15:25 57 L 06/23/25 15:12 63 22 06/23/25 15:03 60 21 06/23/25 15:00 112/73 06/23/25 15:00 112/73 BP Pulse Ox O2 Del Method O2 Flow Rate 06/24/25 14:25 97 Oxymask 4 06/24/25 14:20 97 Oxymask 4 06/24/25 14:17 99 Oxymask 4 06/24/25 14:12 100 Oxymask 4 06/24/25 14:07 100 Oxymask 4 06/24/25 14:05 100 Oxymask 4 06/24/25 13:01 96 Nasal Cannula 2 06/24/25 11:16 119/57 L 97 Nasal Cannula 2 06/24/25 09:00 06/24/25 09:00 Nasal Cannula 2 06/24/25 07:30 91 Nasal Cannula 06/24/25 02:32 97 Nasal Cannula 2.0 06/23/25 22:27 91 Nasal Cannula 2.0 06/23/25 21:41 06/23/25 19:36 97 Nasal Cannula 2.0 06/23/25 19:30 Nasal Cannula 2 06/23/25 18:42 06/23/25 18:41 91 Nasal Cannula 2 06/23/25 17:55 119/74 95 Nasal Cannula 3 06/23/25 17:00 124/80 95 06/23/25 15:32 112/73 95 Nasal Cannula 4 06/23/25 15:25 06/23/25 15:12 95 06/23/25 15:03 72 L 06/23/25 15:00 06/23/25 15:00 Recovery Score Activity: Moves 4 extremities Respiration: Deep Breath/Cough Circulation: +/-20% PreAnes Value Consciousness: Arouseable (by name) Oxygen Saturation: O2 needed for >90% Post Anesthesia Score: 8 Discharge Sedation Level of Care: Fast Track Phase II Post Sedation Plan On clinical assessment, the patient appears to have tolerated the sedation without complications. Patient is recovering as anticipated. Patient will continue to be monitored by nursing and may be discharged when sedation discharge criteria are met per below protocol. Upon Completions of procedure up to 15 minutes continue every 5 minute vital signs and the P.A.R. score; then discharge to a Phase I or Fast Track to Phase II per the following guidelines: * Discharge Patient to appropriate Phase II area if PAR is 8 or greater or return to pre- procedure baseline. The post - procedure orders will be as directed. * If PAR score is less than 8 or not return to pre-procedure baseline then elisha ent will follow Phase I monitoring till PAR is reached for Phase II. The Phase I may be done in procedure room or may call to secure a Phase I area. * If naloxone or flumazenil are used for reversal, hold in Phase I for continued monitoring from when last reversal dose was given for a minimum of 60 minutes or longer pending the nurse and/or physician discretion of patient condition before discharge to Phase II. Please call the Sedation Physician to re-evaluate and complete post-note for discharge to Phase II area. Do NOT discharge from procedure sedation or Phase 1 until post- sedation e valuation note is complete by procedure /sedation MD Sedation Discharge Instructions to be given to the patient at discharge to home.
[2025-06-24] MEDS: EPOETIN ALFA 20,000 UNITS/ML VIAL IV ONE (15:05)
[2025-06-25 06:14] LABS: Hematocrit (blood only) 33.1 % (37.0-47.0); Hemoglobin 9.7 g/dL (12.0-16.0); Immature Granulocytes # (auto) 0.04 K/uL (0.01-0.20); Immature Granulocytes % (auto) 0.4 %; Mean Corpuscular Hemoglobin 28.8 pg (25.0-34.0); Mean Corpuscular Volume 98.2 fL (80.0-100.0); Platelet Count 153 K/uL (130-400); RDW Standard Deviation 57.1 fL (36.4-46.3); Red Blood Count 3.37 M/uL (4.20-5.40); White Blood Count 10.68 K/ul (4.8-10.8)
[2025-06-25 06:38] LABS: Albumin Level 3.6 gm/dl (3.4-5.0); Anion Gap 13.0 (3-11); Blood Urea Nitrogen 91.0 mg/dl (6-23); Calcium 9.1 mg/dl (8.6-10.3); Carbon Dioxide 28.0 mmol/L (21-32); Chloride 99.0 mmol/L (98-107); Creatinine Clr Calc Pharmacy 9.2 ml/min; Glucose 122.0 mg/dl (70-99(Fasting)); Potassium 5.1 mmol/L (3.5-5.1); Sodium 140.0 mmol/L (136-145)
[2025-06-25] MEDS: IRON SUCROSE 200 MG in SODIUM CHLORIDE 0.9% 100 ML IV ONE (08:47)
--- NOTE | 2025-06-25 09:46 | Nephrology Progress Note ---
Date of Service June 25, 2025 Assessment & Plan (1) Acute kidney injury superimposed on chronic kidney disease: (2) Hyperkalemia: (3) Generalized weakness: (4) Chronic kidney disease, stage 4 (severe): (5) HFrEF (heart failure with reduced ejection fraction): (6) Anemia due to chronic kidney disease: Plan 80-year-old female with ESKD, , HFrEF, DM2, CAD s/p CABG presented with generalized weakness, decreased appetite, SOB, weight gain and increased lower extremity edema for a week. Lab showed LUCERO and hyperkalemia, cr 5.2 with b/l cr around 3.5 to 3.8 mg/dl, K was 6.4. CXR showed pulmonary congestion. In ER she received Bumex 4 mg IV x 1, Lokelma, insulin and D50, calcium gluconate, and an albuterol nebulizer. Had Rt BC AVF placed on 06/16/25. Had Rt IJ TDC on 06/24/25 and had first HD for 2 h. --plan for 3 h HD today --monitor intake and output --dose meds from eGFR <15 --Epogen and Venofer with dialysis treatment. --Continue on calcitriol 0.25 mcg 3 times a week, low salt diet. --waiting on outpt hD setup at [facility] Admission and Anticipated Discharge Date Admission Date: June 23, 2025 Marcel Watson was seen and evaluated this morning. She denied any specific symptoms, but overwhelmed with all different interventions and dialysis. Tolerated dialysis yesterday. She denies significant shortness of breath, nausea, vomiting or abdominal pain. Hemoglobin low but staying stable. Blood pressure stable. Review of Systems Review of Systems: Detailed review of system was otherwise unremarkable. Physical Exam Constitutional: WD/WN, vitals as above + ill appearing; no acute distress Eyes: + anicteric sclerae Respiratory: no respiratory distress Auscultation: + rales Cardiovascular: Rate/Rhythm: regular rate and regular rhythm Heart Sounds: normal S1 and normal S2 Extremities: + edema and + AV fistula Musculoskeletal: Extremities: extremities normal to inspection Skin: no rashes, warm and dry Neurologic: no focal motor deficits Psychiatric: Orientation: alert and oriented x 3 Affect: + depressed affect and + anxious affect Results & Data Vital Signs (Past 12 Hours) Vital Signs Temp Pulse Pulse Resp BP Pulse Ox O2 Del Method 06/25/25 07:24 36.9 C 61 19 127/72 95 Nasal Cannula 06/25/25 07:00 65 06/25/25 07:00 Nasal Cannula 06/25/25 03:08 36.7 C 66 16 125/50 L 96 Nasal Cannula 06/24/25 22:59 36.9 C 66 16 125/55 L 91 Nasal Cannula 06/24/25 22:00 66 O2 Flow Rate 06/25/25 07:24 2 06/25/25 07:00 06/25/25 07:00 2 06/25/25 03:08 1.5 06/24/25 22:59 1.5 06/24/25 22:00 PG Care Time/CCT Total # of Minutes Spent Total Time Spent with Patient: Total time spent is greater than 50% in coordination of care (as documented) at patient's floor/unit and/or counseling patient: Coding Level of Care Code 62698 SUB INP/OBS CARE 2/35MIN Diagnoses Acute kidney injury superimposed on chronic kidney disease N17.9; N18.9 Hyperkalemia E87.5 Generalized weakness R53.1 Chronic kidney disease, stage 4 (severe) N18.4 HFrEF (heart failure with reduced ejection fraction) I50.20 Anemia due to chronic kidney disease N18.9; D63.1
--- NOTE | 2025-06-25 18:48 | Hospitalist Progress Note ---
Date of Service June 25, 2025 Assessment & Plan (1) Hyperkalemia: (2) Acute kidney injury superimposed on chronic kidney disease: (3) HFrEF (heart failure with reduced ejection fraction): (4) CAD (coronary atherosclerotic disease): Plan This patient is a 80-year-old female with a history of CKD stage IV, HFrEF, DM2 with neuropathy, ESTELA, CAD s/p CABG and stents, HTN, CVA, anemia of chronic renal disease, COPD, chronic respiratory failure with hypoxia, secondary hyperparathyr oidism, carotid artery stenosis, GERD, lumbar spinal stenosis, who recently had an AV fistula placed 1 week prior who is admitted with volume overload, uremia, and progression to ESRD with hyperkalemia, acute on chronic HFrEF #ESRD on HD/hyperkalemia/volume overload-Creatinine up to 5.06 on admission and baseline is 3.6. BUN up to 126 from baseline 100. Potassium elevated at 6.4, and serum bicarbonate lower than usual at 29. VBG pH low at 7.27 with a CO2 of 63 which is higher than her usual. With pitting edema and 11 pound weight gain. She is making urine and BPs are normal. CXR with some vascular congestion. Unfortunately, renal function not improving, potassium remained elevated. Perm cath placed by Vascular Surgery on 06/24 and started on hemodialysis that day. Appreciate nephrology consultation - continued stay on PCU for telemetry monitoring -plan for 3rd session HD on 06/26 most likely - Follow BMP in the a.m. - Continue to hold home lisinopril and Januvia which must be renally dosed - Fluid restrict to 1500 mL/day, renal/dialysis diet, strict I's and O's, bladder scan as needed #Acute on chronic HFrEF/CAD s/p CABG and stents/HTN/DELORES/history of CVA-follows with CHF clinic. No chest pain. With elevated BNP greater than 4700, lower extremity pitting edema, and volume overload. BPs controlled, no acute ischemic changes on ECG. Peripheral edema improving on dialysis and received IV Bumex - Continue aspirin, Plavix, atorvastatin, and metoprolol - Continue IV Bumex as needed and starting dialysis for volume control - Holding home lisinopril - Not on SGLT2 due to renal dysfunction #Anemia of chronic kidney disease-Hgb is low at 9.6 but stable from previous, normocytic to borderline macrocytic. Recent iron studies in 06/2025 are normal with transferrin saturation 22%. B12, TSH, and folate all checked here and negative. Repeat iron studies with transferrin saturation 18% - Continue home B12 supplement and iron supplements - Give Procrit and IV iron as needed-defer to nephrology #COPD/chronic respiratory failure with hypoxemia/ESTELA-no acute issues, she is on her usual 2 LNC O2 and does not wear CPAP at night - Continue supplemental O2 - Continue home maintenance inhalers #DM 2 with neuropathy-no acute issues. HgbA1c controlled at 7.2% - Hold home Januvia as this should be renally dosed at 25 mg once daily once restarted - Continue home Rybelsus if brought in from home - Continue gabapentin 100 mg p.o. twice daily which is renally dosed - BSG's, diabetic diet, and supplemental NovoLog ordered #GERD-no acute issues - Continue Protonix #Lumbar spinal stenosis-no acute issues DVT prophylaxis-heparin SQ, DONALD hose Disposition-continued stay on PCU Patient is a full code but would not want prolonged life support, feeding tubes, or tracheostomy. Discussed her care with her nephew at the bedside on 06/24 Admission and Anticipated Discharge Date Admission Date: June 23, 2025 Subjective Pt had second round of HD today for 3 hours. She is very tired afterwards and had low appetite, did not eat lunch. Otherwise, did get to a chair for a few hours today. Denies SOB. Physical Exam Constitutional: WD/WN, vitals as above + morbidly obese Neck: trachea midline, no thyromegaly Respiratory: normal respiratory effort; no respiratory distress Auscultation: + diminished lung sounds (Throughout) Cardiovascular: Rate/Rhythm: regular rate and regular rhythm Heart Sounds: no murmur Extremities: + edema (1+ pitting edema of LEs to the thighs bilaterally, improved) and + AV fistula (Right brachial region with incision CDI) Chest (Breasts): Chest: normal inspection of chest Gastrointestinal (Abdomen): normal bowel sounds, soft, nontender, no hepatosplenomegaly Musculoskeletal: Extremities: no cyanosis and no clubbing Skin: no rashes, warm and dry Neurologic: moves all extremities and awake; no focal motor deficits Psychiatric: A+Ox3, euthymic affect Results & Data Results & Data Vital Signs (Past 12 Hours) Vital Signs Temp Pulse Pulse Resp BP BP Pulse Ox 06/25/25 17:48 06/25/25 15:58 36.6 C 63 17 136/70 96 06/25/25 14:01 63 06/25/25 13:35 36.5 C 65 18 166/66 H 96 06/25/25 13:20 36.8 C 65 131/57 L 06/25/25 13:00 61 134/63 06/25/25 12:30 63 144/54 H 06/25/25 12:00 62 122/49 L 06/25/25 11:30 63 137/56 L 06/25/25 11:00 62 119/49 L 06/25/25 10:30 64 127/50 L 06/25/25 10:12 67 127/54 L 06/25/25 10:04 36.8 C 67 06/25/25 07:24 36.9 C 61 19 127/72 95 06/25/25 07:00 65 06/25/25 07:00 Pulse Ox O2 Del Method O2 Del Method O2 Flow Rate O2 Flow Rate 06/25/25 17:48 94 Nasal Cannula 2 06/25/25 15:58 Nasal Cannula 2 06/25/25 14:01 06/25/25 13:35 Nasal Cannula 2 06/25/25 13:20 06/25/25 13:00 06/25/25 12:30 06/25/25 12:00 06/25/25 11:30 06/25/25 11:00 06/25/25 10:30 06/25/25 10:12 06/25/25 10:04 06/25/25 07:24 Nasal Cannula 2 06/25/25 07:00 06/25/25 07:00 Nasal Cannula 2 Laboratory Results BMP, phos reviewed PG Care Time/CCT Total # of Minutes Spent Total Time Spent with Patient: Total time spent is greater than 50% in coordination of care (as documented) at patient's floor/unit and/or counseling patient: Coding Level of Care Code 61703 SUB INP/OBS CARE 2/35MIN Diagnoses Hyperkalemia E87.5 Acute kidney injury superimposed on chronic kidney disease N17.9; N18.9 HFrEF (heart failure with reduced ejection fraction) I50.20 CAD (coronary atherosclerotic disease) I25.10
[2025-06-25] MEDS: ONDANSETRON INJ 2 MG/ML 2 ML VIAL IV PRN (22:08)
[2025-06-26 06:00] LABS: Hematocrit (blood only) 30.5 % (37.0-47.0); Hemoglobin 9.1 g/dL (12.0-16.0); Immature Granulocytes # (auto) 0.08 K/uL (0.01-0.20); Immature Granulocytes % (auto) 0.7 %; Mean Corpuscular Hemoglobin 29.4 pg (25.0-34.0); Mean Corpuscular Volume 98.4 fL (80.0-100.0); Platelet Count 130 K/uL (130-400); RDW Standard Deviation 57.5 fL (36.4-46.3); Red Blood Count 3.10 M/uL (4.20-5.40); White Blood Count 11.28 K/ul (4.8-10.8)
[2025-06-26 06:23] LABS: Albumin Level 3.3 gm/dl (3.4-5.0); Anion Gap 8.0 (3-11); Blood Urea Nitrogen 53.0 mg/dl (6-23); Calcium 8.3 mg/dl (8.6-10.3); Carbon Dioxide 31.0 mmol/L (21-32); Chloride 101.0 mmol/L (98-107); Creatinine Clr Calc Pharmacy 11.4 ml/min; Glucose 128.0 mg/dl (70-99(Fasting)); Potassium 4.7 mmol/L (3.5-5.1); Sodium 140.0 mmol/L (136-145)
--- NOTE | 2025-06-26 06:34 | Electrocardiogram Report ---
Test Reason : Blood Pressure : */* mmHG Vent. Rate : 63 BPM Atrial Rate : 63 BPM P-R Int : 182 ms QRS Dur : 112 ms QT Int : 470 ms P-R-T Axes : -7 -48 145 degrees QTcB Int : 480 ms Normal sinus rhythm Left anterior fascicular block Minimal voltage criteria for LVH, may be normal variant ( [place] product ) Poor R wave progression, consider anterior ID vs. lead placement vs. LVH Prolonged QT Abnormal ECG When compared with ECG of 07-May-2025 14:57, Incomplete right bundle branch block is no longer Present T wave inversion less evident in Anterolateral leads Confirmed by Chas Duarte ([id number] on 06/26/2025 6:34:26 AM Referred By: Confirmed By: Chas Duarte
--- NOTE | 2025-06-26 09:55 | Nephrology Progress Note ---
Date of Service June 26, 2025 Assessment & Plan (1) Acute kidney injury superimposed on chronic kidney disease: (2) Hyperkalemia: (3) Generalized weakness: (4) Chronic kidney disease, stage 4 (severe): (5) HFrEF (heart failure with reduced ejection fraction): (6) Anemia due to chronic kidney disease: Plan 80-year-old female with ESKD, , HFrEF, DM2, CAD s/p CABG presented with generalized weakness, decreased appetite, SOB, weight gain and increased lower extremity edema for a week. Lab showed LUCERO and hyperkalemia, cr 5.2 with b/l cr around 3.5 to 3.8 mg/dl, K was 6.4. CXR showed pulmonary congestion. In ER she received Bumex 4 mg IV x 1, Lokelma, insulin and D50, calcium gluconate, and an albuterol nebulizer. Had Rt BC AVF placed on 06/16/25. Had Rt IJ TDC on 06/24/25 and had first HD for 2 h. --plan for 3.5 h HD today and then continue TTS, next HD on Monday at [facility]. --monitor intake and output --dose meds from eGFR <15 --Epogen and Venofer with dialysis treatment. --Continue on calcitriol 0.25 mcg 3 times a week, low salt diet. Admission and Anticipated Discharge Date Admission Date: June 23, 2025 Marcel Watson was seen and evaluated during dialysis this morning. She denied any specific symptoms, overall feeling better. Tolerated dialysis yesterday. She denies significant shortness of breath, nausea, vomiting or abdominal pain. Hemoglobin low but staying stable. Blood pressure stable. Review of Systems Review of Systems: Detailed review of system was otherwise unremarkable. Physical Exam Constitutional: WD/WN, vitals as above no acute distress Eyes: + anicteric sclerae Respiratory: no respiratory distress Cardiovascular: Rate/Rhythm: regular rate and regular rhythm Heart Sounds: normal S1 and normal S2 Extremities: + edema, + vascular access device (Rt IJ TDC) and + AV fistula Musculoskeletal: Extremities: extremities normal to inspection Skin: no rashes, warm and dry Neurologic: no focal motor deficits Psychiatric: Orientation: alert and oriented x 3 Affect: + depressed affect and + anxious affect Results & Data Vital Signs (Past 12 Hours) Vital Signs Temp Pulse Pulse Pulse Resp BP Pulse Ox 06/26/25 07:50 36.8 C 60 18 111/69 95 06/26/25 03:23 36.8 C 95 H 17 108/48 L 95 06/25/25 23:38 61 06/25/25 23:26 36.8 C 61 17 87/48 L 91 06/25/25 22:01 O2 Del Method O2 Flow Rate 06/26/25 07:50 Nasal Cannula 2 06/26/25 03:23 Nasal Cannula 2 06/25/25 23:38 06/25/25 23:26 Nasal Cannula 2 06/25/25 22:01 Nasal Cannula 2 PG Care Time/CCT Total # of Minutes Spent Total Time Spent with Patient: Total time spent is greater than 50% in coordination of care (as documented) at patient's floor/unit and/or counseling patient: Coding Level of Care Code 76844 SUB INP/OBS CARE 2/35MIN Diagnoses Acute kidney injury superimposed on chronic kidney disease N17.9; N18.9 Hyperkalemia E87.5 Generalized weakness R53.1 Chronic kidney disease, stage 4 (severe) N18.4 HFrEF (heart failure with reduced ejection fraction) I50.20 Anemia due to chronic kidney disease N18.9; D63.1
--- NOTE | 2025-06-26 18:39 | Hospitalist Progress Note ---
Date of Service June 26, 2025 Assessment & Plan (1) End stage renal disease: (2) HFrEF (heart failure with reduced ejection fraction): (3) CAD (coronary atherosclerotic disease): (4) Anemia due to chronic kidney disease: Plan This patient is a 80-year-old female with a history of CKD stage IV, HFrEF, DM2 with neuropathy, ESTELA, CAD s/p CABG and stents, HTN, CVA, anemia of chronic renal disease, COPD, chronic respiratory failure with hypoxia, secondary hyperparathyroidism, carotid artery stenosis, GERD, lumbar spinal stenosis, who recently had an AV fistula placed 1 week prior who is admitted with volume overload, uremia, and progression to ESRD with hyperkalemia, acute on chronic HFrEF #ESRD on HD/hyperkalemia/volume overload-Creatinine up to 5.06 on admission and baseline is 3.6. BUN up to 126 from baseline 100. Potassium elevated at 6.4, and serum bicarbonate lower than usual at 29. VBG pH low at 7.27 with a CO2 of 63 which is higher than her usual. With pitting edema and 11 pound weight gain. She is making urine and BPs are normal. CXR with some vascular congestion. Unfortunately, renal function not improving, potassium remained elevated. Perm cath placed by Vascular Surgery on 06/24 and started on hemodialysis-she has now completed 3 sessions as an inpatient and tolerated them well. Appreciate nephrology consultation - Stable for discharge to home on 06/27 with outpatient dialysis to commence 06/28 - Follow BMP in the a.m. - Continue to hold home lisinopril and Januvia which must be renally dosed-Will discuss with nephrology if lisinopril should be continued on discharge - Fluid restrict to 1500 mL/day, renal/dialysis diet, strict I's and O's, bladder scan as needed #Acute on chronic HFrEF/CAD s/p CABG and stents/HTN/DELORES/history of CVA-follows with CHF clinic. No chest pain. With elevated BNP greater than 4700, lower extremity pitting edema, and volume overload. BPs controlled, no acute ischemic changes on ECG. Peripheral edema improving on dialysis and received IV Bumex - Continue aspirin, Plavix, atorvastatin, and metoprolol - Continue dialysis for volume control - Holding home lisinopril - Not on SGLT2 due to renal dysfunction #Anemia of chronic kidney disease-Hgb is low at 9.1 but stable from previous, normocytic to borderline macrocytic. Recent iron studies in 06/2025 are normal with transferrin saturation 22%. B12, TSH, and folate all checked here and negative. Repeat iron studies with transferrin saturation 18%. Received IV iron and Epogen as an inpatient. - Continue home B12 supplement and iron supplements - Give Procrit and IV iron as needed-defer to nephrology at dialysis #COPD/chronic respiratory failure with hypoxemia/ESTELA-no acute issues, she is on her usual 2 LNC O2 and does not wear CPAP at night - Continue supplemental O2 - Continue home maintenance inhalers #DM 2 with neuropathy-no acute issues. HgbA1c controlled at 7.2% - Hold home Januvia as this should be renally dosed at 25 mg once daily once restarted - Continue home Rybelsus if brought in from home - Continue gabapentin 100 mg p.o. twice daily which is renally dosed - BSG's, diabetic diet, and supplemental NovoLog ordered #GERD-no acute issues - Continue Protonix #Lumbar spinal stenosis-no acute issues DVT prophylaxis-heparin SQ, DONALD hose Disposition-continued stay on PCU, but likely discharge to home on 06/27. Ordered PT/OT evaluations prior to discharge to ensure she is stable to go home Patient is a full code but would not want prolonged life support, feeding tubes, or tracheostomy. Discussed her care with her nephew at the bedside on 06/24 Admission and Anticipated Discharge Date Admission Date: June 23, 2025 Subjective Patient had a third session of dialysis today which she tolerated well. She is then up most of the day but was sleeping when I saw her in the evening. No other concerns. I discussed her care with nephrology. Telemetry with sinus bradycardia with rates in the 50s and 60s and some PVCs Physical Exam Constitutional: WD/WN, vitals as above + morbidly obese Neck: trachea midline, no thyromegaly Respiratory: normal respiratory effort; no respiratory distress Aus cultation: + diminished lung sounds (Throughout) Cardiovascular: Rate/Rhythm: regular rate and regular rhythm Heart Sounds: no murmur Extremities: + edema (1+ pitting edema of LEs to the thighs bilaterally, improved) and + AV fistula (Right brachial region with incision CDI) Chest (Breasts): Chest: normal inspection of chest Gastrointestinal (Abdomen): normal bowel sounds, soft, nontender, no hepatosplenomegaly Musculoskeletal: Extremities: no cyanosis and no clubbing Skin: no rashes, warm and dry Neurologic: moves all extremities and awake; no focal motor deficits Psychiatric: A+Ox3, euthymic affect Results & Data Results & Data Vital Signs (Past 12 Hours) Vital Signs Temp Pulse Pulse Pulse Resp BP BP 06/26/25 18:00 06/26/25 15:23 36.8 C 63 19 97/49 L 06/26/25 13:08 06/26/25 13:06 63 06/26/25 12:53 36.4 C L 59 L 19 120/48 L 06/26/25 12:45 36.8 C 60 115/57 L 06/26/25 12:30 58 L 110/58 L 06/26/25 12:00 58 L 111/51 L 06/26/25 11:30 58 L 122/49 L 06/26/25 11:22 36.4 C L 90 21 137/78 06/26/25 11:00 61 117/38 L 06/26/25 10:46 62 06/26/25 10:30 63 126/68 06/26/25 10:00 59 L 128/52 L 06/26/25 09:30 61 102/47 L 06/26/25 09:12 60 124/48 L 06/26/25 09:08 36.7 C 63 06/26/25 07:50 36.8 C 60 18 111/69 06/26/25 07:30 Pulse Ox O2 Del Method O2 Del Method O2 Flow Rate O2 Flow Rate 06/26/25 18:00 Nasal Cannula 2 06/26/25 15:23 97 Nasal Cannula 2 06/26/25 13:08 Nasal Cannula 2 06/26/25 13:06 06/26/25 12:53 100 Nasal Cannula 2 06/26/25 12:45 06/26/25 12:30 06/26/25 12:00 06/26/25 11:30 06/26/25 11:22 96 Nasal Cannula 6 06/26/25 11:00 06/26/25 10:46 06/26/25 10:30 06/26/25 10:00 06/26/25 09:30 06/26/25 09:12 06/26/25 09:08 06/26/25 07:50 95 Nasal Cannula 2 06/26/25 07:30 Nasal Cannula 2 Laboratory Results CBC, BMP, phosphorus reviewed PG Care Time/CCT Total # of Minutes Spent Total Time Spent with Patient: Total time spent is greater than 50% in coordination of care (as documented) at patient's floor/unit and/or counseling patient: Coding Level of Care Code 27363 SUB INP/OBS CARE 2/35MIN Diagnoses End stage renal disease N18.6 HFrEF (heart failure with reduced ejection fraction) I50.20 CAD (coronary atherosclerotic disease) I25.10 Anemia due to chronic kidney disease N18.9; D63.1
[2025-06-27 05:33] LABS: Albumin Level 3.5 gm/dl (3.4-5.0); Anion Gap 9.0 (3-11); Blood Urea Nitrogen 30.0 mg/dl (6-23); Calcium 8.4 mg/dl (8.6-10.3); Carbon Dioxide 30.0 mmol/L (21-32); Chloride 98.0 mmol/L (98-107); Creatinine Clr Calc Pharmacy 13.6 ml/min; Glucose 122.0 mg/dl (70-99(Fasting)); Potassium 4.5 mmol/L (3.5-5.1); Sodium 137.0 mmol/L (136-145)
--- NOTE | 2025-06-27 09:58 | Nephrology Progress Note ---
Date of Service June 27, 2025 Assessment & Plan (1) Acute kidney injury superimposed on chronic kidney disease: (2) Hyperkalemia: (3) Generalized weakness: (4) Chronic kidney disease, stage 4 (severe): (5) HFrEF (heart failure with reduced ejection fraction): (6) Anemia due to chronic kidney disease: Plan 80-year-old female with ESKD, , HFrEF, DM2, CAD s/p CABG presented with generalized weakness, decreased appetite, SOB, weight gain and increased lower extremity edema for a week. Lab showed LUCERO and hyperkalemia, cr 5.2 with b/l cr around 3.5 to 3.8 mg/dl, K was 6.4. CXR showed pulmonary congestion. In ER she received Bumex 4 mg IV x 1, Lokelma, insulin and D50, calcium gluconate, and an albuterol nebulizer. Had Rt BC AVF placed on 06/16/25. Had Rt IJ TDC on 06/24/25 and had first HD for 2 h. Had [id number] dialysis for 3 days, had 3.5 hours dialysis yesterday, tolerated well. Volume status improved significantly. Electrolyte acceptable. Blood pressure well- controlled. --Scheduled to have outpatient dialysis on TTS, starting Monday at [facility] --monitor intake and output --dose meds from eGFR <15 --Epogen and Venofer with dialysis treatment. --Continue on calcitriol 0.25 mcg 3 times a week, low salt diet. Admission and Anticipated Discharge Date Admission Date: June 23, 2025 Marcel Watson was seen and evaluated this morning. She denied any specific symptoms, overall feeling better. Tolerated 3rd dialysis yesterday. She denies significant shortness of breath, nausea, vomiting or abdominal pain. Hemoglobin low but staying stable. Blood pressure stable. Review of Systems Review of Systems: Detailed review of system was otherwise unremarkable. Physical Exam Constitutional: WD/WN, vitals as above no acute distress Eyes: + anicteric sclerae Respiratory: no respiratory distress Cardiovascular: Rate/Rhythm: regular rate and regular rhythm Heart Sounds: normal S1 and normal S2 Extremities: + edema, + vascular access device (Rt IJ TDC) and + AV fistula Musculoskeletal: Extremities: extremities normal to inspection Skin: no rashes, warm and dry Neurologic: no focal motor deficits Psychiatric: Orientation: alert and oriented x 3 Affect: + depressed affect and + anxious affect Results & Data Vital Signs (Past 12 Hours) Vital Signs Temp Pulse Pulse Resp BP Pulse Ox O2 Del Method 06/27/25 08:12 Nasal Cannula 06/27/25 07:51 37.0 C 62 19 117/71 96 Nasal Cannula 06/27/25 03:27 36.7 C 59 L 16 110/67 97 Nasal Cannula 06/27/25 02:59 Nasal Cannula 06/26/25 23:05 56 L 06/26/25 23:05 36.6 C 60 16 108/67 96 Nasal Cannula O2 Flow Rate 06/27/25 08:12 06/27/25 07:51 2.0 06/27/25 03:27 2 06/27/25 02:59 2 06/26/25 23:05 06/26/25 23:05 2 PG Care Time/CCT Total # of Minutes Spent Total Time Spent with Patient: Total time spent is greater than 50% in coordination of care (as documented) at patient's floor/unit and/or counseling patient: Coding Level of Care Code 02679 SUB INP/OBS CARE 2/35MIN Diagnoses Acute kidney injury superimposed on chronic kidney disease N17.9; N18.9 Hyperkalemia E87.5 Generalized weakness R53.1 Chronic kidney disease, stage 4 (severe) N18.4 HFrEF (heart failure with reduced ejection fraction) I50.20 Anemia due to chronic kidney disease N18.9; D63.1
--- NOTE | 2025-06-27 10:26 | Discharge Summary ---
Discharge Summary Date of Service June 27, 2025 Principal Dx & Hospital Course #1 = Principal Diagnosis (1) End stage renal disease: (2) HFrEF (heart failure with reduced ejection fraction): (3) CAD (coronary atherosclerotic disease): (4) Anemia due to chronic kidney disease: Plan This patient is a 80-year-old female with a history of CKD stage IV, HFrEF, DM2 with neuropathy, ESTELA, CAD s/p CABG and stents, HTN, CVA, anemia of chronic renal disease, COPD, chronic respiratory failure with hypoxia, secondary hyperparathyroidism, carotid artery stenosis, GERD, lumbar spinal stenosis, who recently had an AV fistula placed 1 week prior who is admitted with volume overload, uremia, and progression to ESRD with hyperkalemia, acute on chronic HFrEF #ESRD on HD/hyperkalemia/volume overload-Creatinine up to 5.06 on admission and baseline is 3.6. BUN up to 126 from baseline 100. Potassium elevated at 6.4, and serum bicarbonate lower than usual at 29. VBG pH low at 7.27 with a CO2 of 63 which is higher than her usual. With pitting edema and 11 pound weight gain. She is making urine and BPs are normal. CXR with some vascular congestion. Unfortunately, renal function not improving, potassium remained elevated. Perm cath placed by Vascular Surgery on 06/24 and started on hemodialysis-she has now completed 3 sessions as an inpatient and tolerated them well. Appreciate nephrology consultation - Stable for discharge to home on 06/27 with outpatient dialysis to commence 06/28 - Discontinued home lisinopril - Fluid restrict to 1500 mL/day, renal/dialysis diet #Acute on chronic HFrEF/CAD s/p CABG and stents/HTN/DELORES/history of CVA-follows with CHF clinic. No chest pain. With elevated BNP greater than 4700, lower extremity pitting edema, and volume overload. BPs controlled, no acute ischemic changes on ECG. Peripheral edema improving on dialysis and received IV Bumex - Continue aspirin, Plavix, atorvastatin, and metoprolol - Continue dialysis for volume control - Discontinued home lisinopril - Not on SGLT2 due to renal dysfunction - Discussed with HIREN Mahmood at CHF clinic-no need to further follow in her clinic-most likely is volume management will be through dialysis #Anemia of chronic kidney disease-Hgb is low at 9.1 but stable from previous, normocytic to borderline macrocytic. Recent iron studies in 06/2025 are normal with transferrin saturation 22%. B12, TSH, and folate all checked here and negative. Repeat iron studies with transferrin saturation 18%. Received IV iron and Epogen as an inpatient. - Continue home B12 supplement and iron supplements - Give Procrit and IV iron as needed-defer to nephrology at dialysis #COPD/chronic respiratory failure with hypoxemia/ESTELA-no acute issues, she is on her usual 2 LNC O2 and does not wear CPAP at night - Continue supplemental O2 - Continue home maintenance inhalers #DM 2 with neuropathy-no acute issues. HgbA1c controlled at 7.2% - Reduce dose of home Januvia to 25 mg once daily for renal dosing - Continue home Rybelsus - Continue gabapentin 100 mg p.o. twice daily which is renally dosed #GERD-no acute issues - Continue Protonix #Lumbar spinal stenosis-no acute issues DVT prophylaxis-heparin SQ, DONALD hose Disposition-stable for discharge to home Patient is a full code but would not want prolonged life support, feeding tubes, or tracheostomy. Discussed her care with her nephew at the bedside on 06/24 Notes For Next Care Provider Medication Changes From Visit See medication list Admission HPI Per Admitting Provider This patient is a 80-year-old female with a history of CKD stage IV, HFrEF, DM2 with neuropathy, ESTELA, CAD s/p CABG and stents, HTN, CVA, anemia of chronic renal disease, COPD, chronic respiratory failure with hypoxia, secondary hyperparathyroidism, carotid artery stenosis, GERD, lumbar spinal stenosis, who recently had an AV fistula placed 1 week prior and now presents with worsening fatigue, decreased appetite, increased weight of 11 pounds and increased lower extremity edema over the last week. She denies any increase in fluid or sodium in her diet. She reports she has been taking extra Lasix 120 mg p.o. twice daily rather than once daily for the last week or so without improvement. She denies fevers or chills, chest pains, SOB. She did vomit once in the ED after being given medications for hyperkalemia. She was found in the ED to have an acute kidney injury and hyperkalemia. Nephrology was contacted by the ED physician who recommended Bumex 4 mg IV x 1, Lokelma, and treatment of hyperkalemia otherwise-she was given sodium bicarb, insulin and D50, calcium gluconate, and an albuterol nebulizer. She will be admitted for LUCERO on CKD stage IV and hyperkalemia as well as hypervolemia Discharge Exam Constitutional WD/WN, vitals as above + morbidly obese Neck trachea midline, no thyromegaly Respiratory normal respiratory effort; no respiratory distress Auscultation: + diminished lung sounds (Throughout) Cardiovascular Rate/Rhythm: regular rate and regular rhythm Heart Sounds: no murmur Extremities: + edema (1+ pitting edema of LEs to the thighs bilaterally, improved) and + AV fistula (Right brachial region with incision CDI) Chest (Breasts) Chest: + abnormal inspection of chest (Right anterior chest wall tunneled dialysis catheter, surrounding ecchymosi) Gastrointestinal (Abdomen) normal bowel sounds, soft, nontender, no hepatosplenomegaly Musculoskeletal Extremities: no cyanosis and no clubbing Skin no rashes, warm and dry Neurologic moves all extremities and awake; no focal motor deficits Psychiatric A+Ox3, euthymic affect Discharge Plan Discharge Items Patient Disposition: Home - Self-Care Reason For Visit: LUCERO, HYPERKALEMIA Discharge Diagnosis: End-stage renal disease on hemodialysis Hyperkalemia Acute on chronic HFrEF Condition on Discharge: Fair Activity: As commented below Bathing Comment: Keep your catheter dry when bathing Weightbearing: Full weightbearing Non-emergency contact: Primary Care Provider and Public Welfare Director Call non-emergency contact if: you have any medication questions Follow-up/Referrals: Julienne Espinosa MD [Physician] - 07/07/25 3:20 pm Cindy Winters MD [Primary Care Provider] - 07/11/25 1:00 pm (Follow-up within 1-2 weeks) Diet: Dialysis Renal and Low Sodium (2gm) Fluids: 1500ml (6 cups) Addtl Attending Provider Instructions: You are admitted with fluid overload and high potassium levels from worsening kidney failure. You were started on dialysis and had improvement. Please continue going to dialysis every Monday and Monday as planned. Your lisinopril is now discontinued. Your Lokelma and magnesium have also been discontinued. Your Lasix dose has been reduced to 40 mg daily. Your Januvia (sitagliptin) dose has been reduced to 25 mg daily. Call your Primary Care doctor if any of the following symptoms or problems start or get worse: * Shortness of breath or difficulty breathing * Wake up at night short of breath * Chest pain * Cough * Swelling of your hands, feet, or legs * More fatigued or tired with your normal activity * Palpitations - sudden fast heart beats WEIGHT * Weigh yourself every morning after using the bathroom. * Use the same scale. * Wear the same amount of clothing. * Write your weight down on a chart. * Call your Primary Care doctor if you gain more than 2-3 pounds in 1-2 days. MEDICATIONS * Use this discharge instruction sheet for medication instructions. * Take your medications at the time your doctor ordered. * Do not skip a dose of your medicines. * If you miss a dose of medicine, take it as soon as possible, but DO NOT DOUBLE A DOSE. * Read your medicine information when you get home. * Know all of the side effects of your medicine. If in doubt, ask your pharmacist * Call your Primary Care doctor's office if you have any side effects. * Be sure all of your doctors know what medicine and herbs you take (including cold, flu, and herbal medicine). Take the following with you to your follow-up doctor appointments: * Weight Chart * Medication List * List of questions Do not drink excessive alcohol, beer or wine. It was a pleasure taking care of you! If you have any questions about your care before your hospital follow-up visit with your primary care provider, please call [phone] and ask to be transferred to the [facility] Medicine office. Sincerely, Naomi Mcmahon M.D. Pending Studies at Discharge: No Stand-Alone Forms: My [facility], Smoking Cessation Medications and DC Order Prescriptions: New furosemide [Lasix] 40 mg tablet 40 mg PO DAILY Qty: 30 0RF polyethylene glycol 3350 [Miralax] 17 gram/dose powder 17 g PO DAILY PRN (Reason: constipation) Qty: 119 0RF Rx Instructions: Over the counter Continued nitroglycerin [Nitrostat] 0.4 mg tablet, sublingual 0.4 mg Sublingual UD PRN (Reason: Chest Pain) Qty: 30 5RF (DME) OneTouch Ultra Test Strip See Rx Instructions .Route Qty: 100 3RF Rx Instructions: test once daily atorvastatin 80 mg tablet 80 mg PO QPM Qty: 90 3RF gabapentin [Neurontin] 100 mg capsule 100 mg PO BID Qty: 180 3RF clopidogrel 75 mg tablet 75 mg PO QAM Qty: 90 3RF pantoprazole 40 mg tablet,delayed release (DR/EC) 40 mg PO QAM Qty: 90 3RF PreserVision AREDS 2,148 mcg-113 mg-45 mg-17.4mg tablet 2 tab PO BID Rx Instructions: administer with AM and PM meals aspirin [Adult Aspirin Regimen] 81 mg tablet,delayed release (DR/EC) 81 mg PO QAM ferrous sulfate 325 mg (65 mg iron) tablet 325 mg PO BID (DME) Portable Oxygen Misc See Rx Instructions .Route Qty: 1 0RF Rx Instructions: oxygen 2L via nasal cannula at rest and 3L via nasal cannula with exertion/activity. Please re-evaluate on POC to keep sats > 90%. calcium carbonate-vitamin D3 [Caltrate with Vitamin D3] 600 mg-20 mcg (800 unit) tablet 1 tab PO BID albuterol sulfate 90 mcg/actuation HFA aerosol inhaler 2 puff inhalation Q6H PRN (Reason: shortness of breath or wheezing) Qty: 8.5 3RF fluticasone furoate-vilanterol [Breo Ellipta] 100-25 mcg/dose blister with device 1 inh inhalation DAILY Qty: 60 7RF Incruse Ellipta 62.5 mcg/actuation blister with device 1 inh inhalation DAILY Qty: 30 7RF tramadol 50 mg tablet 50 mg PO BID PRN (Reason: pain) Qty: 20 0RF Procrit 40,000 unit/mL solution 40,000 unit subcut .Qmonth Rx Instructions: hold for hgb 10 or greater cholecalciferol (vitamin D3) 25 mcg (1,000 unit) Capsule 1,000 unit PO QAM cyanocobalamin (vitamin B-12) 1,000 mcg Tablet 1,000 mcg PO QAM metoprolol succinate 100 mg tablet extended release 24 hr 100 mg PO QAM Rybelsus 7 mg tablet 7 mg PO QAM Changed sitagliptin phosphate 25 mg tablet 25 mg PO DAILY Qty: 30 0RF Discontinued Slow-Mag 71.5 mg tablet,delayed release (DR/EC) 71.5 mg PO BID Qty: 180 3RF Lokelma 10 gram powder in packet 10 g PO DAILY Rx Instructions: Take daily furosemide 80 mg tablet 120 mg PO QAM Rx Instructions: May increase to 120 mg BID as needed for weight gain, swelling, SOB lisinopril 5 mg tablet 5 mg PO QAM Rx Instructions: ON HOLD Discharge Orders: Discharge Order (Routine); Ordered 06/27/25 Ordered By: Naomi Hernandez/Other Patient Handouts: Managing Type 2 Diabetes Admission Data Admit Date/Time: 06/23/25 17:29 Attending Provider: Naomi Mcmahon Admit Provider: Naomi Mcmahon Primary Care Provider: Cindy Winters Other Providers: Naomi Mcmahon; Julienne Espinosa; Rey Morales Other Interventions: Discharge Summary Assessment (RN) Last Done: 06/27/25 10:37 Hospital Stay Data Consultations 06/23/25 16:43 ED Decision to Admit Stat 06/23/25 16:51 ED Decision to Admit Stat 06/23/25 17:29 Consult Nephrology Routine 06/23/25 18:30 Consult Vascular Surgery Routine Procedures Performed Operation Date: 06/24/25 09:50 Actual Procedures p Insertion of Perm Catheter, Right Internal Jugular Approach, Ultrasound Localization of Right Internal Jugular Vein, Fluoroscopy for Positioning, Moderate Sedation Time 1581-5005(Right) - Rey Morales MD Diagnostic Imagining Performed 06/24/25 12:54 EV cvc insrt tunnel wo prt/hot box spotter Routine US EV guide vascular access Routine Pending Results Patient Have Any Pending Studies at Discharge: No Discharge Instructions Given to Patient (Per Discharging Provider) You are admitted with fluid overload and high potassium levels from worsening kidney failure. You were started on dialysis and had improvement. Please continue going to dialysis every Monday and Monday as planned. Your lisinopril is now discontinued. Your Lokelma and magnesium have also been discontinued. Your Lasix dose has been reduced to 40 mg daily. Your Januvia (sitagliptin) dose has been reduced to 25 mg daily. Call your Primary Care doctor if any of the following symptoms or problems start or get worse: * Shortness of breath or difficulty breathing * Wake up at night short of breath * Chest pain * Cough * Swelling of your hands, feet, or legs * More fatigued or tired with your normal activity * Palpitations - sudden fast heart beats WEIGHT * Weigh yourself every morning after using the bathroom. * Use the same scale. * Wear the same amount of clothing. * Write your weight down on a chart. * Call your Primary Care doctor if you gain more than 2-3 pounds in 1-2 days. MEDICATIONS * Use this discharge instruction sheet for medication instructions. * Take your medications at the time your doctor ordered. * Do not skip a dose of your medicines. * If you miss a dose of medicine, take it as soon as possible, but DO NOT DOUBLE A DOSE. * Read your medicine information when you get home. * Know all of the side effects of your medicine. If in doubt, ask your pharmacist * Call your Primary Care doctor's office if you have any side effects. * Be sure all of your doctors know what medicine and herbs you take (including cold, flu, and herbal medicine). Take the following with you to your follow-up doctor appointments: * Weight Chart * Medication List * List of questions Do not drink excessive alcohol, beer or wine. It was a pleasure taking care of you! If you have any questions about your care before your hospital follow-up visit with your primary care provider, please call [phone] and ask to be transferred to the [facility] Medicine office. Sincerely, Naomi Mcmahon M.D. Total Time Total Time Spent Total Time Spent (In Minutes): 35 minutes Total Time Includes: Examination of the Patient, Discharge Planning, Medication Reconciliation and Communication With Other Providers (Nephrology) Coding Level of Care Code 13551 INP/OBS DISCH >30 MIN Diagnoses End stage renal disease N18.6 HFrEF (heart failure with reduced ejection fraction) I50.20 CAD (coronary atherosclerotic disease) I25.10 Anemia due to chronic kidney disease N18.9; D63.1
[2025-06-27 10:42] VITALS: PULSE 59
[2025-06-27 12:04] VITALS: BP 99/63; RESP 18; TEMP 98.1; O2SAT 97
== END 2025-06-27 13:43 | disposition home or self-care (01) | DRG 291 ==
LOC: SUATTDRO → ED 13:06 → 4W 17:29